=== PATIENT | male | born 1955 | race Caucasian/White ===

== ENCOUNTER 2017-02-25 02:26 | Inpatient (IN) | payer MEDICARE ==
[2017-02-25] MEDS ORDERED: Lorazepam 2 MG/ML VIAL ONE ×3 (02:58→03:22)
[2017-02-25 03:13] LABS: Hematocrit 21.8 % (42.0-52.0); Mean Platelet Volume 5.6 fL (7.4-10.4)
[2017-02-25 03:15] LABS: ALT (SGPT) 11 U/L (8-55); AST (SGOT) 31 U/L (5-34); Acetaminophen Less than 6.0 mcg/mL (10.0-30.0); Alkaline Phosphatase 99 U/L (40-150); Anion Gap 24 mmol/L (10-20); BUN (Urea Nitrogen) 47 mg/dL (8.4-25.7); Bilirubin, Total Less than 0.2 mg/dL (0.2-1.2); CK (CPK) 41 U/L (30-200); Calc. Creatinine Clearance 0 mL/min (70-130); Calcium 10.1 mg/dL (7.8-10.44); Carbon Dioxide 23 mmol/L (23-31); Chloride 88 mmol/L (98-107); Estimated GFR-MDRD 16; Globulin 5.7 g/dL (2.4-3.5); Protein, Total 8.6 g/dL (5.8-8.1); Salicylate Less than 8.0 mg/dL (15.0-30.0)
[2017-02-25 03:29] LABS: Troponin I 0.021 ng/mL (< 0.028)
[2017-02-25 03:31] LABS: Band 6 % (5-11); Hypochromia SLIGHT = 6-15 cells (100X) (0-5/hpf); Metamyelocyte 1 % (0-0); Myelocyte 3 % (0-0); Neutrophil 77 % (42-75); Polychromasia SLIGHT = 2-3 cells (100X) (0-2/hpf); White Blood Cell (WBC) Count 28.1 thou/uL (4.8-10.8)
[2017-02-25 04:01] LABS: Oxyhemoglobin 95.8 % (94.0-97.0); Sodium 130 mmol/L (135-148)
[2017-02-25 04:04] LABS: Modified Allen's Test POSITIVE; Vent NO
[2017-02-25 04:05] LABS: Mode RA
[2017-02-25 04:10] LABS: Glucose, Urine (Dipstick) 100 mg/dL (Negative); Ketone, Urine Negative (Negative); Nitrite Negative (Negative); Protein, Urine (Dipstick) 100 mg/dL (Neg-Trace); Urobilinogen 0.2 mg/dL (0.2-1.0)
[2017-02-25 04:11] LABS: Bilirubin Negative (Negative); Blood, Urine Large (Negative)
[2017-02-25] MEDS ORDERED: Piperacillin/Tazobactam 3.375 GM in Sodium Chloride 0.9% 100 ML IVPB SCH (04:15)
[2017-02-25 04:24] LABS: Bacteria/HPF None Seen HPF (None Seen)
[2017-02-25 04:33] LABS: Amphetamine Not Detected (NotDetected); Methadone Not Detected (NotDetected); Methamphetamine Not Detected (NotDetected)
[2017-02-25 04:39] LABS: Lactic Acid - Sepsis 5.2 mmol/L (0.5-2.2)
[2017-02-25 04:39] LABS: RBC/HPF GREATER THAN 50-TNTC HPF (0-3)
[2017-02-25 04:40] LABS: Renal Epithelial None Seen HPF (0-3); Transitional Epithelial 0-3 HPF (0-3); Yeast-All Forms None Seen HPF (None Seen)
[2017-02-25 04:41] LABS: Hyaline Casts/LPF NONE SEEN LPF (0-3 Hyaline)
[2017-02-25] MEDS ORDERED: Acetaminophen 325 MG TAB PO PRN (05:41)
--- NOTE | 2017-02-25 05:41 | PDOC.EVN ---
Event Note - Event Note Event Note: [id number] h&p dictated 1. Sepsis 2. Hematuria 3. Encephalopathy 4.DM type 2 see order
[2017-02-25] MEDS ORDERED: Dextrose 50% Abboject 50 ML SYRINGE SLOW IVP PRN (05:49)
[2017-02-25] MEDS ORDERED: Dextrose 5% in Water 1,000 ML IV PRN (05:49)
[2017-02-25] MEDS ORDERED: HumaLOG 300 UNITS/3 ML VIAL SC PRN (05:49)
[2017-02-25 06:52] LABS: Troponin I 0.011 ng/mL (< 0.028)
--- NOTE | 2017-02-25 08:27 | PDOC.PN ---
- Subjective Encounter Start Date: 02/25/17 Encounter Start Time: 08:21 Subjective: endlessly hollering HELP, wasts to go to [facility] - Objective MAR Reviewed: Yes Vital Signs & Weight: Vital Signs (12 hours) Temp 02/25/17 07:05 98.1 F 02/25/17 06:36 98.3 F Most Recent Monitor Data Heart Rate from ECG 103 NIBP 131/60 Respiration from ECG 23 I&O: 02/24/17 02/25/17 02/26/17 06:59 06:59 06:59 Intake Total 0 Balance 0 Result Diagrams: 02/25/17 02:40 02/25/17 02:40 Additional Labs: Accuchecks 02/25/17 06:17 POC Glucose 297 H Radiology Reviewed by me: Yes (cxr- R pleural effusion) Phys Exam - Physical Examination Constitutional: NAD Neck: no JVD dull R base, good BS ant Cardiovascular: RRR, no significant murmur Gastrointestinal: soft, positive bowel sounds Musculoskeletal: edema present Dx/Plan (1) Sepsis Code(s): A41.9 - SEPSIS, UNSPECIFIED ORGANISM Status: Acute Qualifiers: Sepsis type: sepsis due to unspecified organism Qualified Code(s): A41.9 - Sepsis, unspecified organism (2) Acute renal failure Status: Acute Qualifiers: Acute renal failure type: unspecified Qualified Code(s): N17.9 - Acute kidney failure, unspecified (3) Pleural effusion Code(s): J90 - PLEURAL EFFUSION, NOT ELSEWHERE CLASSIFIED Status: Acute (4) DM type 2 (diabetes mellitus, type 2) Status: Chronic Qualifiers: Diabetes mellitus complication status: with kidney complications Diabetes mellitus complication detail: with other kidney complication (5) Cardiomyopathy Code(s): I42.9 - CARDIOMYOPATHY, UNSPECIFIED Status: Chronic Qualifiers: Cardiomyopathy type: unspecified Qualified Code(s): I42.9 - Cardiomyopathy , unspecified (6) Lactic acidosis Code(s): E87.2 - ACIDOSIS Status: Acute (7) CVA, old, hemiparesis Code(s): I69.359 - HEMIPLGA FOLLOWING CEREBRAL INFARCTION AFFECTING UNSP SIDE Status: Chronic (8) Anemia Code(s): D64.9 - ANEMIA, UNSPECIFIED Status: Acute Qualifiers: Anemia type: unspecified type Qualified Code(s): D64.9 - Anemia, unspecified - Plan cultures in progress- cont iv antibx -: accu/ss. cont iv fluids -: BNP, ECHO, performance improvement coordinator consult -: PRBC infusion in progress, STEWARD anemia * .
[2017-02-25] MEDS: Folic Acid 1 MG TAB PO SCH ×2 (09:00→09:32)
[2017-02-25] MEDS: Finasteride 5 MG TAB PO SCH (09:00)
--- NOTE | 2017-02-25 09:15 | RAD ---
AP VIEW CHEST: HISTORY: This 61-year-old presents with a history of chest pain. FINDINGS: AP view chest was obtained. AP view chest demonstrates radiopaque metallic fragments of the left chest. A loculated right-sided pleural fluid collection is seen. This was not present on the patient's pre vious chest radiograph from 09/17/13; however, this chest radiograph is unchanged since the previous comparison radiograph from [facility] from 2 days earlier. No evidence of right -sided pneumothorax is seen. POS: H
[2017-02-25] MEDS: Heparin 5,000 UNITS/ML VIAL SC SCH ×3 (09:29→21:05)
[2017-02-25] MEDS: Vancomycin HCl 1 GM in Premix Bag 1 BAG IVPB SCH (10:16)
[2017-02-25 10:38] VITALS: BMI 28.8
--- NOTE | 2017-02-25 11:09 | HP ---
DATE OF ADMISSION: 02/25/2017 CHIEF COMPLAINT: Confusion. HISTORY OF PRESENT ILLNESS: The patient is a 61-year-old male with past medical of chronic indwelli ng Chavez catheter, diabetes mellitus type 2, CVA, hypertension, hyperlipidemia, on pain medications as an outpatient, now brought to the hospital because of the confusion. History until obtained from the ED physician and from the EMS report, as the patient is completely confused at this time. Acco rding to them, the patient was calling 911 the whole day requesting for help. When 911 went, the pa tiehair was found to be confused, when asphalt paving foreman went, the patient was found to be confused, so the patient was brought to the ER. Upon ER arrival, the patient is confused with elevated blood sugars and als o has some nose bleeds, so the patient is currently getting admitted. The patient denies any chest pain, denies any trouble breathing, but complains of some nosebleeds. While the stay, the patient a ppears hallucinating, denies any other complaints at this time. PAST MEDICAL HISTORY: CKD stage 3-4 with baseline creatinine around 4-5 in the past, diabetes melli tus type 2, CVA, hypertension, hyperlipidemia, and chronic indwelling Chavez catheter. PAST SURGICAL HISTORY: Back surgery and hernia repair. ALLERGIES: No known drug allergies. SOCIAL HISTORY: Per records, positive for smoking. No other social history available at this time. FAMILY HISTORY: None available from the patient as the patient is currently confused. PHYSICAL EXAMINATION: VITAL SIGNS: At the time of H\T\P performed, blood pressure is 140/90, heart rate of 101, and pulse ox 100%. GENERAL APPEARANCE: The patient is awake, not oriented. HEENT: Denies patent. Positive for cluster blood seen in the nose. Oral cavity, poor dentition. NECK: Supple, no JVD. CARDIOVASCULAR: S1, S2 present. No murmurs, no rubs, no gallops. RESPIRATORY: No wheezing, no rhonchi. Diminished at the bases. GASTROINTESTINAL: Abdomen is soft and nontender, no guarding. MUSCULOSKELETAL: Extremity positive for pedal edema present. PSYCHIATRIC: Mood calm. CRANIAL NERVOUS SYSTEM: Awake, not follows all commands. Not oriented. INTEGUMENT: No rashes seen. LABORATORY DATA: At the time of H\T\P performed, sodium 130, potassium 4.6, chloride 88, CO2 of 23, BUN of 47, creatinine 3.75, lactic acid 5.2, glucose 333, ammonia 25. Serum protein 8.6, albumin 2 .9, lipase less than 4. White count 28.1, hemoglobin 6.8, platelet count 855. Blood gas showed pH 7.54, pCO2 of 34, pO2 of 60, bicarbonate 28.2. Urine greater than 52, numerous rbc's, wbc's 11-20, large blood seen. Urine drug screen positive for opiates, oxycodone, and benzos. ASSESSMENT AND PLAN: The patient is 61-year-old male. 1. Sepsis, source unknown. Plan to start the patient on broad spectrum antibiotics. 2. Possibility of pneumonia seen on the chest x-ray. We will go ahead and we will send his blood c ultures and urine culture and sensitivity and we will follow the patient closely. 3. Acute anemia, chronic. Etiology unclear. Stool occult blood is negative. We will go ahead and check CT abdomen to rule out any bleeding. We will consult Urology for crossmatch for hematuria al so. We will type and cross and transfuse 1 unit of PRBCs. 3. Diabetes mellitus type 2, uncontrolled. Monitor blood sugars. We will do insulin sliding scale . 4. Metabolic alkalosis and respiratory alkalosis also. We will monitor bicarbonate levels closely. Repeat BMP in a.m. 5. Lactic acidosis, probably secondary to sepsis. Monitor serial lactate levels. 6. History of cerebrovascular accident. CT head, no acute disease seen. We will consult Neurology to evaluate the patient. 7. Acute kidney injury versus chronic kidney disease. Monitor creatinine closely, IV fluids, repea t BMP in a.m. We will consult Nephrology to evaluate the patient also. The case was discussed in detail with the patient and the patient's family.
[2017-02-25 12:38] LABS: Troponin I 0.056 ng/mL (< 0.028)
[2017-02-25] MEDS: Sodium Chloride 0.9% 1,000 ML IV SCH ×2 (13:00→15:56)
[2017-02-25] MEDS ORDERED: Ziprasidone 20 MG VIAL IM PRN (15:23)
[2017-02-25] MEDS ORDERED: Sterile Water 10 ML VIAL FS PRN (15:23)
--- NOTE | 2017-02-25 15:49 | CT ---
PRELIMINARY REPORT/[facility]/EMERGENCY AFTER HOURS PROCEDURE: EXAM: CT Head Without Intravenous Contrast CLINICAL HISTORY: 61 years old, male; Signs and symptoms; Altered mental status/memory loss; Confusion or disorientati on; Patient HX: Pt brought in for med clearance by police for medical clearance after being arrested for ems abuse after calling 911 aprox 35 times and then refusing treatment. On inquiry pt states he thought he was going to because he was thinking of hurting himself. ; Additional info: *scan do ne helical, pt uncooperative TECHNIQUE: Axial computed tomography images of the head/brain without intravenous contrast. COMPARISON: No relevant prior studies available. FINDINGS: Brain: Mild volume loss No hemorrhage. Mild white matter disease. No edema. Ventricles: Unremarkable. No ventriculomegaly. Bones/joints: Unremarkable. No acute fracture. Soft tissues: Unremarkable. Sinuses: Unremarkable as visualized. No acute sinusitis. Mastoid air cells: Unremarkable as visualized. No mastoid effusion. IMPRESSION: No intracranial hemorrhage.Please see discussion above. Thank you for allowing us to participate in the care of your patient. Dictated and Authenticated by: Willie Mo MD 02/25/2017 3:11 AM Central Time ([place] \T\ [place]) FINAL REPORT CT BRAIN: HISTORY: Altered mental status. FINDINGS: Noncontrast-enhanced CT images of the brain were obtained. The brain is unremarkable. No evidence of intracranial masses, hemorrhages, strokes, or contusions seen. I concur with the dictation from [facility]. No evidence of acute intracranial pathology is seen. POS: [facility]
--- NOTE | 2017-02-25 15:52 | CT ---
PRELIMINARY REPORT/[facility]/EMERGENCY AFTER HOURS PROCEDURE: EXAM: CT Abdomen and Pelvis Without Intravenous Contrast CLINICAL HISTORY: 61 years old, male; Injury or trauma and abnormal findings; Fall; Initial encounter; Abnormal lab te st; Other: Anemia; Abrasion; Prior surgery; Surgery type: Surgical history of hernia repair, surgica l history of orthopedic surgery, back SX. Unable to verify d/t AMS 02/2417. ; Patient HX: Pt anemic, po ssible fall; Pt brought in for med clearance by police for medical clearance after being arrested fo r ems abuse after calling 911 aprox 35 times and then refusing treatment. TECHNIQUE: Axial computed tomography images of the abdomen and pelvis without intravenous contrast. Coronal and sagittal reformatted images were created and reviewed. COMPARISON: No relevant prior studies available. FINDINGS: Lower thorax: Moderate right pleural effusion/hemothorax. Air fluid level in the right lower lobe ma y represent pulmonary laceration or airway injury. Shrapnel underlying the left ninth rib posteriorl y may be related to remote injury. ABDOMEN: Liver: Unremarkable. Gallbladder and bile ducts: Calcified gallstones. No ductal dilation. Pancreas: Unremarkable. No ductal dilation. Spleen: Unremarkable. No splenomegaly. Adrenals: Left adrenal adenoma measuring approximately 817 mm cyst. Kidneys and ureters: Right renal calculi measuring up to 3 mm. No hydronephrosis. Stomach and bowel: Large stool No obstruction. No mucosal thickening. Appendix: No findings to suggest acute appendicitis. PELVIS: Bladder: Partially decompressed by a suprapubic catheter Reproductive: Unremarkable as visualized. ABDOMEN and PELVIS: Intraperitoneal space: Unremarkable. No free air. No significant fluid collection. Bones/joints: No acute fracture. No dislocation. Chronic appearing left-sided transverse process fra ctures. Degenerative changes in the pelvis and lumbar spine. Discontinuity in the L4-L5 anterior norman dging osteophyte Soft tissues: Unremarkable. Vasculature: Unremarkable. No abdominal aortic aneurysm. Lymph nodes: Unremarkable. No enlarged lymph nodes. IMPRESSION: Moderate right pleural effusion/hemothorax. Air fluid level in the right lower lobe which may repres ent injured airway versus laceration. Abscess not completely occluded. Further evaluation recommende d No definite solid organ injury noted. Discontinuous osteophyte at L4-L5 anteriorly. Fracture/injury cannot be completely clipped. Consider MRI if clinically indicated Presumed chronic left-sided transverse process fractures Question remote left hemithorax injury with shrapnel as described Thank you for allowing us to participate in the care of your patient. Dictated and Authenticated by: Willie Mo MD 02/25/2017 6:02 AM Central Time ([place] \T\ [place]) FINAL REPORT NONCONTRAST ENHANCED CT IMAGES ABDOMEN AND PELVIS: HISTORY: Fall. Anemia. Confusion. FINDINGS: Final report. Preliminary exam was performed by [facility]. I concur with the dictation from [facility]. There is a right-sided pleural effusion with lo culations. No evidence of pneumothorax is seen. A suprapubic catheter is in place. L3-4 and L4-5 multilevel lumbar degenerative changes seen. No acute intraabdominal abnormality is seen. Also noted are some gallstones. Tiny bilateral renal calculi which are nonobstructing also are pres ent. POS: [facility]
[2017-02-25] MEDS: Piperacillin/Tazobactam 4.5 GM in Sodium Chloride 0.9% 100 ML IVPB SCH (16:51)
[2017-02-25] MEDS: HumaLOG 300 UNITS/3 ML VIAL SC PRN ×2 (16:59→22:18)
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
--- NOTE | 2017-02-25 19:58 | CON ---
NEUROLOGY CONSULTATION CONSULTING PHYSICIAN: Hospitalist Service. DATE OF CONSULTATION: 02/25/2017 IMPRESSION: 1. Agitated delirium secondary to ongoing illnesses. 2. Prior stroke with right hemiparesis. PLAN: 1. Address medical issues including hypoxemia and sepsis. 2. Geodon 40 mg IM, q.p.m. for agitation. HISTORY OF PRESENT ILLNESS: Mr. Correa is a 61-year-old man, who reportedly lives at home despit e a prior stroke in 2013. He is wheelchair bound. He apparently was calling the police repeatedly and was found to be acting appropriately. He was brought to the hospital. His evaluation has shown an elevated white count of 28,000 with a left shift. There is a pleural fluid present on his CT sc an of the chest. His pO2 was 60. He has been afebrile. He has been restrained in the Intensive Ca re Unit. He is threatening my life if I would not on time from his bed. He had a CT scan of the br ain done which did not show any acute abnormalities. PAST MEDICAL HISTORY: Otherwise, limitedly available including diabetes and anemia. ALLERGIES: None reported. SOCIAL HISTORY: Unknown, although his drug screen was positive for opiates. FAMILY HISTORY: Not obtainable. REVIEW OF SYSTEMS: He complains of back pain. PHYSICAL EXAMINATION: VITAL SIGNS: Pulse 100, respirations 24. He is afebrile. HEENT: Pupils were equal. Conjunctivae were clear. Oropharynx is clear. NEUROLOGIC: Lying in bed, awake, but keeps his eyes closed. His speech is fluent and clear. Motor exam shows a spastic right hemiparesis. His left arm is tied down to the bed. Plantar responses u pgoing on the right, downgoing on the left. No abnormal movements were seen. EKG shows sinus tachycardia. SUMMARY: This is an elderly man with multiple medical issues ongoing at this point, most of which a re Pulmonary in origin, which I think are contributing to his altered mental status. There is proba tommy a history of chronic narcotic use, superimposed on this, but he did not appear to be in overt wi thdrawal at this point. I would address his agitation with Geodon and hopefully this situation will settle down as no other problems are addressed.
[2017-02-25] MEDS: Pravastatin Sodium 20 MG TAB PO SCH (21:13)
[2017-02-26 04:23] LABS: %Eosinophils 0.5 % (0.0-10.0); %Monocytes 6.4 % (0.0-10.0); Mean Platelet Volume 5.3 fL (7.4-10.4); Red Blood Cell (RBC) Count 2.89 mill/uL (4.70-6.10); White Blood Cell (WBC) Count 22.4 thou/uL (4.8-10.8)
[2017-02-26 04:24] LABS: #Eosinphils 0.1 thou/uL (0.0-0.7); #Lymphocytes 1.4 thou/uL (1.20-3.40); #Monocytes 1.4 thou/uL (0.11-0.59); #Neutrophils 19.5 thou/uL (1.40-6.50); %Basophils 0.1 % (0.0-1.0)
[2017-02-26] MEDS: Sodium Chloride 0.9% 1,000 ML IV SCH ×2 (04:30→15:02)
[2017-02-26] MEDS: Piperacillin/Tazobactam 4.5 GM in Sodium Chloride 0.9% 100 ML IVPB SCH ×2 (04:30→15:02)
[2017-02-26 04:45] LABS: Anion Gap 13 mmol/L (10-20); BUN (Urea Nitrogen) 37 mg/dL (8.4-25.7); Calc. Creatinine Clearance 32 mL/min (70-130); Carbon Dioxide 25 mmol/L (23-31); Chloride 102 mmol/L (98-107); Estimated GFR-MDRD 20
[2017-02-26] MEDS: HumaLOG 300 UNITS/3 ML VIAL SC PRN (06:34)
--- NOTE | 2017-02-26 07:37 | PRG ---
DATE OF SERVICE: 02/26/2017 SUBJECTIVE: The patient is sedated. Urology has seen the patient. The patient apparently has history of substance abuse, on Geodon he is sedated, verbally responsive. PHYSICAL EXAMINATION: VITAL SIGNS: Stable, afebrile. I's and O's 1267 in, 3975 out. Urine is silvio pink tinged. LABORATORY DATA: White count is decreased from 28-22,000 hemoglobin 8.0 from 6.7. Creatinine improved from 3.7-3.2. Urine culture preliminary negative. ABDOMEN: Soft. Suprapubic tube is appropriately positioned and secured. IMPRESSION AND PLAN: Mr. Araujo is a 61-year-old male with history of: 1. Cerebrovascular accident. 2. Diabetes. 3. History of right renal cell carcinoma, status [facility]. 4. History of diabetic cystopathy, chronic retention, followed by Dr. Galarza and underwent suprapubic tube placement in 2010. The patient presented with belligerent behavior, verbally abusive. He is sedated on Geodon. SP tube was exchanged yesterday at bedside 20 Slovenian 30 mL. 5. Chronic renal insufficiency, with some improvement with fluids. Continue broad spectrum antibiotic therapy per primary service. Urine culture is negative. I do expect urine culture to be colonized given history of chronic suprapubic tube. Case management for social evaluation, would be prudent as his social history is vague. 6. History of pleural effusion managed by primary service. [facility]
[2017-02-26] MEDS: Finasteride 5 MG TAB PO SCH (08:49)
[2017-02-26] MEDS: Folic Acid 1 MG TAB PO SCH (08:49)
[2017-02-26] MEDS: Vancomycin HCl 1 GM in Premix Bag 1 BAG IVPB SCH (08:50)
[2017-02-26] MEDS: Heparin 5,000 UNITS/ML VIAL SC SCH ×3 (08:50→20:10)
--- NOTE | 2017-02-26 10:54 | PDOC.PN ---
- Subjective Encounter Start Date: 02/26/17 Encounter Start Time: 10:52 Subjective: calm, sleepy - Objective MAR Reviewed: Yes Vital Signs & Weight: Vital Signs (12 hours) Temp Pulse Resp Pulse Ox 02/26/17 07:30 98.5 F 85 19 99 02/26/17 07:27 97 02/26/17 07:00 98.5 F 02/26/17 04:00 98.6 F 02/26/17 00:00 98.6 F Weight Weight 212 lb 8.41 oz Most Recent Monitor Data Heart Rate from ECG 92 NIBP 157/67 NIBP BP-Mean 90 Respiration from ECG 19 SpO2 97 I&O: 02/25/17 02/26/17 02/27/17 06:59 06:59 06:59 Intake Total 0 1267 440 Output Total 3975 345 Balance 0 -2708 95 Result Diagrams: 02/26/17 04:04 02/26/17 04:04 Additional Labs: Accuchecks 02/26/17 02/25/17 02/25/17 06:28 21:53 15:55 POC Glucose 177 H 211 H 183 H Phys Exam - Physical Examination Constitutional: NAD Neck: no JVD clear ant berry Cardiovascular: RRR, no significant murmur Gastrointestinal: soft, positive bowel sounds Musculoskeletal: edema present Dx/Plan (1) Sepsis Code(s): A41.9 - SEPSIS, UNSPECIFIED ORGANISM Status: Acute Qualifiers: Sepsis type: sepsis due to unspecified organism Qualified Code(s): A41.9 - Sepsis, unspecified organism (2) Acute renal failure Status: Acute Qualifiers: Acute renal failure type: unspecified Qualified Code(s): N17.9 - Acute kidney failure, unspecified (3) Pleural effusion Code(s): J90 - PLEURAL EFFUSION, NOT ELSEWHERE CLASSIFIED Status: Acute (4) DM type 2 (diabetes mellitus, type 2) Status: Chronic Qualifiers: Diabetes mellitus complication status: with kidney complications Diabetes mellitus complication detail: with other kidney complication (5) Cardiomyopathy Code(s): I42.9 - CARDIOMYOPATHY, UNSPECIFIED Status: Chronic Qualifiers: Cardiomyopathy type: unspecified Qualified Code(s): I42.9 - Cardiomyopathy , unspecified (6) Lactic acidosis Code(s): E87.2 - ACIDOSIS Status: Acute (7) CVA, old, hemiparesis Code(s): I69.359 - HEMIPLGA FOLLOWING CEREBRAL INFARCTION AFFECTING UNSP SIDE Status: Chronic (8) Anemia Code(s): D64.9 - ANEMIA, UNSPECIFIED Status: Acute Qualifiers: Anemia type: unspecified type Qualified Code(s): D64.9 - Anemia, unspecified - Plan acidosis resolved, creatinine improved, anemia STEWARD pending -: cont iv fluids. C&S neg , cint iv antibx for now * .
[2017-02-26 11:35] LABS: Iron 11 ug/dL (65-175)
[2017-02-26] MEDS: Pravastatin Sodium 20 MG TAB PO SCH (20:10)
[2017-02-27] MEDS: HYDROcodone/Acetaminophen 5/325 mg Tablet PO PRN ×4 (00:37→21:39)
[2017-02-27] MEDS: Sodium Chloride 0.9% 1,000 ML IV SCH ×3 (03:38→14:21)
[2017-02-27] MEDS: Piperacillin/Tazobactam 4.5 GM in Sodium Chloride 0.9% 100 ML IVPB SCH ×2 (03:40→16:17)
[2017-02-27] MEDS ORDERED: Hyoscyamine Sulfate SL 0.125 mg Tablet SL PRN (05:17)
[2017-02-27] MEDS: Hyoscyamine Sulfate SL 0.125 mg Tablet SL PRN ×2 (06:43→12:47)
[2017-02-27 09:08] LABS: Anion Gap 13 mmol/L (10-20); BUN (Urea Nitrogen) 33 mg/dL (8.4-25.7); Calc. Creatinine Clearance 32 mL/min (70-130); Calcium 8.6 mg/dL (7.8-10.44); Carbon Dioxide 22 mmol/L (23-31); Chloride 104 mmol/L (98-107); Estimated GFR-MDRD 20
[2017-02-27] MEDS: Folic Acid 1 MG TAB PO SCH (09:09)
[2017-02-27] MEDS: Heparin 5,000 UNITS/ML VIAL SC SCH ×3 (09:10→21:39)
[2017-02-27] MEDS: Finasteride 5 MG TAB PO SCH (09:10)
[2017-02-27 09:31] LABS: Vancomycin, Trough 30.2 ug/mL
[2017-02-27 09:41] LABS: #Eosinphils 0.2 thou/uL (0.0-0.7); #Lymphocytes 1.6 thou/uL (1.20-3.40); #Monocytes 1.4 thou/uL (0.11-0.59); #Neutrophils 19.6 thou/uL (1.40-6.50); %Basophils 0.1 % (0.0-1.0); %Eosinophils 0.9 % (0.0-10.0); %Lymphocytes 7.1 % (21.0-51.0); %Monocytes 5.9 % (0.0-10.0); Hematocrit 22.5 % (42.0-52.0); Mean Platelet Volume 5.5 fL (7.4-10.4); White Blood Cell (WBC) Count 22.8 thou/uL (4.8-10.8)
[2017-02-27 09:59] LABS: Band 11 % (5-11); Neutrophil 75 % (42-75); Polychromasia MODERATE = 3-4 cells (100X) (0-2/hpf); Toxic Granulation SLIGHT
[2017-02-27] MEDS: Vancomycin HCl 1 GM in Premix Bag 1 BAG IVPB SCH (09:59)
[2017-02-27] MEDS ORDERED: VANCOMYCIN IVPB PRN (10:01)
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
--- NOTE | 2017-02-27 15:00 | PDOC.PN ---
- Subjective Encounter Start Date: 02/27/17 Encounter Start Time: 14:20 Subjective: awake, oriented well -: no sob - Objective MAR Reviewed: Yes Vital Signs & Weight: Vital Signs (12 hours) Temp Pulse Resp BP Pulse Ox 02/27/17 12:00 98.8 F 103 H 18 164/67 H 95 02/27/17 08:00 98.4 F 85 18 133/67 99 Weight Weight 212 lb 8.41 oz Most Recent Monitor Data Heart Rate from ECG 92 NIBP 157/67 NIBP BP-Mean 90 Respiration from ECG 19 SpO2 97 I&O: 02/26/17 02/27/17 02/28/17 06:59 06:59 06:59 Intake Total 6380 247 6866 Output Total 7749 5283 4180 Balance -0738 -2335 230 Result Diagrams: 02/27/17 08:25 02/27/17 08:25 Additional Labs: Accuchecks 02/27/17 02/26/17 02/26/17 06:47 20:18 17:27 POC Glucose 117 H 164 H 146 H 02/26/17 16:08 POC Glucose 125 H Phys Exam - Physical Examination HEENT: PERRLA, sclera anicteric Neck: no JVD, supple Respiratory: no wheezing, no rales Cardiovascular: RRR, no significant murmur Gastrointestinal: soft, non-tender, positive bowel sounds spc+ Musculoskeletal: no edema, pulses present Neurological: non-focal, moves all 4 limbs Psychiatric: A&O x 3 Dx/Plan (1) Acute metabolic encephalopathy Code(s): G93.41 - METABOLIC ENCEPHALOPATHY Status: Acute (2) Acute renal failure Status: Acute Qualifiers: Acute renal failure type: unspecified Qualified Code(s): N17.9 - Acute kidney failure, unspecified (3) Sepsis Code(s): A41.9 - SEPSIS, UNSPECIFIED ORGANISM Status: Acute Qualifiers: Sepsis type: sepsis due to unspecified organism Qualified Code(s): A41.9 - Sepsis, unspecified organism (4) Anemia Code(s): D64.9 - ANEMIA, UNSPECIFIED Status: Chronic Qualifiers: Anemia type: unspecified type Qualified Code(s): D64.9 - Anemia, unspecified (5) CVA, old, hemiparesis Code(s): I69.359 - HEMIPLGA FOLLOWING CEREBRAL INFARCTION AFFECTING UNSP SIDE Status: Chronic Comment: right hemiparesis (6) Cardiomyopathy Code(s): I42.9 - CARDIOMYOPATHY, UNSPECIFIED Status: Chronic Qualifiers: Cardiomyopathy type: unspecified Qualified Code(s): I42.9 - Cardiomyopathy , unspecified (7) DM type 2 (diabetes mellitus, type 2) Status: Chronic Qualifiers: Diabetes mellitus complication status: with kidney complications Diabetes mellitus complication detail: with other kidney complication (8) Cerebrovascular accident (stroke) Code(s): I63.9 - CEREBRAL INFARCTION, UNSPECIFIED Status: Chronic Comment: old right hemiparesis (9) UTI (urinary tract infection) Status: Acute Qualifiers: Urinary tract infection type: catheter-associated UTI Indwelling urinary catheter type: cystostomy catheter Encounter type: subsequent encounter Qualified Code(s): T83.510D - Infection and inflammatory reaction due to cystostomy catheter, subsequent encounter; N39.0 - Urinary tract infection, site not specified - Plan is on levaquin, vanc and zosyn -: encephalopathy is resolving -: Patient has not seen any PCP from last 3 yrs now, is getting his scripts vi -: -a 's office. Outpt f/u with Dr.Michael Gaming -: will need swing bed, has deconditioning. * . Review of Systems - Medications/Allergies Allergies/Adverse Reactions: Allergies Allergy/AdvReac Type Severity Reaction Status Date / Time No Known Drug Allergies Allergy Verified 04/20/14 10:46 Medications: Current Medications Acetaminophen (Tylenol) 650 mg PO Q4H PRN PRN Reason: Headache/Fever or Pain Hydrocodone Bitart/Acetaminophen (Roy 5/325) 1 tab PO Q4H PRN PRN Reason: Moderate Pain (4-6) Last Admin: 02/27/17 10:43 Dose: 1 tab Dextrose/Water (Dextrose 50%) 25 gm SLOW IVP PRN PRN PRN Reason: Hypoglycemia Finasteride (Proscar) 5 mg PO DAILY [facility] Last Admin: 02/27/17 09:10 Dose: 5 mg Folic Acid (Folvite) 1 mg PO DAILY [facility] Last Admin: 02/27/17 09:09 Dose: 1 mg Glucagon (Glucagon) 1 mg IM PRN PRN PRN Reason: Hypoglycemia Heparin Sodium (Porcine) (Heparin) 5,000 units SC TID [facility] Last Admin: 02/27/17 14:22 Dose: 5,000 units Hyoscyamine Sulfate (Levsin Sl) 0.125 mg SL Q6H PRN PRN Reason: Bladder Spasms Last Admin: 02/27/17 12:47 Dose: 0.125 mg Dextrose/Water (D5w) 1,000 mls @ 0 mls/hr IV .Q0M PRN; As Directed PRN Reason: Hypoglycemia Levofloxacin 750 mg/ Device 150 mls @ 100 mls/hr IVPB Q48H [facility] Last Admin: 02/26/17 06:00 Dose: 150 mls Sodium Chloride (Normal Saline 0.9%) 1,000 mls @ 100 mls/hr IV .Q10H [facility] Last Admin: 02/27/17 14:21 Dose: 1,000 mls Piperacillin Sod/Tazobactam (Sod 4.5 gm/ Sodium Chloride) 100 mls @ 200 mls/hr IVPB 0400,1600 [facility] Last Admin: 02/27/17 03:40 Dose: 100 mls Vancomycin HCl 500 mg/ Sodium (Chloride) 100 mls @ 100 mls/hr IVPB .PENDING LEVEL <20 [facility] Insulin Human Lispro (Humalog) 0 units SC .MODERATE SLIDING SC PRN PRN Reason: Moderate Correctional Scale Last Admin: 02/26/17 06:34 Dose: 2 unit Insulin Human Lispro (Humalog) 0 units SC .BEDTIME SLIDING SC PRN PRN Reason: Bedtime Correctional Scale Miscellaneous Medication (Pharmacy To Dose) 1 each IVPB PRN PRN PRN Reason: PHARMACY TO DOSE Ondansetron HCl (Zofran) 4 mg IVP Q6H PRN PRN Reason: Nausea/Vomiting Pravastatin Sodium (Pravachol) 20 mg PO HS [facility] Last Admin: 02/26/17 20:10 Dose: 20 mg Sterile Water (Water For Injection) 10 ml FS Q12H PRN PRN Reason: TO RECONSTITUTE ZIPRASIDONE Ziprasidone (Geodon) 40 mg IM Q12H PRN PRN Reason: Agitation Last Admin: 02/25/17 21:05 Dose: 40 mg
[2017-02-27] MEDS: Pravastatin Sodium 20 MG TAB PO SCH (21:39)
[2017-02-28] MEDS: Sodium Chloride 0.9% 1,000 ML IV SCH ×2 (01:42→15:05)
[2017-02-28] MEDS: Ondansetron HCl/PF 4 MG/2 ML Vial IVP PRN ×2 (01:43→20:07)
[2017-02-28] MEDS: HYDROcodone/Acetaminophen 5/325 mg Tablet PO PRN ×4 (01:43→20:05)
[2017-02-28] MEDS: Piperacillin/Tazobactam 4.5 GM in Sodium Chloride 0.9% 100 ML IVPB SCH ×2 (04:27→15:00)
[2017-02-28 05:53] LABS: #Eosinphils 0.1 thou/uL (0.0-0.7); #Lymphocytes 1.7 thou/uL (1.20-3.40); #Monocytes 1.5 thou/uL (0.11-0.59); #Neutrophils 21.5 thou/uL (1.40-6.50); %Eosinophils 0.5 % (0.0-10.0); %Lymphocytes 6.9 % (21.0-51.0); %Monocytes 6.2 % (0.0-10.0); Hematocrit 24.5 % (42.0-52.0); Mean Platelet Volume 5.3 fL (7.4-10.4); Red Blood Cell (RBC) Count 2.81 mill/uL (4.70-6.10); White Blood Cell (WBC) Count 24.9 thou/uL (4.8-10.8)
[2017-02-28 06:13] LABS: Anion Gap 15 mmol/L (10-20); BUN (Urea Nitrogen) 35 mg/dL (8.4-25.7); Calc. Creatinine Clearance 33 mL/min (70-130); Calcium 8.8 mg/dL (7.8-10.44); Carbon Dioxide 20 mmol/L (23-31); Chloride 105 mmol/L (98-107); Estimated GFR-MDRD 21
[2017-02-28 08:17] LABS: Vancomycin, Random 21.1 ug/mL (See Comment)
[2017-02-28] MEDS: Finasteride 5 MG TAB PO SCH (08:32)
[2017-02-28] MEDS: Folic Acid 1 MG TAB PO SCH (08:32)
[2017-02-28] MEDS: Heparin 5,000 UNITS/ML VIAL SC SCH ×3 (08:33→20:06)
[2017-02-28] MEDS ORDERED: Vancomycin HCl 500 MG in Sodium Chloride 0.9% 100 ML IVPB SCH ×2 (09:00)
[2017-02-28] MEDS ORDERED: Epoetin (ESRD) 20,000 UNITS/ML SC SCH (09:30)
--- NOTE | 2017-02-28 09:41 | CON ---
DATE OF CONSULTATION: 02/28/2017 HISTORY OF PRESENT ILLNESS: Mr. Araujo is a 61-year-old white male with chronic renal failure se condary to hypertensive nephropathy/diabetic nephropathy. He was admitted here for confusion. He w as empirically treated with some antibiotics and given volume repletion. We are being consulted for his chronic renal failure. Please note this patient was recently admitted about a week ago at [facility]. He was also admitted for a UTI and confusion at that time. We saw the patient and at that josephine e creatinine was noted to be about 3.9 and he was given volume repletion. However, he was discharge d ? AMA. He was very belligerent and uncooperative with the medical staff at [facility]. We are now being reconsulted for his chronic renal failure. According to the patient he is feeling much better. He is mentating well. REVIEW OF SYSTEMS: No chest pain, decreased leg edema, no nausea, no vomiting, no diarrhea, no cons tipation, no productive cough, no fever or chills, no diarrhea, no hematochezia, no melena, no hemat emesis. Appetite and energy level is fair. No headache, no syncopal episode. MEDICATIONS: [place] 5/325 q.6., finasteride 5 mg daily, Folvite 1 mg p.o. daily, Humalog sliding sc alpesh, Levsin 0.125 mg sublingual q.6 hours, Levaquin 750 mg IV q.48 h., Zosyn 4.5 grams IV q.12 h., n ormal saline 100 mL per hour, vancomycin as directed. Geodon 40 mg IM q.12h. PAST MEDICAL HISTORY: 1. Status post cerebrovascular accident. 2. ? Bipolar disorder. 3. Chronic renal failure from hypertensive/diabetic nephropathy. 4. Recent history of delirium. 5. Hyperlipidemia. 6. History of chronic indwelling Chavez catheter. PAST SURGICAL HISTORY: 1. Status post hernia repair. 2. Status post back surgery. ALLERGIES: None. TRAUMA: None. IMMUNIZATIONS: Up to date. HOSPITALIZATIONS: Please see past medical history. SOCIAL HISTORY: The patient lives in [place]. He lives alone. He has 2 children. He is , smoked for several years, but currently no smoking, no alcohol intake, no IV drug abuse. Status pos t blood transfusion ?. He has 2 years of college. 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 FAMILY HISTORY: No family history of ESRD. PHYSICAL EXAMINATION: VITAL SIGNS: Blood pressure 152/71, heart rate 91, respiratory rate 20, temperature 98.4, pulse ox 94%. GENERAL: Noted to be awake, coherent, comfortable, not in distress. SKIN: Adequate turgor. HEENT: Pale conjunctivae, anicteric sclerae. NECK: No neck mass, no carotid bruits, no JVD. CHEST: No deformities. LUNGS: Clear breath sounds. No wheezing, no crackles. HEART: Normal sinus rhythm. No murmur, no gallops or rubs. ABDOMEN: Globular, soft, nontender, no masses. EXTREMITIES: No edema. NEUROLOGIC: Right hemiparesis. No tremors, no asterixis. Oriented to 3 spheres. LABORATORY: 02/28/2017 - White count 24.9, hemoglobin 7.6, hematocrit 24.5. Sodium 137, potassium 3.3, chloride 105, carbon dioxide 20, BUN 35, creatinine 3.09, glucose 139, calcium 8.8. 02/27/2017 - Creatinine 3.18. 02/26/2017 - Creatinine 3.2. 02/25/2017 - Creatinine 3.4. 10/12/2016 - Creatinine 4.1; 08/18/2016 - creatinine 5.01. ASSESSMENT AND PLAN: 1. Acute kidney injury on top of his chronic renal failure - superimposed prerenal azotemia, improv ing renal function with IV hydration. Continue current management. Please note there is no indicat ion for any dialytic intervention with this patient. 2. Chronic renal failure secondary to either hypertensive versus diabetic nephropathy. This patien t has limited workup in the past due to his declining the said workup. He does not want to proceed with any kidney biopsy. 3. Labile hypertension. Continue current blood pressure medications. 4. Urinary tract infection. Currently on IV antibiotics. Urology has been consulted regarding thi s patient. He has a chronic indwelling Chavez catheter. 5. Anemia - resume Epogen and iron supplementation. Consider rechecking basic metabolic panel and CBC in a.m.
--- NOTE | 2017-02-28 10:27 | RAD ---
CHEST ONE VIEW: Comparison: 02-25-14 History: Right lung infiltrate. FINDINGS: There is stable presumed shrapnel projecting over the left hemithorax. Stable configuration of the c ardiac silhouette. There is interval pulmonary vascular prominence. There is a band like opacity inv olving the left lung base, as well as the right lung base. Bilateral pleural effusions are suspected . There is a more focal mass-like opacity in the right mid lung which may represent an area of conso lidation. Better interrogation with a post contrast chest CT is recommended. IMPRESSION: Lung parenchymal opacifications and pleural effusions. POS: TERI
--- NOTE | 2017-02-28 11:57 | PQF ---
CLINICAL DOCUMENTATION IMPROVEMENT CLARIFICATION FORM: ICD-10 Updated PLEASE DO AN ADDENDUM TO THE PROGRESS NOTE WITH ANY DOCUMENTATION UPDATES OR ADDITIONS AND CARRY THROUGH TO DC SUMMARY. THANK YOU. DATE: 02/28/17 ATTN : DR. GIRARD The following CLINICAL INDICATORS - SIGNS / SYMPTOMS are present in the medical record: DX: SEPSIS WBC 28.1 LACTIC ACID 5.2 PULSE 105 RISKS: CATHETER-ASSOCIATED UTI "POSSIBILITY OF PNEUMONIA SEEN ON THE CHEST X-RAY" (PER H&P 02/25) TREATMENT: VANCOMYCIN IV (ER-PRESENT) ZOSYN IV (ER-PRESENT) IV FLUIDS (ER-PRESENT) LEVAQUIN IV (ER-PRESENT) BLOOD CULTURES URINE CULTURES Please provide a response below if a more specific term indicating a diagnosis and/or acuity level for this condition can be identified. Please exercise your independent, professional judgment in responding to the clarification form. Present on Admission:[ ] Yes[ ] No[ ] Unable to determine [ ] Sepsis (include causative agent if known) Due to: [ ] Indwelling Catheter [ ] Sepsis [ ] Not due to Indwelling Catheter [ ] Sepsis [ ] Due to possible Pneumonia [ ] Does not apply to this patient [ ] Unable to determine [ x ] Other diagnosis ___Sepsis, has right pna ?empyema, uti Definitions [facility] clinic 2002: SIRS- clinical response to an insult, infection, or trauma that includes a systemic in?ammation as well as increased or decreased temp, increased pulse, respiration and white count. SEPSIS- SIRS due to infection without organ dysfunction. SEVERE SEPSIS- SIRS due to an infection that progress to organ dysfunction. SEPTIC SHOCK- circulatory failure associated with severe sepsis, and represents a type of acute organ dysfunction. (This form is maintained as a part of the permanent medical record) 2014 [employer]. All Rights Reserved [email or web address] Office: [phone] [facility] [facility] HOSPITALDevorah
--- NOTE | 2017-02-28 16:27 | PRG ---
DATE OF SERVICE: 02/28/2017 HISTORY: Mr. Araujo a 61-year-old male who presented with altered mental status. He has no smith llection of coming to the hospital. Initial chest radiograph showed a right lower lobe infiltrate w ith an effusion. He was treated empirically for sepsis. Abdomen and pelvis CT done showed right pleural effusion and an air fluid level in the right lower l ramya field. Subsequently, he was admitted. He has been seen in consultation by Neurology, Urology and now we perez ve been consulted and Nephrology was consulted today. Chest radiograph still shows a right lower lobe infiltrate and effusion. He has no complaints other than wanting a nurse to help repositioning him. PAST MEDICAL HISTORY: 1. Remarkable for chronic kidney disease. His creatinine has improved since admission. 2. History of cerebrovascular accident. 3. History of hypertension. 4. Lipid disorder. 5. History of reportedly having a chronic indwelling Chavez. 6. History of back surgery. 7. History of a herniorrhaphy. SOCIAL HISTORY: He is a smoker, nondrinker. ALLERGIES: No allergies. FAMILY HISTORY: Negative for lung disease at an early age. REVIEW OF SYSTEMS: Not accurately obtainable. PHYSICAL EXAMINATION: VITAL SIGNS: He is afebrile. Heart rate is 91, respiratory rate is 20, oximetry is 94% and blood p ressure 152/71. HEENT: Pupils are reactive. Sclerae are anicteric. NECK: Supple. LUNGS: Remarkable for decreased breath sounds at his right base. HEART: Regular rhythm. ABDOMEN: Soft. EXTREMITIES: Without asymmetry. LABORATORY DATA: White count 24.9, hemoglobin 7.6 and platelets 624,000. Creatinine is down to 3.0 9, K is 3.3 and BUN is 35. Blood gas on the 24th, pH of 7.54, CO2 of 34 and pO2 of 60. Drug screen was positive for oxycodone, opiates and benzodiazepines. Urinalysis showed 100 mg per deciliter of protein and too numerous to count red cells, which would be consistent with having an indwelling Fo parisa. All cultures are negative so far. IMPRESSION AND PLAN: Pneumonia with a possible loculated effusion. Imaging from last admission rosi wed no infiltrates of the right lung. A CT scan has been ordered.
--- NOTE | 2017-02-28 16:45 | PDOC.PN ---
- Subjective Encounter Start Date: 02/28/17 Encounter Start Time: 14:40 Subjective: awake and oriented, feels better - Objective MAR Reviewed: Yes Vital Signs & Weight: Vital Signs (12 hours) Temp Pulse Resp BP Pulse Ox 02/28/17 08:33 98.4 F 91 20 152/71 H 94 L 02/28/17 08:00 98.4 F 91 20 Weight Weight 212 lb 8.41 oz Most Recent Monitor Data Heart Rate from ECG 92 NIBP 157/67 NIBP BP-Mean 90 Respiration from ECG 19 SpO2 97 I&O: 02/27/17 02/28/17 03/01/17 06:59 06:59 06:59 Intake Total 680 6040 Output Total 3565 1790 Balance -2064 Result Diagrams: 02/28/17 05:33 02/28/17 05:33 Additional Labs: Accuchecks 02/28/17 02/28/17 02/27/17 11:16 05:40 20:10 POC Glucose 177 H 141 H 182 H 02/27/17 16:20 POC Glucose 137 H Phys Exam - Physical Examination HEENT: PERRLA, moist MMs Neck: no JVD, supple Respiratory: no wheezing, no rales Cardiovascular: RRR, no significant murmur Gastrointestinal: soft, non-tender, positive bowel sounds Musculoskeletal: no edema, pulses present Neurological: non-focal, moves all 4 limbs Psychiatric: A&O x 3 Dx/Plan (1) PNA (pneumonia) Code(s): J18.9 - PNEUMONIA, UNSPECIFIED ORGANISM Status: Acute Qualifiers: Pneumonia type: due to unspecified organism Comment: ?aspiration (2) Acute metabolic encephalopathy Code(s): G93.41 - METABOLIC ENCEPHALOPATHY Status: Acute (3) Acute renal failure Status: Acute Qualifiers: Acute renal failure type: unspecified Qualified Code(s): N17.9 - Acute kidney failure, unspecified (4) Sepsis Code(s): A41.9 - SEPSIS, UNSPECIFIED ORGANISM Status: Acute Qualifiers: Sepsis type: sepsis due to unspecified organism Qualified Code(s): A41.9 - Sepsis, unspecified organism (5) Anemia Code(s): D64.9 - ANEMIA, UNSPECIFIED Status: Chronic Qualifiers: Anemia type: unspecified type Qualified Code(s): D64.9 - Anemia, unspecified (6) CVA, old, hemiparesis Code(s): I69.359 - HEMIPLGA FOLLOWING CEREBRAL INFARCTION AFFECTING UNSP SIDE Status: Chronic Comment: right hemiparesis (7) Cardiomyopathy Code(s): I42.9 - CARDIOMYOPATHY, UNSPECIFIED Status: Chronic Qualifiers: Cardiomyopathy type: unspecified Qualified Code(s): I42.9 - Cardiomyopathy , unspecified (8) DM type 2 (diabetes mellitus, type 2) Status: Chronic Qualifiers: Diabetes mellitus complication status: with kidney complications Diabetes mellitus complication detail: with other kidney complication (9) Cerebrovascular accident (stroke) Code(s): I63.9 - CEREBRAL INFARCTION, UNSPECIFIED Status: Chronic Comment: old right hemiparesis (10) UTI (urinary tract infection) Status: Acute Qualifiers: Urinary tract infection type: catheter-associated UTI Indwelling urinary catheter type: cystostomy catheter Encounter type: subsequent encounter Qualified Code(s): T83.510D - Infection and inflammatory reaction due to cystostomy catheter, subsequent encounter; N39.0 - Urinary tract infection, site not specified - Plan cxr reviewed, CT chest to better delineate ?empyema -: was apparently very sick in [facility] and encephalopat -: -hic prior to coming here (signed out AMA). -: consult , ?chest tube -: wbc still lingering around 24, on vanc, zosyn and levaquin * . Review of Systems - Medications/Allergies Allergies/Adverse Reactions: Allergies Allergy/AdvReac Type Severity Reaction Status Date / Time No Known Drug Allergies Allergy Verified 04/20/14 10:46 Medications: Current Medications Acetaminophen (Tylenol) 650 mg PO Q4H PRN PRN Reason: Headache/Fever or Pain Last Admin: 02/28/17 11:00 Dose: 650 mg Hydrocodone Bitart/Acetaminophen ([place] 5/325) 1 tab PO Q4H PRN PRN Reason: Moderate Pain (4-6) Last Admin: 02/28/17 14:25 Dose: 1 tab Dextrose/Water (Dextrose 50%) 25 gm SLOW IVP PRN PRN PRN Reason: Hypoglycemia Epoetin Den (Procrit) 7,500 units SC Q7D [facility] Last Admin: 02/28/17 11:00 Dose: 7,500 units Ferrous Sulfate (Ferrous Sulfate) 300 mg PO DAILY [facility] Finasteride (Proscar) 5 mg PO DAILY [facility] Last Admin: 02/28/17 08:32 Dose: 5 mg Folic Acid (Folvite) 1 mg PO DAILY [facility] Last Admin: 02/28/17 08:32 Dose: 1 mg Glucagon (Glucagon) 1 mg IM PRN PRN PRN Reason: Hypoglycemia Heparin Sodium (Porcine) (Heparin) 5,000 units SC TID [facility] Last Admin: 02/28/17 14:26 Dose: 5,000 units Hyoscyamine Sulfate (Levsin Sl) 0.125 mg SL Q6H PRN PRN Reason: Bladder Spasms Last Admin: 02/27/17 12:47 Dose: 0.125 mg Dextrose/Water (D5w) 1,000 mls @ 0 mls/hr IV .Q0M PRN; As Directed PRN Reason: Hypoglycemia Sodium Chloride (Normal Saline 0.9%) 1,000 mls @ 100 mls/hr IV .Q10H [facility] Last Admin: 02/28/17 15:05 Dose: 1,000 mls Piperacillin Sod/Tazobactam (Sod 4.5 gm/ Sodium Chloride) 100 mls @ 200 mls/hr IVPB 0400,1600 [facility] Last Admin: 02/28/17 15:00 Dose: 100 mls Insulin Human Lispro (Humalog) 0 units SC .MODERATE SLIDING SC PRN PRN Reason: Moderate Correctional Scale Last Admin: 02/26/17 06:34 Dose: 2 unit Insulin Human Lispro (Humalog) 0 units SC .BEDTIME SLIDING SC PRN PRN Reason: Bedtime Correctional Scale Miscellaneous Medication (Pharmacy To Dose) 1 each IVPB PRN PRN PRN Reason: PHARMACY TO DOSE Ondansetron HCl (Zofran) 4 mg IVP Q6H PRN PRN Reason: Nausea/Vomiting Last Admin: 02/28/17 01:43 Dose: 4 mg Pravastatin Sodium (Pravachol) 20 mg PO HS [facility] Last Admin: 02/27/17 21:39 Dose: 20 mg Sterile Water (Water For Injection) 10 ml FS Q12H PRN PRN Reason: TO RECONSTITUTE ZIPRASIDONE Ziprasidone (Geodon) 40 mg IM Q12H PRN PRN Reason: Agitation Last Admin: 02/25/17 21:05 Dose: 40 mg
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
[2017-02-28] MEDS: Pravastatin Sodium 20 MG TAB PO SCH (20:06)
[2017-03-01] MEDS: Sodium Chloride 0.9% 1,000 ML IV SCH ×3 (01:58→19:54)
[2017-03-01] MEDS: Hyoscyamine Sulfate SL 0.125 mg Tablet SL PRN ×4 (01:59→22:45)
[2017-03-01] MEDS: HYDROcodone/Acetaminophen 5/325 mg Tablet PO PRN ×5 (01:59→19:52)
[2017-03-01] MEDS: Piperacillin/Tazobactam 4.5 GM in Sodium Chloride 0.9% 100 ML IVPB SCH ×2 (05:10→16:00)
[2017-03-01 05:26] LABS: #Eosinphils 0.4 thou/uL (0.0-0.7); #Lymphocytes 1.4 thou/uL (1.20-3.40); #Monocytes 1.4 thou/uL (0.11-0.59); #Neutrophils 18.9 thou/uL (1.40-6.50); %Eosinophils 1.8 % (0.0-10.0); %Lymphocytes 6.4 % (21.0-51.0); %Monocytes 6.1 % (0.0-10.0); Hematocrit 24.1 % (42.0-52.0); Mean Platelet Volume 5.5 fL (7.4-10.4); Red Blood Cell (RBC) Count 2.77 mill/uL (4.70-6.10); White Blood Cell (WBC) Count 22.1 thou/uL (4.8-10.8)
[2017-03-01 05:53] LABS: Anion Gap 14 mmol/L (10-20); BUN (Urea Nitrogen) 31 mg/dL (8.4-25.7); Calc. Creatinine Clearance 35 mL/min (70-130); Calcium 8.4 mg/dL (7.8-10.44); Carbon Dioxide 20 mmol/L (23-31); Chloride 107 mmol/L (98-107); Estimated GFR-MDRD 21
[2017-03-01] MEDS: Finasteride 5 MG TAB PO SCH (08:44)
[2017-03-01] MEDS: Folic Acid 1 MG TAB PO SCH (08:44)
[2017-03-01] MEDS: Heparin 5,000 UNITS/ML VIAL SC SCH ×3 (08:45→19:53)
--- NOTE | 2017-03-01 10:42 | CON ---
DATE OF CONSULTATION: 03/01/2017 CONSULTING PHYSICIAN: Dr. Irvin Geiger REASON FOR CONSULTATION: Evaluate patient with a loculated right empyema. HISTORY OF PRESENT ILLNESS: Mr. Araujo was admitted to the hospital with shortness of breath and a right pneumonia. His white blood cell count has trended downward, but is still greater than 20,0 00 currently. He has had no fever since admission. He has been treated empirically with antibiotic s. Chest x-ray has shown an air fluid level on the right and CT was obtained yesterday showing a multi- loculated right empyema with air fluid level. As this has been going on for over a month, he is not in the acute phase and probably not amenable to a chest tube or a thoracoscopy drainage. PAST MEDICAL HISTORY: 1. Status post cerebrovascular accident with right hemiparesis. 2. Chronic renal insufficiency. 3. Hypertension. 4. Hyperlipidemia. 5. History of back surgery. 6. History of herniorrhaphy. SOCIAL HISTORY: He uses tobacco. He does not use any alcohol. ALLERGIES: None. CURRENT MEDICATIONS: Have been reviewed. PHYSICAL EXAMINATION: GENERAL: This is a well-developed gentleman resting comfortably in bed. VITAL SIGNS: His temperature is 97.7, pulse is 91 and regular, blood pressure 135/61. LUNGS: Clear with diminished breath sounds throughout the right chest. HEART: Rhythm is regular, without murmur. ABDOMEN: Soft and nontender. EXTREMITIES: He has pitting edema bilaterally. VASCULAR: He has palpable carotid, radial, and femoral pulses bilaterally. He has an indwelling Fo parisa that he states is chronic. LABORATORY DATA: White blood cell count is 22.1, which has trended down from 28.1 at admission. He moglobin is 7.4, platelet count is 614,000. Creatinine is 2.97, which has trended down from 3.75 at admission. ASSESSMENT AND PLAN: Right multi-loculated empyema of greater than 1 month's duration. I have disc ussed right thoracotomy with decortication with the patient and he is agreeable. I will go ahead an d transfuse him a couple units of blood preoperatively as his current hemoglobin is 7.4 and he will certainly need a transfusion prior to undergoing operative therapy.
[2017-03-01] MEDS ORDERED: Furosemide 40 MG/4 ML VIAL SLOW IVP SCH (13:00)
--- NOTE | 2017-03-01 14:20 | EKG ---
Test Reason : Blood Pressure : / mmHG Vent. Rate : 117 BPM Atrial Rate : 117 BPM P-R Int : 140 ms QRS Dur : 090 ms QT Int : 322 ms P-R-T Axes : 010 054 035 degrees QTc Int : 449 ms Poor data quality, interpretation may be adversely affected Sinus tachycardia No STEMI Otherwise normal ECG Confirmed by RAUL PEACOCK, SASHA Fairchild ([id number]), material expeditor ILENE OCONNOR ([id number]) on 03/01/2017 2:20:30 PM Referred By: Confirmed By:SASHA CARTER MD
--- NOTE | 2017-03-01 16:37 | PDOC.PN ---
- Subjective Encounter Start Date: 03/01/17 Encounter Start Time: 14:15 Subjective: no sob, feels better - Objective MAR Reviewed: Yes Vital Signs & Weight: Vital Signs (12 hours) Temp Pulse Pulse Resp BP BP Pulse Ox 03/01/17 15:56 98.5 F 86 18 136/71 03/01/17 13:35 97.8 F 86 18 135/69 03/01/17 13:18 98.6 F 86 16 138/68 03/01/17 13:16 98.3 F 86 20 153/72 H 91 L 03/01/17 08:00 97.7 F 87 18 128/60 91 L Weight Weight 212 lb 8.41 oz Most Recent Monitor Data Heart Rate from ECG 92 NIBP 157/67 NIBP BP-Mean 90 Respiration from ECG 19 SpO2 97 I&O: 02/28/17 03/01/17 03/02/17 06:59 06:59 06:59 Intake Total 6040 2260 450 Output Total 6250 1200 Balance -210 1060 450 Result Diagrams: 03/01/17 05:11 03/01/17 05:11 Additional Labs: Accuchecks 03/01/17 03/01/17 02/28/17 11:31 04:39 20:10 POC Glucose 109 145 H 196 H 02/28/17 16:58 POC Glucose 112 H Phys Exam - Physical Examination HEENT: PERRLA, moist MMs Neck: no JVD, supple Respiratory: no wheezing, no rales Cardiovascular: RRR, no significant murmur Gastrointestinal: soft, non-tender, positive bowel sounds Musculoskeletal: pulses present, edema present old right hemiparesis Psychiatric: A&O x 3 Dx/Plan (1) Empyema lung Code(s): J86.9 - PYOTHORAX WITHOUT FISTULA Status: Suspected Comment: right (2) PNA (pneumonia) Code(s): J18.9 - PNEUMONIA, UNSPECIFIED ORGANISM Status: Acute Qualifiers: Pneumonia type: due to unspecified organism Laterality: right Lung location: middle lobe of lung Qualified Code(s): J18.1 - Lobar pneumonia, unspecified organism Comment: ?aspiration (3) Acute metabolic encephalopathy Code(s): G93.41 - METABOLIC ENCEPHALOPATHY Status: Resolved (4) Acute renal failure Status: Acute Qualifiers: Acute renal failure type: unspecified Qualified Code(s): N17.9 - Acute kidney failure, unspecified (5) Sepsis Code(s): A41.9 - SEPSIS, UNSPECIFIED ORGANISM Status: Acute Qualifiers: Sepsis type: sepsis due to unspecified organism Qualified Code(s): A41.9 - Sepsis, unspecified organism (6) Anemia Code(s): D64.9 - ANEMIA, UNSPECIFIED Status: Chronic Qualifiers: Anemia type: unspecified type Qualified Code(s): D64.9 - Anemia, unspecified (7) CVA, old, hemiparesis Code(s): I69.359 - HEMIPLGA FOLLOWING CEREBRAL INFARCTION AFFECTING UNSP SIDE Status: Chronic Comment: right hemiparesis (8) Cardiomyopathy Code(s): I42.9 - CARDIOMYOPATHY, UNSPECIFIED Status: Chronic Qualifiers: Cardiomyopathy type: unspecified Qualified Code(s): I42.9 - Cardiomyopathy , unspecified (9) DM type 2 (diabetes mellitus, type 2) Status: Chronic Qualifiers: Diabetes mellitus complication status: with kidney complications Diabetes mellitus complication detail: with other kidney complication (10) Cerebrovascular accident (stroke) Code(s): I63.9 - CEREBRAL INFARCTION, UNSPECIFIED Status: Chronic Comment: old right hemiparesis (11) UTI (urinary tract infection) Status: Acute Qualifiers: Urinary tract infection type: catheter-associated UTI Indwelling urinary catheter type: cystostomy catheter Encounter type: subsequent encounter Qualified Code(s): T83.510D - Infection and inflammatory reaction due to cystostomy catheter, subsequent encounter; N39.0 - Urinary tract infection, site not specified - Plan for thoracotomy in am -: is on zosyn -: sedrick -: oob to chair as tolerated -: wbc still around 20 * . Review of Systems - Medications/Allergies Allergies/Adverse Reactions: Allergies Allergy/AdvReac Type Severity Reaction Status Date / Time No Known Drug Allergies Allergy Verified 04/20/14 10:46 Medications: Current Medications Acetaminophen (Tylenol) 650 mg PO Q4H PRN PRN Reason: Headache/Fever or Pain Last Admin: 02/28/17 11:00 Dose: 650 mg Hydrocodone Bitart/Acetaminophen ([place] 5/325) 1 tab PO Q4H PRN PRN Reason: Moderate Pain (4-6) Last Admin: 03/01/17 13:21 Dose: 1 tab Dextrose/Water (Dextrose 50%) 25 gm SLOW IVP PRN PRN PRN Reason: Hypoglycemia Epoetin Den (Procrit) 7,500 units SC Q7D [facility] Last Admin: 02/28/17 11:00 Dose: 7,500 units Ferrous Sulfate (Ferrous Sulfate) 300 mg PO DAILY [facility] Last Admin: 03/01/17 08:44 Dose: 300 mg Finasteride (Proscar) 5 mg PO DAILY [facility] Last Admin: 03/01/17 08:44 Dose: 5 mg Folic Acid (Folvite) 1 mg PO DAILY [facility] Last Admin: 03/01/17 08:44 Dose: 1 mg Glucagon (Glucagon) 1 mg IM PRN PRN PRN Reason: Hypoglycemia Heparin Sodium (Porcine) (Heparin) 5,000 units SC TID [facility] Last Admin: 03/01/17 16:02 Dose: 5,000 units Hyoscyamine Sulfate (Levsin Sl) 0.125 mg SL Q6H PRN PRN Reason: Bladder Spasms Last Admin: 03/01/17 13:22 Dose: 0.125 mg Dextrose/Water (D5w) 1,000 mls @ 0 mls/hr IV .Q0M PRN; As Directed PRN Reason: Hypoglycemia Sodium Chloride (Normal Saline 0.9%) 1,000 mls @ 100 mls/hr IV .Q10H [facility] Last Admin: 03/01/17 08:48 Dose: Not Given Piperacillin Sod/Tazobactam (Sod 4.5 gm/ Sodium Chloride) 100 mls @ 200 mls/hr IVPB 0400,1600 [facility] Last Admin: 03/01/17 16:00 Dose: 100 mls Insulin Human Lispro (Humalog) 0 units SC .MODERATE SLIDING SC PRN PRN Reason: Moderate Correctional Scale Last Admin: 02/26/17 06:34 Dose: 2 unit Insulin Human Lispro (Humalog) 0 units SC .BEDTIME SLIDING SC PRN PRN Reason: Bedtime Correctional Scale Ondansetron HCl (Zofran) 4 mg IVP Q6H PRN PRN Reason: Nausea/Vomiting Last Admin: 02/28/17 20:07 Dose: 4 mg Pravastatin Sodium (Pravachol) 20 mg PO HS [facility] Last Admin: 02/28/17 20:06 Dose: 20 mg Sterile Water (Water For Injection) 10 ml FS Q12H PRN PRN Reason: TO RECONSTITUTE ZIPRASIDONE Ziprasidone (Geodon) 40 mg IM Q12H PRN PRN Reason: Agitation Last Admin: 02/25/17 21:05 Dose: 40 mg
--- NOTE | 2017-03-01 18:32 | PRG ---
DATE OF SERVICE: 03/01/2017 SUBJECTIVE: Mr. Araujo did well overnight. He is reasonably stable. Dr. Mccarty reviewed CT of his chest today. He suspects will need a full thoracotomy for decortication. This is tentatively o n the schedule for tomorrow. OBJECTIVE: VITAL SIGNS: Stable. He is afebrile, respiratory rate 17, blood pressure 136/71 this afternoon. H eart rates in the 80s. IMPRESSION: Pneumonia with loculated right pleural effusion. PLAN: Decortication.
[2017-03-01] MEDS: Pravastatin Sodium 20 MG TAB PO SCH (19:52)
[2017-03-01] MEDS: Ondansetron HCl/PF 4 MG/2 ML Vial IVP PRN (22:50)
[2017-03-02] MEDS: HYDROcodone/Acetaminophen 5/325 mg Tablet PO PRN ×2 (00:58→13:43)
[2017-03-02 04:37] LABS: #Eosinphils 0.3 thou/uL (0.0-0.7); #Lymphocytes 1.4 thou/uL (1.20-3.40); #Monocytes 1.3 thou/uL (0.11-0.59); #Neutrophils 17.8 thou/uL (1.40-6.50); %Basophils 0.1 % (0.0-1.0); %Eosinophils 1.5 % (0.0-10.0); %Lymphocytes 6.9 % (21.0-51.0); %Monocytes 6.4 % (0.0-10.0); Hematocrit 31.2 % (42.0-52.0); Mean Platelet Volume 5.6 fL (7.4-10.4); Red Blood Cell (RBC) Count 3.57 mill/uL (4.70-6.10); White Blood Cell (WBC) Count 20.8 thou/uL (4.8-10.8)
[2017-03-02] MEDS: Hyoscyamine Sulfate SL 0.125 mg Tablet SL PRN (04:45)
[2017-03-02] MEDS: Piperacillin/Tazobactam 4.5 GM in Sodium Chloride 0.9% 100 ML IVPB SCH ×2 (04:45→15:05)
[2017-03-02] MEDS: Sodium Chloride 0.9% 1,000 ML IV SCH ×3 (04:52→20:44)
[2017-03-02 05:03] LABS: Anion Gap 15 mmol/L (10-20); BUN (Urea Nitrogen) 31 mg/dL (8.4-25.7); Calc. Creatinine Clearance 33 mL/min (70-130); Calcium 8.7 mg/dL (7.8-10.44); Carbon Dioxide 19 mmol/L (23-31); Chloride 106 mmol/L (98-107); Estimated GFR-MDRD 20
[2017-03-02] MEDS ORDERED: Fentanyl 250 MCG/5 ML VIAL ONE (06:55)
[2017-03-02] MEDS ORDERED: Midazolam HCl 2 mg/2 ml Vial ONE ×2 (06:55→07:04)
[2017-03-02] MEDS ORDERED: Fentanyl 100 MCG/2 ML VIAL ONE ×4 (07:04→10:39)
[2017-03-02] MEDS ORDERED: Bupivacaine 0.25% HCL 30 ML VIAL ONE ×2 (07:45→10:51)
[2017-03-02] MEDS ORDERED: Glycopyrrolate 0.2 MG/ML 5 ML SYRINGE ONE (08:03)
[2017-03-02] MEDS ORDERED: Lidocaine 2% PF 10 ML AMP (For Epidural Use) ONE (08:03)
[2017-03-02] MEDS ORDERED: PHENYLEPHRINE-NS 100 MCG/ML 10 ML SYRINGE ONE (08:03)
[2017-03-02] MEDS ORDERED: Propofol 200 MG/20 ML VIAL ONE (08:03)
[2017-03-02] MEDS: Finasteride 5 MG TAB PO SCH (09:34)
[2017-03-02] MEDS: Folic Acid 1 MG TAB PO SCH (09:35)
[2017-03-02] MEDS: Heparin 5,000 UNITS/ML VIAL SC SCH ×2 (09:35→12:38)
--- NOTE | 2017-03-02 10:10 | OP ---
DATE OF PROCEDURE: 03/02/2017 PREOPERATIVE DIAGNOSIS: Right empyema. POSTOPERATIVE DIAGNOSIS: Right empyema. PROCEDURE: Right thoracotomy with total pulmonary decortication. SURGEON: Edson Mccarty M.D. ANESTHESIA: General endotracheal. ESTIMATED BLOOD LOSS: Less than 100. FINDINGS: Greater than 1500 mL of multiloculated thick gelatinous purulent material. DRAINS: 32-[place] chest tubes x2. PROCEDURE IN DETAIL: After consent was obtained, the patient was brought to the operating room and placed in the supine position on the operating room table. Appropriate anesthetic monitor was place d and general endotracheal anesthesia induced. Flexible fiberoptic bronchoscopy was used to positio n a double lumen endotracheal tube. The patient was placed in the left lateral decubitus position. Joints were appropriately padded. SCDs were used. Right chest wall was prepped and draped in usual sterile fashion. Posterolateral thoracotomy incisi on was made. Dissection through latissimus was obtained with electrocautery. Serratus was spared. Approximately the fifth interspace was entered. The lung was deflated. Adhesions to the chest wal l were taken down bluntly with hand dissection and using a ring clamp. The upper and middle lobes w ere easily freed and a large volume of fluid evacuated. The lower lobe in the interlobar fissure wa s full of gelatinous foul smelling material. This was manually evacuated and the parietal and visce ral peel decorticated. After the peel was completely removed, the chest was copiously irrigated wit h 4 liters of saline. 32-[place]ian chest tubes were placed, one in the apex, one along the diaphragm. The lung was inflated and filled the chest cavity nicely. Ribs were reapproximated with #1 Vicryl. Wounds were irrigated and closed in multiple layers, and Dermabond applied to the skin. The patie nt tolerated the procedure well. The patient was awakened, extubated, and transferred to the Intens preethi Care Unit in stable condition.
[2017-03-02] MEDS ORDERED: Bupivacaine 0.25% 10 ML VIAL EPIDURAL PRN (10:45)
[2017-03-02] MEDS ORDERED: Naloxone HCl 0.4 mg/ml Vial IV PRN (10:45)
[2017-03-02] MEDS ORDERED: HYDROcodone/Acetaminophen 5/325 mg Tablet PO PRN ×3 (10:45→11:37)
[2017-03-02] MEDS ORDERED: Promethazine HCl 25 MG/ML VIAL IM PRN ×2 (10:45→11:37)
[2017-03-02] MEDS ORDERED: diphenhydrAMINE HCl 50 MG/ML 1 ML VIAL IVP PRN (10:45)
[2017-03-02] MEDS ORDERED: Naloxone HCl 0.4 mg/ml Vial IVP PRN (10:45)
[2017-03-02] MEDS ORDERED: traMADol HCl 50 MG TAB PO PRN (10:45)
[2017-03-02] MEDS ORDERED: diphenhydrAMINE HCl 50 MG/ML 1 ML VIAL IM PRN (10:45)
[2017-03-02] MEDS ORDERED: Eucerin (Mineral Oil/Petrolatum,White) 30 gm Jar TOP PRN (10:45)
[2017-03-02] MEDS ORDERED: Promethazine HCl 25 MG SUPP PR PRN (10:45)
[2017-03-02] MEDS ORDERED: Phenylephrine 10 MG/NS 250 ML 250 ML IVPB PRN (11:37)
[2017-03-02] MEDS ORDERED: Ondansetron HCl/PF 4 MG/2 ML Vial IVP PRN (11:37)
[2017-03-02] MEDS ORDERED: Acetaminophen 325 MG TAB PO PRN (11:37)
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
[2017-03-02] MEDS: Ondansetron HCl/PF 4 MG/2 ML Vial IVP PRN ×2 (14:52→23:57)
--- NOTE | 2017-03-02 16:09 | PDOC.PN ---
- Subjective Encounter Start Date: 03/02/17 Encounter Start Time: 15:00 Subjective: no sob, is feeling better - Objective MAR Reviewed: Yes Vital Signs & Weight: Vital Signs (12 hours) Temp Pulse Resp Pulse Ox 03/02/17 14:07 94 L 03/02/17 12:45 98.9 F 86 20 97 Weight Weight 212 lb 8.41 oz Most Recent Monitor Data Heart Rate from ECG 105 NIBP 123/60 NIBP BP-Mean 80 Respiration from ECG 23 SpO2 96 I&O: 03/01/17 03/02/17 03/03/17 06:59 06:59 06:59 Intake Total 2260 1400 290 Output Total 1200 4550 410 Balance 1060 -0240 -120 Result Diagrams: 03/02/17 04:24 03/02/17 04:24 Additional Labs: Accuchecks 03/02/17 03/02/17 03/01/17 15:16 04:48 20:23 POC Glucose 138 H 110 135 H 03/01/17 16:23 POC Glucose 132 H Phys Exam - Physical Examination HEENT: PERRLA, moist MMs Neck: no JVD, supple Respiratory: no wheezing, no rales chest tube in place x2 Cardiovascular: RRR, no significant murmur Gastrointestinal: soft, non-tender, positive bowel sounds Musculoskeletal: no edema, pulses present Neurological: non-focal, moves all 4 limbs has old right hemiparesis Psychiatric: A&O x 3 Dx/Plan (1) Empyema lung Code(s): J86.9 - PYOTHORAX WITHOUT FISTULA Status: Suspected Comment: s/p decortication with removal of 1500ml purulent fowl smelling material from right (2) PNA (pneumonia) Code(s): J18.9 - PNEUMONIA, UNSPECIFIED ORGANISM Status: Acute Qualifiers: Pneumonia type: due to unspecified organism Laterality: right Lung location: middle lobe of lung Qualified Code(s): J18.1 - Lobar pneumonia, unspecified organism Comment: ?aspiration (3) Acute metabolic encephalopathy Code(s): G93.41 - METABOLIC ENCEPHALOPATHY Status: Resolved (4) Acute renal failure Status: Acute Qualifiers: Acute renal failure type: unspecified Qualified Code(s): N17.9 - Acute kidney failure, unspecified (5) Sepsis Code(s): A41.9 - SEPSIS, UNSPECIFIED ORGANISM Status: Acute Qualifiers: Sepsis type: sepsis due to unspecified organism Qualified Code(s): A41.9 - Sepsis, unspecified organism (6) Anemia Code(s): D64.9 - ANEMIA, UNSPECIFIED Status: Chronic Qualifiers: Anemia type: unspecified type Qualified Code(s): D64.9 - Anemia, unspecified (7) CVA, old, hemiparesis Code(s): I69.359 - HEMIPLGA FOLLOWING CEREBRAL INFARCTION AFFECTING UNSP SIDE Status: Chronic Comment: right hemiparesis (8) Cardiomyopathy Code(s): I42.9 - CARDIOMYOPATHY, UNSPECIFIED Status: Chronic Qualifiers: Cardiomyopathy type: unspecified Qualified Code(s): I42.9 - Cardiomyopathy , unspecified (9) DM type 2 (diabetes mellitus, type 2) Status: Chronic Qualifiers: Diabetes mellitus complication status: with kidney complications Diabetes mellitus complication detail: with other kidney complication (10) Cerebrovascular accident (stroke) Code(s): I63.9 - CEREBRAL INFARCTION, UNSPECIFIED Status: Chronic Comment: old right hemiparesis (11) UTI (urinary tract infection) Status: Acute Qualifiers: Urinary tract infection type: catheter-associated UTI Indwelling urinary catheter type: cystostomy catheter Encounter type: subsequent encounter Qualified Code(s): T83.510D - Infection and inflammatory reaction due to cystostomy catheter, subsequent encounter; N39.0 - Urinary tract infection, site not specified - Plan is recovering well post op -: nearly 1500ml of gelatinous purulent material removed from right lung -: his wbc should start trending downwards -: is on zosyn -: not sure if cultures will grow as he has recieved multiple antibiotics * . Review of Systems - Medications/Allergies Allergies/Adverse Reactions: Allergies Allergy/AdvReac Type Severity Reaction Status Date / Time No Known Drug Allergies Allergy Verified 04/20/14 10:46 Medications: Current Medications Acetaminophen (Tylenol) 650 mg PO Q4H PRN PRN Reason: (Fever>101.5F, RAMIREZ or mild pain Hydrocodone Bitart/Acetaminophen ([place] 5/325) 1 tab PO Q4H PRN PRN Reason: Mild Pain 0-3 Last Admin: 03/02/17 13:43 Dose: 1 tab Hydrocodone Bitart/Acetaminophen ([place] 5/325) 2 tab PO Q4H PRN PRN Reason: For Moderate Pain 4-6 Albuterol/Ipratropium (Duoneb) 3 ml NEB [id number] PRN PRN Reason: Wheezing Bupivacaine HCl (Marcaine) 5 ml EPIDURAL ONE PRN PRN Reason: UNCONTROLLED PAIN Stop: 03/02/17 21:00 Dextrose/Water (Dextrose 50%) 25 gm SLOW IVP PRN PRN PRN Reason: Hypoglycemia Diphenhydramine HCl (Benadryl) 25 mg PO Q3H PRN PRN Reason: Itching Diphenhydramine HCl (Benadryl) 25 mg IM Q3H PRN PRN Reason: Itching Diphenhydramine HCl (Benadryl) 25 mg IVP Q3H PRN PRN Reason: Itching Epoetin Den (Procrit) 7,500 units SC Q7D [facility] Last Admin: 02/28/17 11:00 Dose: 7,500 units Ferrous Sulfate (Ferrous Sulfate) 300 mg PO DAILY [facility] Last Admin: 03/02/17 09:34 Dose: Not Given Finasteride (Proscar) 5 mg PO DAILY [facility] Last Admin: 03/02/17 09:34 Dose: Not Given Folic Acid (Folvite) 1 mg PO DAILY [facility] Last Admin: 03/02/17 09:35 Dose: Not Given Glucagon (Glucagon) 1 mg IM PRN PRN PRN Reason: Hypoglycemia Hydralazine HCl (Apresoline) 10 mg SLOW IVP Q6H PRN PRN Reason: To Keep SBP < 140 mmHG Hyoscyamine Sulfate (Levsin Sl) 0.125 mg SL Q6H PRN PRN Reason: Bladder Spasms Last Admin: 03/02/17 04:45 Dose: 0.125 mg Dextrose/Water (D5w) 1,000 mls @ 0 mls/hr IV .Q0M PRN; As Directed PRN Reason: Hypoglycemia Piperacillin Sod/Tazobactam (Sod 4.5 gm/ Sodium Chloride) 100 mls @ 200 mls/hr IVPB 0400,1600 [facility] Last Admin: 03/02/17 15:05 Dose: 100 mls Fentanyl Citrate 250 ml/ (Device) 250 mls @ 0 mls/hr EPIDURAL INF [facility] Sodium Chloride (Normal Saline 0.9%) 1,000 mls @ 100 mls/hr IV .Q10H [facility] Last Admin: 03/02/17 12:30 Dose: 1,000 mls Phenylephrine HCl (Eber-Synephrine) 250 mls @ 0 mls/hr IVPB PRN PRN; Protocol; Titrate PRN Reason: To Keep SBP > 90 mmHG Insulin Human Lispro (Humalog) 0 units SC .MODERATE SLIDING SC PRN PRN Reason: Moderate Correctional Scale Last Admin: 02/26/17 06:34 Dose: 2 unit Insulin Human Lispro (Humalog) 0 units SC .BEDTIME SLIDING SC PRN PRN Reason: Bedtime Correctional Scale Mineral Oil/White Petrolatum (Eucerin Cream) 0 gm TOP PRN PRN PRN Reason: Itching Naloxone HCl (Narcan) 0.2 mg IV Q5MIN PRN PRN Reason: RR <=8 OR OBTUNDED/UNAROUSABLE Naloxone HCl (Narcan) 0.1 mg IVP Q15MIN PRN PRN Reason: URINARY RETENTION Ondansetron HCl (Zofran) 4 mg IVP Q6H PRN PRN Reason: Nausea/Vomiting Last Admin: 03/02/17 14:52 Dose: 4 mg Pravastatin Sodium (Pravachol) 20 mg PO HS [facility] Last Admin: 03/01/17 19:52 Dose: 20 mg Promethazine HCl (Phenergan) 12.5 mg IM Q4H PRN PRN Reason: Nausea Promethazine HCl (Phenergan Suppository) 25 mg SC Q4H PRN PRN Reason: Nausea/Vomiting Sodium Chloride (Flush - Normal Saline) 10 ml IVF Q12HR [facility] Sodium Chloride (Flush - Normal Saline) 10 ml IVF PRN PRN PRN Reason: Saline Flush Sterile Water (Water For Injection) 10 ml FS Q12H PRN PRN Reason: TO RECONSTITUTE ZIPRASIDONE Tramadol HCl (Ultram) 50 mg PO Q6H PRN PRN Reason: Mild Pain 1-3 Tramadol HCl (Ultram) 100 mg PO Q6H PRN PRN Reason: Moderate Pain 4-6 Ziprasidone (Geodon) 40 mg IM Q12H PRN PRN Reason: Agitation Last Admin: 02/25/17 21:05 Dose: 40 mg Zolpidem Tartrate (Ambien) 5 mg PO HSPRN PRN PRN Reason: Insomnia
[2017-03-02] MEDS: Pravastatin Sodium 20 MG TAB PO SCH (20:43)
[2017-03-03] MEDS: Piperacillin/Tazobactam 4.5 GM in Sodium Chloride 0.9% 100 ML IVPB SCH ×2 (03:58→15:13)
[2017-03-03 04:28] LABS: #Eosinphils 0.1 thou/uL (0.0-0.7); #Lymphocytes 1.4 thou/uL (1.20-3.40); #Monocytes 1.5 thou/uL (0.11-0.59); #Neutrophils 17.6 thou/uL (1.40-6.50); %Basophils 0.1 % (0.0-1.0); %Eosinophils 0.6 % (0.0-10.0); %Lymphocytes 6.9 % (21.0-51.0); %Monocytes 7.1 % (0.0-10.0); Hematocrit 28.2 % (42.0-52.0); Mean Platelet Volume 5.5 fL (7.4-10.4); White Blood Cell (WBC) Count 20.6 thou/uL (4.8-10.8)
[2017-03-03 04:47] LABS: Anion Gap 12 mmol/L (10-20); BUN (Urea Nitrogen) 30 mg/dL (8.4-25.7); Calc. Creatinine Clearance 34 mL/min (70-130); Calcium 8.3 mg/dL (7.8-10.44); Carbon Dioxide 19 mmol/L (23-31); Chloride 109 mmol/L (98-107); Estimated GFR-MDRD 21
[2017-03-03] MEDS: Sodium Chloride 0.9% 1,000 ML IV SCH ×2 (05:34→15:13)
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
[2017-03-03] MEDS: Folic Acid 1 MG TAB PO SCH (08:23)
[2017-03-03] MEDS: diphenhydrAMINE HCl 25 MG CAP PO PRN ×2 (08:23→18:06)
[2017-03-03] MEDS: HYDROcodone/Acetaminophen 5/325 mg Tablet PO PRN (08:23)
[2017-03-03] MEDS: Finasteride 5 MG TAB PO SCH (08:23)
--- NOTE | 2017-03-03 09:18 | PDOC.PN ---
- Subjective Encounter Start Date: 03/03/17 Encounter Start Time: 08:00 -: old records requested/rev Patient seen and examined. No new complaints. No overnight events - Objective MAR Reviewed: Yes Vital Signs & Weight: Vital Signs (12 hours) Temp Pulse Resp BP Pulse Ox 03/03/17 08:00 100.0 F H 100 23 H 124/48 L 96 03/03/17 07:09 100.0 F H 89 23 H 96 03/03/17 07:00 100.0 F H 03/03/17 04:00 99.1 F 97 03/03/17 00:00 98.8 F Weight Weight 212 lb 8.41 oz Most Recent Monitor Data Heart Rate from ECG 92 NIBP 125/48 NIBP BP-Mean 56 Respiration from ECG 21 SpO2 96 I&O: 03/02/17 03/03/17 03/04/17 06:59 06:59 06:59 Intake Total 1400 2433.8 600 Output Total 4550 1165 115 Balance -3150 1268.8 485 Result Diagrams: 03/03/17 04:01 03/03/17 04:01 Additional Labs: Accuchecks 03/02/17 03/02/17 20:43 15:16 POC Glucose 175 H 138 H Radiology Reviewed by me: Yes (chest xray) EKG Reviewed by me: Yes (nsr) Phys Exam - Physical Examination Constitutional: NAD HEENT: PERRLA, moist MMs, sclera anicteric Neck: no JVD, supple Respiratory: no wheezing, no rales, no rhonchi chest tube on right side, surgical site with dressing, epidural in Cardiovascular: RRR, no significant murmur, no rub Gastrointestinal: soft, non-tender, no distention, positive bowel sounds Musculoskeletal: pulses present trace edema residual weakness on right side Lymphatic: no nodes Psychiatric: normal affect, A&O x 3 Skin: no rash, normal turgor Dx/Plan (1) Empyema lung Code(s): J86.9 - PYOTHORAX WITHOUT FISTULA Status: Acute Comment: s/p decortication with removal of 1500ml purulent fowl smelling material from right (2) Acute renal failure Status: Acute Qualifiers: Acute renal failure type: unspecified Qualified Code(s): N17.9 - Acute kidney failure, unspecified Comment: Improving (3) Lactic acidosis Code(s): E87.2 - ACIDOSIS Status: Resolved (4) PNA (pneumonia) Code(s): J18.9 - PNEUMONIA, UNSPECIFIED ORGANISM Status: Acute Qualifiers: Pneumonia type: due to unspecified organism Laterality: right Lung location: middle lobe of lung Qualified Code(s): J18.1 - Lobar pneumonia, unspecified organism Comment: ?aspiration (5) Pleural effusion Code(s): J90 - PLEURAL EFFUSION, NOT ELSEWHERE CLASSIFIED Status: Acute (6) Sepsis Code(s): A41.9 - SEPSIS, UNSPECIFIED ORGANISM Status: Acute Qualifiers: Sepsis type: sepsis due to unspecified organism Qualified Code(s): A41.9 - Sepsis, unspecified organism (7) UTI (urinary tract infection) Status: Acute Qualifiers: Urinary tract infection type: catheter-associated UTI Indwelling urinary catheter type: cystostomy catheter Encounter type: subsequent encounter Qualified Code(s): T83.510D - Infection and inflammatory reaction due to cystostomy catheter, subsequent encounter; N39.0 - Urinary tract infection, site not specified (8) Anemia Code(s): D64.9 - ANEMIA, UNSPECIFIED Status: Chronic Qualifiers: Anemia type: unspecified type Qualified Code(s): D64.9 - Anemia, unspecified (9) CVA, old, hemiparesis Code(s): I69.359 - HEMIPLGA FOLLOWING CEREBRAL INFARCTION AFFECTING UNSP SIDE Status: Chronic Comment: right hemiparesis (10) Cardiomyopathy Code(s): I42.9 - CARDIOMYOPATHY, UNSPECIFIED Status: Chronic Qualifiers: Cardiomyopathy type: unspecified Qualified Code(s): I42.9 - Cardiomyopathy , unspecified (11) Congestive heart failure Code(s): I50.9 - HEART FAILURE, UNSPECIFIED Status: Chronic Qualifiers: Congestive heart failure type: diastolic (12) DM type 2 (diabetes mellitus, type 2) Status: Chronic Qualifiers: Diabetes mellitus complication status: with kidney complications Diabetes mellitus complication detail: with other kidney complication (13) Labile hypertension Code(s): I10 - ESSENTIAL (PRIMARY) HYPERTENSION Status: Chronic (14) Lumbago Code(s): M54.5 - LOW BACK PAIN Status: Chronic Qualifiers: Chronicity: chronic (15) Acute metabolic encephalopathy Code(s): G93.41 - METABOLIC ENCEPHALOPATHY Status: Resolved - Plan cont current plan of care, pro catheter, continue antibiotics, respiratory therapy * continue post operative care as per CT surgeon * chest tube management as per CT surgeon * continue Zosyn * renal function now improving * WBC count is stable * replace potassium * medication reviewed as below * symptomatic treatment * follow culture. Review of Systems - Review of Systems Constitutional: negative: Fever, Chills, Sweats, Weakness, Malaise, Other Respiratory: Shortness of Breath. negative: Cough, Dry, Hemoptysis, SOB with Excertion, Pleuritic Pain, Sputum, Wheezing Cardiovascular: negative: Chest Pain, Palpitations, Orthopnea, Paroxysmal Noc. Dyspnea, Edema, Light Headedness, Other Gastrointestinal: negative: Nausea, Vomiting, Abdominal Pain, Diarrhea, Constipation, Melena, Hematochezia, Other Genitourinary: negative: Dysuria, Frequency, Incontinence, Hematuria, Retention , Other Musculoskeletal: negative: Neck Pain, Shoulder Pain, Arm Pain, Back Pain, Hand Pain, Leg Pain, Foot Pain, Other - Medications/Allergies Allergies/Adverse Reactions: Allergies Allergy/AdvReac Type Severity Reaction Status Date / Time No Known Drug Allergies Allergy Verified 04/20/14 10:46 Medications: Current Medications Acetaminophen (Tylenol) 650 mg PO Q4H PRN PRN Reason: (Fever>101.5F, RAMIREZ or mild pain Hydrocodone Bitart/Acetaminophen ([place] 5/325) 1 tab PO Q4H PRN PRN Reason: Mild Pain 0-3 Last Admin: 03/03/17 08:23 Dose: 1 tab Hydrocodone Bitart/Acetaminophen ([place] 5/325) 2 tab PO Q4H PRN PRN Reason: For Moderate Pain 4-6 Albuterol/Ipratropium (Duoneb) 3 ml NEB X2FF-PV PRN PRN Reason: Wheezing Dextrose/Water (Dextrose 50%) 25 gm SLOW IVP PRN PRN PRN Reason: Hypoglycemia Diphenhydramine HCl (Benadryl) 25 mg PO Q3H PRN PRN Reason: Itching Last Admin: 03/03/17 08:23 Dose: 25 mg Diphenhydramine HCl (Benadryl) 25 mg IM Q3H PRN PRN Reason: Itching Diphenhydramine HCl (Benadryl) 25 mg IVP Q3H PRN PRN Reason: Itching Last Admin: 03/03/17 05:58 Dose: 25 mg Epoetin Den (Procrit) 7,500 units SC Q7D [facility] Last Admin: 02/28/17 11:00 Dose: 7,500 units Ferrous Sulfate (Ferrous Sulfate) 300 mg PO DAILY [facility] Last Admin: 03/02/17 09:34 Dose: Not Given Finasteride (Proscar) 5 mg PO DAILY [facility] Last Admin: 03/03/17 08:23 Dose: 5 mg Folic Acid (Folvite) 1 mg PO DAILY [facility] Last Admin: 03/03/17 08:23 Dose: 1 mg Glucagon (Glucagon) 1 mg IM PRN PRN PRN Reason: Hypoglycemia Hydralazine HCl (Apresoline) 10 mg SLOW IVP Q6H PRN PRN Reason: To Keep SBP < 140 mmHG Hyoscyamine Sulfate (Levsin Sl) 0.125 mg SL Q6H PRN PRN Reason: Bladder Spasms Last Admin: 03/02/17 04:45 Dose: 0.125 mg Dextrose/Water (D5w) 1,000 mls @ 0 mls/hr IV .Q0M PRN; As Directed PRN Reason: Hypoglycemia Piperacillin Sod/Tazobactam (Sod 4.5 gm/ Sodium Chloride) 100 mls @ 200 mls/hr IVPB 0400,1600 [facility] Last Admin: 03/03/17 03:58 Dose: 100 mls Fentanyl Citrate 250 ml/ (Device) 250 mls @ 0 mls/hr EPIDURAL INF CHRISTOFER Sodium Chloride (Normal Saline 0.9%) 1,000 mls @ 100 mls/hr IV .Q10H [facility] Last Admin: 03/03/17 05:34 Dose: 1,000 mls Phenylephrine HCl (Eber-Synephrine) 250 mls @ 0 mls/hr IVPB PRN PRN; Protocol; Titrate PRN Reason: To Keep SBP > 90 mmHG Insulin Human Lispro (Humalog) 0 units SC .MODERATE SLIDING SC PRN PRN Reason: Moderate Correctional Scale Last Admin: 02/26/17 06:34 Dose: 2 unit Insulin Human Lispro (Humalog) 0 units SC .BEDTIME SLIDING SC PRN PRN Reason: Bedtime Correctional Scale Mineral Oil/White Petrolatum (Eucerin Cream) 0 gm TOP PRN PRN PRN Reason: Itching Naloxone HCl (Narcan) 0.2 mg IV Q5MIN PRN PRN Reason: RR <=8 OR OBTUNDED/UNAROUSABLE Naloxone HCl (Narcan) 0.1 mg IVP Q15MIN PRN PRN Reason: URINARY RETENTION Ondansetron HCl (Zofran) 4 mg IVP Q6H PRN PRN Reason: Nausea/Vomiting Last Admin: 03/02/17 23:57 Dose: 4 mg Pravastatin Sodium (Pravachol) 20 mg PO HS [facility] Last Admin: 03/02/17 20:43 Dose: 20 mg Promethazine HCl (Phenergan) 12.5 mg IM Q4H PRN PRN Reason: Nausea Promethazine HCl (Phenergan Suppository) 25 mg OK Q4H PRN PRN Reason: Nausea/Vomiting Sodium Chloride (Flush - Normal Saline) 10 ml IVF Q12HR [facility] Last Admin: 03/03/17 08:23 Dose: 10 ml Sodium Chloride (Flush - Normal Saline) 10 ml IVF PRN PRN PRN Reason: Saline Flush Sterile Water (Water For Injection) 10 ml FS Q12H PRN PRN Reason: TO RECONSTITUTE ZIPRASIDONE Tramadol HCl (Ultram) 50 mg PO Q6H PRN PRN Reason: Mild Pain 1-3 Tramadol HCl (Ultram) 100 mg PO Q6H PRN PRN Reason: Moderate Pain 4-6 Ziprasidone (Geodon) 40 mg IM Q12H PRN PRN Reason: Agitation Last Admin: 02/25/17 21:05 Dose: 40 mg Zolpidem Tartrate (Ambien) 5 mg PO HSPRN PRN PRN Reason: Insomnia
[2017-03-03] MEDS ORDERED: Potassium Chloride 20 MEQ TAB PO SCH (09:25)
--- NOTE | 2017-03-03 11:00 | PRG ---
DATE OF SERVICE: 03/03/2017 SUBJECTIVE: He is awake, alert, feeling well, had no complaints. Chest tube is in place. PHYSICAL EXAMINATION: VITAL SIGNS: On exam, temperature is 100, pulse 92, blood pressure 125/48, 24-hour intake 2433 and output 1165. HEENT: Unremarkable. NECK: No JVD. CHEST: Fairly clear. CARDIAC: S1 and S2 regular. ABDOMEN: Soft. EXTREMITIES: No edema. IMAGING: Chest x-ray shows a significant improvement in the right hemothorax after the decorticatio n yesterday. ASSESSMENT: Right lung empyema and chronic renal failure. RECOMMENDATIONS: 1. Continue IV antibiotics. 2. Transfer to floor when okay with Cardiothoracic Surgery. 3. Continue to monitor labs.
[2017-03-03] MEDS: Fentanyl/Bupivacaine 250 ML in Premix Bag 1 BAG EPIDURAL SCH (16:53)
[2017-03-03] MEDS: Zolpidem Tartrate 5 MG TAB PO PRN (18:06)
[2017-03-03] MEDS: Pravastatin Sodium 20 MG TAB PO SCH (20:21)
[2017-03-03] MEDS: Hyoscyamine Sulfate SL 0.125 mg Tablet SL PRN (21:04)
[2017-03-04] MEDS: Hyoscyamine Sulfate SL 0.125 mg Tablet SL PRN ×2 (03:17→11:38)
[2017-03-04] MEDS: Piperacillin/Tazobactam 4.5 GM in Sodium Chloride 0.9% 100 ML IVPB SCH ×2 (03:18→15:40)
[2017-03-04] MEDS: Sodium Chloride 0.9% 1,000 ML IV SCH ×3 (03:19→23:26)
[2017-03-04 04:41] LABS: Anion Gap 12 mmol/L (10-20); BUN (Urea Nitrogen) 30 mg/dL (8.4-25.7); Calc. Creatinine Clearance 33 mL/min (70-130); Calcium 8.2 mg/dL (7.8-10.44); Carbon Dioxide 19 mmol/L (23-31); Chloride 111 mmol/L (98-107); Estimated GFR-MDRD 20
--- NOTE | 2017-03-04 07:52 | PRG ---
DATE OF SERVICE: 03/04/2017 SUBJECTIVE: The patient is doing well, has no complaints today. PHYSICAL EXAMINATION: VITAL SIGNS: Temperature is 99.2, pulse 90, blood pressure 120/56, O2 sat 95%. He has had minimal output of his chest tube. HEENT: Unremarkable. NECK: No JVD. LUNGS: He has slightly diminished breath sounds in the right base, left side is clear. CARDIAC: S1 and S2 regular. ABDOMEN: Soft, nontender. EXTREMITIES: No clubbing, cyanosis, or edema. LABORATORY DATA: Sodium 138, potassium 3.6, chloride 111, CO2 19, BUN 30, creatinine 3.1, glucose 1 21. ASSESSMENT: 1. Right lung empyema. 2. Chronic renal insufficiency. RECOMMENDATIONS: 1. He needs to continue antibiotics. 2. Up in chair as tolerated. 3. Transfer to the floor when okay with Cardiothoracic Surgery.
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
[2017-03-04] MEDS: Finasteride 5 MG TAB PO SCH (10:13)
[2017-03-04] MEDS: Folic Acid 1 MG TAB PO SCH (10:14)
--- NOTE | 2017-03-04 10:23 | PDOC.PN ---
- Subjective Encounter Start Date: 03/04/17 Encounter Start Time: 09:40 -: old records requested/rev Pt seen and examined. chart reviewed in its entirety. This is my first visit with this patient Sitting up eating well, no F/c, no N/V/d/C, CP at chest tube insertion sites, . itching with pain meds controlled by benadry. No SOB, no new complaints, no acute events overnight 10 point ROS perfomed and neg for all systems except as per HPI - Objective Resuscitation Status: Full MAR Reviewed: Yes Vital Signs & Weight: Vital Signs (12 hours) Temp Pulse Resp Pulse Ox 03/04/17 07:36 99.2 F 93 17 94 L 03/04/17 07:18 94 L 03/04/17 04:00 99.2 F 03/04/17 00:00 99.0 F Weight Weight 212 lb 8.41 oz Most Recent Monitor Data Heart Rate from ECG 94 NIBP 126/54 NIBP BP-Mean 76 Respiration from ECG 22 SpO2 97 I&O: 03/03/17 03/04/17 03/05/17 06:59 06:59 06:59 Intake Total 2433.8 2160 125 Output Total 1165 2105 Balance 1268.8 55 125 Result Diagrams: 03/03/17 04:01 03/04/17 04:13 Additional Labs: Accuchecks 03/04/17 03/03/17 03/03/17 08:39 20:23 15:59 POC Glucose 112 H 167 H 134 H 03/03/17 11:12 POC Glucose 182 H Radiology Reviewed by me: Yes EKG Reviewed by me: Yes Phys Exam - Physical Examination Constitutional: NAD HEENT: PERRLA, moist MMs, sclera anicteric, oral pharynx no lesions Neck: no nodes, no JVD, supple, full ROM Respiratory: no wheezing, no rales, no rhonchi, clear to auscultation bilateral two CTs to right chest Cardiovascular: RRR, no significant murmur, no rub Gastrointestinal: soft, non-tender, no distention, positive bowel sounds Musculoskeletal: pulses present, edema present Neurological: non-focal, normal sensation, moves all 4 limbs Lymphatic: no nodes Psychiatric: normal affect, A&O x 3 Skin: no rash, normal turgor, cap refill <2 seconds Dx/Plan (1) Acute renal failure Status: Acute Qualifiers: Acute renal failure type: with acute tubular necrosis Qualified Code(s): N17.0 - Acute kidney failure with tubular necrosis Comment: Improving (2) Empyema lung Code(s): J86.9 - PYOTHORAX WITHOUT FISTULA Status: Acute Comment: s/p decortication with removal of 1500ml purulent fowl smelling material from right. cx neg after abx adminitered (3) PNA (pneumonia) Code(s): J18.9 - PNEUMONIA, UNSPECIFIED ORGANISM Status: Acute Qualifiers: Pneumonia type: due to unspecified organism Laterality: right Lung location: middle lobe of lung Qualified Code(s): J18.1 - Lobar pneumonia, unspecified organism Comment: ?aspiration, present on admission (4) Sepsis Code(s): A41.9 - SEPSIS, UNSPECIFIED ORGANISM Status: Resolved Qualifiers: Sepsis type: sepsis due to unspecified organism Qualified Code(s): A41.9 - Sepsis, unspecified organism (5) CVA, old, hemiparesis Code(s): I69.359 - HEMIPLGA FOLLOWING CEREBRAL INFARCTION AFFECTING UNSP SIDE Status: Chronic Comment: right hemiparesis (6) DM type 2 (diabetes mellitus, type 2) Status: Chronic Qualifiers: Diabetes mellitus complication status: with kidney complications Diabetes mellitus complication detail: with other kidney complication Diabetes mellitus fci insulin use: with fci use Qualified Code(s): E11.29 - Type 2 diabetes mellitus with other diabetic kidney complication; Z79.4 - endband sizer (current) use of insulin - Plan cont current plan of care, continue antibiotics, PT/OT, respiratory therapy * .
[2017-03-04] MEDS: HumaLOG 300 UNITS/3 ML VIAL SC PRN ×2 (11:34→17:58)
[2017-03-04] MEDS: Fentanyl/Bupivacaine 250 ML in Premix Bag 1 BAG EPIDURAL SCH (20:19)
[2017-03-04] MEDS: Ondansetron HCl/PF 4 MG/2 ML Vial IVP PRN (20:19)
[2017-03-04] MEDS ORDERED: FLU VACC QS2017-18 36 mo. & older 0.5 ML SYRINGE IM ONE (21:00)
[2017-03-04] MEDS: Pravastatin Sodium 20 MG TAB PO SCH (21:32)
[2017-03-04] MEDS: diphenhydrAMINE HCl 25 MG CAP PO PRN (21:34)
[2017-03-04] MEDS: Zolpidem Tartrate 5 MG TAB PO PRN (21:36)
[2017-03-04] MEDS: traMADol HCl 50 MG TAB PO PRN (23:44)
[2017-03-05] MEDS: diphenhydrAMINE HCl 25 MG CAP PO PRN ×2 (04:07→20:32)
[2017-03-05] MEDS: Piperacillin/Tazobactam 4.5 GM in Sodium Chloride 0.9% 100 ML IVPB SCH ×2 (04:07→17:05)
[2017-03-05 04:22] LABS: #Eosinphils 0.4 thou/uL (0.0-0.7); #Monocytes 1.1 thou/uL (0.11-0.59); #Neutrophils 11.5 thou/uL (1.40-6.50); %Basophils 0.2 % (0.0-1.0); %Eosinophils 2.7 % (0.0-10.0); %Lymphocytes 13.3 % (21.0-51.0); %Monocytes 7.2 % (0.0-10.0); Hematocrit 24.9 % (42.0-52.0); Mean Platelet Volume 5.4 fL (7.4-10.4); Red Blood Cell (RBC) Count 2.81 mill/uL (4.70-6.10)
[2017-03-05 04:42] LABS: Anion Gap 12 mmol/L (10-20); BUN (Urea Nitrogen) 31 mg/dL (8.4-25.7); Calc. Creatinine Clearance 32 mL/min (70-130); Calcium 8.3 mg/dL (7.8-10.44); Carbon Dioxide 21 mmol/L (23-31); Chloride 108 mmol/L (98-107); Estimated GFR-MDRD 20
[2017-03-05] MEDS: Finasteride 5 MG TAB PO SCH (09:04)
[2017-03-05] MEDS: Folic Acid 1 MG TAB PO SCH (09:04)
[2017-03-05] MEDS ORDERED: Sodium Chloride 0.9% 1,000 ML IV SCH (09:18)
--- NOTE | 2017-03-05 09:26 | PRG ---
DATE OF SERVICE: 03/05/2017 SERVICE: Pulmonary Medicine. INTERVAL HISTORY: The patient is doing fine from a cardiovascular and respiratory standpoint. His breathing is comfortable. His output from the right chest tube has decreased. He has no complaints overnight and ate well. Whenever he eats too fast, he starts coughing. PHYSICAL EXAMINATION: VITAL SIGNS: Afebrile, pulse 83, blood pressure 144/53, respirations 17, saturation 97% on room air . GENERAL: Patient is awake, alert, in no apparent distress. LUNGS: Excellent air entry. There is no prolonged expiratory phase, wheezing, rhonchi or crackles. HEART: Normal rate, regular. ABDOMEN: Soft, nontender, nondistended. Bowel sounds positive. MUSCULOSKELETAL: No cyanosis or clubbing. No pitting in the bilateral lower extremities. NEUROLOGIC: Grossly nonfocal. GENITOURINARY: Suprapubic catheter in place. LABORATORY DATA: WBC 15.0, hemoglobin 7.8, platelets 585,000. Creatinine 3.18. Basic metabolic pr ofile is otherwise unremarkable. All culture results are negative to date. IMAGING: Chest x-ray demonstrates thoracostomy drains x2 are unchanged compared to prior. Possible left-sided pleural effusion is evident. The patient is rotated in the left anterior oblique. Over all, lines are stable. ASSESSMENT: 1. Severe sepsis. 2. Chronic kidney disease. 3. Empyema, status post decortication. 4. Pulmonary abscess, possible. 5. 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 PLAN: We will do a speech pathology consultation. Empiric antibiotics will be continued. After th e chest tube is removed, this afternoon the patient will be stable for transition to the floor. Pul avril will continue to follow while the patient remains in house.
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
--- NOTE | 2017-03-05 11:51 | PDOC.PN ---
- Subjective Encounter Start Date: 03/05/17 Encounter Start Time: 11:00 no acute night events. states he is doing okay otherwise with no significant complaints. chest tube still in place - Objective Vital Signs & Weight: Vital Signs (12 hours) Temp Pulse Resp BP Pulse Ox 03/05/17 08:12 98.3 F 83 17 97 03/05/17 08:04 100 03/05/17 08:00 98.3 F 83 17 146/57 H 97 03/05/17 04:00 98.6 F 80 16 142/57 H 100 03/05/17 00:00 99 F 82 20 138/50 L 100 Weight Weight 212 lb 8.41 oz Most Recent Monitor Data Heart Rate from ECG 80 NIBP 143/66 NIBP BP-Mean 73 Respiration from ECG 21 SpO2 100 I&O: 03/04/17 03/05/17 03/06/17 06:59 06:59 06:59 Intake Total 2160 1823.1 360 Output Total 2105 2530 570 Balance 55 -706.9 -210 Result Diagrams: 03/05/17 03:58 03/05/17 03:58 Additional Labs: Accuchecks 03/05/17 03/04/17 03/04/17 11:20 21:46 16:27 POC Glucose 137 H 167 H 159 H Phys Exam - Physical Examination Constitutional: NAD HEENT: PERRLA, moist MMs, sclera anicteric Neck: no JVD, supple Respiratory: no wheezing chest tube in place Cardiovascular: RRR, no significant murmur Gastrointestinal: soft, non-tender Musculoskeletal: no edema, pulses present Dx/Plan (1) Acute renal failure Status: Acute Qualifiers: Acute renal failure type: with acute tubular necrosis Qualified Code(s): N17.0 - Acute kidney failure with tubular necrosis Comment: Improving (2) Empyema lung Code(s): J86.9 - PYOTHORAX WITHOUT FISTULA Status: Acute Comment: s/p decortication with removal of 1500ml purulent fowl smelling material from right. cx neg after abx adminitered (3) PNA (pneumonia) Code(s): J18.9 - PNEUMONIA, UNSPECIFIED ORGANISM Status: Acute Qualifiers: Pneumonia type: due to unspecified organism Laterality: right Lung location: middle lobe of lung Qualified Code(s): J18.1 - Lobar pneumonia, unspecified organism Comment: ?aspiration, present on admission (4) Pleural effusion Code(s): J90 - PLEURAL EFFUSION, NOT ELSEWHERE CLASSIFIED Status: Acute (5) Sepsis Code(s): A41.9 - SEPSIS, UNSPECIFIED ORGANISM Status: Resolved Qualifiers: Sepsis type: sepsis due to unspecified organism Qualified Code(s): A41.9 - Sepsis, unspecified organism - Plan cont current plan of care, continue antibiotics, respiratory therapy * . Chest tube to be removed later this afternoon continue with IV abx Speech eval due to coughing after eating too fast will transfer to the floor later today after chest tube removed follow with recs from specialist
[2017-03-05] MEDS ORDERED: Fentanyl 100 MCG/2 ML VIAL SLOW IVP PRN ×2 (13:34)
[2017-03-05] MEDS ORDERED: HYDROcodone/Acetaminophen 10/325 mg Tablet PO PRN (16:41)
[2017-03-05] MEDS: HYDROcodone/Acetaminophen 10/325 mg Tablet PO PRN ×2 (17:03→23:27)
[2017-03-05] MEDS: Ondansetron HCl/PF 4 MG/2 ML Vial IVP PRN (17:03)
--- NOTE | 2017-03-05 17:20 | RAD ---
MODIFIED BARIUM SWALLOW: Clinical history: Dysphagia, oropharyngeal phase. Feeding difficulties. Radiation exposure data: 1.3 minutes intermittent fluoroscopy, 3.6 mGy*cm\S\2. FINDINGS: Real-time fluoroscopy was performed with the patient ingested varied consistencies of radiopaque con trast. There is evidence of pharyngeal penetration and tracheal aspiration, recurrently, during the exam. Reference speech pathologist report for further details. IMPRESSION: Evidence of laryngeal penetration and tracheal aspiration. POS: [facility]
[2017-03-05] MEDS: HumaLOG 300 UNITS/3 ML VIAL SC PRN (17:23)
[2017-03-05] MEDS: Zolpidem Tartrate 5 MG TAB PO PRN (20:32)
[2017-03-05] MEDS: Pravastatin Sodium 20 MG TAB PO SCH (20:32)
[2017-03-05] MEDS: traMADol HCl 50 MG TAB PO PRN (20:35)
[2017-03-05] MEDS: Hyoscyamine Sulfate SL 0.125 mg Tablet SL PRN (23:27)
[2017-03-06] MEDS: Piperacillin/Tazobactam 4.5 GM in Sodium Chloride 0.9% 100 ML IVPB SCH (04:23)
[2017-03-06] MEDS: HYDROcodone/Acetaminophen 10/325 mg Tablet PO PRN ×2 (05:27→11:36)
[2017-03-06] MEDS: Hyoscyamine Sulfate SL 0.125 mg Tablet SL PRN ×2 (05:28→11:37)
[2017-03-06] MEDS: Finasteride 5 MG TAB PO SCH (08:09)
[2017-03-06] MEDS: Folic Acid 1 MG TAB PO SCH (08:12)
--- NOTE | 2017-03-06 10:15 | PDOC.PN ---
- Subjective Encounter Start Date: 03/06/17 Encounter Start Time: 09:30 -: old records requested/rev Patient seen and examined. No new complaints. No overnight events - Objective MAR Reviewed: Yes Vital Signs & Weight: Vital Signs (12 hours) Temp Pulse Resp BP BP Pulse Ox 03/06/17 08:06 97.9 F 83 18 135/68 93 L 03/06/17 08:00 97.9 F 83 18 03/06/17 04:10 98.0 F 92 20 130/63 94 L 03/06/17 00:00 98.4 F 90 20 155/68 H 95 Weight Weight 212 lb 8.41 oz Most Recent Monitor Data Heart Rate from ECG 84 NIBP 137/66 NIBP BP-Mean 76 Respiration from ECG 12 SpO2 99 I&O: 03/05/17 03/06/17 03/07/17 06:59 06:59 06:59 Intake Total 1823.1 1176.4 Output Total 2530 3560 Balance -706.9 -2383.6 Result Diagrams: 03/05/17 03:58 03/05/17 03:58 Additional Labs: Accuchecks 03/06/17 03/05/17 03/05/17 04:12 19:42 15:56 POC Glucose 122 H 151 H 160 H 03/05/17 11:20 POC Glucose 137 H Phys Exam - Physical Examination Constitutional: NAD HEENT: PERRLA, moist MMs, sclera anicteric Neck: no JVD, supple Respiratory: no wheezing, no rales, no rhonchi Cardiovascular: RRR, no significant murmur, no rub Gastrointestinal: soft, non-tender, no distention, positive bowel sounds Musculoskeletal: no edema, pulses present Neurological: non-focal, normal sensation Lymphatic: no nodes Psychiatric: normal affect, A&O x 3 Skin: no rash, normal turgor Dx/Plan (1) Empyema lung Code(s): J86.9 - PYOTHORAX WITHOUT FISTULA Status: Acute Comment: s/p decortication with removal of 1500ml purulent fowl smelling material from right. cx neg after abx adminitered (2) Acute renal failure Status: Acute Qualifiers: Acute renal failure type: with acute tubular necrosis Qualified Code(s): N17.0 - Acute kidney failure with tubular necrosis Comment: Improving (3) Lactic acidosis Code(s): E87.2 - ACIDOSIS Status: Resolved (4) PNA (pneumonia) Code(s): J18.9 - PNEUMONIA, UNSPECIFIED ORGANISM Status: Acute Qualifiers: Pneumonia type: due to unspecified organism Laterality: right Lung location: middle lobe of lung Qualified Code(s): J18.1 - Lobar pneumonia, unspecified organism Comment: ?aspiration, present on admission (5) Pleural effusion Code(s): J90 - PLEURAL EFFUSION, NOT ELSEWHERE CLASSIFIED Status: Acute (6) Sepsis Code(s): A41.9 - SEPSIS, UNSPECIFIED ORGANISM Status: Resolved Qualifiers: Sepsis type: sepsis due to unspecified organism Qualified Code(s): A41.9 - Sepsis, unspecified organism (7) UTI (urinary tract infection) Status: Acute Qualifiers: Urinary tract infection type: catheter-associated UTI Indwelling urinary catheter type: cystostomy catheter Encounter type: subsequent encounter Qualified Code(s): T83.510D - Infection and inflammatory reaction due to cystostomy catheter, subsequent encounter; N39.0 - Urinary tract infection, site not specified (8) Anemia Code(s): D64.9 - ANEMIA, UNSPECIFIED Status: Chronic Qualifiers: Anemia type: unspecified type Qualified Code(s): D64.9 - Anemia, unspecified (9) CVA, old, hemiparesis Code(s): I69.359 - HEMIPLGA FOLLOWING CEREBRAL INFARCTION AFFECTING UNSP SIDE Status: Chronic Comment: right hemiparesis (10) Cardiomyopathy Code(s): I42.9 - CARDIOMYOPATHY, UNSPECIFIED Status: Chronic Qualifiers: Cardiomyopathy type: unspecified Qualified Code(s): I42.9 - Cardiomyopathy , unspecified (11) Congestive heart failure Code(s): I50.9 - HEART FAILURE, UNSPECIFIED Status: Chronic Qualifiers: Congestive heart failure type: diastolic (12) DM type 2 (diabetes mellitus, type 2) Status: Chronic Qualifiers: Diabetes mellitus complication status: with kidney complications Diabetes mellitus complication detail: with other kidney complication Diabetes mellitus rodent exterminator insulin use: with fdc use Qualified Code(s): E11.29 - Type 2 diabetes mellitus with other diabetic kidney complication; Z79.4 - intermodal dispatcher (current) use of insulin (13) Labile hypertension Code(s): I10 - ESSENTIAL (PRIMARY) HYPERTENSION Status: Chronic (14) Lumbago Code(s): M54.5 - LOW BACK PAIN Status: Chronic Qualifiers: Chronicity: chronic (15) Acute metabolic encephalopathy Code(s): G93.41 - METABOLIC ENCEPHALOPATHY Status: Resolved - Plan cont current plan of care, continue antibiotics * medication reviewed as below. * symptomatic treatment * plan for discharge on oral augmentin for 1 month * see discharge olivia. Review of Systems - Review of Systems ENT: negative: Ear Pain, Ear Discharge, Nose Pain, Nose Discharge, Nose Congestion, Mouth Pain, Mouth Swelling, Throat Pain, Throat Swelling, Other Respiratory: negative: Cough, Dry, Shortness of Breath, Hemoptysis, SOB with Excertion, Pleuritic Pain, Sputum, Wheezing Cardiovascular: negative: Chest Pain, Palpitations, Orthopnea, Paroxysmal Noc. Dyspnea, Edema, Light Headedness, Other Gastrointestinal: negative: Nausea, Vomiting, Abdominal Pain, Diarrhea, Constipation, Melena, Hematochezia, Other Genitourinary: negative: Dysuria, Frequency, Incontinence, Hematuria, Retention , Other Musculoskeletal: negative: Neck Pain, Shoulder Pain, Arm Pain, Back Pain, Hand Pain, Leg Pain, Foot Pain, Other - Medications/Allergies Allergies/Adverse Reactions: Allergies Allergy/AdvReac Type Severity Reaction Status Date / Time No Known Drug Allergies Allergy Verified 04/20/14 10:46 Medications: Current Medications Acetaminophen (Tylenol) 650 mg PO Q4H PRN PRN Reason: (Fever>101.5F, RAMIREZ or mild pain Hydrocodone Bitart/Acetaminophen (Crossnore 10/325) 1 tab PO Q6H PRN PRN Reason: Mild Pain (1-4) Last Admin: 03/06/17 05:27 Dose: 1 tab Hydrocodone Bitart/Acetaminophen (Crossnore 10/325) 2 tab PO Q6H PRN PRN Reason: Moderate to Severe Pain (5-10) Albuterol/Ipratropium (Duoneb) 3 ml NEB [id number] PRN PRN Reason: Wheezing Amlodipine Besylate (Norvasc) 5 mg PO DAILY [facility] Last Admin: 03/06/17 08:09 Dose: 5 mg Dextrose/Water (Dextrose 50%) 25 gm SLOW IVP PRN PRN PRN Reason: Hypoglycemia Diphenhydramine HCl (Benadryl) 25 mg PO Q3H PRN PRN Reason: Itching Last Admin: 03/05/17 20:32 Dose: 25 mg Diphenhydramine HCl (Benadryl) 25 mg IM Q3H PRN PRN Reason: Itching Diphenhydramine HCl (Benadryl) 25 mg IVP Q3H PRN PRN Reason: Itching Last Admin: 03/03/17 05:58 Dose: 25 mg Epoetin Den (Procrit) 7,500 units SC Q7D [facility] Last Admin: 02/28/17 11:00 Dose: 7,500 units Fentanyl (Sublimaze) 25 mcg SLOW IVP Q2H PRN PRN Reason: Pain Fentanyl (Sublimaze) 50 mcg SLOW IVP Q2H PRN PRN Reason: pain Ferrous Sulfate (Ferrous Sulfate) 300 mg PO DAILY [facility] Last Admin: 03/06/17 08:09 Dose: 300 mg Finasteride (Proscar) 5 mg PO DAILY [facility] Last Admin: 03/06/17 08:09 Dose: 5 mg Folic Acid (Folvite) 1 mg PO DAILY [facility] Last Admin: 03/06/17 08:12 Dose: 1 mg Glucagon (Glucagon) 1 mg IM PRN PRN PRN Reason: Hypoglycemia Hydralazine HCl (Apresoline) 10 mg SLOW IVP Q6H PRN PRN Reason: To Keep SBP < 140 mmHG Hyoscyamine Sulfate (Levsin Sl) 0.125 mg SL Q6H PRN PRN Reason: Bladder Spasms Last Admin: 03/06/17 05:28 Dose: 0.125 mg Dextrose/Water (D5w) 1,000 mls @ 0 mls/hr IV .Q0M PRN; As Directed PRN Reason: Hypoglycemia Piperacillin Sod/Tazobactam (Sod 4.5 gm/ Sodium Chloride) 100 mls @ 200 mls/hr IVPB 0400,1600 [facility] Last Admin: 03/06/17 04:23 Dose: 100 mls Sodium Chloride (Normal Saline 0.9%) 1,000 mls @ 0 mls/hr IV .Q0M [facility] PRN Reason: KVO Insulin Human Lispro (Humalog) 0 units SC .MODERATE SLIDING SC PRN PRN Reason: Moderate Correctional Scale Last Admin: 03/05/17 17:23 Dose: 2 unit Insulin Human Lispro (Humalog) 0 units SC .BEDTIME SLIDING SC PRN PRN Reason: Bedtime Correctional Scale Mineral Oil/White Petrolatum (Eucerin Cream) 0 gm TOP PRN PRN PRN Reason: Itching Naloxone HCl (Narcan) 0.2 mg IV Q5MIN PRN PRN Reason: RR <=8 OR OBTUNDED/UNAROUSABLE Naloxone HCl (Narcan) 0.1 mg IVP Q15MIN PRN PRN Reason: URINARY RETENTION Ondansetron HCl (Zofran) 4 mg IVP Q6H PRN PRN Reason: Nausea/Vomiting Last Admin: 03/05/17 17:03 Dose: 4 mg Pantoprazole Sodium (Protonix) 40 mg PO DAILY [facility] Last Admin: 03/06/17 08:09 Dose: 40 mg Pravastatin Sodium (Pravachol) 20 mg PO HS [facility] Last Admin: 03/05/17 20:32 Dose: 20 mg Sodium Chloride (Flush - Normal Saline) 10 ml IVF Q12HR [facility] Last Admin: 03/06/17 08:09 Dose: 10 ml Sodium Chloride (Flush - Normal Saline) 10 ml IVF PRN PRN PRN Reason: Saline Flush Last Admin: 03/05/17 17:06 Dose: 10 ml Sterile Water (Water For Injection) 10 ml FS Q12H PRN PRN Reason: TO RECONSTITUTE ZIPRASIDONE Tramadol HCl (Ultram) 50 mg PO Q6H PRN PRN Reason: Mild Pain 1-3 Last Admin: 03/05/17 20:35 Dose: 50 mg Tramadol HCl (Ultram) 100 mg PO Q6H PRN PRN Reason: Moderate Pain 4-6 Ziprasidone (Geodon) 40 mg IM Q12H PRN PRN Reason: Agitation Last Admin: 02/25/17 21:05 Dose: 40 mg Zolpidem Tartrate (Ambien) 5 mg PO HSPRN PRN PRN Reason: Insomnia Last Admin: 03/05/17 20:32 Dose: 5 mg
--- NOTE | 2017-03-06 10:15 | PRG ---
DATE OF SERVICE: 03/06/2017 SERVICE: Pulmonary Medicine. INTERVAL HISTORY: The patient is doing fine from a cardiovascular and respiratory standpoint. He d enies any current fevers, chills, nausea, vomiting, or chest discomfort. His breathing is very comf ortable. He had his chest tubes out yesterday and had fantastic resolution in his discomfort on juan ramon t side. PHYSICAL EXAMINATION: VITAL SIGNS: Afebrile, pulse 83, blood pressure 135/68, respirations 18, and saturation 93% on room air. GENERAL: The patient is awake and alert, in no apparent distress. LUNGS: Excellent air entry with no prolonged expiratory phase, wheezing, rhonchi or crackles. HEART: Normal rate, regular. ABDOMEN: Soft, nontender, and nondistended. Bowel sounds positive. MUSCULOSKELETAL: No cyanosis or clubbing. No pitting in the bilateral lower extremities. NEUROLOGIC: Grossly nonfocal. LABORATORY DATA: Blood sugars ranged from 137-167. Pleural tissue is growing anaerobic cocci. All other cultures are negative to date. IMAGING: Modified barium swallow demonstrates penetration and aspiration, particularly with thin li quids. ASSESSMENT: 1. Acute hypoxic respiratory failure, resolved. 2. Severe sepsis. 3. Empyema and possible pulmonary abscess, status post decortication. 4. 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 5. Chronic kidney disease. PLAN: The patient will continue working with Speech Pathology in the outpatient setting. Pulmonary Critical Care will continue to follow if the patient remains in house. Ultimately on discharge, he will need to go out on Augmentin, indefinitely. I would like for him to see Dr. Geiger within rough ly 4 weeks with a repeat chest x-ray. Likely what occurred here is the patient developed pulmonary infection that turned into an empyema associated with chronic aspiration. He knows to work hard wit h Speech Pathology in the outpatient setting to make certain that he mitigates his risk of ongoing r espiratory infections. Pulmonary Critical Care will continue to follow if the patient remains in ho use, but my suspicion is he is going to the nursing facility today.
--- NOTE | 2017-03-06 11:27 | DIS ---
DATE OF ADMISSION: 02/25/2017 DATE OF DISCHARGE: 03/06/2017 PRIMARY CARE PHYSICIAN: Asia Carbajal M.D. DISCHARGE DISPOSITION: [facility]. PRIMARY DISCHARGE DIAGNOSES: 1. Acute on chronic kidney failure. 2. Sepsis with acute organ dysfunction. 3. Pneumonia with lung abscess. 4. Empyema of lung. 5. Urinary tract infection. 6. Lactic acidosis, resolved. 7. Acute metabolic encephalopathy, resolved. SECONDARY DISCHARGE DIAGNOSES: Chronic low back pain; labile hypertension; diabetes, type 2; history of cerebrovascular accident with residual weakness; chronic diastolic heart failure, anemia of chronic disease, and physical deconditioning. PRIMARY PROCEDURE/OPERATION: Central line placement, decortication, chest tube placement. RADIOLOGICAL INVESTIGATION: CT brain on admission showed no acute intracranial process. Chest x-ray on admission showed loculated right-sided pleural fluid collection. Abdomen and pelvis CT scan showed moderate right pleural effusion, hemothorax, air fluid level in the right lower lobe. Echocardiography showed EF 60%-65%. CT chest showed moderate right pleural effusion, consolidation versus atelectasis at the base, modified barium swallow was consistent with penetration, he is on modified diet. SIGNIFICANT LABS: WBC 15.0, hemoglobin 7.8, platelets 585, sodium 137, potassium 3.5, BUN 31, creatinine 3.18, calcium 8.3. LFT normal. Urinalysis suggestive of UTI. Urine drug screen positive for opiates, oxycodone, and benzodiazepines. Blood culture negative. Stool for guaiac negative. Urine culture negative. Culture from the pleural fluid growing anaerobic cocci. DISCHARGE MEDICATIONS: Augmentin 500 mg p.o. b.i.d. for one month, Florastor 250 mg p.o. daily for 1 month, Protonix 40 mg p.o. daily, Flexeril 10 mg p.o. q. 6 hourly p.r.n., ferrous gluconate 324 mg p.o. daily, Proscar 5 mg p.o. daily , folic acid 1 mg p.o. daily, [place] 1 or 2 tablets q.6 hourly p.r.n., milk of magnesia 30 mL p.o. daily p.r.n., pravastatin 20 mg p.o. daily, amlodipine 5 mg p.o. daily. CONTRAINDICATIONS: None. CODE STATUS: FULL CODE. INPATIENT CONSULTANTS: Dr. Geiger and group was following while in hospital for pleural effusion. Dr. Edson Mccarty was following for empyema and he did decortication and chest tube placement. Dr. Edwards was following for urinary tract infection. Dr. Blake Romeo was consulted for encephalopathy. TEST RESULTS PENDING ON DISCHARGE: None. ALLERGIES: No known drug allergy. DISCHARGE PLAN: Post hospital, the patient is discharged to fpc unit for more PT, OT, and subsequently, he will follow up with the risk and insurance consultant as instructed. HOSPITAL COURSE: A 61-year-old male, who was admitted by Dr. Barba on 2016. He mainly presented to emergency room with altered mental status. In the emergency room, CT brain was negative for any acute process. He was meeting sepsis criteria. He was having acute on chronic kidney failure. He had loculated pleural effusion on the right side. His CT, abdomen and pelvis, showing only right-sided pleural effusion without any acute process. Subsequently, he also had a CT chest, which showed right-sided loculated pleural effusion with atelectasis and consolidation. There was also a question of air fluid level in the right lower lobe, which was suspicious for lung abscess. Echocardiography showed normal EF. This patient has previous history of CVA and that is why he has oropharyngeal dysphagia. Speech therapy was following. He also had modified barium swallow, which showed penetration with thin liquid and that is why he was given nectar thick liquid diet and mechanical soft texture diet. He also had urinary tract infection, and Dr. Amina Edwards was following for that problem; for encephalopathy, Dr. Blake Romeo was following while in hospital; Dr. Campbell was also following while in hospital. He remained in CCU after surgery, and after stabilization, he was transferred to medical floor. At this point, the patient has continued to improve. He has physical deconditioning and that is why he needs the fpc home placement and he is already approved for [facility]. The patient is up to his baseline level. The patient is on room air. We are prescribing Augmentin based on renal dose for another one month and he will follow up with the above-mentioned consultants. Paper work for discharge done. Discharge medication reconciliation done. The patient is seen and examined at bedside today. Please see my progress note from today for further details. Total time spent on discharge day more than 30 minutes. GERMÁN
[2017-03-06 11:35] VITALS: BP 146/71; TEMP 98
== END 2017-03-06 13:05 | DRG 853 ==
LOC: ERS 02:26 → CCU 05:54 → IMCU/EMU 02-26 09:43 → T4-B 02-26 16:05 → CCU 03-02 10:40 → T4-A 03-05 15:09
PROVIDERS: ADMIT Internal Medicine; ATTEND Internal Medicine
PROC: 30233N1 Transfusion of Nonautologous Red Blood Cells into Peripheral Vein, Percutaneous Approach (ICD-10-PCS; 2017-02-25)
PROC: 0T2BX0Z Change Drainage Device in Bladder, External Approach (ICD-10-PCS; 2017-02-25)
PROC: 30233N1 Transfusion of Nonautologous Red Blood Cells into Peripheral Vein, Percutaneous Approach (ICD-10-PCS; 2017-02-26)
PROC: 0BCK0ZZ Extirpation of Matter from Right Lung, Open Approach (ICD-10-PCS; principal; 2017-03-02)
DX: A41.9 Sepsis, unspecified organism (principal); G93.41 Metabolic encephalopathy; J96.01 Acute respiratory failure with hypoxia; N17.0 Acute kidney failure with tubular necrosis; J86.9 Pyothorax without fistula; J85.1 Abscess of lung with pneumonia; J91.8 Pleural effusion in other conditions classified elsewhere; N18.3 Chronic kidney disease, stage 3 (moderate); I13.0 Hypertensive heart and chronic kidney disease with heart failure and stage 1 through stage 4 chronic kidney disease, or unspecified chronic kidney disease; I50.32 Chronic diastolic (congestive) heart failure; N39.0 Urinary tract infection, site not specified; E87.4 Mixed disorder of acid-base balance; I69.351 Hemiplegia and hemiparesis following cerebral infarction affecting right dominant side; T83.510A Infection and inflammatory reaction due to cystostomy catheter, initial encounter; I42.9 Cardiomyopathy, unspecified; R65.20 Severe sepsis without septic shock; E11.22 Type 2 diabetes mellitus with diabetic chronic kidney disease; D63.1 Anemia in chronic kidney disease; I69.391 Dysphagia following cerebral infarction; R13.12 Dysphagia, oropharyngeal phase; Z93.51 Cutaneous-vesicostomy status; E11.49 Type 2 diabetes mellitus with other diabetic neurological complication; N31.8 Other neuromuscular dysfunction of bladder; F17.210 Nicotine dependence, cigarettes, uncomplicated; E11.65 Type 2 diabetes mellitus with hyperglycemia; E78.00 Pure hypercholesterolemia, unspecified; Z90.5 Acquired absence of kidney; Z22.39 Carrier of other specified bacterial diseases; M54.5 Low back pain; R31.9 Hematuria, unspecified
CPT/HCPCS: 36415; 36416; 36430; 70450; 71010; 71250; 74176; 74230; 80048; 80053; 80202; 80306; 80307; 81003; 81015; 82010; 82140; 82274; 82553; 82607; 82805; 83540; 83550; 83605; 83690; 83880; 84443; 84484; 85025; 86850; 86900; 86901; 87040; 87070; 87076; 87086; 87102; 87205; 87206; 90471; 90682; 93005; 93306; 96365; 96375; A4216; G0008; G8978-GP-CK; G8978-GP-CM; G8979-GP-CI; G8979-GP-CK; G8987-GO-CL; G8988-GO-CJ; G8996-GN-CJ; G8996-GN-CM; G8997-GN-CJ; J1200; J1642; J1644; J1940; J1956; J2001; J2060; J2250; J2405; J2543; J2704; J3010; J3370; J3486; J7050; P9016; Q2036; Q4081; S0020

== ENCOUNTER 2017-04-09 11:06 | Outpatient (CLI) | payer MEDICARE ==
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
== END 2017-04-09 11:07 | disposition home or self-care (01) ==
LOC: RAD 11:06
PROVIDERS: ATTEND Internal Medicine Critical Care Medicine
DX: R06.00 Dyspnea, unspecified (principal)
CPT/HCPCS: 71020

== ENCOUNTER 2017-05-16 14:00 | Outpatient (CLI) | payer MEDICARE ==
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
== END 2017-05-16 14:01 | disposition home or self-care (01) ==
LOC: RAD 14:00
PROVIDERS: ATTEND Internal Medicine Critical Care Medicine
DX: R06.00 Dyspnea, unspecified (principal)
CPT/HCPCS: 71020

== ENCOUNTER 2017-10-17 10:16 | Outpatient (CLI) | payer MEDICARE ==
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
== END 2017-10-17 10:17 | disposition home or self-care (01) ==
LOC: RAD 10:16
PROVIDERS: ATTEND Internal Medicine Critical Care Medicine
DX: R06.00 Dyspnea, unspecified (principal)
CPT/HCPCS: 71046

== ENCOUNTER 2018-01-31 12:07 | Inpatient (IN) | payer MEDICARE ==
[2018-01-31 14:17] LABS: Bilirubin Negative (Negative); Blood, Urine Small (Negative); Clarity CLOUDY (Clear); Glucose, Urine (Dipstick) 250 mg/dL (Negative); Leukocyte Large (Negative); Nitrite Negative (Negative); Protein, Urine (Dipstick) 100 mg/dL (Neg-Trace); Specific Gravity, Urine 1.006 (1.002-1.036); Urobilinogen 0.2 mg/dL (0.2-1.0)
[2018-01-31 14:20] LABS: Bacteria/HPF 4+ HPF (None Seen); Hyaline Casts/LPF 4-6 HYALINE CAST LPF (0-3 Hyaline); Pathc Cast-AUWi Flag 0.58 (0-2.49); RBC/HPF 0-3 HPF (0-3); Squamous Epithelial None Seen HPF (0-3)
[2018-01-31 14:49] LABS: #Basophils 0.1 thou/uL (0.0-0.2); #Eosinphils 0.3 thou/uL (0.0-0.7); #Lymphocytes 2.4 thou/uL (1.20-3.40); #Monocytes 0.7 thou/uL (0.11-0.59); #Neutrophils 6.6 thou/uL (1.40-6.50); %Basophils 0.6 % (0.0-1.0); %Eosinophils 2.8 % (0.0-10.0); %Lymphocytes 24.2 % (21.0-51.0); %Monocytes 6.8 % (0.0-10.0); %Neutrophils 65.6 % (42.0-75.0); Hemoglobin 10.1 g/dL (14.0-18.0); Mean Corpuscular HGB CONC 35.5 g/dL (32.0-36.0); Mean Corpuscular Hemoglobin 31.5 pg (27.0-31.0); Mean Corpuscular Volume 88.8 fL (78.0-98.0); Mean Platelet Volume 5.6 fL (7.4-10.4); Platelet Count 350 thou/uL (130-400); RBC Distribution Width 12.2 % (11.5-14.5); Red Blood Cell (RBC) Count 3.21 mill/uL (4.70-6.10)
[2018-01-31 15:11] LABS: ALT (SGPT) 14 U/L (8-55); AST (SGOT) 14 U/L (5-34); Albumin 4.2 g/dL (3.4-4.8); Alkaline Phosphatase 87 U/L (40-150); Anion Gap 18 mmol/L (10-20); BUN (Urea Nitrogen) 51 mg/dL (8.4-25.7); Bilirubin, Total 0.2 mg/dL (0.2-1.2); Calc. Creatinine Clearance 0 mL/min (70-130); Calcium 9.4 mg/dL (7.8-10.44); Carbon Dioxide 18 mmol/L (23-31); Chloride 105 mmol/L (98-107); Estimated GFR-MDRD 14; Globulin 3.8 g/dL (2.4-3.5); Glucose 183 mg/dL (80-115); Potassium 3.7 mmol/L (3.5-5.1); Sodium 137 mmol/L (136-145)
[2018-01-31] MEDS ORDERED: MEROPENEM 1 GM/50 ML 1 GM in Premix Bag 1 BAG IVPB SCH (16:30)
[2018-01-31] MEDS ORDERED: Acetaminophen 325 MG TAB ONE (17:40)
[2018-01-31] MEDS ORDERED: Ondansetron HCl/PF 4 MG/2 ML Vial IVP PRN (19:40)
[2018-01-31] MEDS ORDERED: Acetaminophen 325 MG TAB PO PRN (19:40)
[2018-01-31] MEDS ORDERED: Ondansetron ODT 4 MG TAB SL PRN (19:40)
[2018-02-01] MEDS ORDERED: MEROPENEM 1 GM/50 ML 1 GM in Premix Bag 1 BAG IVPB SCH ×2 (01:00→09:00)
[2018-02-01 01:06] VITALS: BMI 29.2
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
[2018-02-01] MEDS ORDERED: Acetaminophen 325 MG TAB PO PRN (08:12)
[2018-02-01] MEDS: tiZANidine HCl 4 MG TAB PO SCH ×3 (09:10→20:32)
[2018-02-01] MEDS: Saccharomyces boulardii 250 MG CAP PO SCH (09:10)
[2018-02-01] MEDS: Amlodipine 5 MG TAB PO SCH (09:10)
[2018-02-01] MEDS: Alogliptin 25 MG TAB PO SCH (09:10)
[2018-02-01] MEDS: Finasteride 5 MG TAB PO SCH (09:10)
--- NOTE | 2018-02-01 10:02 | CON ---
DATE OF CONSULTATION: 02/01/2018 RENAL MEDICINE HISTORY OF PRESENT ILLNESS: Mr. Araujo is a 62-year-old white male with chronic renal failure fro m diabetic/hypertensive nephropathy and admitted for UTI. He has been started on IV meropenem. The antibiotics were noted not to be sensitive to the current culture with this patient. We are now cons ulted for his acute kidney injury on top of his chronic renal failure. REVIEW OF SYSTEMS: Positive for gross hematuria. Positive for dysuria. He has an indwelling Chavez catheter. No diarrhea, no constipation, Chronic right-sided weakness. No headache, no diplopia. De nies any fever or chills. No abdominal pain. Appetite and energy level is fair. No diplopia, no so re throat, no hematochezia, no melena, no hematemesis. MEDICATIONS: DuoNeb q.4 p.r.n., alogliptin 25 mg daily, Norvasc 5 mg daily, Lipitor 10 mg at bedtime , Proscar 5 mg daily, meropenem 1 gram IV q.8, metformin 1000 mg, Protonix 40 mg daily, Florastor 250 mg once a day, tizanidine 4 mg p.o. t.i.d. PAST MEDICAL HISTORY: 1. Chronic renal failure from diabetic/hypertensive nephropathy. 2. Status post UTI. 3. Status post cerebrovascular accident with right hemiplegia. 4. Bipolar disorder. 5. Status post mental status change. 6. History of chronic indwelling Chavez catheter. 7. Hyperlipidemia. 8. Type 2 diabetes mellitus. PAST SURGICAL HISTORY: 1. Status post hernia repair. 2. Status post back surgery. ALLERGIES: None. TRAUMA: None. IMMUNIZATIONS: Up to date. HOSPITALIZATIONS: Please see past medical history. SOCIAL HISTORY: The patient lives alone. He lives in [place] and his mother used to help him, but his mother recently. He does have a caregiver comes from time to time. He is , 2 children. Currently no smoking or alcohol intake, no drug abuse. Status post blood transfusion. 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 Education, his College. FAMILY HISTORY: No family history of ESRD. PHYSICAL EXAMINATION: VITAL SIGNS: Blood pressure is 147/71, heart rate 73, respiratory rate 18, temperature 97.9, pulse o x 94%. GENERAL: Awake, alert, comfortable, not in overt distress. SKIN: Adequate turgor. HEENT: He has pinkish conjunctivae, anicteric sclerae. NECK: No neck mass, no carotid bruits, no JVD. CHEST: No deformities. LUNGS: Decreased breath sounds. HEART: Normal sinus rhythm. No murmurs, no gallops, no rubs. ABDOMEN: Globular, soft, nontender, no masses. EXTREMITIES: Trace edema. No deformities. NEUROLOGIC: Awake, oriented to 3 spheres. Positive for right hemiplegia. No tremors, no asterixis. LABORATORY DATA: Laboratories of 01/31/2018; white count 10, hemoglobin 10.1. Sodium 137, potassium 3.7, chloride 105, carbon dioxide 18, BUN 51, creatinine 4.31, glucose 183, AST 14, ALT 14, albumin 4.2. Urine C&S shows Klebsiella and Enterobacter. ASSESSMENT AND PLAN: 1. Urinary tract infection. Currently on IV meropenem. Due to the decreased GFR, I would suggest w e decreased the dosing of meropenem to at least q.12 or even once a day. 2. Type 2 diabetes mellitus - in view of his renal dysfunction, we will discontinue metformin. Cons ider starting patient on a different oral hypoglycemic. We will start patient on Actos at 15 mg tab once a day. 3. Acute kidney injury on top of his chronic renal failure - I suspect presumptive prerenal azotemia . Start normal saline 100 mL an hour. Recheck base met and CBC in a.m.
[2018-02-01] MEDS: Sodium Chloride 0.9% 1,000 ML IV SCH ×2 (12:05→20:34)
[2018-02-01] MEDS ORDERED: Meropenem 1 GM in Sodium Chloride 0.9% 100 ML IVPB SCH (14:00)
--- NOTE | 2018-02-01 14:34 | CON ---
DATE OF CONSULTATION: 02/01/2018 REASON FOR CONSULTATION: Possible cystitis. 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 Patient also had Streptococcus milleri empyema managed with decortication here at [facility]. His last admission to this hospital was in 03/20 and this was for management of empyema. At this time, he came in because of new onset of gross hematuria. The home health nurse submitted a sample or culture and he was admitted. He denied any fever or chills, no pain, no respiratory symptoms. Sometimes when he swallows, he gets stuck in the right side of his throat. No odynophagia, dysphagia, or vomiting, no abdominal pain, no diarrhea, no change in neurological symptoms. PAST MEDICAL HISTORY: Type 2 diabetes; pneumonia with strep milleri empyema, treated with decortication last year; myogenic bladder, managed with suprapubic catheter without evidence of obstruction; renal cell cancer, in remission after partial nephrectomy. Laminectomy, hernia repair. ALLERGIES: Negative. SOCIAL HISTORY: Current smoker. He lives by himself in the area and has a home health agency following him. Apparently there are some concerns about his ability to provide for his needs in the home place. CURRENT MEDICATIONS: Includes Tylenol, DuoNeb, alogliptin, Norvasc, Lipitor, Proscar, meropenem, Protonix, Actos, Zanaflex. FAMILY HISTORY: Noncontributory. PHYSICAL EXAMINATION: VITAL SIGNS: T-max 98.3, blood pressure 140/70, pulse 78, respirations 16, O2 sat 96%. The patient appears in no distress. SKIN: With a suprapubic catheter with normal appearing exit site. No lymphadenopathy. HEENT: Ocular movements are conjugate. Oral cavity with only a few teeth left in place. NECK: Supple. LUNGS: Symmetric, clear breath sounds. HEART: S1, S2, regular rate. No S3, S4 or murmurs. ABDOMEN: Soft, not distended or tender. No bladder distention. EXTREMITIES: No joint inflammatory activity. He is able to move his extremities on command, but marked limitations. NEUROLOGIC: His cognitive function appears to be intact. LABORATORY DATA: White cell count 10,000, hemoglobin 10, MCV 88, platelets 350. Sodium 137, creatinine 4.31, which is the highest he has been since July this year. His lowest was 2.97 last year in February. Liver profile normal. Albumin 4.2, globulin 3.8. Urinalysis greater than 50 WBCs, 100 protein. Microbiology: Negative blood cultures and 1 gram negative jose retrieved from urine culture. Previous urine culture from few days ago with Enterobacter cloacae and Klebsiella pneumo. Klebsiella pneumo had had an ESBL phenotype. ASSESSMENT: Renal cell cancer in remission after partial nephrectomy, type 2 diabetes, prior cerebrovascular accidents with significant neurological impairment. A suprapubic catheter for management of myogenic bladder, recent empyema with decortication at the end of 2016 due to Streptococcus milleri, episodes of clots that he passes intermittently and now with gross hematuria. DISCUSSION: Differential diagnosis includes cystitis, damage from displacement of suprapubic catheter, malignancy or nephrolithiasis/bladder lithiasis. The patient has his urologist, Dr. Love in [facility]. We will order an ultrasound of his kidneys and bladder to evaluate for the presence of masses or stones, could also order a CT stone protocol with the same intent. It is possible that the findings in the urinary tract are not secondary to cystitis, patients with suprapubic catheters will frequently have pyuria without necessarily implying an invasive infectious process. He has been started on meropenem and I would give him another 2-3 days of treatment and then discontinue antimicrobial therapy. He does not recall having had a cystoscopy in the past and in view of the gross hematuria, he probably will be a candidate for such by his urologist. GERMÁN
[2018-02-01] MEDS: Acetaminophen/Codeine 30-300mg Tablet PO PRN (15:52)
--- NOTE | 2018-02-01 16:29 | CT ---
CT OF THE ABDOMEN AND PELVIS WITHOUT CONTRAST 02/01/18 INDICATION: History of UTI, renal cancer and suprapubic catheter placement, now with gross hematuria. COMPARISON: The exam is compared to a prior contrast enhanced CT of the abdomen and pelvis dated 03/09/[address] examination dated 02/25/17. FINDINGS: There is a tiny sub 4 mm pulmonary nodule within the right lower lobe which is new from a comparison in 2016 on image 10 of series 2. There is subsegmental volume loss involving both lower lobes. Unopacified liver, pancreas, and right adrenal gland are normal appearing. There is a stable left adr enal adenoma. There is stable left renal cysts. There is bilateral nephrolithiasis. No hydronephrosis or definite ureteral stone is evident. There are layered gallstones within the gallbladder. Spleen i s normal in size. There are moderate calcifications involving the abdominal and pelvic vasculature. T here is a moderate amount of retained stool within the colon. Small bowel is within normal caliber. There is a suprapubic bladder catheter in place. The prostate m easures 4.7 cm. There is diffuse osteopenia. There is scattered degenerative and osteoarthritic change. IMPRESSION: 1. New sub 4 mm pulmonary nodule in the right lower lobe. As a conservative measure, would recom mend a followup examination in 6 to 8 weeks to document stability. A full CT of the thorax would be r ecommended to evaluate for additional pulmonary nodules. 2. Stable left adrenal adenoma and left renal cyst. 3. Stable bilateral nephrolithiasis. 4. Cholelithiasis. 5. Mild amount of retained stool within the colon. 6. Suprapubic bladder catheter projects in the expected position. POS: HERLINDA
[2018-02-01] MEDS: MEROPENEM 1 GM/50 ML 1 GM in Premix Bag 1 BAG IVPB SCH (20:33)
[2018-02-01] MEDS: Atorvastatin Calcium 10 MG TAB PO SCH (20:33)
[2018-02-02] MEDS: Sodium Chloride 0.9% 1,000 ML IV SCH ×3 (00:35→15:27)
[2018-02-02 04:39] LABS: Anion Gap 19 mmol/L (10-20); BUN (Urea Nitrogen) 46 mg/dL (8.4-25.7); Calc. Creatinine Clearance 22 mL/min (70-130); Calcium 8.8 mg/dL (7.8-10.44); Carbon Dioxide 12 mmol/L (23-31); Cardiac Risk 3.7 (Less than 4.5); Chloride 112 mmol/L (98-107); Cholesterol 152 mg/dl (< 200 Desired); Estimated GFR-MDRD 14; Glucose 83 mg/dL (80-115); HDL Cholesterol 41 mg/dL (>60 Neg Risk); LDL Cholesterol, Calculated 62 mg/dL; Potassium 4.5 mmol/L (3.5-5.1); Sodium 138 mmol/L (136-145); Triglycerides 245 mg/dL (Less than 150)
[2018-02-02 05:49] LABS: Hemoglobin A1c 5.3 % (4.0-6.0)
[2018-02-02 06:07] LABS: Band 4 % (5-11); Eosinophils 5 % (0-10); Hemoglobin 9.5 g/dL (14.0-18.0); Lymphocytes 23 % (21-51); MDiff Complete? YES; Mean Corpuscular HGB CONC 34.7 g/dL (32.0-36.0); Mean Corpuscular Hemoglobin 31.3 pg (27.0-31.0); Mean Corpuscular Volume 90.3 fL (78.0-98.0); Mean Platelet Volume 7.1 fL (7.4-10.4); Monocytes 8 % (0-10); Neutrophil 58 % (42-75); PLT Morphology Comment Appears Adequate; Platelet Count 283 thou/uL (130-400); RBC Distribution Width 12.4 % (11.5-14.5); Reactive Lymphocytes 1 % (0-10); Red Blood Cell (RBC) Count 3.04 mill/uL (4.70-6.10); White Blood Cell (WBC) Count 8.9 thou/uL (4.8-10.8)
--- NOTE | 2018-02-02 07:49 | PRG ---
DATE OF SERVICE: 02/02/2018 SERVICE: Renal Medicine. SUBJECTIVE: Mr. Araujo is a 62-year-old white male with chronic renal failure from diabetic/hyper tensive nephropathy and was seen by the Renal service due to the worsening renal dysfunction. He fel t that he had a superimposed prerenal azotemia and was given IV fluid. In addition, he was initially admitted for a presumptive UTI. He also had gross hematuria. A CT scan of the abdomen and pelvis w as done, which essentially showed an incidental finding of a 4-mm pulmonary nodule in the right lower lobe. Recommendation is to follow up in 8 weeks. There was also the stable left adrenal adenoma wi th a left renal cyst. There was a finding of bilateral nephrolithiasis. Suprapubic bladder catheter was also noted in a functional position. This morning, he has no other complaints. Denies any ches t pain or shortness of breath. OBJECTIVE: VITAL SIGNS: Blood pressure is 120/68, heart rate 85, respiratory rate 16, temperature 98.1, pulse o x 94%. GENERAL EXAM: Awake, alert, comfortable, not in distress. SKIN: Adequate turgor. HEENT: He has pinkish conjunctivae, anicteric sclerae. NECK: No neck mass, no carotid bruits, no JVD. CHEST: No deformities. LUNGS: Clear breath sounds. No wheezing, no crackles. HEART: Normal sinus rhythm. No murmur, no gallops, no rubs. ABDOMEN: Globular, soft, nontender, no masses. EXTREMITIES: No edema, no deformities. Medications of 02/02/2018 reviewed. LABORATORY DATA: Laboratories of 02/02/2018, white count 8.9, hemoglobin 9.5. Sodium 138, potassium 4.5, chloride 112, carbon dioxide 12, BUN 46, creatinine 4.23, calcium 8.8, triglyceride 245, choles terol 152. ASSESSMENT AND PLAN: 1. Chronic renal failure/acute kidney injury - stabilizing renal function. Creatinine slightly impr paddy from 4.31-4.23. Continue gentle volume repletion. No indication for any dialytic intervention. 2. Metabolic acidosis. Sodium bicarbonate 650 mg 1 tab t.i.d. 3. Urinary tract infection/gross hematuria - IV antibiotics. Eventual urological workup as an outpa tient is being considered. 4. Incidental finding of 4-mm pulmonary nodule - continue to observe. Recommendation is a repeat CT scan in about 8 weeks' time. Recheck basic metabolic panel and CBC in a.m.
[2018-02-02] MEDS ORDERED: metFORMIN 500 MG TAB PO SCH (08:00)
[2018-02-02] MEDS: Finasteride 5 MG TAB PO SCH (09:08)
[2018-02-02] MEDS: Saccharomyces boulardii 250 MG CAP PO SCH (09:08)
[2018-02-02] MEDS: Alogliptin 25 MG TAB PO SCH (09:08)
[2018-02-02] MEDS: tiZANidine HCl 4 MG TAB PO SCH ×3 (09:08→21:41)
[2018-02-02] MEDS: Amlodipine 5 MG TAB PO SCH (09:08)
[2018-02-02] MEDS: Sodium Bicarbonate Tab 325 MG TAB PO SCH ×3 (09:08→21:41)
[2018-02-02] MEDS: Acetaminophen/Codeine 30-300mg Tablet PO PRN ×2 (09:09→17:32)
[2018-02-02] MEDS: MEROPENEM 1 GM/50 ML 1 GM in Premix Bag 1 BAG IVPB SCH ×2 (09:15→21:40)
[2018-02-02] MEDS: Pioglitazone HCl 15 MG TAB PO SCH (10:30)
[2018-02-02] MEDS: Acetaminophen 325 MG TAB PO SCH (17:39)
[2018-02-02] MEDS: Atorvastatin Calcium 10 MG TAB PO SCH (21:41)
[2018-02-03] MEDS: Acetaminophen 325 MG TAB PO SCH ×4 (00:25→17:51)
[2018-02-03] MEDS: Acetaminophen/Codeine 30-300mg Tablet PO PRN ×3 (00:25→20:23)
[2018-02-03 05:13] LABS: #Eosinphils 0.3 thou/uL (0.0-0.7); #Lymphocytes 1.6 thou/uL (1.20-3.40); #Monocytes 0.7 thou/uL (0.11-0.59); #Neutrophils 3.4 thou/uL (1.40-6.50); %Basophils 0.7 % (0.0-1.0); %Eosinophils 5.3 % (0.0-10.0); %Lymphocytes 25.9 % (21.0-51.0); %Monocytes 11.6 % (0.0-10.0); %Neutrophils 56.6 % (42.0-75.0); Hemoglobin 8.2 g/dL (14.0-18.0); Mean Corpuscular HGB CONC 35.5 g/dL (32.0-36.0); Mean Corpuscular Hemoglobin 31.8 pg (27.0-31.0); Mean Corpuscular Volume 89.5 fL (78.0-98.0); Mean Platelet Volume 6.1 fL (7.4-10.4); Platelet Count 272 thou/uL (130-400); RBC Distribution Width 12.3 % (11.5-14.5); Red Blood Cell (RBC) Count 2.57 mill/uL (4.70-6.10); White Blood Cell (WBC) Count 6.1 thou/uL (4.8-10.8)
[2018-02-03 05:41] LABS: Anion Gap 14 mmol/L (10-20); BUN (Urea Nitrogen) 45 mg/dL (8.4-25.7); Calc. Creatinine Clearance 21 mL/min (70-130); Calcium 8.5 mg/dL (7.8-10.44); Carbon Dioxide 18 mmol/L (23-31); Chloride 111 mmol/L (98-107); Estimated GFR-MDRD 13; Glucose 82 mg/dL (80-115); Potassium 3.6 mmol/L (3.5-5.1); Sodium 139 mmol/L (136-145)
[2018-02-03] MEDS: Sodium Chloride 0.9% 1,000 ML IV SCH ×3 (06:05→16:18)
[2018-02-03] MEDS ORDERED: Epoetin (ESRD) 20,000 UNITS/ML SC SCH (08:15)
[2018-02-03] MEDS: Saccharomyces boulardii 250 MG CAP PO SCH (08:41)
[2018-02-03] MEDS: MEROPENEM 1 GM/50 ML 1 GM in Premix Bag 1 BAG IVPB SCH ×2 (08:41→20:16)
[2018-02-03] MEDS: Alogliptin 25 MG TAB PO SCH (08:41)
[2018-02-03] MEDS: Amlodipine 5 MG TAB PO SCH (08:41)
[2018-02-03] MEDS: tiZANidine HCl 4 MG TAB PO SCH ×3 (08:41→20:16)
[2018-02-03] MEDS: Sodium Bicarbonate Tab 325 MG TAB PO SCH ×3 (08:41→20:16)
[2018-02-03] MEDS: Finasteride 5 MG TAB PO SCH (08:42)
--- NOTE | 2018-02-03 08:43 | PRG ---
DATE OF SERVICE: 02/03/2018 SERVICE: Renal Medicine. SUBJECTIVE: Mr. Araujo is a 62-year-old white male with renal failure from diabetic/hypertensive nephropathy, and we admitted for a UTI. We are currently continuing IV hydration due to the slightly creatinine with this patient. He also had a CT scan of the abdomen and pelvis, which showed a findi ng of bilateral nephrolithiasis. No new complaints today. He continues to receive his IV antibiotics. In the interim, his metformin was discontinued due to the low GFR. No other complaints today. No chest pain or shortness of breat h. PHYSICAL EXAMINATION: VITAL SIGNS: Blood pressure 137/68, heart rate 84, respiratory rate 18, temperature 98.2, pulse ox i s 93%. GENERAL EXAM: Noted to be awake, alert, comfortable, not in overt distress. SKIN: Decreased turgor. HEENT: Slightly pale conjunctivae, anicteric sclerae. NECK: No neck mass, no carotid bruits, no JVD. CHEST: No deformities. LUNGS: Clear breath sounds. No wheezing, no crackles. HEART: Normal sinus rhythm. No murmur, no gallops, no rubs. ABDOMEN: Globular, soft, nontender, no masses. EXTREMITIES: No edema, no deformities. Medications of 02/03/2018 was reviewed. LABORATORY DATA: Laboratories of 02/03/2018, sodium 139, potassium 3.6, chloride 111, carbon dioxide 18, BUN 45, creatinine 4.5. White count 6.1, hemoglobin 8.2, hematocrit 23, platelet count 272,000. ASSESSMENT AND PLAN: 1. Acute kidney injury on top of chronic renal failure, fluctuating creatinine. Our plan is to cont inue current normal saline at 100 mL per hour. There is no indication for any dialytic intervention. 2. Metabolic acidosis. Sodium bicarbonate 650 mg p.o. t.i.d. has been started. 3. Anemia. Epogen plus iron supplementation has been ordered today - p.r.n. blood transfusion. 4. Urinary tract infection, on IV meropenem. ID is following. We will recheck a basic metabolic panel and CBC in a.m.
[2018-02-03] MEDS: Pioglitazone HCl 15 MG TAB PO SCH (10:24)
[2018-02-03] MEDS: Ferrous Sulfate 325 MG TAB PO SCH (16:19)
[2018-02-03] MEDS: Atorvastatin Calcium 10 MG TAB PO SCH (20:16)
[2018-02-04] MEDS: Acetaminophen/Codeine 30-300mg Tablet PO PRN ×3 (02:53→16:08)
[2018-02-04 05:05] LABS: #Eosinphils 0.3 thou/uL (0.0-0.7); #Lymphocytes 1.3 thou/uL (1.20-3.40); #Monocytes 0.7 thou/uL (0.11-0.59); #Neutrophils 3.2 thou/uL (1.40-6.50); %Basophils 0.6 % (0.0-1.0); %Eosinophils 5.7 % (0.0-10.0); %Lymphocytes 23.8 % (21.0-51.0); %Monocytes 12.5 % (0.0-10.0); %Neutrophils 57.4 % (42.0-75.0); Hemoglobin 8.4 g/dL (14.0-18.0); Mean Corpuscular HGB CONC 34.8 g/dL (32.0-36.0); Mean Corpuscular Hemoglobin 31.1 pg (27.0-31.0); Mean Corpuscular Volume 89.5 fL (78.0-98.0); Mean Platelet Volume 6.2 fL (7.4-10.4); Platelet Count 265 thou/uL (130-400); RBC Distribution Width 12.3 % (11.5-14.5); Red Blood Cell (RBC) Count 2.69 mill/uL (4.70-6.10); White Blood Cell (WBC) Count 5.6 thou/uL (4.8-10.8)
[2018-02-04 05:24] LABS: Anion Gap 16 mmol/L (10-20); BUN (Urea Nitrogen) 42 mg/dL (8.4-25.7); Calc. Creatinine Clearance 22 mL/min (70-130); Calcium 8.8 mg/dL (7.8-10.44); Carbon Dioxide 16 mmol/L (23-31); Chloride 113 mmol/L (98-107); Estimated GFR-MDRD 14; Glucose 77 mg/dL (80-115); Iron 32 ug/dL (65-175); Sodium 141 mmol/L (136-145)
[2018-02-04] MEDS: Sodium Chloride 0.9% 1,000 ML IV SCH ×2 (05:26→16:15)
[2018-02-04] MEDS: Acetaminophen 325 MG TAB PO SCH ×4 (07:06→16:19)
[2018-02-04] MEDS: Finasteride 5 MG TAB PO SCH (07:52)
[2018-02-04] MEDS: Amlodipine 5 MG TAB PO SCH (07:53)
[2018-02-04] MEDS: tiZANidine HCl 4 MG TAB PO SCH ×3 (07:53→20:49)
[2018-02-04] MEDS: Sodium Bicarbonate Tab 325 MG TAB PO SCH ×3 (07:54→20:49)
[2018-02-04] MEDS: Alogliptin 25 MG TAB PO SCH (07:54)
[2018-02-04] MEDS: Pioglitazone HCl 15 MG TAB PO SCH (07:55)
[2018-02-04] MEDS: Ferrous Sulfate 325 MG TAB PO SCH ×2 (07:55→16:09)
[2018-02-04] MEDS: Saccharomyces boulardii 250 MG CAP PO SCH (07:55)
[2018-02-04] MEDS: MEROPENEM 1 GM/50 ML 1 GM in Premix Bag 1 BAG IVPB SCH ×2 (07:56→20:49)
--- NOTE | 2018-02-04 11:01 | PRG ---
DATE OF SERVICE: 02/04/2018 SUBJECTIVE: Mr. Araujo is a 62-year-old white male with chronic renal failure and was admitted fo r urinary tract infection, currently on IV antibiotics. We saw him for his acute kidney injury on to p of his chronic renal failure. He is on empiric volume repletion. Renal function is stable. No ne w complaints today. He tells me he is feeling better. PHYSICAL EXAMINATION: VITAL SIGNS: Blood pressure is 154/72, heart rate 78, respiratory rate 18, temperature 99.2, pulse o x 94%. GENERAL: Noted to be awake, alert, comfortable, not in distress. SKIN: Adequate turgor. HEENT: Slightly pale conjunctivae, anicteric sclerae. NECK: No neck mass, no carotid bruits, no JVD. CHEST: No deformities. LUNGS: Clear breath sounds. No wheezing, no crackles. HEART: Normal sinus rhythm. No murmur, no gallops or rubs. ABDOMEN: Globular, soft, nontender, no masses. EXTREMITIES: No edema, no deformities. MEDICATIONS: 02/04/2018 - Reviewed. LABORATORY DATA: 02/04/2018 - White count 5.6, hemoglobin 8.4, sodium 141, potassium 4, chloride 103 , carbon dioxide 16, BUN 42, creatinine 4.33, calcium 8.8. Iron 32. ASSESSMENT AND PLAN: 1. Acute kidney injury/chronic renal failure, stable renal function. Creatinine 4.33 is about basel ine. Continue gentle volume hydration. Again, no indication for any dialytic intervention with this patient. 2. Metabolic acidosis on sodium bicarbonate 650 p.o. t.i.d. 3. Anemia, on weekly Epogen. 4. Urinary tract infection - on IV antibiotics. ID following. I agree with current management. Recheck base met and CBC in a.m.
--- NOTE | 2018-02-04 13:19 | CON ---
DATE OF CONSULTATION: 02/04/2018 HISTORY OF PRESENT ILLNESS: The patient is a 62-year-old male with a history of cerebrovas cular accident and suprapubic catheter with multiple UTIs, who presented with dysuria. He denies any abdominal pain, denies any nausea, vomiting. Denies any melena, hematochezia. He has not had previ ous evaluation of his stomach or colon. He reportedly was heme positive. PAST MEDICAL HISTORY: Includes cerebrovascular accident, diabetes mellitus, hypertension, chronic ba ck pain on Tylenol #3. PAST MEDICAL HISTORY: Herniorrhaphy, back surgery, suprapubic catheter. ALLERGIES: No known medical allergies. HOME MEDICATIONS: Norvasc 1 p.o. daily, Florastor 250 mg every day, Pravachol 1 p.o. daily, Protonix 40 mg p.o. daily, folate 1 mg p.o. daily, finasteride 1 p.o. daily, ferrous gluconate 1 p.o. daily, Flexeril 10 mg p.o. q.6 hours p.r.n., Augmentin 1 p.o. b.i.d. SOCIAL HISTORY: He does not smoke or drink. FAMILY HISTORY: Negative for GI or liver disease. REVIEW OF SYSTEMS: CONSTITUTIONAL: No fever or chills, no weight loss. EYES: No blurred vision or double vision. ENT: No sore throat or earaches. CARDIOVASCULAR: No chest pain or palpitation. PULMONARY: No shortness of breath, cough, or wheezing. GI: See above. : No hematuria. Positive for dysuria. NEUROLOGIC: Positive for numbness in the left lower extremity. SKIN: No rashes. PHYSICAL EXAMINATION: GENERAL: Shows a well-developed, well-nourished white male in no acute distress. VITAL SIGNS: Temperature 99.2, pulse 78, respiratory rate 18, blood pressure 154/72. HEENT: Unremarkable. NECK: Supple. CHEST: Clear. CARDIOVASCULAR: Regular rate and rhythm. ABDOMEN: Soft, nontender, without organomegaly or masses. He has a suprapubic catheter. EXTREMITIES: Normal except some contractures. LABORATORY: Shows a white blood cell count of 5.6, hemoglobin 8.4, hematocrit 24.1, MCV of 89.5. Ch emistries show a BUN 51, creatinine 4.31. Iron is 32. Ferritin is 57. Urine shows large leukocyte esterase, greater than 50 WBCs. Stool occult blood is positive. Abdominal and pelvic CT show pulmonary nodule, adrenal adenoma, cholelithiasis, mild to moderate jose ined stool within the colon and a suprapubic bladder catheter. ASSESSMENT: 1. Heme positive stools. 2. Chronic constipation - combination immobility and Tylenol #3. 3. Chronic low back pain on Tylenol #3. 4. Cerebral vascular accident. 5. Recurrent urinary tract infections. 6. Anemia - GI blood loss versus anemia of chronic disease. RECOMMENDATIONS: 1. I did discuss performing a colonoscopy and/or upper endoscopy with the patient. At this time. Zack diaz is not interested in undergoing any endoscopic procedures. 2. If the patient changes his mind, I would be happy to perform endoscopy.
[2018-02-04] MEDS: Atorvastatin Calcium 10 MG TAB PO SCH (20:49)
[2018-02-05 04:58] LABS: #Eosinphils 0.4 thou/uL (0.0-0.7); #Lymphocytes 1.2 thou/uL (1.20-3.40); #Monocytes 0.7 thou/uL (0.11-0.59); #Neutrophils 3.8 thou/uL (1.40-6.50); %Basophils 0.2 % (0.0-1.0); %Eosinophils 5.9 % (0.0-10.0); %Lymphocytes 20.4 % (21.0-51.0); %Neutrophils 62.6 % (42.0-75.0); Mean Corpuscular HGB CONC 34.3 g/dL (32.0-36.0); Mean Corpuscular Hemoglobin 30.8 pg (27.0-31.0); Mean Corpuscular Volume 89.6 fL (78.0-98.0); Mean Platelet Volume 6.1 fL (7.4-10.4); Platelet Count 268 thou/uL (130-400); RBC Distribution Width 12.2 % (11.5-14.5); Red Blood Cell (RBC) Count 2.93 mill/uL (4.70-6.10); White Blood Cell (WBC) Count 6.1 thou/uL (4.8-10.8)
[2018-02-05 05:31] LABS: Anion Gap 18 mmol/L (10-20); BUN (Urea Nitrogen) 39 mg/dL (8.4-25.7); Calc. Creatinine Clearance 23 mL/min (70-130); Calcium 9.1 mg/dL (7.8-10.44); Carbon Dioxide 16 mmol/L (23-31); Chloride 110 mmol/L (98-107); Estimated GFR-MDRD 15; Glucose 99 mg/dL (80-115); Potassium 3.5 mmol/L (3.5-5.1); Sodium 140 mmol/L (136-145)
[2018-02-05] MEDS: Acetaminophen/Codeine 30-300mg Tablet PO PRN (05:39)
[2018-02-05] MEDS: Acetaminophen 325 MG TAB PO SCH ×2 (05:40)
[2018-02-05] MEDS: Ferrous Sulfate 325 MG TAB PO SCH (07:59)
[2018-02-05] MEDS: Saccharomyces boulardii 250 MG CAP PO SCH (08:00)
[2018-02-05] MEDS: tiZANidine HCl 4 MG TAB PO SCH (08:00)
[2018-02-05] MEDS: Sodium Bicarbonate Tab 325 MG TAB PO SCH (08:00)
[2018-02-05] MEDS: Amlodipine 5 MG TAB PO SCH (08:01)
[2018-02-05] MEDS: Alogliptin 25 MG TAB PO SCH (08:01)
[2018-02-05] MEDS: Finasteride 5 MG TAB PO SCH (08:02)
[2018-02-05] MEDS: Sodium Chloride 0.9% 1,000 ML IV SCH (08:03)
[2018-02-05] MEDS: MEROPENEM 1 GM/50 ML 1 GM in Premix Bag 1 BAG IVPB SCH (08:03)
[2018-02-05 08:10] VITALS: BP 158/79; TEMP 98.2
[2018-02-05] MEDS: Pioglitazone HCl 15 MG TAB PO SCH (08:47)
--- NOTE | 2018-02-05 09:00 | PRG ---
DATE OF SERVICE: 02/05/2018 SERVICE: Renal Medicine. SUBJECTIVE: Mr. Araujo is a 62-year-old white male with chronic renal failure and was admitted fo r UTI. He was empirically given IV antibiotics. Renal function remains stable with this hospitaliza tion. He was also seen by GI regarding his anemia. He declined any further workup. Please note, he has been started on Epogen and iron supplementation. No new complaints today. Denies any chest west n or shortness of breath. PHYSICAL EXAMINATION: VITAL SIGNS: Blood pressure 158/79, heart rate 86, respiratory rate 18, temperature 98.2, pulse ox 9 4%. GENERAL: Awake, alert, comfortable, not in distress. SKIN: Adequate turgor. HEENT: Slightly pale conjunctivae, anicteric sclerae. NECK: No neck mass, no carotid bruits, no JVD. CHEST: No deformities. LUNGS: Clear breath sounds, no wheezing, no crackles. HEART: Normal sinus rhythm. No murmur, no gallops or rubs. ABDOMEN: Globular, soft, nontender. No masses. EXTREMITIES: No edema, no deformities. MEDICATIONS: Of 02/05/2018 was reviewed. LABORATORY DATA: Of 02/05/2018, white count 6.1, hemoglobin 9, sodium 140, potassium 3.5, chloride 1 10, carbon dioxide 16, BUN 39, creatinine 4.15, GFR 15 mL per minute, calcium 9.1. ASSESSMENT AND PLAN: 1. Chronic renal failure/acute kidney injury, stabilizing renal function. Creatinine improved at 4. 15. No indication for any dialytic intervention. Continue supportive care. This patient has a foll owup appointment with me at [facility]. 2. Metabolic acidosis. Continue sodium bicarbonate. 3. Anemia, continuing Epogen. Declining further GI workup. Continue iron supplementation. 4. Urinary tract infection, resolved - clinically asymptomatic. Agree with current management.
--- NOTE | 2018-02-06 17:51 | PQF ---
MARISELA WILLARD MICHAEL E MD [id number] CLINICAL DOCUMENTATION CLARIFICATION FORM: POST DISCHARGE Addendum to original discharge summary date: ____ Late entry note date: __ DATE: 02/06/18 ATTN: Please exercise your independent, professional judgment in responding to the clarification form. Clinical indicators are provided on the bottom of this form for your review Please check appropriate box(s): [ ] Acute Renal Failure (ARF) / Acute Kidney Injury (OLVIN) (Please specify associated condition, if applicable) [ ] Acute Tubular Necrosis (ATN) [ ] Acute Interstitial Nephritis (AIN) [ ] Acute Cortical Necrosis [ ] Acute Medullary Necrosis [ ] Other Etiology or underlying conditions related to the diagnosis of ARF / OLVIN: [ x ] Acute on Chronic Renal Failure please specify Stage of CKD ____IV____ ( see below) [ ] CKD without ARF/OLVIN please specify Stage of CKD [ ] ESRD [ ] Other diagnosis [ ] Unable to determine In addition, please specify: Present on Admission (POA): [ x ] Yes [ ] No [ ] Unable to determine National Kidney Foundation Guidelines for CKD Staging Stage I Kidney damage with normal or increased GFR GFR > 90 Stage II Kidney damage with mildly decreased GFR GFR 60-89 Stage III Kidney damage with moderately decreased GFR GFR 30-59 Stage IV Kidney damage with severely decreased GFR GFR 16-29 Stage V Kidney failure GFR<15 ESRD End Stage Renal Disease On dialysis Acute Renal Failure/Acute Kidney Failure defined as: Increases in SCr by (>) 0.3 mg/dl within 48 hours OR- Increases in SCr by (>) 1.5 times baseline, known or presumed to have occurred within the prior 7 days OR- Urine volume < 0.5 ml/kg/hour for 6 hours (KDIGO supplement 2012 for RIFLE/NGHIA criteria) MTDD
== END 2018-02-05 09:29 | disposition home health service (06) | DRG 699 ==
LOC: ERS 12:07 → T4-B 16:55
PROVIDERS: ADMIT Specialist; ATTEND Specialist
DX: T83.511A Infection and inflammatory reaction due to indwelling urethral catheter, initial encounter (principal); N17.9 Acute kidney failure, unspecified; E87.2 Acidosis; N18.4 Chronic kidney disease, stage 4 (severe); Y84.6 Urinary catheterization as the cause of abnormal reaction of the patient, or of later complication, without mention of misadventure at the time of the procedure; I12.9 Hypertensive chronic kidney disease with stage 1 through stage 4 chronic kidney disease, or unspecified chronic kidney disease; B96.89 Other specified bacterial agents as the cause of diseases classified elsewhere; E78.5 Hyperlipidemia, unspecified; M54.9 Dorsalgia, unspecified; G89.29 Other chronic pain; F17.210 Nicotine dependence, cigarettes, uncomplicated; Z79.899 Other long term (current) drug therapy; Z79.84 Long term (current) use of oral hypoglycemic drugs; I69.398 Other sequelae of cerebral infarction; D64.9 Anemia, unspecified; R91.1 Solitary pulmonary nodule; K59.09 Other constipation; N30.90 Cystitis, unspecified without hematuria; Z85.528 Personal history of other malignant neoplasm of kidney; Z90.5 Acquired absence of kidney; E11.22 Type 2 diabetes mellitus with diabetic chronic kidney disease; N18.9 Chronic kidney disease, unspecified; F31.9 Bipolar disorder, unspecified
CPT/HCPCS: 36415; 36416; 74176; 80048; 80053; 80061; 81003; 81015; 82274; 82607; 82728; 83036; 83540; 83605; 85025; 87040; 87077; 87086; 87149; 87186; 96365; A4216; G8978-GP-CK; G8979-GP-CI; J2185; Q4081

== ENCOUNTER 2019-01-28 19:49 | Inpatient (IN) | payer MEDICARE, OTHER ==
[2019-01-28] MEDS ORDERED: Aspirin Chewable 81 MG TAB ONE (20:07)
--- NOTE | 2019-01-28 20:13 | CT ---
CT HEAD NONCONTRAST: 01/28/19 HISTORY: Left sided weakness. COMPARISON: 02/25/17. FINDINGS: There is no evidence of acute intracranial hemorrhage or infarct. Ventricles appear normal in size, s hape and position. No mass effect or shift of midline structures. Mild chronic ischemic small vessel disease. Visualized paranasal sinuses remain well aerated. IMPRESSION: Chronic type findings are stable. No acute intracranial abnormalities are demonstrated. POS: BST
--- NOTE | 2019-01-28 20:20 | RAD ---
XR Chest 1 View Portable History: Chest pain. Stroke. Comparison: Radiograph 2018 Findings: There is extensive scarring the left lung with shrapnel. Exam is limited due to rightward p atient rotation which gives abnormal full-thickness to the right hilum although likely artifactual. Impression: Chronic findings. No acute intrathoracic abnormality.
[2019-01-28 21:18] LABS: #Eosinphils 0.1 thou/uL (0.0-0.7); #Lymphocytes 1.5 thou/uL (1.20-3.40); #Monocytes 0.4 thou/uL (0.11-0.59); #Neutrophils 10.3 thou/uL (1.40-6.50); %Basophils 0.3 % (0.0-1.0); %Eosinophils 1.2 % (0.0-10.0); %Lymphocytes 12.1 % (21.0-51.0); %Monocytes 3.5 % (0.0-10.0); %Neutrophils 82.9 % (42.0-75.0); Hemoglobin 10.8 g/dL (14.0-18.0); Mean Corpuscular HGB CONC 33.9 g/dL (32.0-36.0); Mean Corpuscular Volume 85.5 fL (78.0-98.0); Mean Platelet Volume 6.7 fL (7.4-10.4); Platelet Count 402 thou/uL (130-400); RBC Distribution Width 13.5 % (11.5-14.5); Red Blood Cell (RBC) Count 3.71 mill/uL (4.70-6.10); White Blood Cell (WBC) Count 12.4 thou/uL (4.8-10.8)
[2019-01-28 21:37] LABS: Bacteria/HPF 4+ HPF (None Seen); Bilirubin Negative (Negative); Blood, Urine Trace (Negative); Clarity Turbid (Clear); Glucose, Urine (Dipstick) 500 mg/dL (Negative); Leukocyte 500 Leu/uL (Negative); Nitrite Negative (Negative); Protein, Urine (Dipstick) 100 mg/dL (Neg-Trace); Squamous Epithelial None Seen HPF (0-3); Urobilinogen Normal mg/dL (Less than 2); WBC/HPF Greater than 50 HPF (0-3)
[2019-01-28 21:43] LABS: Triple Phosphate Crystal 3+ HPF (None Seen)
[2019-01-28 21:45] LABS: ALT (SGPT) 7 U/L (8-55); AST (SGOT) 8 U/L (5-34); Albumin 4.6 g/dL (3.4-4.8); Alkaline Phosphatase 123 U/L (40-150); Anion Gap 20 mmol/L (10-20); BUN (Urea Nitrogen) 60 mg/dL (8.4-25.7); Bilirubin, Total 0.2 mg/dL (0.2-1.2); Calc. Creatinine Clearance 0 mL/min (70-130); Calcium 10.3 mg/dL (7.8-10.44); Carbon Dioxide 17 mmol/L (23-31); Chloride 101 mmol/L (98-107); Estimated GFR-MDRD 10; Globulin 4.2 g/dL (2.4-3.5); Glucose 210 mg/dL (80-115); Lipase 9 U/L (8-78); Potassium 3.3 mmol/L (3.5-5.1); Protein, Total 8.8 g/dL (5.8-8.1); Sodium 135 mmol/L (136-145)
[2019-01-28] MEDS ORDERED: cefTRIAXone\\ROCEPHIN 1 GM VIAL ONE (22:13)
[2019-01-29 02:22] VITALS: BMI 33.3
--- NOTE | 2019-01-29 08:00 | ULT ---
CAROTID ULTRASOUND: HISTORY: Transient ischemic attack. COMPARISON: 09/18/2013 TECHNIQUE: Jacques-scale, color-flow, Doppler imaging, and spectral wave-form analysis was performed of the carotid and vertebral arteries. FINDINGS: Right carotid: Small foci of calcified plaque. No significant stenosis. The peak systolic velocity of the common carotid artery is 67.7 cm per second. The peak systolic velocity of the internal clemente tid artery is 67.1 cm per second. Systolic ICA/CCA ratio is 1.0. Left carotid: Small foci of calcified atherosclerotic plaque. No significant stenosis. The peak sy stolic velocity of the common carotid artery is 104.4 cm per second. The peak systolic velocity of t he internal carotid artery is 97.2 cm per second. Systolic ICA/CCA ratio is 0.93. Antegrade flow in both vertebral arteries. IMPRESSION: No sonographic evidence of hemodynamically significant stenosis. POS: OFF
[2019-01-29] MEDS ORDERED: Prevnar 13-Val Conj/PF 0.5 ML SYRINGE IM ONE (09:00)
[2019-01-29] MEDS ORDERED: Dextrose 50% Abboject 50 ML SYRINGE IVP PRN (13:27)
[2019-01-29] MEDS ORDERED: Insulin Regular 300 UNITS/3 ML VIAL SC PRN (13:27)
[2019-01-29] MEDS ORDERED: Dextrose 5% in Water 1,000 ML IV PRN (13:27)
[2019-01-29] MEDS: Acetaminophen/Codeine 30-300mg Tablet PO PRN ×3 (13:45→21:37)
--- NOTE | 2019-01-29 13:58 | HP ---
HISTORY OF PRESENT ILLNESS: The patient is a 63-year-old assisted living patient, who stated prior to coming to the emergency room that he had significant weakness on his left side that began at 7:00 p.m. By the time he was fully evaluated in the emergency room, it had completely resolved. He reported that he did have some nausea, vomiting, and diarrhea on that day, but denied any chest pain. He has a chronic suprapubic catheter placed due to kidney cancer. He is placed under observation in the stroke unit for further evaluation to prevent any further what sounds like TIAs. PAST MEDICAL HISTORY: He has had a prior CVA leaving him disabled and needing a power wheelchair for mobility. He has a history of chronic renal failure, sees Dr. Santana, history of lung abscess requiring open drainage of an empyema, metabolic encephalopathy in the past, sepsis with end-organ dysfunction. He is a [id number] diabetic, hypertensive, hyperlipidemic, chronic back pain, and noncompliant with his medical care. PAST SURGICAL HISTORY: Includes back surgery, hernia repair, and thoracotomy to clear the empyema. ALLERGIES: NO KNOWN DRUG ALLERGIES. SOCIAL HISTORY: Positive for smoking. Negative for alcohol or illicit drugs. Lives alone. [facility] has documented his inability to properly care for himself with poor hygiene and compliance with medical care. MEDICATIONS: On admission include; 1. Aspirin 325 daily. 2. Flexeril 10 mg at bedtime. 3. Amlodipine q.a.m. 4. Gabapentin 300 mg daily. 5. Glipizide 5 mg b.i.d. 6. Metformin 500 mg b.i.d. 7. Pravastatin 20 mg at bedtime. 8. Folic acid 1 mg daily. 9. Tamsulosin 0.4 mg daily. 10. Hyoscyamine 0.25 mg daily. 11. [place] 10/325, very rarely used at this point. REVIEW OF SYSTEMS: CONSTITUTIONAL: Currently, he feels like he is back to normal. Denies fever or chills. Weakness is new, he did come in for reported weakness on his left side to the ER. HEENT: No sores or drainage. CHEST: Denies shortness of breath or cough. CARDIOVASCULAR: Denies palpitations or chest pain. GASTROINTESTINAL: Did have nausea, vomiting, and diarrhea earlier, but this has resolved. GENITOURINARY: Denies any dysuria. He has a urostomy tube and has not seen blood in it or in his stool. MUSCULOSKELETAL: No new weakness. SKIN: No new rashes or lesions. NEUROLOGICAL: His focal weakness on the left is going down. Remains generally weak from prior CVA. PHYSICAL EXAMINATION: VITAL SIGNS: Blood pressure 114/96, pulse 86, respirations 18, O2 saturation 98% on room air, and temperature 97.8. Pain scale 0. GENERAL: This is an elderly male, alert, oriented, cooperative. HEENT: Normocephalic, atraumatic. Pupils with diminished reactivity to light at 2 to 3 mm. Arcus senilis noted bilaterally. TMs, nares, and pharynx clear. NECK: Supple. Trachea midline. No mass. CHEST: Clear to auscultation. HEART: Regular rate and rhythm without murmur. ABDOMEN: Soft, nontender without hepatosplenomegaly. GENITOURINARY: With chronic indwelling Chavez with discolored urine. EXTREMITIES: Without clubbing, cyanosis, or edema. BACK: Costovertebral angle is unremarkable. SKIN: Without rashes or lesions. NEUROLOGIC: Mental status is intact except for mild memory deficits, which are chronic. Cranial nerves intact. Unable to test gait and cerebral function due to disability. LABORATORY DATA: On admission, WBCs 12.4, hemoglobin 10.8, hematocrit 31.8 with platelets at 402. Sodium 135, potassium 3.3, chloride 101, CO2 of 17, BUN 60, creatinine 5.79, glucose 210, and calcium 10.3. Liver functions unremarkable. Troponin I unremarkable. Urinalysis shows 500 glucose, 500 leukocyte esterase, and greater than 50 wbc's. IMAGING DATA: CT of the head unremarkable. CT of the chest, no acute findings. ASSESSMENT: 1. Transient ischemic attack - recurrent, now fully resolved. 2. Chronic renal insufficiency, much worse. 3. Hypokalemia. PLAN: Echocardiogram. Sonogram of his carotid arteries. Neurological consultation and we will consult Dr. Santana concerning his renal functions. Job ID: [id number]
--- NOTE | 2019-01-29 20:41 | CON ---
DATE OF CONSULTATION: 01/29/2019 CONSULTING PHYSICIAN: Ross Gaming MD IMPRESSION: 1. Transient ischemic attack with transient left-sided weakness. 2. Aspirin failure. PLAN: 1. Add Plavix 75 mg per day. 2. Echocardiogram. HISTORY OF PRESENT ILLNESS: Mr. Araujo is a 63-year-old gentleman with a history of right hemiparesis since 2013, hypertension, diabetes, chronic renal insufficiency, kidney cancer, who presented with left-sided weakness and some numbness, did not affect his speech as far as he knew. He had a resolution of symptoms about an hour. His carotid ultrasound showed no stenosis. His CT scan of the brain did not show any acute changes. His lab work was consistent with a urinary tract infection. He has otherwise been stable since admission. PAST MEDICAL HISTORY: As listed above. ALLERGIES: NONE REPORTED. SOCIAL HISTORY: Lives at home with assistance of caregivers. He has no tobacco use. FAMILY HISTORY: Noncontributory. REVIEW OF SYSTEMS: Ten-system review of systems is otherwise unremarkable. PHYSICAL EXAMINATION: GENERAL: He is a well-nourished, middle-aged gentleman, in no acute distress. VITAL SIGNS: Have been stable. He is afebrile. HEENT: Pupils, equal and reactive. Conjunctivae, clear. Oropharynx, clear. NECK: Supple. No lymphadenopathy. EXTREMITIES: No cyanosis, clubbing, or edema. NEUROLOGIC: He is alert and cooperative. His speech is fluent and clear. Cranial nerves appear to be intact. He has spastic weakness of the right arm and leg with partial antigravity strength. He has good strength on the left side. Sensation is intact. Gait is not tested. No abnormal movements are seen. LABORATORY DATA: Laboratory studies were reviewed. SUMMARY: A 63-year-old gentleman with some transient left-sided weakness. I would advance his treatment with the addition of Plavix. I would continue the aspirin and a statin. Echocardiogram can be done for completeness. Job ID: [id number]
[2019-01-30] MEDS: Acetaminophen/Codeine 30-300mg Tablet PO PRN ×4 (03:07→21:53)
[2019-01-30] MEDS ORDERED: metFORMIN 500 MG TAB PO SCH (08:00)
[2019-01-30 09:00] LABS: #Basophils 0.1 thou/uL (0.0-0.2); #Eosinphils 0.3 thou/uL (0.0-0.7); #Lymphocytes 2.6 thou/uL (1.20-3.40); #Monocytes 0.6 thou/uL (0.11-0.59); #Neutrophils 5.3 thou/uL (1.40-6.50); %Basophils 0.8 % (0.0-1.0); %Eosinophils 3.2 % (0.0-10.0); %Lymphocytes 29.4 % (21.0-51.0); %Monocytes 7.1 % (0.0-10.0); %Neutrophils 59.5 % (42.0-75.0); Hemoglobin 9.1 g/dL (14.0-18.0); Mean Corpuscular HGB CONC 34.3 g/dL (32.0-36.0); Mean Corpuscular Hemoglobin 28.9 pg (27.0-31.0); Mean Corpuscular Volume 84.2 fL (78.0-98.0); Mean Platelet Volume 6.5 fL (7.4-10.4); Platelet Count 314 thou/uL (130-400); RBC Distribution Width 13.2 % (11.5-14.5); Red Blood Cell (RBC) Count 3.14 mill/uL (4.70-6.10); White Blood Cell (WBC) Count 8.9 thou/uL (4.8-10.8)
[2019-01-30] MEDS: cefTRIAXone\\ROCEPHIN 2 GM in Sodium Chloride 0.9% 100 ML IVPB SCH (09:04)
[2019-01-30] MEDS: Sodium Chloride 0.9% 1,000 ML IV SCH ×2 (09:04→21:55)
[2019-01-30] MEDS: Pantoprazole 40 MG VIAL IVP SCH (09:05)
[2019-01-30] MEDS: Amlodipine 10 MG TAB PO SCH (09:06)
[2019-01-30] MEDS: Clopidogrel Bisulfate 75 MG TAB PO SCH (09:06)
--- NOTE | 2019-01-30 11:05 | CON ---
DATE OF CONSULTATION: HISTORY OF PRESENT ILLNESS: Mr. Araujo is a 63-year-old white male with known history of chronic renal failure from his underlying diabetic nephropathy. We are being consulted for his chronic renal failure. I noted that the creatinine is slightly higher from his baseline. He came in with a TIA and has been seen by Neurology. An MRI of the brain has been ordered. In addition, he is also complaining of some dysuria. For that reason, urine culture has been done with this patient. REVIEW OF SYSTEMS: Positive for left-sided weakness. No chest pain. No syncopal episode. No nausea. No vomiting. No diarrhea. Positive for dysuria - chronic in nature. No abdominal pain. No productive cough. No fever or chills. Appetite and energy level are decreased. No shortness of breath. No headache. No hematochezia. No melena. No hematemesis. PAST MEDICAL HISTORY: 1. Status post empyema. 2. Chronic renal failure secondary to presumed diabetic nephropathy. 3. Type 2 diabetes mellitus. 4. Chronic UTI status post CVA with right hemiplegia. 5. History of mental status change. 6. Hyperlipidemia. 7. Bipolar disorder. PAST SURGICAL HISTORY: Status post thoracotomy, status post hernia repair, and status post back surgery. ALLERGIES: NONE. TRAUMA: None. IMMUNIZATIONS: Up-to-date. HOSPITALIZATIONS: Please see past medical history. SOCIAL HISTORY: The patient lives alone. He has a caregiver comes three times a week. In addition, his sister checks on him from time to time. He is , two children. Currently, no smoking or alcohol intake. Education, has some college courses. No IV drug abuse. Status post blood transfusion. 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 FAMILY HISTORY: No family history of ESRD. PHYSICAL EXAMINATION: VITAL SIGNS: Blood pressure is noted at 172/68, heart rate 80, respiratory rate 16, temperature 98.3, and pulse ox 94%. GENERAL: The patient is awake, alert, comfortable, not in distress. SKIN: Adequate turgor. HEENT: The patient has a pinkish conjunctivae. Anicteric sclerae. NECK: No neck mass. No carotid bruits. No JVD. CHEST: No deformities. LUNGS: Clear breath sounds. HEART: Normal sinus rhythm. No murmur. No gallops. No rubs. ABDOMEN: Globular, soft, and nontender. No masses. EXTREMITIES: No edema. No deformities. NEUROLOGIC: The patient has a decreased motor right side. Oriented to 3 spheres. No tremors. No asterixis. MEDICATIONS: Medications of January 30, 2019; 1. Tylenol with codeine p.r.n. 2. Norvasc 10 mg daily. 3. Ceftriaxone 2 g IV q.24 hours. 4. Plavix 75 mg once a day. 5. Flexeril 10 mg at bedtime. 6. Humulin R sliding scale. 7. Metformin 1000 mg p.o. b.i.d. 8. Protonix 40 mg IV daily. 9. Zocor 10 mg at bedtime. LABORATORY DATA: Laboratories January 28, 2019, white count 12.4 and hemoglobin 10.8. Sodium 135, potassium 3.3, chloride 101, carbon dioxide 17, BUN 60, creatinine 5.79, glucose 210, and calcium 10.3. November 04, 2018; sodium 136, potassium 4.6, chloride 104, carbon dioxide 18, BUN 69, and creatinine 4.89. ASSESSMENT AND PLAN: 1. Acute kidney injury on top of his chronic renal failure - most likely, due to decreased p.o. intake, superimposed prerenal azotemia. Normal saline 100 mL/h will be started. I do not find any indication for any acute dialytic intervention at the present time with this patient. 2. Status post transient ischemic attack. MRI of the brain has been ordered. Currently, on Plavix. Neurology is following. 3. Chronic renal failure secondary to diabetic nephropathy. 4. Type 2 diabetes mellitus. Due to the impaired GFR, we will discontinue metformin, change him to another oral hypoglycemic. We will consider glipizide 500 mg tablet p.o. b.i.d. 5. Borderline anemia. We will simply observe this. 6. Hyperphosphatemia. Start Renvela 800 mg tablet t.i.d. Agree with current management. Job ID: [id number]
[2019-01-30] MEDS: Sevelamer Carbonate 800 MG TAB PO SCH ×2 (12:32→16:31)
[2019-01-30] MEDS: glipiZIDE 5 MG TAB PO SCH (16:31)
[2019-01-30] MEDS: Cyclobenzaprine 10 MG TAB PO SCH (21:53)
[2019-01-30] MEDS: Simvastatin 5 MG TAB PO SCH (21:54)
[2019-01-30] MEDS: Promethazine 25 MG TAB PO PRN (21:55)
[2019-01-31] MEDS: Acetaminophen/Codeine 30-300mg Tablet PO PRN ×3 (03:11→23:13)
[2019-01-31 05:56] LABS: Hemoglobin 8.4 g/dL (14.0-18.0); Mean Corpuscular HGB CONC 33.9 g/dL (32.0-36.0); Mean Corpuscular Hemoglobin 28.8 pg (27.0-31.0); Mean Platelet Volume 6.4 fL (7.4-10.4); Platelet Count 307 thou/uL (130-400); RBC Distribution Width 13.2 % (11.5-14.5); Red Blood Cell (RBC) Count 2.93 mill/uL (4.70-6.10); White Blood Cell (WBC) Count 9.9 thou/uL (4.8-10.8)
[2019-01-31 06:18] LABS: Anion Gap 15 mmol/L (10-20); BUN (Urea Nitrogen) 59 mg/dL (8.4-25.7); Calc. Creatinine Clearance 17 mL/min (70-130); Calcium 9.2 mg/dL (7.8-10.44); Carbon Dioxide 17 mmol/L (23-31); Cardiac Risk 3.1 (Less than 4.5); Chloride 110 mmol/L (98-107); Cholesterol 142 mg/dl (< 200 Desired); Estimated GFR-MDRD 10; Glucose 78 mg/dL (80-115); HDL Cholesterol 46 mg/dL (>60 Neg Risk); LDL Cholesterol, Calculated 60 mg/dL; Sodium 139 mmol/L (136-145); Triglycerides 181 mg/dL (Less than 150)
[2019-01-31 06:26] LABS: Potassium 2.9 mmol/L (3.5-5.1)
[2019-01-31] MEDS: Sodium Chloride 0.9% 1,000 ML IV SCH (07:10)
[2019-01-31] MEDS ORDERED: Potassium Chloride 20 MEQ TAB PO SCH (08:00)
[2019-01-31] MEDS ORDERED: Fentanyl 100 MCG/2 ML VIAL SLOW IVP SCH (08:15)
[2019-01-31] MEDS ORDERED: Epoetin (ESRD) 20,000 UNITS/ML SC SCH (08:15)
[2019-01-31] MEDS ORDERED: Ferrous Sulfate 325 MG TAB PO SCH (08:15)
[2019-01-31] MEDS: glipiZIDE 5 MG TAB PO SCH ×2 (08:43→18:02)
[2019-01-31] MEDS: Pantoprazole 40 MG VIAL IVP SCH ×3 (08:43→23:13)
[2019-01-31] MEDS: Sodium Chloride 0.9% (PF) 10 ML VIAL FS PRN ×2 (08:43→23:13)
[2019-01-31] MEDS: Sevelamer Carbonate 800 MG TAB PO SCH ×3 (08:43→18:02)
[2019-01-31] MEDS: Clopidogrel Bisulfate 75 MG TAB PO SCH (08:44)
[2019-01-31] MEDS: Amlodipine 10 MG TAB PO SCH (08:44)
--- NOTE | 2019-01-31 09:13 | CT ---
Head CT without contrast 01/31/2019: COMPARISON: 01/28/2019 and 02/25/2017 HISTORY: Right-sided weakness, slurred speech, TIA TECHNIQUE: Axial CT imaging at 5 mm intervals from vertex through skull base without contrast FINDINGS: Imaged paranasal sinuses and mastoid air cells are well aerated. No displaced calvarial fra cture. Mild diffuse cerebral volume loss. No intracranial hemorrhage, midline shift, or mass effect. Recommend brain MRI if there is clinical concern for acute infarction. IMPRESSION: No intracranial hemorrhage. If there is concern for acute infarction, brain MRI is sugges kartik.
[2019-01-31] MEDS: cefTRIAXone\\ROCEPHIN 2 GM in Sodium Chloride 0.9% 100 ML IVPB SCH (09:25)
--- NOTE | 2019-01-31 09:51 | PRG ---
DATE OF SERVICE: 01/31/2019 SERVICE: Renal Medicine. SUBJECTIVE: Mr. Araujo is a 63-year-old white male with known history of chronic renal failure, diabetes mellitus and admitted for TIA. The patient has been evaluated by Neurology. Recommendations have been made. He is unable to tolerate the MRI. For that reason, the plan is to just read the CT scan in a few days. We are following this up for his acute kidney injury on top of his chronic renal failure. Empiric volume repletion has been done. No other complaints today. No chest pain or shortness of breath. OBJECTIVE: VITAL SIGNS: Blood pressure 153/64, heart rate 78, respiratory rate 14, temperature 98.1, and pulse ox 95%. GENERAL: The patient is awake, alert, comfortable, not in overt distress. SKIN: Adequate turgor. HEENT: He has slightly pale conjunctivae. Anicteric sclerae. NECK: No neck mass. No carotid bruits. No JVD. CHEST: No deformities. LUNGS: Clear breath sounds. HEART: Normal sinus rhythm. No murmurs, no gallops, no rubs. ABDOMEN: Globular, soft, nontender. No masses. EXTREMITIES: Trace edema. NEUROLOGIC: Decreased motor, right side. MEDICATIONS: Medications of January 31, 2019, were reviewed. LABORATORY DATA: Laboratories of January 31, 2019; sodium 139, potassium 2.9, chloride 110, carbon dioxide 17, BUN 59, creatinine 5.77, glucose 78, calcium 9.2. White count 9.9, hemoglobin 8.4. ASSESSMENT AND PLAN: 1. Chronic renal failure-stabilizing renal function. Creatinine noted at 5.77 and yesterday this was 5.79. I will continue current IV hydration. No indication for any acute dialysis at the present time. 2. Anemia. Start Epogen and iron supplementation. 3. Hypokalemia. KCl 40 mEq one tablet now. 4. Status post transient ischemic attack. Neurology is following, stable. 5. Overall prognosis remains guarded. Agree with current management. Job ID: [id number]
[2019-01-31] MEDS: 1/2 NS w/KCL 20 mEq 1,000 ML IV SCH ×2 (11:21→23:15)
[2019-01-31] MEDS: EPOETIN ALFA-EPBX (ESRD) 4,000 UNIT/ML VIAL SC SCH (12:43)
[2019-01-31] MEDS: Ferrous Sulfate 325 MG TAB PO SCH (18:02)
[2019-01-31] MEDS: Cyclobenzaprine 10 MG TAB PO SCH (23:12)
[2019-01-31] MEDS: Simvastatin 5 MG TAB PO SCH (23:13)
[2019-01-31] MEDS: Promethazine 25 MG TAB PO PRN (23:13)
[2019-02-01] MEDS: Acetaminophen/Codeine 30-300mg Tablet PO PRN ×2 (04:11→09:00)
[2019-02-01] MEDS: Promethazine 25 MG TAB PO PRN ×3 (04:45→21:59)
[2019-02-01 05:19] LABS: #Eosinphils 0.4 thou/uL (0.0-0.7); #Monocytes 0.7 thou/uL (0.11-0.59); #Neutrophils 6.7 thou/uL (1.40-6.50); %Basophils 0.4 % (0.0-1.0); %Eosinophils 3.3 % (0.0-10.0); %Lymphocytes 28.2 % (21.0-51.0); %Monocytes 6.3 % (0.0-10.0); %Neutrophils 61.8 % (42.0-75.0); Hemoglobin 8.8 g/dL (14.0-18.0); Mean Corpuscular HGB CONC 32.1 g/dL (32.0-36.0); Mean Corpuscular Hemoglobin 27.8 pg (27.0-31.0); Mean Corpuscular Volume 86.6 fL (78.0-98.0); Mean Platelet Volume 6.7 fL (7.4-10.4); Platelet Count 339 thou/uL (130-400); RBC Distribution Width 13.4 % (11.5-14.5); Red Blood Cell (RBC) Count 3.18 mill/uL (4.70-6.10); White Blood Cell (WBC) Count 10.8 thou/uL (4.8-10.8)
[2019-02-01 05:37] LABS: Anion Gap 18 mmol/L (10-20); BUN (Urea Nitrogen) 53 mg/dL (8.4-25.7); Calc. Creatinine Clearance 18 mL/min (70-130); Calcium 9.7 mg/dL (7.8-10.44); Carbon Dioxide 15 mmol/L (23-31); Chloride 111 mmol/L (98-107); Estimated GFR-MDRD 10; Glucose 74 mg/dL (80-115); Potassium 3.5 mmol/L (3.5-5.1); Sodium 140 mmol/L (136-145)
[2019-02-01] MEDS: cefTRIAXone\\ROCEPHIN 2 GM in Sodium Chloride 0.9% 100 ML IVPB SCH (08:41)
[2019-02-01] MEDS: Pantoprazole 40 MG VIAL IVP SCH (08:42)
[2019-02-01] MEDS: Amlodipine 10 MG TAB PO SCH (08:42)
[2019-02-01] MEDS: Ferrous Sulfate 325 MG TAB PO SCH ×2 (08:42→16:24)
[2019-02-01] MEDS: Clopidogrel Bisulfate 75 MG TAB PO SCH (08:42)
[2019-02-01] MEDS: Sevelamer Carbonate 800 MG TAB PO SCH ×3 (08:42→16:24)
[2019-02-01] MEDS: glipiZIDE 5 MG TAB PO SCH ×2 (08:43→16:24)
[2019-02-01] MEDS: 1/2 NS w/KCL 20 mEq 1,000 ML IV SCH (08:43)
--- NOTE | 2019-02-01 10:04 | PRG ---
DATE OF SERVICE: 02/01/2019 SERVICE: Renal Medicine. SUBJECTIVE: Mr. Araujo is a 63-year-old white male with chronic renal failure from diabetic nephropathy, type 2 diabetes mellitus, and admitted for a TIA. CT scan did not show any acute CVA. A subsequent repeat CT scan did not again show any overt CVA. He did not tolerate the MRI of the brain. We are following up this patient for his acute kidney injury. Our working diagnosis is he may have a superimposed prerenal azotemia. Creatinine is relatively stable. I had a long discussion with the patient that he may eventually need dialytic intervention. No other complaints today. No chest pain or shortness of breath. OBJECTIVE: VITAL SIGNS: Blood pressure is noted at 150/70, heart rate 77, respiratory rate 17, temperature 98.5, and pulse ox 94%. GENERAL: The patient is awake, alert, comfortable, not in overt distress. SKIN: Adequate turgor. HEENT: He has a pinkish conjunctivae. Anicteric sclerae. No neck mass. No carotid bruits. No JVD. CHEST: No deformities. LUNGS: Clear breath sounds. No wheezing. No crackles. HEART: Normal sinus rhythm. No murmur. No gallops or rubs. ABDOMEN: Globular, soft, nontender. No masses. EXTREMITIES: No trace edema. Right-sided weakness. NEUROLOGICAL: Moving all extremities except for decreased motor on the right side. No tremors. No asterixis. Oriented to 3 spheres. MEDICATIONS: Medications of February 01, 2019, was reviewed. LABORATORY DATA: Laboratories of February 01, 2019; white count 10.8, hemoglobin 8.8. Sodium 140, potassium 3.5, chloride 111, carbon dioxide 15, BUN 53, creatinine 5.51, GFR 10 mL/minute, glucose 74, calcium 9.7. ASSESSMENT AND PLAN: 1. Acute kidney injury/chronic renal failure. Stabilizing renal function. However, GFR still is at 10 mL/minute. I had a long discussion with this patient about considering dialysis. He is aware about it. He would like to think about it some more. 2. Anemia. Continue weekly Epogen. 3. Metabolic acidosis. Sodium bicarbonate 650 mg p.o. t.i.d. was started. 4. Would continue current IV fluid. In addition, the patient is being treated for his urinary tract infection. Job ID: [id number]
[2019-02-01] MEDS: Sodium Bicarbonate Tab 325 MG TAB PO SCH ×3 (10:05→21:58)
[2019-02-01] MEDS ORDERED: 1/2 NS w/KCL 20 mEq 1,000 ML IV SCH (14:00)
[2019-02-01] MEDS ORDERED: cefOXitin Sodium/Dextrose,Iso 1 GM in Premix Bag 1 BAG IVPB SCH (14:00)
--- NOTE | 2019-02-01 15:01 | CON ---
DATE OF TELEMEDICINE CONSULTATION: 02/01/2019 SORAIDA VERA HISTORY OF PRESENT ILLNESS: We were asked to see this patient for weakness and unfortunately, the patient refused evaluation. They were unable to help you any further without his consent. Please contact if the patient changes his mind. Job ID: [id number] MTDD
[2019-02-01] MEDS: Simvastatin 5 MG TAB PO SCH (21:59)
[2019-02-01] MEDS: Cyclobenzaprine 10 MG TAB PO SCH (21:59)
[2019-02-02] MEDS: Acetaminophen/Codeine 30-300mg Tablet PO PRN ×2 (03:16→17:59)
[2019-02-02 04:36] LABS: #Eosinphils 0.3 thou/uL (0.0-0.7); #Lymphocytes 2.3 thou/uL (1.20-3.40); #Monocytes 0.8 thou/uL (0.11-0.59); #Neutrophils 8.2 thou/uL (1.40-6.50); %Basophils 0.4 % (0.0-1.0); %Eosinophils 2.7 % (0.0-10.0); %Lymphocytes 19.9 % (21.0-51.0); %Monocytes 6.7 % (0.0-10.0); %Neutrophils 70.3 % (42.0-75.0); Hemoglobin 8.8 g/dL (14.0-18.0); Mean Corpuscular HGB CONC 34.5 g/dL (32.0-36.0); Mean Corpuscular Hemoglobin 29.6 pg (27.0-31.0); Mean Corpuscular Volume 85.7 fL (78.0-98.0); Mean Platelet Volume 6.6 fL (7.4-10.4); Platelet Count 292 thou/uL (130-400); RBC Distribution Width 13.5 % (11.5-14.5); Red Blood Cell (RBC) Count 2.99 mill/uL (4.70-6.10); White Blood Cell (WBC) Count 11.7 thou/uL (4.8-10.8)
[2019-02-02 04:58] LABS: Anion Gap 16 mmol/L (10-20); BUN (Urea Nitrogen) 51 mg/dL (8.4-25.7); Calc. Creatinine Clearance 18 mL/min (70-130); Calcium 9.4 mg/dL (7.8-10.44); Carbon Dioxide 16 mmol/L (23-31); Chloride 112 mmol/L (98-107); Estimated GFR-MDRD 10; Potassium 3.4 mmol/L (3.5-5.1); Sodium 141 mmol/L (136-145)
[2019-02-02 05:04] LABS: Glucose 56 mg/dL (80-115)
--- NOTE | 2019-02-02 09:44 | PRG ---
DATE OF SERVICE: 02/02/2019 SUBJECTIVE: Mr. Araujo is a 63-year-old white male with chronic renal failure from diabetic nephropathy, admitted for TIA. Doing better. However, renal function remains unimproved. GFR is still at 10 mL/minute. I did resume back the IV fluid to 125 mL/hour. No complaints of chest pain or shortness of breath. The patient still feels tired. OBJECTIVE: VITAL SIGNS: Blood pressure is 125/54, heart rate 77, respiratory rate 17, temperature 99, and pulse ox 95%. GENERAL: Noted to be awake, supine, comfortable, not in distress. SKIN: Adequate turgor. HEENT: Slightly pale conjunctivae. Anicteric sclerae. NECK: No neck mass. No carotid bruits. No JVD. CHEST: No deformities. LUNGS: Clear breath sounds. No wheezing. No crackles. HEART: Normal sinus rhythm. No murmur. No gallops. No rubs. ABDOMEN: Globular, soft, and nontender. No masses. EXTREMITIES: No edema. No deformities. MEDICATIONS: Medication of February 02, 2019, reviewed. LABORATORY DATA: Laboratories of February 02, 2019; white count 11.7, hemoglobin 8.8. Glucose 56, calcium 9.4, GFR is 10 mL/minute. Potassium 3.4, chloride 112, carbon dioxide 16, sodium 141, BUN 51, and creatinine 5.63. ASSESSMENT AND PLAN: 1. Acute kidney injury on top of his chronic renal failure. We will resume IV fluid to 125 mL/hour. I did discuss about the possibility of dialysis. The patient is declining. He would like to think it over. 2. Mild hypokalemia. Restart IV fluid with potassium. 3. Anemia. Continuing weekly Epogen with this patient. 4. Metabolic acidosis, currently on sodium bicarbonate. 5. Status post transient ischemic attack. Continue supportive care. We will recheck basic metabolic profile and CBC in a.m. Job ID: [id number]
[2019-02-02] MEDS: Amlodipine 10 MG TAB PO SCH (09:56)
[2019-02-02] MEDS: Sevelamer Carbonate 800 MG TAB PO SCH ×3 (09:56→17:59)
[2019-02-02] MEDS: Ferrous Sulfate 325 MG TAB PO SCH ×2 (09:56→17:59)
[2019-02-02] MEDS: glipiZIDE 5 MG TAB PO SCH ×2 (09:56→10:04)
[2019-02-02] MEDS: Clopidogrel Bisulfate 75 MG TAB PO SCH (09:56)
[2019-02-02] MEDS: Promethazine 25 MG TAB PO PRN (09:56)
[2019-02-02] MEDS: Sodium Bicarbonate Tab 325 MG TAB PO SCH ×3 (09:56→21:54)
[2019-02-02] MEDS ORDERED: Ondansetron ODT 4 MG TAB PO PRN (09:57)
[2019-02-02] MEDS: 1/2 NS w/KCL 20 mEq 1,000 ML IV SCH ×2 (09:57→21:53)
[2019-02-02] MEDS ORDERED: Docusate 100 MG CAP PO SCH (10:45)
[2019-02-02] MEDS: cefOXitin Sodium/Dextrose,Iso 1 GM in Premix Bag 1 BAG IVPB SCH (14:31)
--- NOTE | 2019-02-02 15:03 | PRG ---
DATE OF TELEMEDICINE SERVICE: 02/02/2019, SORAIDA VERA CHIEF COMPLAINT: Acute stroke. HISTORY OF PRESENT ILLNESS: The patient once again was somewhat irritated and did not want to answer many questions. He stated he primarily had left-sided headache. He has not been able to walk since 2 weeks. He does not have neck pain. He has numbness on the right side, which is old for the past 5 years. He has hypertension. The patient does not want to do MRI. When discussed MRI, he got angry. He stated he was angry with the science technician and he would never ever go near an MRI unless he is completely sedated. PHYSICAL EXAMINATION: HEENT: On exam today, his pupils were 2 mm, reactive. NEUROLOGIC: He does have mild facial asymmetry on the right side. His cerebellar and motor exam were normal on the left side. EXTREMITIES: He is not allowing us to touch the right arm. He did not want us to examine the right leg. CARDIAC: Normal. LUNGS: Normal. IMPRESSION AND PLAN: The patient is being very difficult and noncooperative with our neurological examination and this is the second day we were faced with an uncooperative patient and he is refusing MRI. I am unable to examine him and given the diagnosis, likely he has right hemiparesis, but CT scans are not showing any acute infarct. With the absence of MRI, we cannot come to a reasonable or meaningful conclusion. We are unable to order CT angio because he has renal failure. I discussed the situation with his nurse, advised her to contact the primary care doctor and see if we can get a competency evaluation and determine if he is able to give permission for treatment. I apologize for not being able to help you with this patient. Job ID: [id number] [facility]
[2019-02-02] MEDS: Simvastatin 5 MG TAB PO SCH (21:54)
[2019-02-02] MEDS: Cyclobenzaprine 10 MG TAB PO SCH (21:54)
[2019-02-02] MEDS: Docusate 100 MG CAP PO SCH (21:55)
[2019-02-03] MEDS: Acetaminophen/Codeine 30-300mg Tablet PO PRN ×3 (02:26→22:04)
[2019-02-03 05:05] LABS: #Eosinphils 0.4 thou/uL (0.0-0.7); #Lymphocytes 1.9 thou/uL (1.20-3.40); #Monocytes 0.7 thou/uL (0.11-0.59); #Neutrophils 6.5 thou/uL (1.40-6.50); %Basophils 0.4 % (0.0-1.0); %Eosinophils 3.8 % (0.0-10.0); %Lymphocytes 19.4 % (21.0-51.0); %Monocytes 7.7 % (0.0-10.0); %Neutrophils 68.7 % (42.0-75.0); Hemoglobin 8.6 g/dL (14.0-18.0); Mean Corpuscular HGB CONC 33.7 g/dL (32.0-36.0); Mean Corpuscular Hemoglobin 29.7 pg (27.0-31.0); Mean Platelet Volume 6.6 fL (7.4-10.4); Platelet Count 278 thou/uL (130-400); RBC Distribution Width 13.9 % (11.5-14.5); Red Blood Cell (RBC) Count 2.88 mill/uL (4.70-6.10); White Blood Cell (WBC) Count 9.5 thou/uL (4.8-10.8)
[2019-02-03 05:32] LABS: Anion Gap 15 mmol/L (10-20); BUN (Urea Nitrogen) 53 mg/dL (8.4-25.7); Calc. Creatinine Clearance 17 mL/min (70-130); Calcium 9.2 mg/dL (7.8-10.44); Carbon Dioxide 17 mmol/L (23-31); Chloride 110 mmol/L (98-107); Estimated GFR-MDRD 9; Glucose 65 mg/dL (80-115); Potassium 3.8 mmol/L (3.5-5.1); Sodium 138 mmol/L (136-145)
[2019-02-03] MEDS: 1/2 NS w/KCL 20 mEq 1,000 ML IV SCH (08:06)
[2019-02-03] MEDS: Clopidogrel Bisulfate 75 MG TAB PO SCH (08:08)
[2019-02-03] MEDS: Sevelamer Carbonate 800 MG TAB PO SCH ×3 (08:08→17:30)
[2019-02-03] MEDS: Amlodipine 10 MG TAB PO SCH (08:08)
[2019-02-03] MEDS: Alogliptin 25 MG TAB PO SCH (08:08)
[2019-02-03] MEDS: Sodium Bicarbonate Tab 325 MG TAB PO SCH ×3 (08:08→22:05)
[2019-02-03] MEDS: Ferrous Sulfate 325 MG TAB PO SCH ×2 (08:08→17:30)
[2019-02-03] MEDS: Docusate 100 MG CAP PO SCH ×2 (08:09→22:05)
[2019-02-03] MEDS ORDERED: 1/2 NS w/KCL 20 mEq 1,000 ML IV SCH (10:13)
--- NOTE | 2019-02-03 10:27 | PRG ---
DATE OF SERVICE: 02/03/2019 SUBJECTIVE: Mr. Araujo is a 63-year-old white male, who was admitted for TIA, UTI, and we are following him up for his chronic renal failure. Renal function continues to worsen in spite of volume repletion. I have had another discussion with the patient about dialysis, but he has declined. He voices no new complaints. He denies any chest pain or shortness of breath. OBJECTIVE: VITAL SIGNS: Blood pressure 121/55, heart rate 72, respiratory rate 15, temperature 98.2, pulse ox is 95% on room air. GENERAL: Noted to be awake, alert, comfortable, not in distress. SKIN: Adequate turgor. HEENT: He has a slightly pale conjunctivae. Anicteric sclerae. NECK: No neck mass. No carotid bruits. No JVD. CHEST: No deformities. LUNGS: Clear breath sounds. HEART: Normal sinus rhythm. No murmur. No gallops. No rubs. ABDOMEN: Globular. Soft. Nontender. No masses. EXTREMITIES: No edema. NEUROLOGIC: Right-sided weakness. MEDICATIONS: Medications of February 03, 2019, were reviewed. LABORATORY DATA: Laboratories of February 03, 2019: White count 9.5, hemoglobin 8.6, sodium 138, potassium 3.8, chloride 110, carbon dioxide 17, BUN 53, creatinine 6.1, glucose 65, calcium 9.2. ASSESSMENT AND PLAN: 1. Chronic renal failure, worsening renal dysfunction. GFR has dropped down from 10 to 9 mL/minute. The patient is declining dialysis. Continue supportive care. We will decrease IV fluid from 125 mL/hour to 75 mL/hour. 2. Urinary tract infection, on antibiotics. 3. Anemia, continuing weekly Epogen and iron supplementation. 4. Status post transient ischemic attack, supportive care. Job ID: [id number]
[2019-02-03] MEDS: cefOXitin Sodium/Dextrose,Iso 1 GM in Premix Bag 1 BAG IVPB SCH (14:42)
[2019-02-03] MEDS: Cyclobenzaprine 10 MG TAB PO SCH (22:05)
[2019-02-03] MEDS: Simvastatin 5 MG TAB PO SCH (22:05)
[2019-02-03] MEDS: Ondansetron ODT 4 MG TAB PO PRN (23:59)
[2019-02-04 05:12] LABS: #Eosinphils 0.4 thou/uL (0.0-0.7); #Lymphocytes 1.9 thou/uL (1.20-3.40); #Monocytes 0.7 thou/uL (0.11-0.59); #Neutrophils 6.2 thou/uL (1.40-6.50); %Basophils 0.3 % (0.0-1.0); %Eosinophils 4.3 % (0.0-10.0); %Lymphocytes 20.9 % (21.0-51.0); %Neutrophils 66.5 % (42.0-75.0); Hemoglobin 8.2 g/dL (14.0-18.0); Mean Corpuscular Hemoglobin 28.4 pg (27.0-31.0); Mean Platelet Volume 6.8 fL (7.4-10.4); Platelet Count 310 thou/uL (130-400); RBC Distribution Width 13.8 % (11.5-14.5); White Blood Cell (WBC) Count 9.3 thou/uL (4.8-10.8)
[2019-02-04 05:36] LABS: Anion Gap 14 mmol/L (10-20); BUN (Urea Nitrogen) 53 mg/dL (8.4-25.7); Calc. Creatinine Clearance 16 mL/min (70-130); Calcium 9.2 mg/dL (7.8-10.44); Carbon Dioxide 20 mmol/L (23-31); Chloride 109 mmol/L (98-107); Estimated GFR-MDRD 9; Glucose 99 mg/dL (80-115); Potassium 3.8 mmol/L (3.5-5.1); Sodium 139 mmol/L (136-145)
[2019-02-04] MEDS: Docusate 100 MG CAP PO SCH ×2 (08:13→20:04)
[2019-02-04] MEDS: Polyethylene Glycol 3350 17 GM Packet PO SCH (08:13)
[2019-02-04] MEDS: Acetaminophen/Codeine 30-300mg Tablet PO PRN ×3 (08:13→20:04)
[2019-02-04] MEDS: Sodium Bicarbonate Tab 325 MG TAB PO SCH ×3 (08:13→20:10)
[2019-02-04] MEDS: Alogliptin 25 MG TAB PO SCH (08:13)
[2019-02-04] MEDS: Clopidogrel Bisulfate 75 MG TAB PO SCH (08:13)
[2019-02-04] MEDS: Sevelamer Carbonate 800 MG TAB PO SCH ×3 (08:13→15:19)
[2019-02-04] MEDS: Amlodipine 10 MG TAB PO SCH (08:13)
[2019-02-04] MEDS: Ferrous Sulfate 325 MG TAB PO SCH ×2 (08:14→15:19)
[2019-02-04] MEDS: Ondansetron ODT 4 MG TAB PO PRN ×2 (08:14→15:20)
--- NOTE | 2019-02-04 09:06 | PRG ---
DATE OF SERVICE: 02/04/2019 SERVICE: Renal Medicine. SUBJECTIVE: Mr. Araujo is a 63-year-old white male with known history of chronic renal failure and was admitted for a TIA. During this hospitalization, we noted that his renal function was worsening. I had long discussion with the patient about initiating dialysis. In the last few days, his renal function has worsened. I did discuss dialysis, he declined. However, this morning, he changed his mind, he would like to proceed with the dialysis. I did discuss the case with Dr. Gaming, who agreed with the planned procedure. We will be consulting Surgery for placement of a cuffed dialysis catheter as well as AV fistula. The patient voices no new complaints. He denies any chest pain or shortness of breath. OBJECTIVE: VITAL SIGNS: Blood pressure is 126/53, heart rate 78, respiratory rate 16, temperature 98.5, and pulse ox 95%. GENERAL: Noted to be awake, alert, comfortable, not in overt distress. SKIN: Adequate turgor. HEENT: Slightly pale conjunctivae. Anicteric sclerae. NECK: No neck mass. No carotid bruits. No JVD. CHEST: No deformities. LUNGS: Clear breath sounds. No wheezing. No crackles. HEART: Normal sinus rhythm. No murmur. No gallops. No rubs. ABDOMEN: Globular, soft, nontender. No masses. EXTREMITIES: Trace edema. No deformities. MEDICATIONS: Medications of February 04, 2019, were reviewed. LABORATORY DATA: Laboratories of February 04, 2019; white count 9.2, hemoglobin 8.2. Sodium 139, potassium 3.8, chloride 100, carbon dioxide 20, BUN 53, creatinine 6.15, GFR 9 mL/minute, glucose 99, calcium 9.2. ASSESSMENT AND PLAN: 1. Anemia. Continuing weekly Epogen. 2. Chronic renal failure, worsening renal dysfunction. After a long discussion, the patient has decided to proceed with dialysis. Consult Surgery for placement of dialysis catheter. 3. Status post transient ischemic attack, stable. The patient was uncooperative with the neurological evaluation. 4. Recheck CBC, basic metabolic profile in a.m. Job ID: [id number]
[2019-02-04 12:53] LABS: HBSAB Concentration 1.73 mIU/mL; HBSAg Index 0.15 S/CO (0-0.99); Hep B Core Total Ab Non-Reactive (NonReactive); Hep B Core Total Index 0.07 S/CO (0-0.79); Hep B Surf AB Non-Reactive (NonReactive); Hep B Surf Ag Non-Reactive S/CO (NonReactive); Hep C IgG Ab Non-Reactive (NonReactive)
--- NOTE | 2019-02-04 15:39 | ULT ---
BILATERAL UPPER EXTREMITY VENOUS DOPPLER ULTRASOUND FOR DIALYSIS ACCESS: HISTORY: Chronic renal failure. FINDINGS: RIGHT UPPER EXTREMITY: The right cephalic vein measures 2.2 mm in the proximal arm, 2.4 mm in the mid arm, 2.2 mm in the dis wen arm, 3.9 mm in the cubital fossa, 1 mm in the proximal forearm, 1.2 mm in the mid forearm, 1.1 mm in the distal forearm. The right basilic vein measures 2.4 mm in the proximal arm, 2.6 mm in the mid arm, 3 mm in the distal arm, 3.1 mm in the cubital fossa, 1.6 mm in the proximal forearm, 1.2 mm in the mid forearm, and 1.4 mm in the distal forearm. The right brachial artery measures 4.8 mm, radial artery 2.1 mm, and ulnar artery 2 mm. LEFT UPPER EXTREMITY: The left cephalic vein measures 1 mm in the proximal and mid arm, 1.7 mm in the distal arm, 3.3 mm in the cubital fossa, 1.6 mm in the proximal and mid forearm, and 1.9 mm in the distal forearm. The left basilic vein measures 4.5 mm in the proximal arm, 2.9 mm in the mid arm, 3.7 mm in the dista l arm, 1.9 mm in the cubital fossa, 1.5 mm in the proximal forearm, 0.7 mm in the mid forearm, and 0. 6 mm in the distal forearm. The left brachial artery measures 5 mm, radial artery 2.2 mm, and ulnar artery 2.5 mm. POS: [facility]
[2019-02-04] MEDS: cefOXitin Sodium/Dextrose,Iso 1 GM in Premix Bag 1 BAG IVPB SCH (16:44)
[2019-02-04] MEDS ORDERED: CEFAZOLIN 2 GM in Premix Bag 1 BAG IVPB SCH (19:15)
[2019-02-04] MEDS: Simvastatin 5 MG TAB PO SCH (20:04)
[2019-02-04] MEDS: Cyclobenzaprine 10 MG TAB PO SCH (20:04)
--- NOTE | 2019-02-05 01:55 | CON ---
DATE OF CONSULTATION: HISTORY OF PRESENT ILLNESS: A 63-year-old male patient admitted by Dr. Ross Gaming on 01/29/2019, has diabetes, hypertension, has had a prior stroke with right hemiplegia and a right arm contracture, followed by Dr. Santana for chronic kidney disease, and sees him regarding dialysis access. Plans placed for hemodialysis catheter, central line possible and right arm fistula. His veins are much better on the right by ultrasound. He has multiple ecchymosis in left antecubital area from IV access and blood draw attempts. He has Hep-Lock in his left hand. The patient uses a power wheelchair for mobility. He is able to transfer. He has a tobacco abuse history. Alcohol, none. The patient lives alone. History of poor compliance and poor hygiene. PAST MEDICAL HISTORY: Prior stroke with right hemiparesis, decortication in the past, back surgery, chronic end-stage renal disease, hypertensive, noninsulin dependent diabetes mellitus, chronic back pain, chronic pain. MEDICATIONS: 1. Aspirin. 2. Flexeril. 3. Amiodarone. 4. Gabapentin. 5. Glipizide. 6. Metformin. 7. Pravastatin. 8. Folic acid. 9. Flomax. 10. [place]. PHYSICAL EXAMINATION: VITAL SIGNS: Height 5 foot 7 inches, 213 pounds, 33 BMI, 98.2, 76, 127/65. HEAD, EARS, EYES, NOSE AND THROAT: Unremarkable. LUNGS: Clear to auscultation. CARDIAC: Rhythm without murmur or gallop. ABDOMEN: Soft and nontender. EXTREMITIES: Contracted right upper extremities. Heplock left hand. LABORATORY DATA: White count 9, hemoglobin 8.2, potassium 3.8, BUN 53. ASSESSMENT: End-stage renal disease. PLAN: Placed in a right arm fistula. Risks of infection, bleeding, reoperation discussed. He consents. Job ID: [id number]
[2019-02-05 05:36] LABS: #Eosinphils 0.3 thou/uL (0.0-0.7); #Lymphocytes 1.7 thou/uL (1.20-3.40); #Neutrophils 9.6 thou/uL (1.40-6.50); %Basophils 0.1 % (0.0-1.0); %Eosinophils 2.7 % (0.0-10.0); %Lymphocytes 13.6 % (21.0-51.0); %Monocytes 7.8 % (0.0-10.0); %Neutrophils 75.8 % (42.0-75.0); Hemoglobin 8.8 g/dL (14.0-18.0); Mean Corpuscular HGB CONC 31.8 g/dL (32.0-36.0); Mean Corpuscular Hemoglobin 28.8 pg (27.0-31.0); Mean Corpuscular Volume 90.5 fL (78.0-98.0); Mean Platelet Volume 6.4 fL (7.4-10.4); Platelet Count 333 thou/uL (130-400); RBC Distribution Width 14.2 % (11.5-14.5); Red Blood Cell (RBC) Count 3.07 mill/uL (4.70-6.10); White Blood Cell (WBC) Count 12.6 thou/uL (4.8-10.8)
[2019-02-05] MEDS ORDERED: Fentanyl 100 MCG/2 ML VIAL ONE ×2 (07:36→11:30)
[2019-02-05] MEDS: Ondansetron ODT 4 MG TAB PO PRN (07:53)
[2019-02-05] MEDS: Sevelamer Carbonate 800 MG TAB PO SCH ×3 (08:00→17:44)
[2019-02-05] MEDS: Ferrous Sulfate 325 MG TAB PO SCH ×2 (08:00→17:44)
[2019-02-05] MEDS ORDERED: Protamine Sulfate 50 MG/5 ML VIAL ONE (08:34)
[2019-02-05] MEDS ORDERED: Heparin 5,000 UNITS/ML VIAL ONE (08:34)
[2019-02-05] MEDS ORDERED: Lidocaine 2% PF 5 ML VIAL ONE (08:34)
[2019-02-05] MEDS ORDERED: Bupivacaine HCl 0.5%/Epinephrine 1:200,000/PF 30 ml Vial ONE (08:34)
[2019-02-05] MEDS ORDERED: Sodium Chloride 0.9% 10 ML ONE (08:34)
[2019-02-05] MEDS ORDERED: Heparin 10,000 UNITS/1 ML VIAL ONE (08:34)
[2019-02-05] MEDS: Sodium Bicarbonate Tab 325 MG TAB PO SCH ×3 (09:00→20:12)
[2019-02-05] MEDS ORDERED: PROPOFOL 200 MG/20 ML VIAL ONE (11:01)
[2019-02-05] MEDS ORDERED: Glycopyrrolate 0.2 MG/ML 5 ML SYRINGE ONE (11:01)
[2019-02-05] MEDS ORDERED: Heparin 10,000 UNITS/ 10 ML VIAL ONE ×2 (11:01→12:00)
[2019-02-05] MEDS ORDERED: Succinylcholine Chloride 20 MG/ML 10 ml SYRINGE FS ONE (11:01)
[2019-02-05] MEDS ORDERED: Rocuronium Bromide 10 MG/ML (10ML VIAL) ONE (11:01)
[2019-02-05] MEDS ORDERED: Lidocaine 1% PF 5 ML VIAL ONE (11:01)
[2019-02-05] MEDS ORDERED: traMADol HCl 50 MG TAB PO PRN (11:13)
[2019-02-05] MEDS ORDERED: Ondansetron PF 4 MG/2 ML Vial ONE (11:30)
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
[2019-02-05] MEDS ORDERED: Non-Formulary Medication 1 EACH PO PRN (12:03)
[2019-02-05] MEDS ORDERED: Ondansetron HCl/PF 4 MG/2 ML Vial IVP PRN (12:03)
[2019-02-05] MEDS ORDERED: Promethazine HCl 25 MG/ML VIAL IM/IV PRN (12:03)
--- NOTE | 2019-02-05 12:54 | OP ---
DATE OF PROCEDURE: 02/05/2019 PREOPERATIVE DIAGNOSES: End-stage renal disease, previous stroke with right hemiparesis. POSTOPERATIVE DIAGNOSES: End-stage renal disease, previous stroke with right hemiparesis. PROCEDURES PERFORMED: Right IJ cuffed tunneled hemodialysis catheter, [employer] pre-curved cuffed. Left IJ central line, triple lumen, fluoroscopy and ultrasound used. Right arm primary fistula, perforating branch of the antecubital vein, outflow cephalic vein only, calibrated to 4 mm coronary dilator. ANESTHESIA: General, local 0.5% Marcaine with epinephrine 30 mL mixed with 2% Xylocaine 10 mL. DESCRIPTION OF PROCEDURE: The patient was taken to the operating room, where under general anesthesia, neck and chest and right upper extremity were prepared with ChloraPrep and draped in routine fashion. Local anesthetic was infiltrated in the skin and subcutaneous tissue about the operative site. Ultrasound used to cannulate both the right and left internal jugular veins and J-wire threaded, trocar catheter removed. Skin site enlarged sharply on both sides. Stab incision was made over the right chest for the hemodialysis catheter exit site. Using Seldinger technique, a triple-lumen catheter placed in the left internal jugular vein and J-wire removed, catheter secured with 2 interrupted suture of 3-0 nylon. Each port aspirated blood and flushed with saline solution. On the right side, the cuffed tunneled hemodialysis catheter tunneled with the tunneling device, placed the fabric cuff beneath the skin exit site over the right chest and catheter was secured with 2 interrupted sutures of 3-0 nylon. Sterile dressings applied. Small and medium-sized dilators were placed over the J-wire and the internal jugular vein removed. Dilator and Peel-Away sheath placed over the J-wire into the superior vena cava and dilator and J-wire removed. Catheter placed with Peel-Away sheath. Peel-Away sheath removed. Platysma was approximated with 4-0 Monocryl, skin with subdermal 4-0 Monocryl. All ports of catheters on both sides aspirated blood and flushed with saline solution. Hemodialysis catheter flushed with 1000 units heparin per mL indicating the volume in the port, each port. Fluoroscopic images revealed good line placement. Attention was then turned to the right arm. Proximal volar forearm incision made, carried down to skin and subcutaneous tissue below the antecubital fossa, identifying perforating branch dissected free down to the proximal radial artery. The patient was given 6000 units of heparin intravenously. Perforating branch of the antecubital vein divided branches between clips and 4-0 silk ties and spatulated over branch points, and interrogated with coronary dilators, passing coronary dilators from 2 mm to 4 mm dilator, the full length of the dilators into the cephalic vein outflow. There was no communication in the basilic vein. The proximal radial artery was clamped proximally and distally. Longitudinal arteriotomy was made for 2.5 cm anastomosis between the side of the radial artery and the perforating branch of the antecubital vein. We using continuous suture of 6-0 Prolene, completing anastomosis, released the vascular clamps with good Doppler signals in the outflow. Good hemostasis noted. The patient was given 25 mg of protamine intravenously by Anesthesia. Subcutaneous tissue was approximated with 3-0 Monocryl, skin with subdermal 4-0 Monocryl, and [place] glue applied. Job ID: [id number]
[2019-02-05 13:05] LABS: Anion Gap 16 mmol/L (10-20); BUN (Urea Nitrogen) 56 mg/dL (8.4-25.7); Calc. Creatinine Clearance 16 mL/min (70-130); Calcium 9.3 mg/dL (7.8-10.44); Carbon Dioxide 18 mmol/L (23-31); Chloride 110 mmol/L (98-107); Estimated GFR-MDRD 9; Glucose 128 mg/dL (80-115); Potassium 3.9 mmol/L (3.5-5.1); Sodium 140 mmol/L (136-145)
[2019-02-05] MEDS: Ketotifen Fumarate 0.025% Ophth Soln 5 ml Bottle EA EYE SCH ×2 (13:20→20:13)
[2019-02-05] MEDS: Polyethylene Glycol 3350 17 GM Packet PO SCH (13:23)
[2019-02-05] MEDS: Amlodipine 10 MG TAB PO SCH (13:24)
[2019-02-05] MEDS: Clopidogrel Bisulfate 75 MG TAB PO SCH (13:24)
[2019-02-05] MEDS: Docusate 100 MG CAP PO SCH ×2 (13:24→20:13)
[2019-02-05] MEDS: Alogliptin 25 MG TAB PO SCH (13:25)
[2019-02-05] MEDS: cefOXitin Sodium/Dextrose,Iso 1 GM in Premix Bag 1 BAG IVPB SCH (15:11)
--- NOTE | 2019-02-05 16:47 | PRG ---
DATE OF SERVICE: 02/05/2019 SUBJECTIVE: Mr. Araujo is a 63-year-old white male, seen by the Renal Service for his progressive azotemia. Due to the worsening renal dysfunction, the patient was initially on dialysis. He is currently undergoing hemodialysis. A cuffed dialysis catheter was placed by Dr. Townsend. The patient voices no other complaints except for occasional nausea after the surgery. He denies any chest pain or shortness of breath. OBJECTIVE: VITAL SIGNS: Blood pressure 138/69, heart rate 82, respiratory rate 18, temperature 98.6, and pulse ox 91%. GENERAL: Awake, alert, supine, comfortable, not in distress. SKIN: Adequate turgor. HEENT: Slightly pale conjunctivae. Anicteric sclerae. No neck mass. No carotid bruits. No JVD. CHEST: No deformities. LUNGS: Clear breath sounds. HEART: Normal sinus rhythm. No murmur. No gallops. No rubs. ABDOMEN: Globular, soft, nontender. No masses. EXTREMITIES: Trace edema. MEDICATIONS: Medications of February 05, 2019, reviewed. LABORATORY DATA: Laboratories of February 05, 2019, white count 12.6, hemoglobin 8.8 sodium 140, potassium 3.9, chloride 110, carbon dioxide 18, BUN 56, creatinine 6.20, GFR 9 mL/minute, calcium 9.3. ASSESSMENT AND PLAN: 1. Chronic renal failure/end-stage renal disease. Hemodialysis may be initiated. He is undergoing 1 hour hemodialysis. I have scheduled him for a 2-hour hemodialysis in a.m. Awaiting outpatient dialysis placement. Check PPD. 2. Anemia. Continuing weekly Epogen. P.r.n. blood transfusion. 3. Urinary tract infection, on intravenous antibiotics. Job ID: [id number]
[2019-02-05] MEDS: Acetaminophen 500 MG TAB PO PRN (17:44)
[2019-02-05] MEDS: Simvastatin 5 MG TAB PO SCH (20:12)
[2019-02-05] MEDS: Cyclobenzaprine 10 MG TAB PO SCH (20:13)
[2019-02-05] MEDS ORDERED: Tuberculin PPD 0.1 ML VIAL I-DERMAL SCH (22:30)
[2019-02-06 05:10] LABS: #Eosinphils 0.4 thou/uL (0.0-0.7); #Lymphocytes 1.7 thou/uL (1.20-3.40); #Neutrophils 6.4 thou/uL (1.40-6.50); %Basophils 0.3 % (0.0-1.0); %Eosinophils 3.8 % (0.0-10.0); %Lymphocytes 17.5 % (21.0-51.0); %Monocytes 10.8 % (0.0-10.0); %Neutrophils 67.7 % (42.0-75.0); Hemoglobin 7.1 g/dL (14.0-18.0); Mean Corpuscular HGB CONC 33.5 g/dL (32.0-36.0); Mean Corpuscular Hemoglobin 29.4 pg (27.0-31.0); Mean Corpuscular Volume 87.9 fL (78.0-98.0); Mean Platelet Volume 6.2 fL (7.4-10.4); Platelet Count 270 thou/uL (130-400); RBC Distribution Width 13.9 % (11.5-14.5); Red Blood Cell (RBC) Count 2.42 mill/uL (4.70-6.10); White Blood Cell (WBC) Count 9.4 thou/uL (4.8-10.8)
[2019-02-06 05:23] LABS: Anion Gap 14 mmol/L (10-20); BUN (Urea Nitrogen) 42 mg/dL (8.4-25.7); Calc. Creatinine Clearance 18 mL/min (70-130); Calcium 8.7 mg/dL (7.8-10.44); Carbon Dioxide 22 mmol/L (23-31); Chloride 106 mmol/L (98-107); Estimated GFR-MDRD 10; Glucose 75 mg/dL (80-115); Potassium 3.8 mmol/L (3.5-5.1); Sodium 138 mmol/L (136-145)
[2019-02-06] MEDS: Sevelamer Carbonate 800 MG TAB PO SCH ×3 (08:00→16:44)
[2019-02-06] MEDS: Acetaminophen 500 MG TAB PO PRN ×2 (08:29→16:51)
[2019-02-06] MEDS: Ketotifen Fumarate 0.025% Ophth Soln 5 ml Bottle EA EYE SCH ×2 (08:31→22:10)
[2019-02-06] MEDS ORDERED: Heparin 10,000 UNITS/ 10 ML VIAL ONE (09:00)
--- NOTE | 2019-02-06 10:24 | PRG ---
DATE OF SERVICE: 02/06/2019 SUBJECTIVE: The patient states that he rested poorly, but no specific complaints as to pain or why he rested poorly. He has no lab back on this date. OBJECTIVE: VITAL SIGNS: His vital signs were stable with a blood pressure of 131/64, temperature 99, pulse rate 88, respiratory rate 18, and O2 saturation at 91%. GENERAL: A well-developed, well-nourished, elderly male who seems much healthier than the day previous. His color is good. HEENT: Pupils equal, round, reactive to light. TMs, nares clear. Pharynx is moist. CHEST: Clear to auscultation. HEART: Regular rate and rhythm without murmur. Dialysis access site looks healthy without signs of erythema, heat, or infection. ABDOMEN: Soft, nontender. EXTREMITIES: Without clubbing, cyanosis, or edema. NEUROLOGIC: Baseline, nonfocal, and intact. ASSESSMENT: 1. End-stage renal disease, currently undergoing introductory dialysis. 2. Anemia. 3. Urinary tract infection, currently getting daily antibiotics. 4. Transient ischemic attack, resolved. PLAN: The patient will continue getting daily antibiotics as long as he is in the hospital. We are awaiting acceptance for outpatient dialysis; at which time, he may then be discharged to home, and transportation will take him to his dialysis on a 3-time a week schedule. He will follow up with Dr. Gaming after discharge in 1 week. [facility] will be covering until he is discharged, and they will be covering until return on 02/10/2019. Job ID: [id number]
--- NOTE | 2019-02-06 10:34 | PRG ---
DATE OF SERVICE: 02/06/2019 SUBJECTIVE: Mr. Araujo is a 63-year-old white male, who was seen by the Renal Service for his acute kidney injury on top of his chronic renal failure. He had progressive azotemia, and for that reason, he was initiated on dialysis. He is currently undergoing dialysis and tolerating said treatment. No new complaints. OBJECTIVE: VITAL SIGNS: Blood pressure 131/64, heart rate 88, respiratory rate 18, temperature 99, and pulse ox 91%. GENERAL: Noted to be awake, alert, comfortable, not in distress. SKIN: Adequate turgor. HEENT: Pale conjunctivae. Anicteric sclerae. NECK: No neck mass. No carotid bruits. No JVD. CHEST: No deformities. LUNGS: Clear breath sounds. HEART: Normal sinus rhythm. No murmur. No gallops. No rubs. ABDOMEN: Globular, soft, nontender. No masses. EXTREMITIES: No edema. No deformities. MEDICATIONS: Medications of February 06, 2019, were reviewed. LABORATORY DATA: Laboratories of February 06, 2019, show the following; white count 9.4, hemoglobin is 7.1. Sodium 138, potassium 3.8, chloride 106, carbon dioxide 22, BUN 42, creatinine 5.7, glucose 75, and calcium 8.7. ASSESSMENT AND PLAN: 1. Chronic renal failure/end-stage renal disease, continuing daily hemodialysis. Fluid removal only as tolerated. 2. Anemia, continuing weekly Epogen. 3. Status post dialysis access placement-Dr. Townsend has placed a right IJ tunneled dialysis catheter. 4. Right arm primary AV fistula has also been done by Dr. Townsend. Overall, agree with current management, awaiting outpatient dialysis placement. Job ID: [id number]
[2019-02-06] MEDS: Docusate 100 MG CAP PO SCH ×2 (12:45→22:08)
[2019-02-06] MEDS: Polyethylene Glycol 3350 17 GM Packet PO SCH (12:45)
[2019-02-06] MEDS: Sodium Bicarbonate Tab 325 MG TAB PO SCH ×3 (12:45→22:08)
[2019-02-06] MEDS: Ferrous Sulfate 325 MG TAB PO SCH ×2 (12:46→16:44)
[2019-02-06] MEDS: Clopidogrel Bisulfate 75 MG TAB PO SCH (12:46)
[2019-02-06] MEDS: Amlodipine 10 MG TAB PO SCH (12:46)
[2019-02-06] MEDS: Alogliptin 25 MG TAB PO SCH (12:46)
[2019-02-06] MEDS: cefOXitin Sodium/Dextrose,Iso 1 GM in Premix Bag 1 BAG IVPB SCH (16:44)
--- NOTE | 2019-02-06 18:28 | PRG ---
DATE OF SERVICE: 02/06/2019 Pool Araujo is doing well today. He has good thrill and bruit in his right arm fistula. He has had a previous stroke and hand function is compromised because of that. He is dialyzing well. He is not having complaints, does not have any questions at this point. I will see him as needed this hospitalization. He should follow up in my office in 3 to 4 weeks. Please call if needed. Job ID: [id number]
[2019-02-06] MEDS: Ondansetron ODT 4 MG TAB PO PRN (22:07)
[2019-02-06] MEDS: Acetaminophen/Codeine 30-300mg Tablet PO PRN (22:07)
[2019-02-06] MEDS: Cyclobenzaprine 10 MG TAB PO SCH (22:07)
[2019-02-06] MEDS: Simvastatin 5 MG TAB PO SCH (22:08)
[2019-02-07] MEDS: Acetaminophen/Codeine 30-300mg Tablet PO PRN ×3 (04:40→18:40)
[2019-02-07 05:23] LABS: #Basophils 0.1 thou/uL (0.0-0.2); #Eosinphils 0.3 thou/uL (0.0-0.7); #Neutrophils 5.5 thou/uL (1.40-6.50); %Basophils 0.8 % (0.0-1.0); %Eosinophils 3.7 % (0.0-10.0); %Lymphocytes 22.4 % (21.0-51.0); %Monocytes 11.3 % (0.0-10.0); %Neutrophils 61.8 % (42.0-75.0); Hemoglobin 7.7 g/dL (14.0-18.0); Mean Corpuscular HGB CONC 32.8 g/dL (32.0-36.0); Mean Corpuscular Hemoglobin 28.8 pg (27.0-31.0); Mean Platelet Volume 6.4 fL (7.4-10.4); Platelet Count 305 thou/uL (130-400); RBC Distribution Width 13.7 % (11.5-14.5); Red Blood Cell (RBC) Count 2.66 mill/uL (4.70-6.10); White Blood Cell (WBC) Count 8.9 thou/uL (4.8-10.8)
[2019-02-07 05:38] LABS: Anion Gap 15 mmol/L (10-20); BUN (Urea Nitrogen) 36 mg/dL (8.4-25.7); Calc. Creatinine Clearance 21 mL/min (70-130); Calcium 9.3 mg/dL (7.8-10.44); Carbon Dioxide 25 mmol/L (23-31); Chloride 102 mmol/L (98-107); Estimated GFR-MDRD 12; Glucose 89 mg/dL (80-115); Potassium 3.2 mmol/L (3.5-5.1); Sodium 139 mmol/L (136-145)
--- NOTE | 2019-02-07 09:58 | PRG ---
DATE OF SERVICE: 02/07/2019 SUBJECTIVE: Mr. Araujo is a 63-year-old white male, who was initiated with dialysis due to the progressive azotemia. He is currently undergoing dialysis and tolerating said treatment. Fluid removal only as tolerated. He was also noted to be anemic and we are planning to give him 1 unit of packed RBC. He is symptomatic with his anemia. He is currently on Epogen. My plan is to give him 1 unit of packed RBC with dialysis. No complaints of chest pain or shortness of breath. OBJECTIVE: VITAL SIGNS: Blood pressure 120/65, heart rate 79, respiratory rate 20, temperature 97.9, pulse ox 95%. GENERAL: Awake, alert, and comfortable, not in overt distress. SKIN: Adequate turgor. HEENT: Slightly pale conjunctivae. Anicteric sclerae. No neck mass. No carotid bruits. No JVD. CHEST: No deformities. LUNGS: Clear breath sounds. HEART: Normal sinus rhythm. No murmurs, no gallops, no rubs. ABDOMEN: Globular, soft, nontender. No masses. EXTREMITIES: Positive for edema. Positive for right-sided weakness. MEDICATIONS: Of February 07, 2019, were reviewed. LABORATORY DATA: Of February 07, 2019: White count 8.9, hemoglobin 7.7. Sodium was 139, potassium 3.2, chloride 102, carbon dioxide 25, BUN 36, creatinine 4.88, glucose 89, calcium 9.3. ASSESSMENT AND PLAN: 1. Chronic renal failure/end-stage renal disease. Continuing daily dialysis. Fluid removal as tolerated. Using no heparin with the current dialysis regimen. 2. Anemia. We will give 1 unit of packed RBC. Continue Epogen and iron supplementation. 3. Urinary tract infection, on antibiotics. Awaiting outpatient dialysis placement. Job ID: [id number]
[2019-02-07] MEDS: Sevelamer Carbonate 800 MG TAB PO SCH ×3 (10:09→18:40)
[2019-02-07] MEDS: Ketotifen Fumarate 0.025% Ophth Soln 5 ml Bottle EA EYE SCH ×2 (10:09→20:33)
[2019-02-07] MEDS: Sodium Bicarbonate Tab 325 MG TAB PO SCH ×3 (10:09→20:32)
[2019-02-07] MEDS: Ferrous Sulfate 325 MG TAB PO SCH ×2 (10:09→16:34)
[2019-02-07] MEDS: Docusate 100 MG CAP PO SCH ×2 (10:09→20:33)
--- NOTE | 2019-02-07 11:28 | PDOC.HOSPP ---
- Subjective Encounter Date: 02/07/19 Encounter Time: 12:26 Subjective: 63 y/o male with multiple medical problems including CKD, DM and prior CVA admitted with transient hemiparesis. Further evlaution reveal UTI and ESRD now being initiated on HD. Complaining of headache, cough and chest tightness associated with nausea since HD. No fever. - Objective Vital Signs & Weight: Vital Signs (12 hours) Temp Pulse Resp BP Pulse Ox 02/07/19 08:00 97.9 F 79 20 120/65 95 02/07/19 04:03 98.1 F 74 16 125/65 92 L 02/07/19 00:04 98.1 F 74 16 122/61 92 L Weight Weight 213 lb 1 oz I&O: 02/06/19 02/07/19 02/08/19 06:59 06:59 06:59 Intake Total 800 550 0 Output Total 1450 1200 Balance -650 -650 0 Result Diagrams: 02/07/19 04:53 02/07/19 04:53 Additional Labs: Accuchecks 02/07/19 02/06/19 05:05 20:44 POC Glucose 100 124 H Hospitalist ROS - Medication Medications: Active Medications Generic Name Dose Route Start Last Admin Trade Name Freq PRN Reason Stop Dose Admin Acetaminophen 1,000 mg 02/05/19 11:13 02/06/19 16:51 Tylenol PO 1,000 mg Q6H PRN Administration Moderate to Severe Pain (6-10) Acetaminophen/Codeine Phosphate 1 tab 02/06/19 17:39 02/07/19 04:40 Tylenol #3 PO 1 tab Q6H PRN Administration Mild Pain (1-3) Alogliptin Benzoate 25 mg 02/03/19 09:00 02/06/19 12:46 Alogliptin PO 25 mg DAILY CHRISTOFER Administration Amlodipine Besylate 10 mg 01/30/19 09:00 02/06/19 12:46 Norvasc PO 10 mg DAILY CHRISTOFER Administration Clopidogrel Bisulfate 75 mg 01/30/19 09:00 02/06/19 12:46 Plavix PO 75 mg DAILY CHRISTOFER Administration Cyclobenzaprine HCl 10 mg 01/30/19 21:00 02/06/19 22:07 Flexeril PO 10 mg HS CHRISTOFER Administration Docusate Sodium 100 mg 02/02/19 21:00 02/07/19 10:09 Colace PO Not Given BID CHRISTOFER Epoetin Den-epbx 7,500 unit 01/31/19 12:00 01/31/19 12:43 Retacrit SC 7,500 unit Q7D CHRISTOFER Administration Ferrous Sulfate 325 mg 01/31/19 17:00 02/07/19 10:09 Feosol PO Not Given BID-WM CHRISTOFER Cefoxitin Sodium/Dextrose 1 gm 50 mls @ 100 mls/hr 02/05/19 16:00 02/06/19 16 :44 / Device IVPB 50 mls 1600 CHRISTOFER Administration Ketotifen Fumarate 1 drop 02/05/19 09:00 02/07/19 10:09 Zaditor 0.025% Ophth Soln EA EYE Not Given BID CHRISTOFER Ondansetron HCl 4 mg 02/02/19 09:57 02/06/19 22:07 Zofran Odt PO 4 mg Q6H PRN Administration Nausea/Vomiting Pantoprazole Sodium 40 mg 02/02/19 09:00 02/06/19 12:46 Protonix PO 40 mg DAILY CHRISTOFER Administration Polyethylene Glycol 17 gm 02/04/19 09:00 02/06/19 12:45 Miralax PO 17 gm DAILY CHRISTOFER Administration Sevelamer Carbonate 800 mg 01/30/19 12:00 02/07/19 10:09 Renvela PO Not Given TID-WM CHRISTOFER Simvastatin 10 mg 01/30/19 21:00 02/06/19 22:08 Zocor PO 10 mg HS CHRISTOFER Administration Sodium Bicarbonate 650 mg 02/01/19 09:00 02/07/19 10:09 Bicarbonate, Sodium PO Not Given TID CHRISTOFER Sodium Chloride 10 ml 01/31/19 08:09 01/31/19 23:13 Normal Saline Pf FS 10 ml PRN PRN Administration RECONSTITUTION Sodium Chloride 10 ml 02/03/19 21:00 02/07/19 10:09 Flush - Normal Saline IVF Not Given Q12HR CHRISTOFER - Exam General Appearance: awake alert Eye: anicteric sclera ENT: normocephalic atraumatic Neck: supple, symmetric Heart: RRR Respiratory: no rales, no ronchi Respiratory - other findings: fair air entry with some transmitted sound Gastrointestinal: soft, non-distended, normal bowel sounds Gastrointestinal - other findings: mild diffuse tenderness and suprapubic catheter noted Extremities: no cyanosis, no edema Neurological: no new deficit Neurological - other findings: Right hemiparesis noted Psychiatric: A&O x 3 Hosp A/P (1) TIA (transient ischemic attack) Code(s): G45.9 - TRANSIENT CEREBRAL ISCHEMIC ATTACK, UNSPECIFIED Status: Acute (2) UTI (urinary tract infection) Status: Acute Qualifiers: Urinary tract infection type: catheter-associated UTI Indwelling urinary catheter type: cystostomy catheter Encounter type: subsequent encounter Qualified Code(s): T83.510D - Infection and inflammatory reaction due to cystostomy catheter, subsequent encounter; N39.0 - Urinary tract infection, site not specified (3) Anemia Code(s): D64.9 - ANEMIA, UNSPECIFIED Status: Chronic Qualifiers: Anemia type: unspecified type Qualified Code(s): D64.9 - Anemia, unspecified (4) CVA, old, hemiparesis Code(s): I69.359 - HEMIPLGA FOLLOWING CEREBRAL INFARCTION AFFECTING UNSP SIDE Status: Chronic (5) Cardiomyopathy Code(s): I42.9 - CARDIOMYOPATHY, UNSPECIFIED Status: Chronic Qualifiers: Cardiomyopathy type: unspecified Qualified Code(s): I42.9 - Cardiomyopathy , unspecified (6) DM type 2 (diabetes mellitus, type 2) Status: Chronic Qualifiers: 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 insulin use: with middle or intermediate school principal use Diabetes mellitus complication status: with kidney complications Diabetes mellitus complication detail: with other kidney complication Qualified Code(s): E11.29 - Type 2 diabetes mellitus with other diabetic kidney complication; Z79.4 - senior living (current) use of insulin (7) HTN (hypertension) Code(s): I10 - ESSENTIAL (PRIMARY) HYPERTENSION Status: Acute (8) Hypokalemia Code(s): E87.6 - HYPOKALEMIA Status: Acute (9) ESRD (end stage renal disease) on dialysis Code(s): N18.6 - END STAGE RENAL DISEASE; Z99.2 - DEPENDENCE ON RENAL DIALYSIS Status: Acute (10) Headache Code(s): R51 - HEADACHE Status: Acute (11) Chest discomfort Code(s): R07.89 - OTHER CHEST PAIN Status: Acute - Plan Get CXR, ECG and serial troponin Continue other treatments. Start bowel regimen. monitor closely.
[2019-02-07] MEDS: Amlodipine 10 MG TAB PO SCH (12:12)
[2019-02-07] MEDS: Alogliptin 25 MG TAB PO SCH (12:13)
[2019-02-07] MEDS: Polyethylene Glycol 3350 17 GM Packet PO SCH ×2 (12:13→20:32)
[2019-02-07] MEDS: Clopidogrel Bisulfate 75 MG TAB PO SCH (12:13)
[2019-02-07] MEDS: Ondansetron ODT 4 MG TAB PO PRN (12:16)
[2019-02-07] MEDS ORDERED: Nitroglycerin 0.4 MG TAB (25 Tab Bottle) SL PRN (13:10)
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
[2019-02-07 14:16] LABS: Troponin I 0.013 ng/mL (< 0.028)
[2019-02-07] MEDS: EPOETIN ALFA-EPBX (ESRD) 4,000 UNIT/ML VIAL SC SCH (14:51)
[2019-02-07] MEDS ORDERED: Heparin 10,000 UNITS/1 ML VIAL ONE (15:00)
[2019-02-07] MEDS: cefOXitin Sodium/Dextrose,Iso 1 GM in Premix Bag 1 BAG IVPB SCH (16:34)
[2019-02-07 19:53] LABS: Troponin I Less than 0.010 ng/mL (< 0.028)
[2019-02-07] MEDS: Cyclobenzaprine 10 MG TAB PO SCH (20:33)
[2019-02-07] MEDS: Simvastatin 5 MG TAB PO SCH (20:33)
[2019-02-07] MEDS ORDERED: READ PPD TEST SITE PO SCH (22:30)
[2019-02-08] MEDS: Acetaminophen/Codeine 30-300mg Tablet PO PRN ×3 (05:20→18:34)
[2019-02-08] MEDS: Alogliptin 25 MG TAB PO SCH (08:52)
[2019-02-08] MEDS: Ferrous Sulfate 325 MG TAB PO SCH ×2 (08:52→16:02)
[2019-02-08] MEDS: Amlodipine 10 MG TAB PO SCH (08:52)
[2019-02-08] MEDS: Clopidogrel Bisulfate 75 MG TAB PO SCH (08:52)
[2019-02-08] MEDS: Docusate 100 MG CAP PO SCH ×2 (08:52→20:38)
[2019-02-08] MEDS: Sodium Bicarbonate Tab 325 MG TAB PO SCH ×3 (08:52→20:37)
[2019-02-08] MEDS: Sevelamer Carbonate 800 MG TAB PO SCH ×3 (08:52→16:01)
[2019-02-08] MEDS: Ketotifen Fumarate 0.025% Ophth Soln 5 ml Bottle EA EYE SCH ×2 (08:53→20:39)
[2019-02-08] MEDS: Polyethylene Glycol 3350 17 GM Packet PO SCH ×2 (08:53→20:34)
--- NOTE | 2019-02-08 11:28 | PRG ---
DATE OF SERVICE: 02/08/2019 SERVICE: Renal Medicine. SUBJECTIVE: Mr. Araujo is a 63-year-old white male, who was admitted for TIA. During the initial hospitalization, renal function has worsen. He has been initiated dialysis. He is tolerating said dialysis. He is complaining of some diarrhea. We will check stools for C diff colitis. In addition, Lomotil 1 tablet t.i.d. will be given p.r.n. He is currently undergoing dialysis. OBJECTIVE: VITAL SIGNS: Blood pressure 124/68, heart rate 85, respiratory rate 16, temperature 98.2, and pulse ox 96%. GENERAL: The patient is awake, alert, comfortable, not in distress. SKIN: Adequate turgor. HEENT: He has slightly pale conjunctivae. Anicteric sclerae. NECK: No neck mass. No carotid bruits. No JVD. CHEST: No deformities. LUNGS: Clear breath sounds. HEART: Normal sinus rhythm. No murmur. No gallops. No rubs. ABDOMEN: Globular, soft, nontender. No masses. EXTREMITIES: No edema. MEDICATIONS: Medications of February 08, 2019, was reviewed. LABORATORY DATA: Laboratories of February 07, 2019; hemoglobin 7.7. On February 08, 2019; glucose 111. On February 07, 2019; BUN 36, creatinine 4.88, . ASSESSMENT AND PLAN: 1. End-stage renal disease/chronic renal failure. Hemodialysis for 4 hours today. Fluid removal only as tolerated. No other changes will be made. Using no heparin. 2. Diarrhea. Check for Clostridium difficile colitis, Lomotil t.i.d. p.r.n. 3. Anemia, status post blood transfusion. Continuing weekly Epogen with the patient at 7500 units subcu every week. Job ID: [id number]
[2019-02-08] MEDS: Diphenoxylate HCl/Atropine Tablet PO PRN (11:36)
--- NOTE | 2019-02-08 12:40 | PDOC.HOSPP ---
- Subjective Encounter Date: 02/08/19 Encounter Time: 09:15 Subjective: Patient seen and examined. No new complaints. No overnight events today he has loose diarrhoea - Objective Vital Signs & Weight: Vital Signs (12 hours) Temp Pulse Resp BP BP Pulse Ox 02/08/19 08:52 85 124/68 02/08/19 07:57 98.2 F 85 16 124/68 96 02/08/19 05:13 98.7 F 80 18 123/66 92 L Weight Admit Weight 213 lb 1 oz Weight 213 lb 1 oz I&O: 02/07/19 02/08/19 02/09/19 06:59 06:59 06:59 Intake Total 550 2170 Output Total 1200 2500 Balance -650 -330 Result Diagrams: 02/07/19 04:53 02/07/19 04:53 Additional Labs: Accuchecks 02/08/19 02/07/19 04:56 19:30 POC Glucose 111 H 165 H Hospitalist ROS - Review of Systems Eyes: denies: pain, vision change, conjunctivae inflammation, eyelid inflammation, redness, other ENT: denies: ear pain, ear discharge, nose pain, nose discharge, nose congestion , mouth pain, mouth swelling, throat pain, throat swelling, other Respiratory: denies: cough, dry, shortness of breath, hemoptysis, SOB with excertion, pleuritic pain, sputum, wheezing, other Cardiovascular: denies: chest pain, palpitations, orthopnea, paroxysmal noc. dyspnea, edema, light headedness, other Gastrointestinal: reports: diarrhea. denies: nausea, vomitting, abdominal pain , constipation, melena, hematochezia, other Genitourinary: denies: dysuria, frequency, incontinence, hematuria, retention, other Musculoskeletal: denies: neck pain, shoulder pain, arm pain, back pain, hand pain, leg pain, foot pain, other - Medication Medications: Active Medications Generic Name Dose Route Start Last Admin Trade Name Freq PRN Reason Stop Dose Admin Acetaminophen 1,000 mg 02/05/19 11:13 02/06/19 16:51 Tylenol PO 1,000 mg Q6H PRN Administration Moderate to Severe Pain (6-10) Acetaminophen/Codeine Phosphate 1 tab 02/06/19 17:39 02/08/19 12:16 Tylenol #3 PO 1 tab Q6H PRN Administration Mild Pain (1-3) Alogliptin Benzoate 25 mg 02/03/19 09:00 02/08/19 08:52 Alogliptin PO 25 mg DAILY [facility] Administration Amlodipine Besylate 10 mg 01/30/19 09:00 02/08/19 08:52 Norvasc PO 10 mg DAILY [facility] Administration Clopidogrel Bisulfate 75 mg 01/30/19 09:00 02/08/19 08:52 Plavix PO 75 mg DAILY [facility] Administration Cyclobenzaprine HCl 10 mg 01/30/19 21:00 02/07/19 20:33 Flexeril PO 10 mg HS [facility] Administration Diphenoxylate HCl/Atropine 1 tab 02/08/19 11:12 02/08/19 11:36 Lomotil PO 1 tab TIDPRN PRN Administration Diarrhea/Loose Stools Docusate Sodium 100 mg 02/02/19 21:00 02/08/19 08:52 Colace PO 100 mg BID [facility] Administration Epoetin Den-epbx 7,500 unit 01/31/19 12:00 02/07/19 14:51 Retacrit SC 7,500 unit Q7D [facility] Administration Ferrous Sulfate 325 mg 01/31/19 17:00 02/08/19 08:52 Feosol PO 325 mg BID-WM [facility] Administration Cefoxitin Sodium/Dextrose 1 gm 50 mls @ 100 mls/hr 02/05/19 16:00 02/07/19 16 :34 / Device IVPB 50 mls 1600 [facility] Administration Ketotifen Fumarate 1 drop 02/05/19 09:00 02/08/19 08:53 Zaditor 0.025% Ophth Soln EA EYE 1 drop BID [facility] Administration Nitroglycerin 0.4 mg 02/07/19 13:10 02/07/19 13:46 Nitrostat SL 0.4 mg Q5MIN PRN Administration Chest Pain Ondansetron HCl 4 mg 02/02/19 09:57 02/07/19 12:16 Zofran Odt PO 4 mg Q6H PRN Administration Nausea/Vomiting Pantoprazole Sodium 40 mg 02/02/19 09:00 02/08/19 08:52 Protonix PO 40 mg DAILY [facility] Administration Polyethylene Glycol 17 gm 02/07/19 21:00 02/08/19 08:53 Miralax PO 17 gm BID [facility] Administration Sevelamer Carbonate 800 mg 01/30/19 12:00 02/08/19 11:33 Renvela PO Not Given TID-WM [facility] Simvastatin 10 mg 01/30/19 21:00 02/07/19 20:33 Zocor PO 10 mg HS [facility] Administration Sodium Bicarbonate 650 mg 02/01/19 09:00 02/08/19 08:52 Bicarbonate, Sodium PO 650 mg TID [facility] Administration Sodium Chloride 10 ml 01/31/19 08:09 01/31/19 23:13 Normal Saline Pf FS 10 ml PRN PRN Administration RECONSTITUTION Sodium Chloride 10 ml 02/03/19 21:00 02/08/19 08:53 Flush - Normal Saline IVF 10 ml Q12HR [facility] Administration - Exam General Appearance: NAD, awake alert Eye: PERRL, anicteric sclera ENT: normocephalic atraumatic, no oropharyngeal lesions Neck: supple, symmetric, no JVD Heart: RRR, no murmur, no gallops Respiratory: CTAB, no wheezes, no rales Gastrointestinal: soft, non-tender, non-distended Gastrointestinal - other findings: Extremities: no cyanosis, no clubbing Skin: normal turgor, no lesions Musculoskeletal: normal tone, normal strength Psychiatric: normal affect, normal behavior Hosp A/P (1) ESRD (end stage renal disease) on dialysis Code(s): N18.6 - END STAGE RENAL DISEASE; Z99.2 - DEPENDENCE ON RENAL DIALYSIS Status: Acute (2) Secondary hyperparathyroidism of renal origin Code(s): N25.81 - SECONDARY HYPERPARATHYROIDISM OF RENAL ORIGIN Status: Chronic (3) Obesity (BMI 30.0-34.9) Code(s): E66.9 - OBESITY, UNSPECIFIED Status: Chronic (4) HTN (hypertension) Code(s): I10 - ESSENTIAL (PRIMARY) HYPERTENSION Status: Chronic (5) DM type 2 (diabetes mellitus, type 2) Status: Chronic Qualifiers: Diabetes mellitus longterm insulin use: with intermediate manager use Diabetes mellitus complication status: with kidney complications Diabetes mellitus complication detail: with other kidney complication Qualified Code(s): E11.29 - Type 2 diabetes mellitus with other diabetic kidney complication; Z79.4 - [facility] (current) use of insulin - Plan old records reviewed/req, social service agency director check stool for c-diff medication reviewed as above symptomatic treatment await outpt HD arrangement
[2019-02-08] MEDS ORDERED: Heparin 10,000 UNITS/1 ML VIAL ONE (15:00)
[2019-02-08] MEDS ORDERED: Diphenoxylate HCl/Atropine Tablet PO PRN (15:18)
[2019-02-08] MEDS: cefOXitin Sodium/Dextrose,Iso 1 GM in Premix Bag 1 BAG IVPB SCH (16:06)
[2019-02-08 16:53] LABS: #Eosinphils 0.4 thou/uL (0.0-0.7); #Lymphocytes 1.6 thou/uL (1.20-3.40); #Monocytes 1.1 thou/uL (0.11-0.59); #Neutrophils 9.7 thou/uL (1.40-6.50); %Basophils 0.3 % (0.0-1.0); %Eosinophils 2.8 % (0.0-10.0); %Lymphocytes 12.7 % (21.0-51.0); %Monocytes 8.4 % (0.0-10.0); %Neutrophils 75.9 % (42.0-75.0); Hemoglobin 9.6 g/dL (14.0-18.0); Mean Corpuscular HGB CONC 32.4 g/dL (32.0-36.0); Mean Corpuscular Hemoglobin 28.8 pg (27.0-31.0); Mean Corpuscular Volume 89.2 fL (78.0-98.0); Mean Platelet Volume 6.4 fL (7.4-10.4); Platelet Count 369 thou/uL (130-400); RBC Distribution Width 13.6 % (11.5-14.5); Red Blood Cell (RBC) Count 3.32 mill/uL (4.70-6.10); White Blood Cell (WBC) Count 12.8 thou/uL (4.8-10.8)
[2019-02-08] MEDS: Simvastatin 5 MG TAB PO SCH (20:37)
[2019-02-08] MEDS: Cyclobenzaprine 10 MG TAB PO SCH (20:38)
--- NOTE | 2019-02-09 00:25 | EKG ---
Test Reason : Blood Pressure : / mmHG Vent. Rate : 081 BPM Atrial Rate : 081 BPM P-R Int : 174 ms QRS Dur : 100 ms QT Int : 388 ms P-R-T Axes : 000 046 067 degrees QTc Int : 450 ms Normal sinus rhythm Normal ECG Confirmed by SASHA ALEJANDRO ([id number]), photo editor ILENE OCONNOR ([id number]) on 02/09/2019 12:24:31 AM Referred By: Confirmed By:SASHA ALEJANDRO
[2019-02-09] MEDS: Acetaminophen 500 MG TAB PO PRN (06:17)
[2019-02-09 06:23] LABS: #Eosinphils 0.4 thou/uL (0.0-0.7); #Lymphocytes 1.9 thou/uL (1.20-3.40); %Basophils 0.3 % (0.0-1.0); %Eosinophils 3.5 % (0.0-10.0); %Lymphocytes 18.7 % (21.0-51.0); %Monocytes 9.9 % (0.0-10.0); %Neutrophils 67.6 % (42.0-75.0); Hemoglobin 8.8 g/dL (14.0-18.0); Mean Corpuscular HGB CONC 32.3 g/dL (32.0-36.0); Mean Corpuscular Volume 89.8 fL (78.0-98.0); Platelet Count 299 thou/uL (130-400); RBC Distribution Width 13.7 % (11.5-14.5); Red Blood Cell (RBC) Count 3.05 mill/uL (4.70-6.10); White Blood Cell (WBC) Count 10.3 thou/uL (4.8-10.8)
[2019-02-09 06:36] LABS: Anion Gap 12 mmol/L (10-20); BUN (Urea Nitrogen) 14 mg/dL (8.4-25.7); Calc. Creatinine Clearance 32 mL/min (70-130); Calcium 9.6 mg/dL (7.8-10.44); Carbon Dioxide 28 mmol/L (23-31); Chloride 99 mmol/L (98-107); Estimated GFR-MDRD 20; Glucose 127 mg/dL (80-115); Potassium 3.2 mmol/L (3.5-5.1); Sodium 136 mmol/L (136-145)
[2019-02-09] MEDS: Alogliptin 25 MG TAB PO SCH (08:46)
[2019-02-09] MEDS: Potassium Chloride 20 MEQ TAB PO SCH (08:46)
[2019-02-09] MEDS: Sodium Bicarbonate Tab 325 MG TAB PO SCH ×3 (08:47→21:07)
[2019-02-09] MEDS: Sevelamer Carbonate 800 MG TAB PO SCH ×3 (08:47→15:53)
[2019-02-09] MEDS: Ferrous Sulfate 325 MG TAB PO SCH ×2 (08:48→15:51)
[2019-02-09] MEDS: Amlodipine 10 MG TAB PO SCH (08:48)
[2019-02-09] MEDS: Docusate 100 MG CAP PO SCH ×2 (08:49→21:07)
[2019-02-09] MEDS: Polyethylene Glycol 3350 17 GM Packet PO SCH ×2 (09:08→21:07)
[2019-02-09] MEDS: Ketotifen Fumarate 0.025% Ophth Soln 5 ml Bottle EA EYE SCH ×2 (09:08→21:08)
[2019-02-09] MEDS: Clopidogrel Bisulfate 75 MG TAB PO SCH (10:17)
--- NOTE | 2019-02-09 11:17 | PRG ---
DATE OF SERVICE: 02/09/2019 SUBJECTIVE: Mr. Araujo is a 63-year-old white male with chronic renal failure/ESRD and followed up by the [facility]al [facility] for his maintenance hemodialysis. He underwent dialysis yesterday without any difficulty. No new complaints today. He did complain with diarrhea yesterday. C diff was positive. The patient has been started on oral vancomycin. No other complaints today. Diarrhea is actually improving. No chest pain or shortness of breath. OBJECTIVE: VITAL SIGNS: Blood pressure 107/68, heart rate 78, respiratory rate 18, temperature 98.5, and pulse ox 95%. GENERAL: Noted to be awake, alert, comfortable, not in overt distress. SKIN: Adequate turgor. HEENT: He has slightly pale conjunctivae. Anicteric sclerae. No neck mass. No carotid bruits. No JVD. CHEST: No deformities. LUNGS: Clear breath sounds. HEART: Normal sinus rhythm. No murmur. No gallops. No rubs. ABDOMEN: Globular, soft, nontender. No masses. EXTREMITIES: No edema. No deformities. MEDICATIONS: Medications of February 09, 2019, were reviewed. LABORATORY DATA: Laboratories of February 09, 2019, white count 10.3, hemoglobin 8.8. Sodium 136, potassium 3.2, chloride 99, carbon dioxide 28, BUN 14, creatinine 3.17, glucose 127, calcium 9.6. ASSESSMENT AND PLAN: 1. Anemia. Continuing weekly Epogen. 2. End-stage renal disease/chronic renal failure. We will continue 3 times a week hemodialysis. Awaiting outpatient dialysis placement. 3. Clostridium difficile colitis, currently on oral vancomycin. Overall, agree with current management. Job ID: [id number]
[2019-02-09] MEDS: Vancomycin HCl 25 MG/ML Oral PO SCH ×2 (11:19→15:52)
--- NOTE | 2019-02-09 12:20 | PDOC.HOSPP ---
- Subjective Encounter Date: 02/09/19 Encounter Time: 09:45 Subjective: pt has diarrhoea, no fever Patient seen and examined. No overnight events - Objective Vital Signs & Weight: Vital Signs (12 hours) Temp Pulse Resp BP Pulse Ox 02/09/19 08:48 78 02/09/19 08:08 98.5 F 78 18 107/68 95 Weight Admit Weight 213 lb 1 oz Weight 213 lb 1 oz I&O: 02/08/19 02/09/19 02/10/19 06:59 06:59 06:59 Intake Total 2170 1960 Output Total 2500 3290 Balance -330 -1330 Result Diagrams: 02/09/19 06:09 02/09/19 06:09 Additional Labs: Accuchecks 02/09/19 02/09/19 02/08/19 11:02 04:12 20:26 POC Glucose 144 H 96 164 H 02/08/19 16:54 POC Glucose 152 H Hospitalist ROS - Medication Medications: Active Medications Generic Name Dose Route Start Last Admin Trade Name Freq PRN Reason Stop Dose Admin Acetaminophen 1,000 mg 02/05/19 11:13 02/09/19 06:17 Tylenol PO 1,000 mg Q6H PRN Administration Moderate to Severe Pain (6-10) Acetaminophen/Codeine Phosphate 1 tab 02/06/19 17:39 02/08/19 18:34 Tylenol #3 PO 1 tab Q6H PRN Administration Mild Pain (1-3) Alogliptin Benzoate 25 mg 02/03/19 09:00 02/09/19 08:46 Alogliptin PO 25 mg DAILY [facility] Administration Amlodipine Besylate 10 mg 01/30/19 09:00 02/09/19 08:48 Norvasc PO 10 mg DAILY [facility] Administration Clopidogrel Bisulfate 75 mg 01/30/19 09:00 02/09/19 10:17 Plavix PO Not Given DAILY [facility] Cyclobenzaprine HCl 10 mg 01/30/19 21:00 02/08/19 20:38 Flexeril PO 10 mg HS [facility] Administration Diphenoxylate HCl/Atropine 1 tab 02/08/19 11:12 02/08/19 11:36 Lomotil PO 1 tab TIDPRN PRN Administration Diarrhea/Loose Stools Docusate Sodium 100 mg 02/02/19 21:00 02/09/19 08:49 Colace PO 100 mg BID [facility] Administration Epoetin Den-epbx 7,500 unit 01/31/19 12:00 02/07/19 14:51 Retacrit SC 7,500 unit Q7D [facility] Administration Ferrous Sulfate 325 mg 01/31/19 17:00 02/09/19 08:48 Feosol PO 325 mg BID-WM [facility] Administration Ketotifen Fumarate 1 drop 02/05/19 09:00 02/09/19 09:08 Zaditor 0.025% Ophth Soln EA EYE Not Given BID [facility] Nitroglycerin 0.4 mg 02/07/19 13:10 02/07/19 13:46 Nitrostat SL 0.4 mg Q5MIN PRN Administration Chest Pain Ondansetron HCl 4 mg 02/02/19 09:57 02/07/19 12:16 Zofran Odt PO 4 mg Q6H PRN Administration Nausea/Vomiting Pantoprazole Sodium 40 mg 02/02/19 09:00 02/09/19 08:47 Protonix PO 40 mg DAILY [facility] Administration Polyethylene Glycol 17 gm 02/07/19 21:00 02/09/19 09:08 Miralax PO Not Given BID [facility] Sevelamer Carbonate 800 mg 01/30/19 12:00 02/09/19 08:48 Renvela PO 800 mg TID[facility] Administration Simvastatin 10 mg 01/30/19 21:00 02/08/19 20:37 Zocor PO 10 mg HS [facility] Administration Sodium Bicarbonate 650 mg 02/01/19 09:00 02/09/19 08:47 Bicarbonate, Sodium PO 650 mg TID [facility] Administration Sodium Chloride 10 ml 01/31/19 08:09 01/31/19 23:13 Normal Saline Pf FS 10 ml PRN PRN Administration RECONSTITUTION Sodium Chloride 10 ml 02/03/19 21:00 02/09/19 09:09 Flush - Normal Saline IVF Not Given Q12HR [facility] Vancomycin HCl 125 mg 02/09/19 12:00 02/09/19 11:19 First Vancomycin PO 125 mg Q6HR [facility] Administration - Exam General Appearance: NAD, awake alert Eye: PERRL, anicteric sclera ENT: normocephalic atraumatic, no oropharyngeal lesions Neck: supple, symmetric, no JVD Heart: RRR, no murmur, no gallops Respiratory: CTAB, no wheezes, no rales Gastrointestinal: soft, non-tender, non-distended, normal bowel sounds Extremities: no cyanosis, no clubbing Skin: normal turgor, no lesions Neurological: CN's grossly intact, normal sensation to touch Musculoskeletal: normal tone, normal strength Psychiatric: normal affect, normal behavior Hosp A/P (1) ESRD (end stage renal disease) on dialysis Code(s): N18.6 - END STAGE RENAL DISEASE; Z99.2 - DEPENDENCE ON RENAL DIALYSIS Status: Acute (2) Secondary hyperparathyroidism of renal origin Code(s): N25.81 - SECONDARY HYPERPARATHYROIDISM OF RENAL ORIGIN Status: Chronic (3) Obesity (BMI 30.0-34.9) Code(s): E66.9 - OBESITY, UNSPECIFIED Status: Chronic (4) HTN (hypertension) Code(s): I10 - ESSENTIAL (PRIMARY) HYPERTENSION Status: Chronic (5) DM type 2 (diabetes mellitus, type 2) Status: Chronic Qualifiers: Diabetes mellitus intermediate frame tender insulin use: with intermediate frame tender use Diabetes mellitus complication status: with kidney complications Diabetes mellitus complication detail: with other kidney complication Qualified Code(s): E11.29 - Type 2 diabetes mellitus with other diabetic kidney complication; Z79.4 - [facility] (current) use of insulin (6) Clostridioides difficile diarrhea Code(s): A04.72 - ENTEROCOLITIS D/T CLOSTRIDIUM DIFFICILE, NOT SPCF RECUR Status: Acute (7) Hypokalemia Code(s): E87.6 - HYPOKALEMIA Status: Acute (8) Anemia of renal disease Code(s): N18.9 - CHRONIC KIDNEY DISEASE, UNSPECIFIED; D63.1 - ANEMIA IN CHRONIC KIDNEY DISEASE Status: Chronic (9) CVA, old, hemiparesis Code(s): I69.359 - HEMIPLGA FOLLOWING CEREBRAL INFARCTION AFFECTING UNSP SIDE Status: Chronic (10) Chronic stage c diastolic heart failure Code(s): I50.32 - CHRONIC DIASTOLIC (CONGESTIVE) HEART FAILURE Status: Chronic (11) TIA (transient ischemic attack) Code(s): G45.9 - TRANSIENT CEREBRAL ISCHEMIC ATTACK, UNSPECIFIED Status: Resolved - Plan old records reviewed/req, continue antibiotics, social media specialist start oral vancomycin for c-diff add florastor medication reviewed as above symptomatic treatment await outpt HD arrangement
[2019-02-09] MEDS: Acetaminophen/Codeine 30-300mg Tablet PO PRN ×2 (15:52→21:41)
[2019-02-09] MEDS: Simvastatin 5 MG TAB PO SCH (21:06)
[2019-02-09] MEDS: Cyclobenzaprine 10 MG TAB PO SCH (21:07)
[2019-02-10] MEDS: Vancomycin HCl 25 MG/ML Oral PO SCH ×5 (00:28→23:25)
[2019-02-10] MEDS: Sodium Bicarbonate Tab 325 MG TAB PO SCH ×4 (03:41→20:59)
[2019-02-10] MEDS: Acetaminophen/Codeine 30-300mg Tablet PO PRN ×3 (05:46→21:00)
[2019-02-10] MEDS: Diphenoxylate HCl/Atropine Tablet PO PRN ×2 (08:51→17:47)
[2019-02-10] MEDS ORDERED: Alogliptin 25 MG TAB PO SCH (08:56)
--- NOTE | 2019-02-10 09:27 | PRG ---
DATE OF SERVICE: 02/10/2019 SUBJECTIVE: Mr. Araujo is a 63-year-old white male, followed up for his chronic renal failure. He was initiated on dialysis due to progressive azotemia. He is currently undergoing dialysis. We are attempting 4-hour hemodialysis today with fluid removal. Still having diarrhea, diagnosed recently with C. diff colitis. Currently, on oral vancomycin. No chest pain or shortness of breath. OBJECTIVE: VITAL SIGNS: Blood pressure 114/58, heart rate 81, respiratory rate 18, temperature 97.6, and pulse ox 95%. GENERAL: Noted to be awake, alert, comfortable, not in distress. SKIN: Adequate turgor. HEENT: He has a pinkish conjunctivae. Anicteric sclerae. NECK: No neck mass. No carotid bruits. No JVD. CHEST: No deformities. LUNGS: Clear breath sounds. HEART: Normal sinus rhythm. No murmur. No gallops. No rubs. ABDOMEN: Globular, soft, and nontender. No masses. EXTREMITIES: No edema. MEDICATIONS: Medications of February 10, 2019, was reviewed. LABORATORY DATA: Laboratories of February 09, 2019, white count 10.3 and hemoglobin 8.8. Sodium 136, potassium 3.2, chloride 99, carbon dioxide 28, BUN 14, creatinine 3.17, and calcium 9.6. ASSESSMENT AND PLAN: 1. End-stage renal disease/chronic renal failure, continuing 3 times a week hemodialysis. Fluid removal only as tolerated. Currently, no heparin with dialysis being used. 2. Anemia. Continuing Epogen. The patient will also receive p.r.n. blood transfusion. Overall, agree with current management. I will review if alogliptin is contraindicated in someone with end-stage renal disease. Job ID: [id number]
[2019-02-10] MEDS: Ferrous Sulfate 325 MG TAB PO SCH ×2 (13:39→17:44)
[2019-02-10] MEDS: Clopidogrel Bisulfate 75 MG TAB PO SCH (13:40)
[2019-02-10] MEDS: Saccharomyces boulardii 250 MG CAP PO SCH (13:40)
[2019-02-10] MEDS: Polyethylene Glycol 3350 17 GM Packet PO SCH ×2 (13:41→21:00)
[2019-02-10] MEDS: Sevelamer Carbonate 800 MG TAB PO SCH ×3 (13:41→17:44)
[2019-02-10] MEDS: Potassium Chloride 20 MEQ TAB PO SCH ×2 (13:47→17:45)
[2019-02-10] MEDS: Alogliptin 6.25 MG TAB PO SCH (13:47)
[2019-02-10] MEDS: Ketotifen Fumarate 0.025% Ophth Soln 5 ml Bottle EA EYE SCH ×2 (13:49→21:02)
--- NOTE | 2019-02-10 16:45 | EKG ---
Test Reason : C/P Blood Pressure : / mmHG Vent. Rate : 080 BPM Atrial Rate : 080 BPM P-R Int : 194 ms QRS Dur : 112 ms QT Int : 386 ms P-R-T Axes : 023 041 056 degrees QTc Int : 445 ms Normal sinus rhythm Non-specific intra-ventricular conduction delay Abnormal ECG Confirmed by JANETTE HIDALGO ([id number]) on 02/10/2019 4:45:39 PM Referred By: Abdiel HARRIS Confirmed By:JANETTE HIDALGO
[2019-02-10] MEDS: Amlodipine 10 MG TAB PO SCH (16:52)
[2019-02-10] MEDS: Docusate 100 MG CAP PO SCH ×2 (16:53→21:00)
[2019-02-10] MEDS: Folic Acid/Vit B Comp W-C PO SCH (17:44)
[2019-02-10] MEDS: Simvastatin 5 MG TAB PO SCH (20:59)
[2019-02-10] MEDS: Cyclobenzaprine 10 MG TAB PO SCH (20:59)
[2019-02-11] MEDS: Vancomycin HCl 25 MG/ML Oral PO SCH ×3 (06:00→16:59)
[2019-02-11 06:23] LABS: #Eosinphils 0.4 thou/uL (0.0-0.7); #Lymphocytes 1.8 thou/uL (1.20-3.40); #Neutrophils 7.4 thou/uL (1.40-6.50); %Basophils 0.2 % (0.0-1.0); %Eosinophils 4.1 % (0.0-10.0); %Monocytes 9.5 % (0.0-10.0); %Neutrophils 69.2 % (42.0-75.0); Hemoglobin 8.9 g/dL (14.0-18.0); Mean Corpuscular HGB CONC 32.8 g/dL (32.0-36.0); Mean Corpuscular Hemoglobin 29.2 pg (27.0-31.0); Mean Corpuscular Volume 89.1 fL (78.0-98.0); Mean Platelet Volume 6.4 fL (7.4-10.4); Platelet Count 362 thou/uL (130-400); RBC Distribution Width 13.6 % (11.5-14.5); Red Blood Cell (RBC) Count 3.03 mill/uL (4.70-6.10); White Blood Cell (WBC) Count 10.6 thou/uL (4.8-10.8)
[2019-02-11 06:34] LABS: Anion Gap 14 mmol/L (10-20); BUN (Urea Nitrogen) 18 mg/dL (8.4-25.7); Calc. Creatinine Clearance 27 mL/min (70-130); Calcium 9.9 mg/dL (7.8-10.44); Carbon Dioxide 28 mmol/L (23-31); Chloride 100 mmol/L (98-107); Estimated GFR-MDRD 16; Glucose 123 mg/dL (80-115); Potassium 3.8 mmol/L (3.5-5.1); Sodium 138 mmol/L (136-145)
[2019-02-11] MEDS: Acetaminophen/Codeine 30-300mg Tablet PO PRN (08:51)
[2019-02-11] MEDS: Sodium Bicarbonate Tab 325 MG TAB PO SCH ×2 (08:52→15:01)
[2019-02-11] MEDS: Alogliptin 6.25 MG TAB PO SCH (08:52)
[2019-02-11] MEDS: Diphenoxylate HCl/Atropine Tablet PO PRN (08:52)
[2019-02-11] MEDS: Saccharomyces boulardii 250 MG CAP PO SCH (08:52)
[2019-02-11] MEDS: Ferrous Sulfate 325 MG TAB PO SCH ×2 (08:52→16:59)
[2019-02-11] MEDS: Potassium Chloride 20 MEQ TAB PO SCH (08:52)
[2019-02-11] MEDS: Sevelamer Carbonate 800 MG TAB PO SCH ×3 (08:52→16:59)
[2019-02-11] MEDS: Folic Acid/Vit B Comp W-C PO SCH (08:52)
[2019-02-11] MEDS: Polyethylene Glycol 3350 17 GM Packet PO SCH (08:53)
[2019-02-11] MEDS: Ketotifen Fumarate 0.025% Ophth Soln 5 ml Bottle EA EYE SCH (08:53)
[2019-02-11] MEDS: Docusate 100 MG CAP PO SCH (08:53)
[2019-02-11] MEDS: Clopidogrel Bisulfate 75 MG TAB PO SCH (08:55)
--- NOTE | 2019-02-11 10:12 | PRG ---
DATE OF SERVICE: 02/11/2019 SERVICE: Renal Medicine. SUBJECTIVE: Mr. Araujo is a 63-year-old white male with chronic renal failure/ESRD. He was initiated on dialysis due to volume overload and hyperkalemia. Doing well with the dialysis. He was also treated for C. diff colitis, which has clinically much improved. No other complaints today. He is wanting to go home. We are awaiting outpatient dialysis placement. OBJECTIVE: VITAL SIGNS: Blood pressure 112/67, heart rate 99, respiratory rate 20, temperature 97.5, pulse ox 96%. GENERAL: Noted to be awake, alert, comfortable, not in distress. SKIN: Adequate turgor. HEENT: Pinkish conjunctivae. Anicteric sclerae. NECK: No neck mass. No carotid bruits. No JVD. CHEST: No deformities. LUNGS: Clear breath sounds. No wheezing. No crackles. HEART: Normal sinus rhythm. No murmurs, no gallops, no rubs. ABDOMEN: Globular, soft, nontender. No masses. EXTREMITIES: No edema. No deformities. MEDICATIONS: Medications of February 11, 2019, reviewed. LABORATORY DATA: Laboratories of February 11, 2019; white count 10.6, hemoglobin 8.9. Sodium 138, potassium 3.8, chloride 100, carbon dioxide 28, BUN 18, creatinine 3.75, glucose 123, and calcium 9.9. ASSESSMENT AND PLAN: 1. End-stage renal disease/chronic renal failure, stable, tolerating current hemodialysis regimen. Fluid removal only as tolerated. No other changes to be made with the dialysis regimen. 2. Chronic anemia, on weekly Epogen. 3. Clostridium difficile colitis-clinically much improved on oral vancomycin. Job ID: [id number]
[2019-02-11] MEDS: Amlodipine 10 MG TAB PO SCH (15:01)
[2019-02-11 15:03] VITALS: BP 135/66
[2019-02-11] MEDS ORDERED: Heparin 10,000 UNITS/ 10 ML VIAL ONE (15:27)
[2019-02-11 18:30] VITALS: TEMP 97.3
== END 2019-02-11 19:20 | disposition home or self-care (01) | DRG 982 ==
LOC: ERS 19:49 → ERHOLD 21:58 → 2SE 01-29 01:51 → T4-A 02-04 13:06
PROVIDERS: ADMIT Specialist; ATTEND Specialist
PROC: 031B0ZF Bypass Right Radial Artery to Lower Arm Vein, Open Approach (ICD-10-PCS; principal; 2019-02-05)
PROC: 0JH63XZ Insertion of Tunneled Vascular Access Device into Chest Subcutaneous Tissue and Fascia, Percutaneous Approach (ICD-10-PCS; 2019-02-05)
PROC: 05HM33Z Insertion of Infusion Device into Right Internal Jugular Vein, Percutaneous Approach (ICD-10-PCS; 2019-02-05)
PROC: B5131ZA Fluoroscopy of Right Jugular Veins using Low Osmolar Contrast, Guidance (ICD-10-PCS; 2019-02-05)
PROC: 0JHF3XZ Insertion of Tunneled Vascular Access Device into Left Upper Arm Subcutaneous Tissue and Fascia, Percutaneous Approach (ICD-10-PCS; 2019-02-05)
PROC: 05HN33Z Insertion of Infusion Device into Left Internal Jugular Vein, Percutaneous Approach (ICD-10-PCS; 2019-02-05)
PROC: B544ZZA Ultrasonography of Left Jugular Veins, Guidance (ICD-10-PCS; 2019-02-05)
PROC: 5A1D70Z Performance of Urinary Filtration, Intermittent, Less than 6 Hours Per Day (ICD-10-PCS; 2019-02-08)
DX: G45.9 Transient cerebral ischemic attack, unspecified (principal); T83.511A Infection and inflammatory reaction due to indwelling urethral catheter, initial encounter; I13.2 Hypertensive heart and chronic kidney disease with heart failure and with stage 5 chronic kidney disease, or end stage renal disease; I69.351 Hemiplegia and hemiparesis following cerebral infarction affecting right dominant side; E87.2 Acidosis; A04.72 Enterocolitis due to Clostridium difficile, not specified as recurrent; I50.32 Chronic diastolic (congestive) heart failure; N17.9 Acute kidney failure, unspecified; N25.81 Secondary hyperparathyroidism of renal origin; I42.9 Cardiomyopathy, unspecified; E11.22 Type 2 diabetes mellitus with diabetic chronic kidney disease; E78.5 Hyperlipidemia, unspecified; G89.29 Other chronic pain; M54.9 Dorsalgia, unspecified; F17.200 Nicotine dependence, unspecified, uncomplicated; E87.6 Hypokalemia; E11.21 Type 2 diabetes mellitus with diabetic nephropathy; F31.9 Bipolar disorder, unspecified; E83.39 Other disorders of phosphorus metabolism; D64.9 Anemia, unspecified; Z91.14 Patient's other noncompliance with medication regimen; Z98.890 Other specified postprocedural states; Z79.82 Long term (current) use of aspirin; Z79.84 Long term (current) use of oral hypoglycemic drugs; T83.510D Infection and inflammatory reaction due to cystostomy catheter, subsequent encounter; Z79.4 Long term (current) use of insulin
CPT/HCPCS: 36415; 36416; 36430; 70450; 71045; 80048; 80053; 80061; 81003; 81015; 82274; 83690; 84484; 85025; 85027; 86580; 86704; 86706; 86803; 86850; 86900; 86901; 87077; 87086; 87186; 87324; 87340; 87449; 87493; 90471; 90670; 90935; 93005; 93010; 93306; 93880; 93970; 96361; 96365; C1752; C1769; C9113; G0009; G0257; G0365; J0670; J0690; J0694; J0696; J1644; J1815; J2001; J2405; J2704; J2720; J3010; J3480; J3490; P9016; Q0162; Q0169; Q5105

== ENCOUNTER 2019-04-24 10:55 | Emergency (ER) | payer MEDICARE, OTHER ==
[2019-04-24 12:52] LABS: Bacteria/HPF 4+ HPF (None Seen); Bilirubin Negative (Negative); Blood, Urine Negative (Negative); Clarity Extra Turbid (Clear); Glucose, Urine (Dipstick) 500 mg/dL (Negative); Leukocyte 500 Leu/uL (Negative); Nitrite Negative (Negative); Protein, Urine (Dipstick) 600 mg/dL (Neg-Trace); Triple Phosphate Crystal 3+ HPF (None Seen); Urobilinogen Normal mg/dL (Less than 2)
[2019-04-24 13:03] LABS: #Basophils 0.1 thou/uL (0.0-0.2); #Eosinphils 0.2 thou/uL (0.0-0.7); #Lymphocytes 2.6 thou/uL (1.20-3.40); #Monocytes 1.1 thou/uL (0.11-0.59); #Neutrophils 7.2 thou/uL (1.40-6.50); %Basophils 0.5 % (0.0-1.0); %Eosinophils 1.9 % (0.0-10.0); %Lymphocytes 23.1 % (21.0-51.0); %Monocytes 9.6 % (0.0-10.0); %Neutrophils 64.8 % (42.0-75.0); Hemoglobin 10.3 g/dL (14.0-18.0); Mean Corpuscular HGB CONC 33.5 g/dL (32.0-36.0); Mean Corpuscular Hemoglobin 29.4 pg (27.0-31.0); Mean Corpuscular Volume 87.9 fL (78.0-98.0); Mean Platelet Volume 6.2 fL (7.4-10.4); Platelet Count 375 thou/uL (130-400); RBC Distribution Width 14.2 % (11.5-14.5); Red Blood Cell (RBC) Count 3.49 mill/uL (4.70-6.10); White Blood Cell (WBC) Count 11.1 thou/uL (4.8-10.8)
[2019-04-24 13:32] LABS: ALT (SGPT) 11 U/L (8-55); AST (SGOT) 10 U/L (5-34); Albumin 4.3 g/dL (3.4-4.8); Alkaline Phosphatase 102 U/L (40-110); Anion Gap 16 mmol/L (10-20); BUN (Urea Nitrogen) 44 mg/dL (8.4-25.7); Bilirubin, Total 0.2 mg/dL (0.2-1.2); Calc. Creatinine Clearance 0 mL/min (70-130); Calcium 9.3 mg/dL (7.8-10.44); Carbon Dioxide 27 mmol/L (23-31); Chloride 99 mmol/L (98-107); Estimated GFR-MDRD 16; Globulin 3.2 g/dL (2.4-3.5); Glucose 218 mg/dL (80-115); Lipase 107 U/L (8-78); Protein, Total 7.5 g/dL (5.8-8.1); Sodium 138 mmol/L (136-145)
[2019-04-24 13:34] LABS: Magnesium 2.1 mg/dL (1.6-2.6)
[2019-04-24] MEDS ORDERED: Ondansetron ODT 8 MG TAB ONE (13:48)
== END 2019-04-24 15:05 | disposition home or self-care (01) ==
LOC: ERS 10:55
DX: R11.2 Nausea with vomiting, unspecified (principal); E11.9 Type 2 diabetes mellitus without complications; I10 Essential (primary) hypertension
CPT/HCPCS: 36415; 80053; 81003; 81015; 83690; 83735; 84100; 84484; 85025; 87077; 87086; 87186; 93005

== ENCOUNTER 2019-04-30 11:25 | Inpatient (IN) | payer MEDICARE, OTHER ==
[2019-04-30] MEDS ORDERED: Morphine 4 MG/ML VIAL ONE (12:05)
[2019-04-30 12:27] LABS: Bacteria/HPF 3+ HPF (None Seen); Bilirubin Negative (Negative); Blood, Urine 2+ (Negative); Clarity Turbid (Clear); Glucose, Urine (Dipstick) >=1000 mg/dL (Negative); Leukocyte 500 Leu/uL (Negative); Nitrite Negative (Negative); Protein, Urine (Dipstick) 70 mg/dL (Neg-Trace); RBC/HPF 21-50 HPF (0-3); Squamous Epithelial 0-3 HPF (0-3); Triple Phosphate Crystal 1+ HPF (None Seen); Urobilinogen Normal mg/dL (Less than 2); WBC/HPF Greater than 50 HPF (0-3)
[2019-04-30 12:47] LABS: Hemoglobin 9.1 g/dL (14.0-18.0); Mean Corpuscular HGB CONC 32.5 g/dL (32.0-36.0); Mean Corpuscular Hemoglobin 29.1 pg (27.0-31.0); Mean Corpuscular Volume 89.6 fL (78.0-98.0); Red Blood Cell (RBC) Count 3.13 mill/uL (4.70-6.10); White Blood Cell (WBC) Count 23.2 thou/uL (4.8-10.8)
[2019-04-30] MEDS ORDERED: Ondansetron PF 4 MG/2 ML Vial ONE (12:47)
[2019-04-30] MEDS ORDERED: Piperacillin/Tazobactam 3.375 GM VIAL ONE (13:06)
[2019-04-30] MEDS ORDERED: Fentanyl 100 MCG/2 ML VIAL ONE (13:06)
[2019-04-30 13:08] LABS: Magnesium 3.5 mg/dL (1.6-2.6); Phosphorus 3.9 mg/dL (2.3-4.7)
[2019-04-30 13:09] LABS: ALT (SGPT) 8 U/L (8-55); AST (SGOT) 7 U/L (5-34); Albumin 3.9 g/dL (3.4-4.8); Alkaline Phosphatase 112 U/L (40-110); Anion Gap 16 mmol/L (10-20); BUN (Urea Nitrogen) 80 mg/dL (8.4-25.7); Bilirubin, Total 0.2 mg/dL (0.2-1.2); Calc. Creatinine Clearance 0 mL/min (70-130); Calcium 9.5 mg/dL (7.8-10.44); Carbon Dioxide 23 mmol/L (23-31); Chloride 102 mmol/L (98-107); Estimated GFR-MDRD 9; Globulin 3.8 g/dL (2.4-3.5); Glucose 227 mg/dL (80-115); Potassium 4.9 mmol/L (3.5-5.1); Protein, Total 7.7 g/dL (5.8-8.1); Sodium 136 mmol/L (136-145)
[2019-04-30 13:11] LABS: Lymphocytes 1 % (21-51); MDiff Complete? YES; Mean Platelet Volume 5.9 fL (7.4-10.4); Monocytes 3 % (0-10); Neutrophil 96 % (42-75); Platelet Count 337 thou/uL (130-400); Platelet Morphology Comment Appears Adequate
--- NOTE | 2019-04-30 13:27 | CT ---
CT ABDOMEN AND PELVIS WITHOUT IV CONTRAST: INDICATIONS: A 64-year-old male with lower abdominal pain. COMPARISON: Prior CT abdomen and pelvis without contrast dated 02/01/2018 and chest radiograph dated 02/07/2019. FINDINGS: There is dense air space consolidation in the right lower lobe with a large loculated right-sided ple ural effusion. There is a 3.8 cm suspected intrapulmonary abscess in the right lower lobe. There is s ome subsegmental volume loss within portions of the anterior segments of the right lower lobe. There is mild subsegmental volume loss in the left lower lobe. There are gallstones within the gallbladder. There is right nephrolithiasis. There is a stable left a drenal adenoma. There has been interval development of a 2 cm exophytic left mid renal cyst. No defin ite ureteral calculus or hydronephrosis is evident. There is a suprapubic bladder catheter that is ag ain demonstrated within a decompressed bladder. There is a mild amount of retained stool within the colon. Small bowel is of normal caliber. There is diffuse osteopenia. There is scattered degenerative and osteoarthritic change. No definite a cute osseous abnormality is evident. There are DISH like changes involving the thoracolumbar spine. IMPRESSION: 1. Right lower lobe pneumonia with a small intrapulmonary abscess and a suspected right sided empyema . 2. Right nephrolithiasis without ureteral calculus or hydronephrosis. 3. Left renal cyst. 4. Cholelithiasis. 5. Suprapubic bladder catheter. 6. DISH (diffuse idiopathic skeletal hyperostosis) like changes of the thoracolumbar spine. POS: [facility]
[2019-04-30] MEDS ORDERED: Heparin 10,000 UNITS/ 10 ML VIAL ONE (13:58)
[2019-04-30] MEDS ORDERED: Dextrose 50% Abboject 50 ML SYRINGE IVP PRN (18:48)
[2019-04-30] MEDS ORDERED: Insulin Regular 300 UNITS/3 ML VIAL SC PRN (18:48)
[2019-04-30] MEDS ORDERED: Dextrose 5% in Water 1,000 ML IV PRN (18:48)
[2019-04-30] MEDS ORDERED: Acetaminophen 325 MG TAB PO PRN (18:50)
[2019-04-30] MEDS: Fentanyl 100 MCG/2 ML VIAL SLOW IVP PRN (20:33)
[2019-04-30] MEDS: Cyclobenzaprine 10 MG TAB PO SCH (20:39)
[2019-04-30] MEDS: metFORMIN 500 MG TAB PO SCH (20:53)
[2019-04-30] MEDS: Simvastatin 5 MG TAB PO SCH (20:53)
[2019-04-30] MEDS ORDERED: Vancomycin HCl 500 MG in Sodium Chloride 0.9% 100 ML IVPB SCH (21:00)
[2019-04-30] MEDS ORDERED: Vancomycin HCl 750 MG in Sodium Chloride 0.9% 250 ML 250 ML IVPB SCH (21:00)
[2019-04-30] MEDS ORDERED: HOLD VANCOMYCIN FOR LEVEL >20 FS SCH (21:00)
[2019-04-30] MEDS ORDERED: Vancomycin HCl 1 GM in Premix Bag 1 BAG IVPB SCH (21:00)
[2019-04-30] MEDS ORDERED: Vancomycin HCl 250 MG in Sodium Chloride 0.9% 100 ML IVPB SCH (21:00)
--- NOTE | 2019-04-30 22:06 | HP ---
CHIEF COMPLAINT ON ADMISSION: Severe sepsis with empyema and acute renal insufficiency. HISTORY OF PRESENT ILLNESS: The patient is a 64-year-old correction patient on dialysis usually 3 times a week, who at his last dialysis experienced some hypotension that got him greatly upset. He determined at that point that he would not go back to dialysis at least for some time and he has missed 2 of his regular scheduled dialysis appointments. What brought him into the emergency room on the day of admission was the fact he began to run what he felt was fever and chills, feeling hot and cold at the same time and was very distressed by this, felt very weak. In the emergency room, they noted him to have significant infection in his urinary tract as well as on CT of the abdomen, noting a right chest wall empyema. His BUN was 18, creatinine 6. [place] [id number]. Dr. Gaming was contacted about admitting the patient and getting aggressive treatment for the infections as well as the empyema. PAST MEDICAL HISTORY: Noted for a prior history of empyema requiring a surgical drainage. He most recently was hospitalized in January of this year for a TIA. He has a history of prior CVA leaving him disabled and wheelchair bound. He has chronic renal failure and sees Dr. Santana for that. He has metabolic encephalopathy in the past. Sepsis with end-organ damage. He is a [id number] diabetic. He has hypertension, hyperlipidemia, chronic back pain, and noncompliant with most of his medical care. He has chronic insomnia. PAST SURGICAL HISTORY: Includes the thoracotomy to clear the empyema, back surgery, hernia repair. ALLERGIES: HE HAS NO KNOWN DRUG ALLERGIES. SOCIAL HISTORY: Positive for smoking. He continues to smoke. Negative for alcohol or illicit drug use. He is a correction patient. He lives alone at home with home health agency to assist him. Home health agency has documented that he needs to be put in a correction, but he refuses. CURRENT MEDICATIONS: Include: 1. Aspirin 325 daily. 2. Plavix 75 daily. 3. Renvela 800 mg t.i.d. 4. Flexeril 10 mg at bedtime. 5. to his past medical history. 6. He also takes gabapentin 300 mg daily. Amlodipine 5 mg daily. 7. Glipizide 5 mg b.i.d. 8. Metformin 500 mg b.i.d. 9. Pravastatin 20 mg at bedtime. 10. Folic acid 1 mg daily. 11. Tamsulosin 0.4 mg daily. 12. Hyoscyamine 0.25 mg p.r.n. stomach cramps. 13. He most recently also has been on hydrocodone, which he rarely uses, but for intense pain. REVIEW OF SYSTEMS: CONSTITUTIONAL: Positive for fever. Positive for chills. Positive for general malaise, weakness. HEENT: Denies drainage from ears, eyes, nose, or throat. NECK: Without mass and supple. CHEST: Negative for dyspnea or cough. CARDIOVASCULAR: Negative for palpitations or chest pain. GASTROENTEROLOGY: Positive for nausea, but no vomiting or diarrhea. GENITOURINARY: He has a chronic indwelling catheter and it was recently changed about a week ago. He is denies any blood in urine or stool. He does have significant penile pain. MUSCULOSKELETAL: Negative for any new pains. SKIN: No new rashes. NEUROLOGIC: No new findings. PHYSICAL EXAMINATION: VITAL SIGNS: On admission are stable. GENERAL: This is an obese male, alert, oriented, cooperative. HEENT: Normocephalic, atraumatic. Pupils are equal, round, and reactive to light. Extraocular muscles are intact. TMs, nares and pharynx are clear. NECK: Supple. CHEST: With diminished breath sounds in the right lower lobe. ABDOMEN: Soft, nontender without hepatosplenomegaly. : He has chronic indwelling Chavez and discolored urine. EXTREMITIES: Without clubbing, cyanosis, or edema. SKIN: No new rashes or lesions. NEUROLOGIC: Mental status is intact. There are some remote memory deficits. Cranial nerves intact, unable to test gait and cerebral function. LABORATORY DATA: Lab work thus far shows WBCs 23.2, hemoglobin 9.1, hematocrit 28.1, platelets 337. Sodium 136, potassium 4.9, chloride 102, CO2 23, BUN 80, creatinine 6.17 with a glucose of 227, and as mentioned before, CT of the abdomen and pelvis reveals a right lower lobe large loculated pleural effusion with 3.8 cm suspected intrapulmonary abscess in the right lower lobe. There was also noted a tree in bud nodularity with suspicion for mild bronchi bronchiolitis. There is some scarring in the right lower lobe, small renal cyst. Nephrolithiasis is stable. Moderate retained stool. UA showing 500 leukocyte esterase, 2+ blood, 21-50 rbcs with greater than 50 wbc's. ASSESSMENT: 1. Right lobe intrapulmonary abscess. 2. Right lobe emphyema. 3. Urinary tract infection. 4. Insulin dependent diabetic. 5. End-stage renal failure. 6. Generalized medical noncompliance. PLAN: Plan will be continuation of IV antibiotics. Surgical consultation for possible open thoracotomy. Continue dialysis schedule per Dr. Santana. Pain management and serial re-evaluation. Job ID: [id number]
[2019-04-30 22:07] VITALS: BMI 33.5
[2019-04-30] MEDS: Piperacillin/Tazobactam 2.25 GM in Sodium Chloride 0.9% 100 ML IVPB SCH (22:17)
[2019-04-30] MEDS: HYDROcodone/Acetaminophen 10/325 mg Tablet PO PRN (22:36)
[2019-04-30] MEDS ORDERED: Piperacillin/Tazobactam 3.375 GM in Sodium Chloride 0.9% 100 ML IVPB SCH (23:59)
[2019-05-01] MEDS: HYDROcodone/Acetaminophen 10/325 mg Tablet PO PRN ×4 (03:57→23:45)
[2019-05-01] MEDS: Piperacillin/Tazobactam 2.25 GM in Sodium Chloride 0.9% 100 ML IVPB SCH ×3 (05:17→21:49)
[2019-05-01 08:19] LABS: #Basophils 0.1 thou/uL (0.0-0.2); #Eosinphils 0.3 thou/uL (0.0-0.7); #Lymphocytes 2.5 thou/uL (1.20-3.40); #Monocytes 1.7 thou/uL (0.11-0.59); #Neutrophils 15.7 thou/uL (1.40-6.50); %Basophils 0.3 % (0.0-1.0); %Eosinophils 1.6 % (0.0-10.0); %Lymphocytes 12.2 % (21.0-51.0); %Monocytes 8.3 % (0.0-10.0); %Neutrophils 77.6 % (42.0-75.0); Hemoglobin 9.6 g/dL (14.0-18.0); Mean Corpuscular HGB CONC 32.2 g/dL (32.0-36.0); Mean Corpuscular Hemoglobin 29.6 pg (27.0-31.0); Mean Corpuscular Volume 91.8 fL (78.0-98.0); Platelet Count 376 thou/uL (130-400); RBC Distribution Width 15.2 % (11.5-14.5); Red Blood Cell (RBC) Count 3.23 mill/uL (4.70-6.10); White Blood Cell (WBC) Count 20.2 thou/uL (4.8-10.8)
[2019-05-01 08:26] LABS: Hemoglobin A1c 5.8 % (4.0-6.0)
[2019-05-01] MEDS: Fentanyl 100 MCG/2 ML VIAL SLOW IVP PRN ×3 (08:30→20:02)
[2019-05-01] MEDS: Alogliptin 6.25 MG TAB PO SCH (08:36)
[2019-05-01] MEDS: metFORMIN 500 MG TAB PO SCH (08:36)
[2019-05-01] MEDS: Aspirin 325 MG TAB PO SCH (08:37)
[2019-05-01] MEDS: Clopidogrel Bisulfate 75 MG TAB PO SCH (08:37)
[2019-05-01] MEDS: Gabapentin 300 MG CAP PO SCH (08:37)
[2019-05-01] MEDS: Sevelamer Carbonate 800 MG TAB PO SCH ×3 (08:38→16:18)
[2019-05-01 08:39] LABS: Anion Gap 13 mmol/L (10-20); BUN (Urea Nitrogen) 34 mg/dL (8.4-25.7); Calc. Creatinine Clearance 27 mL/min (70-130); Calcium 9.4 mg/dL (7.8-10.44); Carbon Dioxide 26 mmol/L (23-31); Cardiac Risk 2.1 (Less than 4.5); Chloride 102 mmol/L (98-107); Cholesterol 130 mg/dl (< 200 Desired); Estimated GFR-MDRD 16; Glucose 133 mg/dL (80-115); HDL Cholesterol 61 mg/dL (>60 Neg Risk); LDL Cholesterol, Calculated 46 mg/dL; Potassium 4.4 mmol/L (3.5-5.1); Sodium 137 mmol/L (136-145); Triglycerides 117 mg/dL (Less than 150)
--- NOTE | 2019-05-01 10:25 | CON ---
DATE OF CONSULTATION: HISTORY OF PRESENT ILLNESS: Mr. Araujo is a 64-year-old white male with known history of ESRD, currently on maintenance hemodialysis. He has underlying diabetic nephropathy. He was admitted for generalized malaise. He was found to have severe sepsis with empyema. Currently, on IV antibiotics. Of note, this patient has missed dialysis for more than a week. He underwent hemodialysis yesterday without any difficulty and tolerated said treatment. He still has his chronic diffuse pain. REVIEW OF SYSTEMS: No chest pain. No shortness of breath. ? of fever. Positive for chronic back pain, joint pain. No nausea. No vomiting. Decreased appetite. Decreased energy level. No headache. No diplopia. No syncopal episode. No productive cough. No gross hematuria. No dysuria. No urinary frequency. MEDICATIONS: The patient is currently on the following medicines; 1. Alogliptin 12.5 mg daily. 2. Aspirin 325 mg once a day. 3. Clopidogrel 75 mg once a day. 4. Flexeril 10 mg tablet at bedtime. 5. Gabapentin 300 mg daily. 6. Metformin 500 mg p.o. b.i.d. 7. Protonix 40 mg daily. 8. Zosyn 2.25 g IV q.8 hours. 9. Sevelamer 800 mg t.i.d. 10. Simvastatin 10 mg tablet at bedtime. 11. Status post vancomycin. PAST MEDICAL HISTORY: 1. ESRD from diabetic nephropathy. 2. Type 2 diabetes mellitus. 3. Chronic back pain. 4. Status post multiple UTI. 5. Hyperlipidemia. 6. Bipolar disorder. 7. Status post CVA with right hemiplegia. PAST SURGICAL HISTORY: Status post thoracotomy, status post hernia repair, status post AV fistula placement, and status post cuffed hemodialysis catheter placement. SOCIAL HISTORY: The patient lives alone. He is currently in an assisted living. Single. Two children. Currently, no smoking or alcohol intake. Education, some college courses. 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 Status post blood transfusion. No IV drug abuse. FAMILY HISTORY: No family history of ESRD. ALLERGIES: NONE. TRAUMA: None. IMMUNIZATIONS: Up-to-date. HOSPITALIZATIONS: Please see past medical history. PHYSICAL EXAMINATION: VITAL SIGNS: Blood pressure is 133/66, heart rate 89, respiratory rate 18, temperature 98.5, and pulse ox 94%. GENERAL: Noted to be awake, alert, supine, comfortable, not in overt distress. SKIN: Adequate turgor. HEENT: He has slightly pale conjunctivae. Anicteric sclerae. NECK: No neck mass. No carotid bruits. No JVD. CHEST: No deformities. LUNGS: Decreased breath sounds. HEART: Normal sinus rhythm. No murmurs. No gallops. No rubs. ABDOMEN: Globular, soft, and nontender. No masses. EXTREMITIES: Trace edema. NEUROLOGICAL: Awake. Moving all extremities. Right-sided weakness. Oriented to 3 spheres. No tremors. No asterixis. LABORATORY DATA: Laboratories of May 01, 2019; white count 20.2, hemoglobin 9.6. Sodium 137, potassium 4.4, chloride 102, carbon dioxide 26, BUN 34, creatinine 3.73, glucose 133, and calcium 9.4. On April 30, 2019; CT scan of the abdomen and pelvis showed no definitive acute CT abnormality. There is moderate amount of retained stool. There is incidental finding of a mild scarring of the right lower lobe. ASSESSMENT AND PLAN: 1. ? empyema - this is chronic in nature. CT scan did not show any overt empyema per se. He did have a previous UTI and currently on IV antibiotics. 2. End-stage renal disease - the patient has missed his dialysis for a week. He underwent hemodialysis yesterday and fluid removal was done. He tolerated the said procedure. Creatinine is improved from 6.17 to the most recent value of 3.73. We will continue current Sunday, Sunday, and Sunday hemodialysis with this patient. Again, fluid removal only as tolerated. 3. Anemia. We will start Epogen with this patient at 7500 units subcu weekly. P.r.n. blood transfusion. 4. Type 2 diabetes mellitus - due to his end-stage renal disease. We will discontinue metformin. Consider glipizide 5 mg tablet daily. Job ID: [id number]
[2019-05-01] MEDS ORDERED: EPOETIN ALFA-EPBX (ESRD) 4,000 UNIT/ML VIAL SC SCH (12:00)
[2019-05-01] MEDS: Ondansetron ODT 8 MG TAB PO PRN ×2 (13:17→18:11)
--- NOTE | 2019-05-01 15:13 | CON ---
DATE OF CONSULTATION: 05/01/2019 REQUESTING PHYSICIAN: Edd Mckeon DO CHIEF COMPLAINT: Subjective fever or chills. Generalized weakness. PRIMARY CARE PHYSICIAN: Ross Gaming MD NEPHROLOGY: Dr. Santana. HISTORY OF PRESENT ILLNESS: The patient is a 64-year-old diabetic, dialysis patient, who is scooter bound. He resides in a shelter and get to dialysis appointments because he was upset over issues related to hypotension during the dialysis treatment. He reported fevers, chills, and generalized weakness. He was taken to the emergency room. He reported some abdominal pain and a CT scan of the abdomen and pelvis was done. An addendum to that report described "dense airspace consolidation in the right lower lobe with a large loculated right-sided effusion and a 3.8 cm suspected intrapulmonary abscess in the right lower lobe." PAST MEDICAL HISTORY: Significant for diabetes, stroke, hypertension, chronic back pain. He underwent a right thoracotomy and decortication in 2017. HOME MEDICINES: 1. Adult aspirin daily. 2. Plavix daily. 3. Norvasc 5 mg a day. 4. Pravastatin 20 mg at bedtime. 5. Flomax 1 a day. 6. 5 mg a day. 7. Phenergan. 8. Calcitriol. 9. Zofran. 10. Iron. 11. Colace. 12. Cipro. 13. Flexeril. Denies any medical allergies. He continues to smoke. REVIEW OF SYSTEMS: Notable for his generalized weakness, fever and chills. PHYSICAL EXAMINATION: GENERAL: He is in a scooter and is obese, but is not the least bit ill appearing. VITAL SIGNS: Temperature is 98.7. His T-max here has been 99.6. In the emergency room, he was initially 98.1. LUNGS: He has clear breath sounds. No dullness to percussion. HEART: He has a regular rate and rhythm. ABDOMEN: Obese. He has a tunneled dialysis catheter on the right chest, a suprapubic tube in place. EXTREMITIES: He has chronic lower extremity edema. LABORATORY DATA: His white count was 20.2, hemoglobin 9.6, glucose was 133. Urinalysis shows 21-50 red cells and greater than 50 white blood cells, 3+ bacteria. His CT scan shows clear lung bases and I see nothing that even remotely resembles the loculated fluid and right lower lobe processes described in the addendum and going back to his CT scan from 2017, his CT scan of the chest has finding somewhat like that. IMPRESSION AND RECOMMENDATIONS: I see no evidence for an empyema as described in the CT scan report and suspect that this is some sort of clerical error with either the addendum referring to an old CT scan or perhaps someone else's scan. Job ID: [id number]
[2019-05-01] MEDS: Morphine 4 MG/ML VIAL SLOW IVP PRN ×2 (17:58→22:57)
[2019-05-01] MEDS ORDERED: Nitroglycerin 0.4 MG TAB (25 Tab Bottle) SL PRN (18:36)
[2019-05-01] MEDS ORDERED: Nitroglycerin 0.4 MG TAB (25 Tab Bottle) SL SCH (18:45)
[2019-05-01] MEDS: Simvastatin 5 MG TAB PO SCH (20:02)
[2019-05-01] MEDS: Cyclobenzaprine 10 MG TAB PO SCH (20:02)
[2019-05-01] MEDS ORDERED: FLU VACC TS2019-20(65YR UP)/PF 180 MCG/0.5 ML SYRINGE IM ONE (21:00)
[2019-05-02] MEDS: Morphine 4 MG/ML VIAL SLOW IVP PRN ×5 (04:09→22:17)
[2019-05-02 05:22] LABS: #Eosinphils 0.4 thou/uL (0.0-0.7); #Lymphocytes 1.5 thou/uL (1.20-3.40); #Neutrophils 8.1 thou/uL (1.40-6.50); %Basophils 0.3 % (0.0-1.0); %Eosinophils 3.5 % (0.0-10.0); %Lymphocytes 13.3 % (21.0-51.0); %Monocytes 9.1 % (0.0-10.0); %Neutrophils 73.9 % (42.0-75.0); Hemoglobin 8.5 g/dL (14.0-18.0); Mean Corpuscular HGB CONC 31.9 g/dL (32.0-36.0); Mean Corpuscular Hemoglobin 28.7 pg (27.0-31.0); Mean Corpuscular Volume 90.1 fL (78.0-98.0); Platelet Count 293 thou/uL (130-400); RBC Distribution Width 14.7 % (11.5-14.5); Red Blood Cell (RBC) Count 2.96 mill/uL (4.70-6.10)
[2019-05-02 05:40] LABS: Anion Gap 13 mmol/L (10-20); BUN (Urea Nitrogen) 44 mg/dL (8.4-25.7); Calc. Creatinine Clearance 20 mL/min (70-130); Calcium 8.7 mg/dL (7.8-10.44); Carbon Dioxide 25 mmol/L (23-31); Chloride 101 mmol/L (98-107); Estimated GFR-MDRD 12; Glucose 161 mg/dL (80-115); Potassium 3.7 mmol/L (3.5-5.1); Sodium 135 mmol/L (136-145)
[2019-05-02] MEDS: Piperacillin/Tazobactam 2.25 GM in Sodium Chloride 0.9% 100 ML IVPB SCH ×3 (05:53→21:08)
[2019-05-02 08:12] LABS: Vancomycin, Random 6.9 ug/mL (See Comment)
[2019-05-02 09:10] LABS: Vancomycin, Random 6.2 ug/mL (See Comment)
--- NOTE | 2019-05-02 10:54 | PRG ---
DATE OF SERVICE: 05/02/2019 SERVICE: Renal Medicine. SUBJECTIVE: Mr. Araujo is a 64-year-old white male, being followed up by the Renal Service for his maintenance hemodialysis. Of interest, this patient missed dialysis for about a week. He did undergo emergent dialysis Sunday. He is now undergoing for his regular hemodialysis today. We are taking fluid removal as tolerated by the patient. He is still in chronic pain. He mentions severe penile pain. I did examine the penis and the penis was within normal on my exam. In addition, he has noted cystostomy tube. The patient was seen by Dr. Bejarano, but is now currently being followed up by Dr. Love. The patient denies any chest pain or shortness of breath. OBJECTIVE: VITAL SIGNS: Blood pressure 157/72, heart rate 83, respiratory rate 16, temperature 98, and pulse ox 98%. GENERAL: Noted to be awake, alert, comfortable, not in overt distress. SKIN: Adequate turgor. HEENT: He has slightly pale conjunctivae. Anicteric sclerae. NECK: No neck mass. No carotid bruits. No JVD. CHEST: No deformities. LUNGS: Clear breath sounds. HEART: Normal sinus rhythm. No murmurs. No gallops. No rubs. ABDOMEN: Globular, soft, nontender. No masses. Positive for cystostomy tube. EXTREMITIES: No edema. No deformities. MEDICATIONS: Medications of May 02, 2019, were reviewed. LABORATORY DATA: Laboratories of May 02, 2019, sodium 135, potassium 3.7, chloride 101, carbon dioxide 25, BUN 44, creatinine 4.97, glucose 161, calcium 8.7, white count 11, hemoglobin 8.5. ASSESSMENT AND PLAN: 1. End-stage renal disease, stable. We will continue current hemodialysis regimen, max out fluid removal as tolerated. 2. Anemia. Continuing weekly Epogen. P.r.n. blood transfusion. 3. Penile pain-the patient described pain in the penile area every 4-5 minutes. 4. We will reconsult his urologist, Dr. Love. 5. Recheck basic metabolic panel and CBC in the a.m. Job ID: [id number]
[2019-05-02] MEDS: Sevelamer Carbonate 800 MG TAB PO SCH ×3 (12:59→18:18)
[2019-05-02] MEDS: Gabapentin 300 MG CAP PO SCH (13:37)
[2019-05-02] MEDS: glipiZIDE 5 MG TAB PO SCH (13:37)
[2019-05-02] MEDS: Alogliptin 6.25 MG TAB PO SCH (13:37)
[2019-05-02] MEDS: Clopidogrel Bisulfate 75 MG TAB PO SCH (13:38)
[2019-05-02] MEDS: Aspirin 325 MG TAB PO SCH (13:38)
[2019-05-02] MEDS ORDERED: Heparin 10,000 UNITS/ 10 ML VIAL ONE (13:52)
[2019-05-02] MEDS ORDERED: Fleet Enema 133 ML BOT PR SCH (14:00)
[2019-05-02] MEDS: Oxybutynin 5 MG TAB PO PRN ×2 (15:13→21:08)
[2019-05-02] MEDS: Phenazopyridine HCl 97.5 MG TABLET PO SCH (18:18)
[2019-05-02] MEDS: Simvastatin 5 MG TAB PO SCH (20:03)
[2019-05-02] MEDS: Docusate Calcium (SURFAK) 240 MG CAP PO SCH (20:03)
[2019-05-02] MEDS: Cyclobenzaprine 10 MG TAB PO SCH (20:04)
--- NOTE | 2019-05-02 21:16 | CON ---
DATE OF CONSULTATION: 05/02/2019 CONSULTING: Dr. Gaming. CONSULTED: Dr. Gorman. REASON FOR CONSULTATION: Penile pain. HISTORY OF PRESENT ILLNESS: Mr. Araujo is a 64-year-old white male with history of end-stage renal disease, on hemodialysis, who was admitted for concerns regarding an empyema and sepsis. There were also concerns for urinary tract infection. With regard to his penile pain, he states the pain started around Sunday as a small twinge and then progressively got worse. He recently had his suprapubic tube changed as it became clogged and would not drain. After this, he had the catheter changed and it was draining better, but approximately 1 to 2 days after this, the pain started around Sunday. It progressively got worse to the point where he was having intractable excruciating pain, at which point, he came into the emergency room and was diagnosed with the above-noted problems. Of note, he does have chronic diffuse pain all over and generally does not tolerate pain well. He is having his SP tube generally managed by nursing which is under the care of Dr. Gaming and he states he gets his catheter changed approximately once a month. He has had some issues in the past with clogging. When I originally received the consult, I recommended that we start him on oxybutynin which the patient has started on today and he states that the pain has gotten significantly better. The pain had occurred episodically about every 45 minutes on Sunday until Sunday and lasted for approximately 10 to 15 minutes of severe, 8/10 to 9/10 pain and then would subside. This was often associated with urinary incontinence through the penis. Since starting the oxybutynin, the patient states that his pain is now a lot better and much decreased from where it was prior. ALLERGIES: NONE. HOME MEDICATIONS: 1. Alogliptin. 2. Aspirin. 3. Plavix. 4. Flexeril. 5. Gabapentin. 6. Metformin. 7. Protonix. 8. Sevelamer. 9. Simvastatin. Additional hospital medications. Patient is currently on vancomycin and Zosyn. PAST MEDICAL HISTORY: 1. End-stage renal disease from diabetic nephropathy. 2. Type 2 diabetes. 3. Chronic back pain. 4. History of recurrent urinary tract infections. 5. Hyperlipidemia. 6. Bipolar disorder. 7. Cerebrovascular accident with right hemiplegia. PAST SURGICAL HISTORY: 1. Thoracotomy. 2. Hernia repair. 3. AV fistula placement. 4. Hemodialysis catheter placement. 5. SP tube placement. SOCIAL HISTORY: Patient lives alone. He lives in an assisted living. He denies illicit drug use, tobacco abuse, or alcohol intake currently. FAMILY HISTORY: Noncontributory. REVIEW OF SYSTEMS: A 12-point review of system reviewed and negative other than what was commented on the HPI. Specifically, the bladder spasms are still ongoing, but they are much better than before. PHYSICAL EXAMINATION: VITAL SIGNS: Temperature 98, pulse , respirations 16, blood pressure 157/72, and saturation 98% on room air. GENERAL: No apparent distress. Communicative and alert, answering questions appropriately. Appears stated age. HEENT: Normocephalic, atraumatic. Pupils are symmetric and round. Sclerae nonicteric. Trachea midline. CARDIOVASCULAR: Regular rate and rhythm. Normal S1, S2. Symmetric pulses. CHEST: No increased work of breathing. Symmetric expansion. Lungs clear anteriorly. ABDOMEN: Soft, nontender, and nondistended. Positive bowel sounds. No masses or organomegaly. SP tube in good location without surrounding cellulitis or leakage. SP tube appears to be an 18-Malawian catheter, which is currently not secured and draining clear yellow urine. 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 Testes are bilaterally descended. Testicles are nontender without masses or lesions. Scrotum is nonerythematous and nontender. No genitourinary edema of the penis or scrotum. RECTAL: Demonstrates normal sphincter tone. Prostate is approximately 3+, benign. No bogginess, fluctuance, or tenderness. No hard masses or concerning suspicious lesions for prostatitis or prostate cancer. EXTREMITIES: 1+ edema bilaterally. No clubbing or cyanosis. SKIN: Warm and dry. No rashes or lesions. Good turgor. MUSCULOSKELETAL: No joint deformities or joint erythema noted. NEUROLOGIC: Cranial nerves 2 through 12 grossly intact. There is right-sided hemiplegia with contracture of his right arm. Has poor usage of his right leg. PSYCHIATRIC: Alert and oriented x3. Appropriate mood and affect. LABORATORY EVALUATION: Full set of labs are in the [facility] system, which I have reviewed. Of note, patient's white count is 11, down from 20,000; hemoglobin of 8.5. Creatinine is 4.97 with a potassium of 3.7. Urine culture is growing Proteus mirabilis and Klebsiella pneumonia. CT of the abdomen pelvis demonstrates a moderate amount of retained stool in the colon. Stable right nephrolithiasis without hydronephrosis. A left renal cyst is present with a left adrenal adenoma. There is mild scarring in the right lower lobe of his lung. Suprapubic catheter is currently in place. ASSESSMENT AND PLAN: A 64-year-old white male with diabetic nephropathy and end-stage renal disease, on hemodialysis with neurogenic bladder managed with SP tube with likely urinary tract infection. Given the patient's progressive worsening of bladder pain along with associated bladder spasms, the patient probably did have a urinary tract infection which was precipitated by urinary retention from a clogged catheter and subsequent catheter change with antibiotic therapy, and initiation of antimuscarinics with oxybutynin, the patient's bladder seems to have calmed down and his pain is improving. I would not make any further changes at this time. There does not appear to be any type of external infection or problem. With antimicrobial therapy and antimuscarinic, the patient should have full resolution of his bladder pain. His catheter should continue to be changed every 30 days. I would highly recommend increasing the catheter size up to a 22-Malawian to avoid clogging in the future, which will lower the risk of the patient of urinary tract infections as well as making sure his blood sugars are properly managed. As far as possible lung infection or pneumonia with intrapulmonary abscess, I will leave this to the CT surgeons and medical team to determine if this is a true finding and the source of his leukocytosis or if it does not require any further intervention other than antibiotics. From my standpoint, I will continue to follow the patient for now to ensure that he does have resolution of his urinary infection without any further problems. The patient has apparently established with Dr. Love as an outpatient and Dr. Love can resume care of the patient on Sunday or if the patient is discharged, the patient can follow up with Dr. Love as an outpatient for consideration of SP tube upsizing. Job ID: [id number]
[2019-05-03] MEDS: Fentanyl 100 MCG/2 ML VIAL SLOW IVP PRN (00:27)
[2019-05-03 04:26] LABS: #Eosinphils 0.4 thou/uL (0.0-0.7); #Lymphocytes 1.4 thou/uL (1.20-3.40); #Monocytes 1.1 thou/uL (0.11-0.59); #Neutrophils 6.9 thou/uL (1.40-6.50); %Basophils 0.2 % (0.0-1.0); %Eosinophils 4.1 % (0.0-10.0); %Lymphocytes 14.3 % (21.0-51.0); %Monocytes 10.9 % (0.0-10.0); %Neutrophils 70.6 % (42.0-75.0); Hemoglobin 9.4 g/dL (14.0-18.0); Mean Corpuscular HGB CONC 33.1 g/dL (32.0-36.0); Mean Corpuscular Volume 90.5 fL (78.0-98.0); Platelet Count 312 thou/uL (130-400); RBC Distribution Width 14.8 % (11.5-14.5); Red Blood Cell (RBC) Count 3.14 mill/uL (4.70-6.10); White Blood Cell (WBC) Count 9.8 thou/uL (4.8-10.8)
[2019-05-03 04:39] LABS: Anion Gap 15 mmol/L (10-20); BUN (Urea Nitrogen) 21 mg/dL (8.4-25.7); Calc. Creatinine Clearance 28 mL/min (70-130); Calcium 9.2 mg/dL (7.8-10.44); Carbon Dioxide 26 mmol/L (23-31); Chloride 99 mmol/L (98-107); Estimated GFR-MDRD 17; Glucose 106 mg/dL (80-115); Potassium 3.6 mmol/L (3.5-5.1); Sodium 136 mmol/L (136-145)
[2019-05-03] MEDS: Piperacillin/Tazobactam 2.25 GM in Sodium Chloride 0.9% 100 ML IVPB SCH ×3 (05:55→21:28)
[2019-05-03] MEDS: Sevelamer Carbonate 800 MG TAB PO SCH ×3 (08:56→17:17)
[2019-05-03] MEDS: Docusate Calcium (SURFAK) 240 MG CAP PO SCH ×2 (08:58→11:55)
--- NOTE | 2019-05-03 09:56 | EKG ---
Test Reason : Blood Pressure : / mmHG Vent. Rate : 082 BPM Atrial Rate : 082 BPM P-R Int : 170 ms QRS Dur : 098 ms QT Int : 392 ms P-R-T Axes : 020 055 061 degrees QTc Int : 457 ms Normal sinus rhythm Normal ECG Confirmed by CRYSTAL PEACOCK, DR. Lala ([id number]) on 05/03/2019 9:55:47 AM Referred By: Kuldeep HARRIS Confirmed By:DR. Dai ROJAS MD
[2019-05-03] MEDS: Morphine 4 MG/ML VIAL SLOW IVP PRN (10:18)
[2019-05-03] MEDS: Phenazopyridine HCl 97.5 MG TABLET PO SCH ×3 (10:19→17:17)
[2019-05-03] MEDS: Alogliptin 6.25 MG TAB PO SCH (11:41)
[2019-05-03] MEDS: Aspirin 325 MG TAB PO SCH (11:41)
[2019-05-03] MEDS: Gabapentin 300 MG CAP PO SCH (11:42)
[2019-05-03] MEDS: Clopidogrel Bisulfate 75 MG TAB PO SCH (11:42)
[2019-05-03] MEDS: glipiZIDE 5 MG TAB PO SCH (11:43)
--- NOTE | 2019-05-03 13:33 | PRG ---
DATE OF SERVICE: 05/03/2019 SUBJECTIVE: The patient states he is still having bladder spasms, although they are much better than before. He is continuing to take the oxybutynin. His bladder pain has improved. His SP tube continues to drain clear urine. OBJECTIVE: VITAL SIGNS: Temperature 98, pulse 80, respirations 20, blood pressure 134/64, and saturation 94% on room air. GENERAL: No apparent distress. Communicative and alert. CARDIOVASCULAR: Regular rate and rhythm. ABDOMEN: Soft, nontender, and nondistended. : No erythema. Testes bilaterally descended. SP tube is in good location, draining clear yellow urine. EXTREMITIES: 1+ edema bilaterally. LABORATORY EVALUATION: A full set of labs are in the [facility] system, which I have reviewed. Of note, white count is decreased further 9.8, hemoglobin 9.4. Creatinine of 3.53. ASSESSMENT AND PLAN: A 64-year-old white male with multiple comorbidities with bladder spasms, secondary to urinary tract infection which is improving with antibiotic therapy and antimuscarinics. Oxybutynin can be continued until the bladder spasm stops, which should be a few days after initiating antibiotics. He should continue to follow up with Dr. Love as his primary urologist for continued catheter care and continued to have his catheter changed every 30 days. As we had previously discussed, it would be best upsized his catheter in the future to a larger catheter size which will promote better drainage, minimize clogging and urinary tract infections. I will sign off as there is nothing further for me to do on this case. Please re-consult if there are any further questions, and the patient can follow up with Dr. Love as an outpatient. Job ID: [id number]
[2019-05-03] MEDS ORDERED: Magnesium Citrate 300 ML BOT PO PRN (16:44)
[2019-05-03] MEDS ORDERED: Fleet Enema 133 ML BOT FS SCH (16:45)
[2019-05-03] MEDS: HYDROcodone/Acetaminophen 10/325 mg Tablet PO PRN (17:18)
[2019-05-03] MEDS: Simvastatin 5 MG TAB PO SCH (21:27)
[2019-05-03] MEDS: Cyclobenzaprine 10 MG TAB PO SCH (21:27)
[2019-05-03] MEDS: Oxybutynin 5 MG TAB PO PRN (21:30)
[2019-05-04] MEDS: Morphine 4 MG/ML VIAL SLOW IVP PRN ×3 (03:53→18:11)
[2019-05-04] MEDS: Piperacillin/Tazobactam 2.25 GM in Sodium Chloride 0.9% 100 ML IVPB SCH ×3 (05:27→21:55)
[2019-05-04] MEDS: Sevelamer Carbonate 800 MG TAB PO SCH ×3 (07:51→16:56)
[2019-05-04] MEDS: Phenazopyridine HCl 97.5 MG TABLET PO SCH ×3 (07:51→18:08)
--- NOTE | 2019-05-04 08:50 | PRG ---
DATE OF SERVICE: 05/04/2019 SERVICE: Renal Medicine. SUBJECTIVE: Mr. Araujo is a 64-year-old white male with ESRD and followed by the Renal Service for his maintenance hemodialysis. I evaluated the patient today. He is not in volume overload. I do not see indication for any emergent dialysis today. He is scheduled for dialysis tomorrow. He is also having intermittent bladder spasm, which is slightly improved. He has been evaluated by Urology. The recommendation to change his suprapubic catheter to a bigger one. His regular urologist will be back tomorrow. No other complaints. No chest pain or shortness of breath. OBJECTIVE: VITAL SIGNS: Blood pressure 168/74, heart rate 90, respiratory rate 16, temperature 97.9, pulse ox 98%. GENERAL: Noted to be awake, alert, comfortable, not in distress. SKIN: Adequate turgor. HEENT: He has a pinkish conjunctivae. Anicteric sclerae. NECK: No neck mass. No carotid bruits. No JVD. CHEST: No deformities. LUNGS: Clear breath sounds. HEART: Normal sinus rhythm. No murmur. No gallops. No rubs. ABDOMEN: Globular, soft, nontender. No masses. Positive for suprapubic cystostomy tube. EXTREMITIES: No edema. NEUROLOGICAL: Moving all extremities except for slightly decreased motor on the right side. MEDICATIONS: Medications of May 04, 2019, reviewed. LABORATORY DATA: Laboratories of May 03, 2019; white count 9.8, hemoglobin 9.4. Sodium 136, potassium 3.6, chloride 99, carbon dioxide 26, BUN 21, creatinine 3.53, calcium 9.2, glucose 129. ASSESSMENT AND PLAN: 1. End-stage renal disease, stable. Continue Sunday, Sunday, and Sunday hemodialysis regimen. Fluid removal only as tolerated. As previously mentioned, no indication for any emergent dialysis. 2. Borderline anemia. Continuing weekly Epogen. 3. Bladder spasms, supportive care. Currently on oxybutynin. Urology is following. Job ID: [id number]
[2019-05-04] MEDS ORDERED: Regadenoson 0.4 MG/5 ML SYRINGE ONE (11:03)
[2019-05-04] MEDS: Aspirin 325 MG TAB PO SCH (13:04)
[2019-05-04] MEDS: Docusate Calcium (SURFAK) 240 MG CAP PO SCH ×2 (13:04→21:56)
[2019-05-04] MEDS: Clopidogrel Bisulfate 75 MG TAB PO SCH (13:04)
[2019-05-04] MEDS: Gabapentin 300 MG CAP PO SCH (13:05)
[2019-05-04] MEDS: Alogliptin 6.25 MG TAB PO SCH (13:05)
[2019-05-04] MEDS: glipiZIDE 5 MG TAB PO SCH (13:05)
[2019-05-04] MEDS: Oxybutynin 5 MG TAB PO PRN (13:10)
[2019-05-04] MEDS ORDERED: Iopamidol-370 76% 500 ML 1 ML ONE (13:35)
--- NOTE | 2019-05-04 19:28 | CT ---
CT ABDOMEN AND PELVIS WITH IV CONTRAST: Indications: Constipation. Abdominal pain. Comparison: 04-30-19 FINDINGS: Lung bases appear clear. Liver, spleen, and pancreas unremarkable. The gallbladder is mildly distended. There is density in the gallbladder consistent with gallstones w hich were noted previously. Left adenoma is again seen and was previously described. Kidneys are unremarkable with small cystic l esions which are stable. No hydronephrosis. Tiny nonobstructed calculus in the lower pole collecting structures of the right kidney. There are arterial calcifications in both renal hilum. Small bowel loops are normal caliber. Colon is filled with stool and mildly distended, unchanged in appearance from the recent study. No evidence of focal inflammatory process. No free fluid. Aorta is calcified without aneurysm. A supr apubic Chavez catheter has been placed and the bladder is contracted. IMPRESSION: 1. Mildly distended gallbladder with cholelithiasis. No pericholecystic edema. 2. Diffusely distended colon filled with stool, unchanged in appearance from the recent exam. Dense s tool in the rectum suggests impaction. 3. Left adrenal adenoma again noted. 4. Small renal cystic lesions and right renal calculus again noted. 5. No acute interval change. POS: AGW
[2019-05-04] MEDS: Simvastatin 5 MG TAB PO SCH (21:56)
[2019-05-04] MEDS: Cyclobenzaprine 10 MG TAB PO SCH (21:56)
[2019-05-04] MEDS: HYDROcodone/Acetaminophen 10/325 mg Tablet PO PRN (22:10)
[2019-05-05] MEDS: Morphine 4 MG/ML VIAL SLOW IVP PRN (03:13)
[2019-05-05] MEDS: Ondansetron ODT 8 MG TAB PO PRN (03:50)
[2019-05-05] MEDS: Piperacillin/Tazobactam 2.25 GM in Sodium Chloride 0.9% 100 ML IVPB SCH ×2 (05:56→12:46)
[2019-05-05] MEDS: HYDROcodone/Acetaminophen 10/325 mg Tablet PO PRN ×2 (06:02→12:44)
[2019-05-05 06:11] LABS: #Eosinphils 0.3 thou/uL (0.0-0.7); #Lymphocytes 1.7 thou/uL (1.20-3.40); #Neutrophils 5.8 thou/uL (1.40-6.50); %Basophils 0.3 % (0.0-1.0); %Eosinophils 3.1 % (0.0-10.0); %Lymphocytes 18.8 % (21.0-51.0); %Monocytes 11.1 % (0.0-10.0); %Neutrophils 66.6 % (42.0-75.0); Hemoglobin 8.4 g/dL (14.0-18.0); Mean Corpuscular HGB CONC 32.2 g/dL (32.0-36.0); Mean Corpuscular Hemoglobin 28.7 pg (27.0-31.0); Mean Corpuscular Volume 89.1 fL (78.0-98.0); Mean Platelet Volume 6.2 fL (7.4-10.4); Platelet Count 294 thou/uL (130-400); RBC Distribution Width 14.7 % (11.5-14.5); Red Blood Cell (RBC) Count 2.94 mill/uL (4.70-6.10); White Blood Cell (WBC) Count 8.7 thou/uL (4.8-10.8)
[2019-05-05 06:30] LABS: Anion Gap 13 mmol/L (10-20); BUN (Urea Nitrogen) 36 mg/dL (8.4-25.7); Calc. Creatinine Clearance 19 mL/min (70-130); Calcium 9.1 mg/dL (7.8-10.44); Carbon Dioxide 25 mmol/L (23-31); Chloride 97 mmol/L (98-107); Estimated GFR-MDRD 11; Glucose 73 mg/dL (80-115); Potassium 3.6 mmol/L (3.5-5.1); Sodium 131 mmol/L (136-145)
--- NOTE | 2019-05-05 07:40 | NM ---
MYOCARDIAL PERFUSION SCAN: The patient was given 28 mCi of Technetium sestamibi for rest imaging and 32 mCi for stress imaging. The patient was stressed according to LexiScan protocol. INDICATION: Unstable angina. The left ventricle was imaged with SPECT imaging and attenuation correction images obtained. FINDINGS: Decreased activity is seen in the inferolateral wall on both stress and rest images. No evidence of reversible ischemia. Wall motion appears normally preserved. Ejection fraction is recorded at 47%. IMPRESSION: Symmetric decreased activity in the inferolateral wall possibly represent a small scar. No evidence of reversible ischemia. POS: OFF
[2019-05-05 09:00] LABS: Vancomycin, Random 5.6 ug/mL (See Comment)
--- NOTE | 2019-05-05 09:01 | PRG ---
DATE OF SERVICE: 05/05/2019 SUBJECTIVE: Mr. Araujo is a 64-year-old white male, followed up for his ESRD. He is on maintenance hemodialysis. He is undergoing hemodialysis today. We are attempting to use his AV fistula. No other complaints. His bladder spasm has much improved. OBJECTIVE: VITAL SIGNS: Blood pressure is 150/62, heart rate 82, respiratory rate 16, temperature 98.4, and pulse ox 99%. GENERAL: The patient is awake, alert, comfortable, not in overt distress. SKIN: Adequate turgor. HEENT: He has a slightly pale conjunctivae. Anicteric sclerae. NECK: No neck mass. No carotid bruits. No JVD. CHEST: No deformities. LUNGS: Clear breath sounds. HEART: Normal sinus rhythm. No murmurs. No gallops. No rubs. ABDOMEN: Globular, soft, nontender. No masses. Positive for cystostomy tube. EXTREMITIES: No edema. NEUROLOGIC: Decreased motor right side. MEDICATIONS: Medications of May 05, 2019, were reviewed. LABORATORY DATA: Laboratories of May 05, 2019; white count 8.7, hemoglobin 8.4. Sodium 131, potassium 3.6, chloride 97, carbon dioxide 25, BUN 36, creatinine 5.37, glucose 53, calcium 9.1. ASSESSMENT AND PLAN: 1. End-stage renal disease, stable. Continuing hemodialysis regimen on Sunday, Sunday, and Sunday. Fluid removal only as tolerated. 2. Anemia. We are continuing the weekly Epogen for this patient. Currently, receiving 7500 units subcutaneous every week. 3. Bladder spasm, much improved. Urology is following. 4. Agree with current management. Job ID: [id number]
[2019-05-05] MEDS ORDERED: Morphine 2 MG/ML SYRINGE SLOW IVP SCH (10:40)
[2019-05-05] MEDS ORDERED: Heparin 10,000 UNITS/ 10 ML VIAL ONE (12:00)
[2019-05-05] MEDS: Phenazopyridine HCl 97.5 MG TABLET PO SCH ×2 (12:05→12:06)
[2019-05-05] MEDS: Sevelamer Carbonate 800 MG TAB PO SCH ×2 (12:05→12:07)
[2019-05-05 12:06] VITALS: BP 135/71; TEMP 97.9
[2019-05-05] MEDS: Alogliptin 6.25 MG TAB PO SCH (12:06)
[2019-05-05] MEDS: Aspirin 325 MG TAB PO SCH (12:06)
[2019-05-05] MEDS: Gabapentin 300 MG CAP PO SCH (12:07)
[2019-05-05] MEDS: glipiZIDE 5 MG TAB PO SCH (12:07)
[2019-05-05] MEDS: Clopidogrel Bisulfate 75 MG TAB PO SCH (12:07)
[2019-05-05] MEDS: Docusate Calcium (SURFAK) 240 MG CAP PO SCH (12:07)
--- NOTE | 2019-05-06 08:00 | PQF ---
MARISELA WILLARD [place] MD [id number] CLINICAL DOCUMENTATION CLARIFICATION FORM: POST DISCHARGE Addendum to original discharge summary date: ____ Late entry note date: __ DATE: 05/06/2019 ATTN:NGA VIDAL Please exercise your independent, professional judgment in responding to the clarification form. Clinical indicators are provided on the bottom of this form for your review Please check appropriate box(s) to clarify if the following diagnosis has been ruled in or ruled out: Severe sepsis [ ] Ruled in diagnosis [ ] Continue to treat [ ] Resolved [ x ] Ruled out diagnosis [ ] Cannot rule out diagnosis [ ] Other diagnosis [ ] Unable to determine For continuity of documentation, please document condition throughout progress notes and discharge summary. Thank You. CLINICAL INDICATORS - SIGNS / SYMPTOMS / LABS - Severe sepsis with empyema- H&P, 04/30, Mekhi Berman MD - Right lobe intrapulmonary abscess-H&P, 04/30, Mekhi Berman MD - I see no evidence of empyema - Consultation, 05/01, Kalia Azevedo MD - Temp: 98.2, Pulse:90, RR:18- ED recordEdd DO - WBC: 23.2H- Laboratory, 04/30 RISK FACTORS - Urinary tract infection- H&P, 04/30, Mekhi Berman MD - End stage renal disease- Progress note, 05/02 TREATMENTS -Vancomycin.IV- AUG, 04/30 -Zosyn.IV-AUG, 04/30 (This form is maintained as a part of the permanent medical record) 2014 [employer], [employer]. All Rights Reserved Stevie De [employer] O [not provided] [not provided] GERMÁN
--- NOTE | 2019-05-06 22:25 | PQF ---
MARISELA WILLARD FR[place]ER[place] MD [id number] CLINICAL DOCUMENTATION CLARIFICATION FORM: POST DISCHARGE Addendum to original discharge summary date: ____05/10/19 Late entry note date: __ DATE: 05/06/2019 ATTN :NGA VIDAL MD Please exercise your independent, professional judgment in responding to the clarification form. Clinical indicators are provided on the bottom of this form for your review Please check appropriate box(s): [ ] UTI due to Suprapubic catheter [ ] UTI not due to Suprapubic catheter [ ] UTI unspecified [ ] Other diagnosis [ x ] Unable to determine For continuity of documentation, please document condition throughout progress notes and discharge summary. Thank You. CLINICAL INDICATORS - SIGNS / SYMPTOMS / LABS - Urinary tract infection- H&P, 05/01, Mekhi Berman MD - He has chronic indwelling Chavez and discolored urine-H&P, 05/01, Mekhi Berman MD - He did have a previous UTI and currently on IV antibiotics- Consultation, , NGA VIDAL MD - UA showing 500 leukocyte esterase,2+blood, 21-50rbcs with greater than 50WBCs- H&P, 05/01, Mekhi Berman MD RISK FACTORS - She has suprapubic catheter - ED record, 04/30, Linda Puga DO - Acute on chronic renal failure- ED record, 04/30, Linda Puga DO TREATMENT: - Vancomycin.IV- AUG, 04/30 - Zosyn.IV- AUG, 05/01 (This form is maintained as a part of the permanent medical record) 2014 [employer], [employer]. All Rights Reserved Stevie De [employer] O [not provided] [not provided] [email or web address]
== END 2019-05-05 14:26 | disposition home or self-care (01) | DRG 682 ==
LOC: ERS 11:25 → T4-B 19:50
PROVIDERS: ADMIT Specialist; ATTEND Specialist
DX: I12.0 Hypertensive chronic kidney disease with stage 5 chronic kidney disease or end stage renal disease (principal); N18.6 End stage renal disease; J85.2 Abscess of lung without pneumonia; N39.0 Urinary tract infection, site not specified; I69.351 Hemiplegia and hemiparesis following cerebral infarction affecting right dominant side; J43.9 Emphysema, unspecified; F51.04 Psychophysiologic insomnia; E78.5 Hyperlipidemia, unspecified; G89.29 Other chronic pain; F31.9 Bipolar disorder, unspecified; E11.22 Type 2 diabetes mellitus with diabetic chronic kidney disease; N31.9 Neuromuscular dysfunction of bladder, unspecified; D63.1 Anemia in chronic kidney disease; Z91.15 Patient's noncompliance with renal dialysis; Z99.3 Dependence on wheelchair
CPT/HCPCS: 36415; 36416; 74176; 74177; 78452; 80048; 80053; 80061; 80202; 81003; 81015; 83036; 83735; 84100; 84484; 85025; 90935; 93005; 93010; 93017; 96365; 96367; 96375; A9500; G0257; J1644; J2270; J2405; J2543; J2785; J3010; J3370; J3490; J7050; Q5105; Q9967

== ENCOUNTER 2020-11-19 11:02 | Inpatient (IN) | payer MEDICARE ==
[2020-11-19 12:00] LABS: #Eosinphils 0.4 thou/uL (0.0-0.7); #Lymphocytes 1.9 thou/uL (1.20-3.40); #Monocytes 0.6 thou/uL (0.11-0.59); #Neutrophils 8.6 thou/uL (1.40-6.50); %Basophils 0.2 % (0.0-1.0); %Eosinophils 3.5 % (0.0-10.0); %Lymphocytes 16.6 % (21.0-51.0); %Monocytes 5.3 % (0.0-10.0); %Neutrophils 74.4 % (42.0-75.0); Hemoglobin 9.7 g/dL (14.0-18.0); Mean Corpuscular Volume 90.7 fL (78.0-98.0); Mean Platelet Volume 6.1 fL (7.4-10.4); Platelet Count 303 thou/uL (130-400); RBC Distribution Width 13.3 % (11.5-14.5); Red Blood Cell (RBC) Count 3.23 mill/uL (4.70-6.10); White Blood Cell (WBC) Count 11.6 thou/uL (4.8-10.8)
[2020-11-19 12:12] LABS: Prothrombin Time 12.8 sec (12.0-14.7)
[2020-11-19 12:18] LABS: Bacteria/HPF 2+ HPF (None Seen); Bilirubin Negative (Negative); Blood, Urine 3+ (Negative); Glucose, Urine (Dipstick) 500 mg/dL (Negative); Ketone, Urine Negative (Negative); Leukocyte 500 Leu/uL (Negative); Nitrite 1+ (Negative); Protein, Urine (Dipstick) 100 mg/dL (Neg-Trace); Specific Gravity, Urine 1.009 (1.002-1.036); Squamous Epithelial None Seen HPF (0-3); Urobilinogen Normal mg/dL (Less than 2); WBC/HPF 0-3 HPF (0-3); pH, Urine 7.5 (5.0-9.0)
[2020-11-19 12:22] LABS: ALT (SGPT) 7 U/L (8-55); AST (SGOT) 8 U/L (5-34); Albumin 3.7 g/dL (3.4-4.8); Alkaline Phosphatase 117 U/L (40-110); Anion Gap 19 mmol/L (10-20); BUN (Urea Nitrogen) 54 mg/dL (8.4-25.7); Bilirubin, Total 0.3 mg/dL (0.2-1.2); Calc. Creatinine Clearance 0 mL/min (70-130); Calcium 8.9 mg/dL (7.8-10.44); Carbon Dioxide 18 mmol/L (23-31); Chloride 102 mmol/L (98-107); Globulin 3.8 g/dL (2.4-3.5); Glucose 191 mg/dL (80-115); Potassium 3.4 mmol/L (3.5-5.1); Protein, Total 7.5 g/dL (5.8-8.1); Sodium 136 mmol/L (136-145)
[2020-11-19 12:22] LABS: Clarity Hazy (Clear); RBC/HPF Greater than 50 HPF (0-3)
[2020-11-19] MEDS ORDERED: Morphine 4 MG/ML VIAL ONE ×2 (12:28→14:42)
[2020-11-19] MEDS ORDERED: Ondansetron PF 4 MG/2 ML Vial ONE (12:28)
[2020-11-19] MEDS ORDERED: cefTRIAXone\\ROCEPHIN 1 GM VIAL ONE (13:50)
[2020-11-19] MEDS ORDERED: Lidocaine Viscous Sol 2% 15 ml UD Cup ONE (16:08)
[2020-11-19] MEDS ORDERED: Sodium Chloride 0.9% 1,000 ML IV SCH (17:30)
[2020-11-19] MEDS ORDERED: Insulin Regular 300 UNITS/3 ML VIAL SC PRN (18:00)
[2020-11-19] MEDS ORDERED: Dextrose 50% Abboject 50 ML SYRINGE IVP PRN (18:00)
[2020-11-19] MEDS ORDERED: Dextrose 5% in Water 1,000 ML IV PRN (18:00)
[2020-11-19] MEDS: Sodium Chloride 0.45% 1,000 ML IV SCH (18:34)
[2020-11-19 19:29] VITALS: BMI 32.8
[2020-11-19] MEDS: Finasteride 5 MG TAB PO SCH (20:21)
[2020-11-19] MEDS: Calcitriol 0.25 MCG CAP PO SCH (20:21)
[2020-11-19] MEDS: Simvastatin 10 MG TAB PO SCH (20:21)
[2020-11-19] MEDS: Acetaminophen/Codeine 30-300mg Tablet PO PRN (20:22)
[2020-11-19] MEDS: Ondansetron PF 4 MG/2 ML Vial IVP PRN (22:36)
[2020-11-19] MEDS ORDERED: Gabapentin 300 MG CAP PO SCH (23:15)
[2020-11-20] MEDS: Acetaminophen 325 MG TAB PO PRN (00:32)
[2020-11-20] MEDS ORDERED: cefTRIAXone\\ROCEPHIN 1 GM in Sodium Chloride 0.9% 100 ML IVPB SCH ×2 (02:00→14:00)
[2020-11-20] MEDS: Sodium Chloride 0.45% 1,000 ML IV SCH ×3 (02:40→16:59)
[2020-11-20] MEDS: Acetaminophen/Codeine 30-300mg Tablet PO PRN ×4 (03:07→19:36)
[2020-11-20 06:49] LABS: #Eosinphils 0.4 thou/uL (0.0-0.7); #Lymphocytes 1.9 thou/uL (1.20-3.40); #Monocytes 0.6 thou/uL (0.11-0.59); #Neutrophils 7.2 thou/uL (1.40-6.50); %Basophils 0.3 % (0.0-1.0); %Eosinophils 4.2 % (0.0-10.0); %Monocytes 5.4 % (0.0-10.0); %Neutrophils 71.1 % (42.0-75.0); Hemoglobin 8.4 g/dL (14.0-18.0); Mean Corpuscular HGB CONC 34.5 g/dL (32.0-36.0); Mean Corpuscular Hemoglobin 31.1 pg (27.0-31.0); Mean Corpuscular Volume 90.3 fL (78.0-98.0); Mean Platelet Volume 5.7 fL (7.4-10.4); Platelet Count 252 thou/uL (130-400); RBC Distribution Width 13.2 % (11.5-14.5); Red Blood Cell (RBC) Count 2.69 mill/uL (4.70-6.10); White Blood Cell (WBC) Count 10.2 thou/uL (4.8-10.8)
[2020-11-20 06:52] LABS: Hemoglobin A1c 5.7 % (4.0-6.0)
[2020-11-20 07:13] LABS: Anion Gap 14 mmol/L (10-20); BUN (Urea Nitrogen) 52 mg/dL (8.4-25.7); Calc. Creatinine Clearance 16 mL/min (70-130); Calcium 8.1 mg/dL (7.8-10.44); Carbon Dioxide 20 mmol/L (23-31); Cardiac Risk 2.7 (Less than 4.5); Chloride 105 mmol/L (98-107); Cholesterol 120 mg/dl (< 200 Desired); Glucose 111 mg/dL (80-115); HDL Cholesterol 45 mg/dL (>60 Neg Risk); LDL Cholesterol, Calculated 57 mg/dL; Potassium 3.5 mmol/L (3.5-5.1); Sodium 135 mmol/L (136-145); Triglycerides 91 mg/dL (Less than 150)
[2020-11-20] MEDS: Clopidogrel Bisulfate 75 MG TAB PO SCH (08:23)
[2020-11-20] MEDS: Tamsulosin HCl 0.4 MG CAP PO SCH (08:23)
[2020-11-20] MEDS: Alogliptin 25 MG TAB PO SCH (08:23)
[2020-11-20] MEDS: Sevelamer Carbonate 800 MG TAB PO SCH ×3 (08:23→17:00)
[2020-11-20] MEDS: Aspirin 325 MG TAB PO SCH (08:23)
[2020-11-20] MEDS: Calcitriol 0.25 MCG CAP PO SCH ×2 (08:23→20:50)
[2020-11-20] MEDS: Amlodipine 5 MG TAB PO SCH (08:24)
[2020-11-20] MEDS: Phenazopyridine HCl 100 MG TAB PO SCH ×3 (10:00→17:01)
[2020-11-20] MEDS ORDERED: Epoetin (ESRD) 20,000 UNITS/ML SC SCH (11:15)
[2020-11-20] MEDS: EPOETIN ALFA-EPBX (ESRD) 4,000 UNIT/ML VIAL SC SCH (12:45)
[2020-11-20 12:50] LABS: SARS-CoV-2 PCR by NAA Not Detected (NotDetected)
[2020-11-20] MEDS ORDERED: Gabapentin 100 MG CAP PO SCH (15:00)
[2020-11-20] MEDS: Albumin 25% 25 GM/100 ML BOT IVPB SCH ×2 (16:59→23:34)
[2020-11-20] MEDS: Ferrous Sulfate 325 MG TAB PO SCH (16:59)
[2020-11-20] MEDS: Gabapentin 300 MG CAP PO SCH (20:50)
[2020-11-20] MEDS: Finasteride 5 MG TAB PO SCH (20:50)
[2020-11-20] MEDS: Simvastatin 10 MG TAB PO SCH (20:50)
[2020-11-21] MEDS: Acetaminophen/Codeine 30-300mg Tablet PO PRN ×2 (00:20→05:46)
[2020-11-21] MEDS: Ondansetron PF 4 MG/2 ML Vial IVP PRN (00:27)
[2020-11-21] MEDS: HYDROcodone/Acetaminophen 10/325 mg Tablet PO PRN (02:38)
[2020-11-21] MEDS: Sodium Chloride 0.45% 1,000 ML IV SCH ×3 (02:40→18:27)
[2020-11-21] MEDS: Albumin 25% 25 GM/100 ML BOT IVPB SCH ×3 (05:40→18:24)
[2020-11-21] MEDS ORDERED: Furosemide 20 MG/2 ML VIAL SLOW IVP SCH ×2 (05:45→21:00)
[2020-11-21 06:32] LABS: #Eosinphils 0.3 thou/uL (0.0-0.7); #Lymphocytes 1.3 thou/uL (1.20-3.40); #Monocytes 0.8 thou/uL (0.11-0.59); #Neutrophils 14.8 thou/uL (1.40-6.50); %Basophils 0.1 % (0.0-1.0); %Eosinophils 1.6 % (0.0-10.0); %Lymphocytes 7.8 % (21.0-51.0); %Monocytes 4.5 % (0.0-10.0); Hemoglobin 9.3 g/dL (14.0-18.0); Mean Corpuscular HGB CONC 35.2 g/dL (32.0-36.0); Mean Corpuscular Hemoglobin 31.6 pg (27.0-31.0); Mean Corpuscular Volume 89.7 fL (78.0-98.0); Mean Platelet Volume 5.9 fL (7.4-10.4); Platelet Count 266 thou/uL (130-400); RBC Distribution Width 13.2 % (11.5-14.5); Red Blood Cell (RBC) Count 2.95 mill/uL (4.70-6.10); White Blood Cell (WBC) Count 17.2 thou/uL (4.8-10.8)
[2020-11-21 06:50] LABS: Anion Gap 22 mmol/L (10-20); BUN (Urea Nitrogen) 53 mg/dL (8.4-25.7); Calc. Creatinine Clearance 16 mL/min (70-130); Calcium 8.4 mg/dL (7.8-10.44); Carbon Dioxide 14 mmol/L (23-31); Chloride 103 mmol/L (98-107); Glucose 170 mg/dL (80-115); Potassium 3.7 mmol/L (3.5-5.1); Sodium 135 mmol/L (136-145)
[2020-11-21] MEDS: Sevelamer Carbonate 800 MG TAB PO SCH ×3 (09:10→18:24)
[2020-11-21] MEDS: Tamsulosin HCl 0.4 MG CAP PO SCH (09:11)
[2020-11-21] MEDS: Gabapentin 100 MG CAP PO SCH (09:11)
[2020-11-21] MEDS: Clopidogrel Bisulfate 75 MG TAB PO SCH (09:11)
[2020-11-21] MEDS: Phenazopyridine HCl 100 MG TAB PO SCH ×3 (09:12→18:27)
[2020-11-21] MEDS: Amlodipine 5 MG TAB PO SCH (09:12)
[2020-11-21] MEDS: Ferrous Sulfate 325 MG TAB PO SCH ×2 (09:12→18:23)
[2020-11-21] MEDS: Calcitriol 0.25 MCG CAP PO SCH ×2 (09:13→21:24)
[2020-11-21] MEDS: Alogliptin 25 MG TAB PO SCH ×2 (09:18→12:18)
[2020-11-21] MEDS: Aspirin 325 MG TAB PO SCH (09:18)
[2020-11-21] MEDS: hydrOXYzine 25 MG TAB PO PRN (12:43)
[2020-11-21] MEDS ORDERED: cefTRIAXone\\ROCEPHIN 2 GM in Sodium Chloride 0.9% 100 ML IVPB SCH (14:00)
[2020-11-21] MEDS: Meropenem 500 MG in Sodium Chloride 0.9% 100 ML IVPB SCH (14:55)
[2020-11-21] MEDS: cefTRIAXone\\ROCEPHIN 2 GM, Admixture Fee 1 EACH in Sodium Chloride 0.9% 100 ML IVPB SCH (18:23)
[2020-11-21] MEDS: Gabapentin 300 MG CAP PO SCH (21:24)
[2020-11-21] MEDS: Finasteride 5 MG TAB PO SCH (21:24)
[2020-11-21] MEDS: Simvastatin 10 MG TAB PO SCH (21:26)
[2020-11-22] MEDS: Sodium Chloride 0.45% 1,000 ML IV SCH ×3 (01:21→18:20)
[2020-11-22] MEDS: Acetaminophen 325 MG TAB PO PRN (05:08)
[2020-11-22 06:22] LABS: #Eosinphils 0.2 thou/uL (0.0-0.7); #Lymphocytes 1.5 thou/uL (1.20-3.40); #Monocytes 0.7 thou/uL (0.11-0.59); #Neutrophils 10.3 thou/uL (1.40-6.50); %Basophils 0.1 % (0.0-1.0); %Eosinophils 1.6 % (0.0-10.0); %Lymphocytes 11.8 % (21.0-51.0); %Monocytes 5.5 % (0.0-10.0); %Neutrophils 80.9 % (42.0-75.0); Mean Corpuscular Hemoglobin 30.8 pg (27.0-31.0); Mean Corpuscular Volume 90.7 fL (78.0-98.0); Mean Platelet Volume 5.9 fL (7.4-10.4); Platelet Count 245 thou/uL (130-400); RBC Distribution Width 13.3 % (11.5-14.5); White Blood Cell (WBC) Count 12.7 thou/uL (4.8-10.8)
[2020-11-22 06:47] LABS: Anion Gap 18 mmol/L (10-20); BUN (Urea Nitrogen) 62 mg/dL (8.4-25.7); Calc. Creatinine Clearance 14 mL/min (70-130); Calcium 8.8 mg/dL (7.8-10.44); Carbon Dioxide 15 mmol/L (23-31); Chloride 105 mmol/L (98-107); Glucose 112 mg/dL (80-115); Potassium 4.2 mmol/L (3.5-5.1); Sodium 134 mmol/L (136-145)
[2020-11-22] MEDS ORDERED: Milk Of Magnesia 30 ML UDCUP PO SCH (07:30)
[2020-11-22] MEDS ORDERED: Bisacodyl 10 MG SUPP PR SCH (07:30)
[2020-11-22] MEDS: Ferrous Sulfate 325 MG TAB PO SCH ×2 (10:25→18:17)
[2020-11-22] MEDS: Sevelamer Carbonate 800 MG TAB PO SCH ×3 (10:25→18:17)
[2020-11-22] MEDS: Tamsulosin HCl 0.4 MG CAP PO SCH (10:26)
[2020-11-22] MEDS: Docusate 100 MG CAP PO SCH ×2 (10:26→20:30)
[2020-11-22] MEDS: Calcitriol 0.25 MCG CAP PO SCH ×2 (10:26→20:30)
[2020-11-22] MEDS: Gabapentin 100 MG CAP PO SCH (10:26)
[2020-11-22] MEDS: Amlodipine 5 MG TAB PO SCH (10:27)
[2020-11-22] MEDS: Aspirin 325 MG TAB PO SCH (10:28)
[2020-11-22] MEDS: Phenazopyridine HCl 100 MG TAB PO SCH ×3 (10:28→18:17)
[2020-11-22] MEDS: Clopidogrel Bisulfate 75 MG TAB PO SCH (10:28)
[2020-11-22] MEDS: Sodium Bicarbonate Tab 325 MG TAB PO SCH ×3 (10:29→20:29)
[2020-11-22] MEDS: Alogliptin 6.25 MG TAB PO SCH (10:30)
[2020-11-22] MEDS ORDERED: Heparin 1,000 UNITS/ML VIAL ONE (10:36)
[2020-11-22] MEDS: Meropenem 500 MG in Sodium Chloride 0.9% 100 ML IVPB SCH (14:09)
[2020-11-22] MEDS: Acetaminophen/Codeine 30-300mg Tablet PO PRN ×2 (14:14→20:31)
[2020-11-22] MEDS: Alogliptin 25 MG TAB PO SCH (16:49)
[2020-11-22] MEDS: cefTRIAXone\\ROCEPHIN 2 GM, Admixture Fee 1 EACH in Sodium Chloride 0.9% 100 ML IVPB SCH (18:20)
[2020-11-22] MEDS: Finasteride 5 MG TAB PO SCH (20:30)
[2020-11-22] MEDS: Gabapentin 300 MG CAP PO SCH (20:30)
[2020-11-22] MEDS: Simvastatin 10 MG TAB PO SCH (20:40)
[2020-11-22] MEDS: hydrOXYzine 25 MG TAB PO PRN (22:18)
[2020-11-23] MEDS: Sodium Chloride 0.45% 1,000 ML IV SCH ×4 (02:30→17:04)
[2020-11-23] MEDS: Acetaminophen/Codeine 30-300mg Tablet PO PRN (05:43)
[2020-11-23] MEDS: Docusate 100 MG CAP PO SCH ×2 (08:27→21:42)
[2020-11-23] MEDS: Ferrous Sulfate 325 MG TAB PO SCH ×2 (08:27→16:10)
[2020-11-23] MEDS: Sevelamer Carbonate 800 MG TAB PO SCH ×3 (08:28→16:10)
[2020-11-23] MEDS: Amlodipine 5 MG TAB PO SCH (08:28)
[2020-11-23] MEDS: Alogliptin 6.25 MG TAB PO SCH (08:28)
[2020-11-23] MEDS: Gabapentin 100 MG CAP PO SCH (08:29)
[2020-11-23] MEDS: Calcitriol 0.25 MCG CAP PO SCH ×2 (08:29→21:42)
[2020-11-23] MEDS: Clopidogrel Bisulfate 75 MG TAB PO SCH (08:29)
[2020-11-23] MEDS: Aspirin 325 MG TAB PO SCH (08:29)
[2020-11-23] MEDS: Phenazopyridine HCl 100 MG TAB PO SCH (08:29)
[2020-11-23] MEDS: Tamsulosin HCl 0.4 MG CAP PO SCH (08:29)
[2020-11-23 08:30] LABS: Phosphorus 7.1 mg/dL (2.3-4.7)
[2020-11-23] MEDS: Sodium Bicarbonate Tab 325 MG TAB PO SCH ×3 (08:30→21:41)
[2020-11-23 08:31] LABS: Anion Gap 20 mmol/L (10-20); BUN (Urea Nitrogen) 65 mg/dL (8.4-25.7); Calc. Creatinine Clearance 13 mL/min (70-130); Calcium 8.9 mg/dL (7.8-10.44); Carbon Dioxide 17 mmol/L (23-31); Chloride 102 mmol/L (98-107); Glucose 156 mg/dL (80-115); Potassium 3.6 mmol/L (3.5-5.1); Sodium 135 mmol/L (136-145)
[2020-11-23 08:36] LABS: #Eosinphils 0.1 thou/uL (0.0-0.7); #Lymphocytes 1.1 thou/uL (1.20-3.40); #Monocytes 0.8 thou/uL (0.11-0.59); #Neutrophils 12.9 thou/uL (1.40-6.50); %Basophils 0.1 % (0.0-1.0); %Eosinophils 0.8 % (0.0-10.0); %Lymphocytes 7.6 % (21.0-51.0); %Monocytes 5.6 % (0.0-10.0); Hemoglobin 7.8 g/dL (14.0-18.0); Mean Corpuscular HGB CONC 32.8 g/dL (32.0-36.0); Mean Corpuscular Hemoglobin 30.1 pg (27.0-31.0); Mean Corpuscular Volume 91.7 fL (78.0-98.0); Mean Platelet Volume 6.3 fL (7.4-10.4); Platelet Count 247 thou/uL (130-400); RBC Distribution Width 13.3 % (11.5-14.5)
[2020-11-23] MEDS ORDERED: Milk Of Magnesia 30 ML UDCUP PO SCH ×2 (09:30→16:15)
[2020-11-23] MEDS: Meropenem 500 MG in Sodium Chloride 0.9% 100 ML IVPB SCH (11:36)
[2020-11-23] MEDS: Triamcinolone 0.1% Cream 15 GM TUBE TOP SCH (13:54)
[2020-11-23] MEDS: cefTRIAXone\\ROCEPHIN 2 GM, Admixture Fee 1 EACH in Sodium Chloride 0.9% 100 ML IVPB SCH (16:08)
[2020-11-23] MEDS: Gabapentin 300 MG CAP PO SCH (21:42)
[2020-11-23] MEDS: Finasteride 5 MG TAB PO SCH (21:42)
[2020-11-23] MEDS: Simvastatin 10 MG TAB PO SCH (21:42)
[2020-11-24] MEDS: hydrOXYzine 25 MG TAB PO PRN ×2 (01:07→21:56)
[2020-11-24] MEDS: Sodium Chloride 0.45% 1,000 ML IV SCH ×2 (01:11→11:03)
[2020-11-24] MEDS: Acetaminophen/Codeine 30-300mg Tablet PO PRN ×2 (01:31→21:55)
[2020-11-24 07:42] LABS: #Eosinphils 0.1 thou/uL (0.0-0.7); #Lymphocytes 0.6 thou/uL (1.20-3.40); #Monocytes 0.6 thou/uL (0.11-0.59); #Neutrophils 12.5 thou/uL (1.40-6.50); %Basophils 0.1 % (0.0-1.0); %Eosinophils 0.4 % (0.0-10.0); %Lymphocytes 4.3 % (21.0-51.0); %Monocytes 4.3 % (0.0-10.0); %Neutrophils 90.9 % (42.0-75.0); Hemoglobin 7.3 g/dL (14.0-18.0); Mean Corpuscular HGB CONC 32.3 g/dL (32.0-36.0); Mean Corpuscular Hemoglobin 29.9 pg (27.0-31.0); Mean Corpuscular Volume 92.5 fL (78.0-98.0); Platelet Count 244 thou/uL (130-400); RBC Distribution Width 13.5 % (11.5-14.5); Red Blood Cell (RBC) Count 2.44 mill/uL (4.70-6.10); White Blood Cell (WBC) Count 13.8 thou/uL (4.8-10.8)
[2020-11-24 08:07] LABS: BUN (Urea Nitrogen) 72 mg/dL (8.4-25.7); Calc. Creatinine Clearance 14 mL/min (70-130); Calcium 8.7 mg/dL (7.8-10.44); Carbon Dioxide 16 mmol/L (23-31); Chloride 101 mmol/L (98-107); Glucose 158 mg/dL (80-115); Potassium 3.9 mmol/L (3.5-5.1); Sodium 131 mmol/L (136-145)
[2020-11-24 08:40] LABS: Anion Gap 18 mmol/L (10-20)
[2020-11-24] MEDS: Sodium Bicarbonate Tab 325 MG TAB PO SCH ×3 (09:09→21:52)
[2020-11-24] MEDS: Aspirin 325 MG TAB PO SCH (09:09)
[2020-11-24] MEDS: Amlodipine 5 MG TAB PO SCH (09:10)
[2020-11-24] MEDS: Calcitriol 0.25 MCG CAP PO SCH ×2 (09:10→21:51)
[2020-11-24] MEDS: Docusate 100 MG CAP PO SCH ×2 (09:10→21:52)
[2020-11-24] MEDS: Tamsulosin HCl 0.4 MG CAP PO SCH (09:11)
[2020-11-24] MEDS: Gabapentin 100 MG CAP PO SCH (09:11)
[2020-11-24] MEDS: Clopidogrel Bisulfate 75 MG TAB PO SCH (09:11)
[2020-11-24] MEDS: Ferrous Sulfate 325 MG TAB PO SCH ×2 (09:11→17:06)
[2020-11-24] MEDS: Alogliptin 6.25 MG TAB PO SCH (09:11)
[2020-11-24] MEDS: Sevelamer Carbonate 800 MG TAB PO SCH ×3 (09:11→17:06)
[2020-11-24] MEDS: Triamcinolone 0.1% Cream 15 GM TUBE TOP SCH (09:12)
[2020-11-24] MEDS: Fleet Enema 133 ML BOT FS SCH ×2 (09:20→17:09)
[2020-11-24] MEDS ORDERED: Tuberculin PPD 0.1 ML VIAL I-DERMAL SCH (09:30)
[2020-11-24 10:48] LABS: HBSAB Concentration Less than 8.00 mIU/mL; HBSAg Index 0.25 S/CO (0-0.99); Hep B Core Total Ab Non-Reactive (NonReactive); Hep B Core Total Index 0.08 S/CO (0-0.79); Hep B Surf AB Non-Reactive (NonReactive); Hep B Surf Ag Non-Reactive S/CO (NonReactive); Hep C IgG Ab Non-Reactive (NonReactive); Hep C Index 0.05 S/CO (0-0.79)
[2020-11-24] MEDS: Meropenem 500 MG in Sodium Chloride 0.9% 100 ML IVPB SCH (12:49)
[2020-11-24] MEDS: cefTRIAXone\\ROCEPHIN 2 GM, Admixture Fee 1 EACH in Sodium Chloride 0.9% 100 ML IVPB SCH (18:32)
[2020-11-24] MEDS: Simvastatin 10 MG TAB PO SCH (21:51)
[2020-11-24] MEDS: Gabapentin 300 MG CAP PO SCH (21:51)
[2020-11-24] MEDS: Finasteride 5 MG TAB PO SCH (21:52)
[2020-11-24] MEDS: Calcium Carbonate 500 MG ChewTAB PO PRN (21:59)
[2020-11-25] MEDS: Calcium Carbonate 500 MG ChewTAB PO PRN (06:17)
[2020-11-25 07:03] LABS: #Eosinphils 0.3 thou/uL (0.0-0.7); #Lymphocytes 0.9 thou/uL (1.20-3.40); #Monocytes 0.7 thou/uL (0.11-0.59); #Neutrophils 7.8 thou/uL (1.40-6.50); %Basophils 0.2 % (0.0-1.0); %Eosinophils 2.8 % (0.0-10.0); %Lymphocytes 9.2 % (21.0-51.0); %Monocytes 6.8 % (0.0-10.0); Hemoglobin 7.5 g/dL (14.0-18.0); Mean Corpuscular HGB CONC 32.4 g/dL (32.0-36.0); Mean Corpuscular Hemoglobin 29.9 pg (27.0-31.0); Mean Corpuscular Volume 92.4 fL (78.0-98.0); Mean Platelet Volume 6.3 fL (7.4-10.4); Platelet Count 304 thou/uL (130-400); RBC Distribution Width 13.7 % (11.5-14.5); White Blood Cell (WBC) Count 9.6 thou/uL (4.8-10.8)
[2020-11-25] MEDS ORDERED: Zolpidem Tartrate 5 MG TAB PO PRN (07:20)
[2020-11-25 07:23] LABS: Anion Gap 18 mmol/L (10-20); BUN (Urea Nitrogen) 66 mg/dL (8.4-25.7); Calc. Creatinine Clearance 16 mL/min (70-130); Calcium 9.1 mg/dL (7.8-10.44); Carbon Dioxide 19 mmol/L (23-31); Chloride 103 mmol/L (98-107); Glucose 118 mg/dL (80-115); Potassium 3.6 mmol/L (3.5-5.1); Sodium 136 mmol/L (136-145)
[2020-11-25] MEDS ORDERED: Pantoprazole 40 MG VIAL IVP SCH (07:30)
[2020-11-25] MEDS: Clopidogrel Bisulfate 75 MG TAB PO SCH (08:10)
[2020-11-25] MEDS: Sodium Bicarbonate Tab 325 MG TAB PO SCH ×3 (08:10→21:41)
[2020-11-25] MEDS: Amlodipine 5 MG TAB PO SCH (08:10)
[2020-11-25] MEDS: Docusate 100 MG CAP PO SCH ×2 (08:11→21:43)
[2020-11-25] MEDS: Ferrous Sulfate 325 MG TAB PO SCH ×2 (08:11→18:12)
[2020-11-25] MEDS: Gabapentin 100 MG CAP PO SCH (08:11)
[2020-11-25] MEDS: Alogliptin 6.25 MG TAB PO SCH (08:11)
[2020-11-25] MEDS: Calcitriol 0.25 MCG CAP PO SCH ×2 (08:11→21:42)
[2020-11-25] MEDS: Tamsulosin HCl 0.4 MG CAP PO SCH (08:12)
[2020-11-25] MEDS: Triamcinolone 0.1% Cream 15 GM TUBE TOP SCH (08:12)
[2020-11-25] MEDS: Aspirin 325 MG TAB PO SCH (08:12)
[2020-11-25] MEDS: Sevelamer Carbonate 800 MG TAB PO SCH ×3 (08:13→18:12)
[2020-11-25] MEDS: Acetaminophen/Codeine 30-300mg Tablet PO PRN (08:20)
[2020-11-25] MEDS: Fluticasone Propionate Nasal Spray 16 gm Bottle NASAL SCH (12:44)
[2020-11-25] MEDS: Meropenem 500 MG in Sodium Chloride 0.9% 100 ML IVPB SCH ×2 (17:19→18:16)
[2020-11-25] MEDS: Simvastatin 10 MG TAB PO SCH (21:41)
[2020-11-25] MEDS: Finasteride 5 MG TAB PO SCH (21:42)
[2020-11-25] MEDS: Gabapentin 300 MG CAP PO SCH (21:42)
[2020-11-25] MEDS: cefTRIAXone\\ROCEPHIN 2 GM, Admixture Fee 1 EACH in Sodium Chloride 0.9% 100 ML IVPB SCH (21:47)
[2020-11-26 06:05] LABS: #Eosinphils 0.3 thou/uL (0.0-0.7); #Monocytes 0.7 thou/uL (0.11-0.59); #Neutrophils 7.6 thou/uL (1.40-6.50); %Basophils 0.2 % (0.0-1.0); %Lymphocytes 10.4 % (21.0-51.0); %Monocytes 7.3 % (0.0-10.0); %Neutrophils 79.1 % (42.0-75.0); Mean Corpuscular HGB CONC 32.7 g/dL (32.0-36.0); Mean Corpuscular Volume 91.7 fL (78.0-98.0); Mean Platelet Volume 6.2 fL (7.4-10.4); Platelet Count 296 thou/uL (130-400); RBC Distribution Width 13.7 % (11.5-14.5); Red Blood Cell (RBC) Count 2.32 mill/uL (4.70-6.10); White Blood Cell (WBC) Count 9.7 thou/uL (4.8-10.8)
[2020-11-26 06:22] LABS: Anion Gap 15 mmol/L (10-20); BUN (Urea Nitrogen) 53 mg/dL (8.4-25.7); Calc. Creatinine Clearance 20 mL/min (70-130); Calcium 8.9 mg/dL (7.8-10.44); Carbon Dioxide 23 mmol/L (23-31); Chloride 102 mmol/L (98-107); Glucose 120 mg/dL (80-115); Potassium 3.5 mmol/L (3.5-5.1); Sodium 136 mmol/L (136-145)
[2020-11-26] MEDS: Aspirin 325 MG TAB PO SCH (08:54)
[2020-11-26] MEDS: Clopidogrel Bisulfate 75 MG TAB PO SCH (08:54)
[2020-11-26] MEDS: Alogliptin 6.25 MG TAB PO SCH (08:54)
[2020-11-26] MEDS: Docusate 100 MG CAP PO SCH (08:54)
[2020-11-26] MEDS: Ferrous Sulfate 325 MG TAB PO SCH (08:54)
[2020-11-26] MEDS: Sevelamer Carbonate 800 MG TAB PO SCH ×3 (08:54→17:56)
[2020-11-26] MEDS: Tamsulosin HCl 0.4 MG CAP PO SCH (08:54)
[2020-11-26] MEDS: Calcitriol 0.25 MCG CAP PO SCH ×2 (08:54→22:54)
[2020-11-26] MEDS: Sodium Bicarbonate Tab 325 MG TAB PO SCH (08:54)
[2020-11-26] MEDS: Gabapentin 100 MG CAP PO SCH (08:55)
[2020-11-26] MEDS: Amlodipine 5 MG TAB PO SCH (08:55)
[2020-11-26] MEDS: Fluticasone Propionate Nasal Spray 16 gm Bottle NASAL SCH (08:55)
[2020-11-26] MEDS: Triamcinolone 0.1% Cream 15 GM TUBE TOP SCH (09:11)
[2020-11-26] MEDS: HYDROcodone/Acetaminophen 10/325 mg Tablet PO PRN (22:53)
[2020-11-26] MEDS: Finasteride 5 MG TAB PO SCH (22:54)
[2020-11-26] MEDS: Gabapentin 300 MG CAP PO SCH (22:54)
[2020-11-26] MEDS: Meropenem 500 MG in Sodium Chloride 0.9% 100 ML IVPB SCH (22:55)
[2020-11-26] MEDS: Simvastatin 10 MG TAB PO SCH (22:55)
[2020-11-26] MEDS: cefTRIAXone\\ROCEPHIN 2 GM, Admixture Fee 1 EACH in Sodium Chloride 0.9% 100 ML IVPB SCH (22:55)
[2020-11-27 06:14] LABS: #Eosinphils 0.4 thou/uL (0.0-0.7); #Lymphocytes 1.1 thou/uL (1.20-3.40); #Monocytes 0.7 thou/uL (0.11-0.59); #Neutrophils 6.7 thou/uL (1.40-6.50); %Basophils 0.1 % (0.0-1.0); %Eosinophils 4.9 % (0.0-10.0); %Lymphocytes 12.6 % (21.0-51.0); %Monocytes 8.2 % (0.0-10.0); %Neutrophils 74.2 % (42.0-75.0); Hemoglobin 9.6 g/dL (14.0-18.0); Mean Corpuscular HGB CONC 34.3 g/dL (32.0-36.0); Mean Corpuscular Hemoglobin 31.7 pg (27.0-31.0); Mean Corpuscular Volume 92.3 fL (78.0-98.0); Platelet Count 297 thou/uL (130-400); RBC Distribution Width 13.3 % (11.5-14.5); Red Blood Cell (RBC) Count 3.03 mill/uL (4.70-6.10)
[2020-11-27 07:12] LABS: Anion Gap 16 mmol/L (10-20); BUN (Urea Nitrogen) 37 mg/dL (8.4-25.7); Calc. Creatinine Clearance 25 mL/min (70-130); Calcium 9.3 mg/dL (7.8-10.44); Carbon Dioxide 25 mmol/L (23-31); Chloride 101 mmol/L (98-107); Glucose 102 mg/dL (80-115); Potassium 3.4 mmol/L (3.5-5.1); Sodium 139 mmol/L (136-145)
[2020-11-27] MEDS: Aspirin 325 MG TAB PO SCH (07:54)
[2020-11-27] MEDS: Alogliptin 6.25 MG TAB PO SCH (07:54)
[2020-11-27] MEDS: Gabapentin 100 MG CAP PO SCH (07:54)
[2020-11-27] MEDS: Sevelamer Carbonate 800 MG TAB PO SCH ×3 (07:54→15:54)
[2020-11-27] MEDS: Docusate 100 MG CAP PO SCH (07:54)
[2020-11-27] MEDS: Fluticasone Propionate Nasal Spray 16 gm Bottle NASAL SCH (07:55)
[2020-11-27] MEDS: Amlodipine 5 MG TAB PO SCH (07:55)
[2020-11-27] MEDS: Tamsulosin HCl 0.4 MG CAP PO SCH (07:55)
[2020-11-27] MEDS: Clopidogrel Bisulfate 75 MG TAB PO SCH (07:55)
[2020-11-27] MEDS: Calcitriol 0.25 MCG CAP PO SCH ×2 (07:55→20:41)
[2020-11-27] MEDS: Triamcinolone 0.1% Cream 15 GM TUBE TOP SCH (07:55)
[2020-11-27] MEDS: EPOETIN ALFA-EPBX (ESRD) 4,000 UNIT/ML VIAL SC SCH (11:35)
[2020-11-27] MEDS: HYDROcodone/Acetaminophen 10/325 mg Tablet PO PRN ×2 (14:20→22:12)
[2020-11-27] MEDS: cefTRIAXone\\ROCEPHIN 2 GM, Admixture Fee 1 EACH in Sodium Chloride 0.9% 100 ML IVPB SCH (15:54)
[2020-11-27] MEDS: Meropenem 500 MG in Sodium Chloride 0.9% 100 ML IVPB SCH (17:36)
[2020-11-27] MEDS: Gabapentin 300 MG CAP PO SCH (20:41)
[2020-11-27] MEDS: Simvastatin 10 MG TAB PO SCH (20:42)
[2020-11-27] MEDS: Finasteride 5 MG TAB PO SCH (20:42)
[2020-11-28 06:51] LABS: #Eosinphils 0.5 thou/uL (0.0-0.7); #Lymphocytes 1.7 thou/uL (1.20-3.40); #Monocytes 0.8 thou/uL (0.11-0.59); #Neutrophils 7.8 thou/uL (1.40-6.50); %Basophils 0.2 % (0.0-1.0); %Eosinophils 4.3 % (0.0-10.0); %Lymphocytes 15.5 % (21.0-51.0); %Monocytes 7.1 % (0.0-10.0); %Neutrophils 72.9 % (42.0-75.0); Hemoglobin 10.1 g/dL (14.0-18.0); Mean Corpuscular HGB CONC 31.9 g/dL (32.0-36.0); Mean Corpuscular Hemoglobin 30.2 pg (27.0-31.0); Mean Corpuscular Volume 94.7 fL (78.0-98.0); Mean Platelet Volume 6.2 fL (7.4-10.4); Platelet Count 348 thou/uL (130-400); RBC Distribution Width 13.2 % (11.5-14.5); Red Blood Cell (RBC) Count 3.36 mill/uL (4.70-6.10); White Blood Cell (WBC) Count 10.6 thou/uL (4.8-10.8)
[2020-11-28 07:13] LABS: Anion Gap 18 mmol/L (10-20); BUN (Urea Nitrogen) 56 mg/dL (8.4-25.7); Calc. Creatinine Clearance 19 mL/min (70-130); Calcium 9.8 mg/dL (7.8-10.44); Carbon Dioxide 23 mmol/L (23-31); Chloride 103 mmol/L (98-107); Glucose 117 mg/dL (80-115); Potassium 3.7 mmol/L (3.5-5.1); Sodium 140 mmol/L (136-145)
[2020-11-28] MEDS: Alogliptin 6.25 MG TAB PO SCH (07:50)
[2020-11-28] MEDS: Sevelamer Carbonate 800 MG TAB PO SCH ×3 (07:50→17:41)
[2020-11-28] MEDS: Tamsulosin HCl 0.4 MG CAP PO SCH (07:51)
[2020-11-28] MEDS: Gabapentin 100 MG CAP PO SCH (07:51)
[2020-11-28] MEDS: Docusate 100 MG CAP PO SCH (07:51)
[2020-11-28] MEDS: Calcitriol 0.25 MCG CAP PO SCH ×2 (07:51→20:43)
[2020-11-28] MEDS: Aspirin 325 MG TAB PO SCH (07:51)
[2020-11-28] MEDS: Fluticasone Propionate Nasal Spray 16 gm Bottle NASAL SCH (07:52)
[2020-11-28] MEDS: Amlodipine 5 MG TAB PO SCH (07:52)
[2020-11-28] MEDS: Clopidogrel Bisulfate 75 MG TAB PO SCH (07:52)
[2020-11-28] MEDS: Triamcinolone 0.1% Cream 15 GM TUBE TOP SCH (07:53)
[2020-11-28] MEDS ORDERED: GoLYTELY 4,000 ml Bottle PO SCH (17:00)
[2020-11-28] MEDS: Meropenem 500 MG in Sodium Chloride 0.9% 100 ML IVPB SCH (17:41)
[2020-11-28] MEDS: Calcium Carbonate 500 MG ChewTAB PO PRN (17:48)
[2020-11-28] MEDS: HYDROcodone/Acetaminophen 10/325 mg Tablet PO PRN (18:19)
[2020-11-28] MEDS: cefTRIAXone\\ROCEPHIN 2 GM, Admixture Fee 1 EACH in Sodium Chloride 0.9% 100 ML IVPB SCH (19:09)
[2020-11-28] MEDS: Promethazine 25 MG TAB PO SCH (20:43)
[2020-11-28] MEDS: Finasteride 5 MG TAB PO SCH (20:44)
[2020-11-28] MEDS: Temazepam 15 MG CAP PO SCH (20:44)
[2020-11-28] MEDS: Gabapentin 300 MG CAP PO SCH (20:44)
[2020-11-28] MEDS: Simvastatin 10 MG TAB PO SCH (20:47)
[2020-11-29 06:38] LABS: #Eosinphils 0.5 thou/uL (0.0-0.7); #Lymphocytes 1.3 thou/uL (1.20-3.40); #Monocytes 0.6 thou/uL (0.11-0.59); #Neutrophils 6.9 thou/uL (1.40-6.50); %Basophils 0.2 % (0.0-1.0); %Eosinophils 5.1 % (0.0-10.0); %Monocytes 6.3 % (0.0-10.0); %Neutrophils 74.4 % (42.0-75.0); Hemoglobin 9.5 g/dL (14.0-18.0); Mean Corpuscular HGB CONC 32.4 g/dL (32.0-36.0); Mean Corpuscular Hemoglobin 30.3 pg (27.0-31.0); Mean Corpuscular Volume 93.6 fL (78.0-98.0); Platelet Count 347 thou/uL (130-400); RBC Distribution Width 12.9 % (11.5-14.5); Red Blood Cell (RBC) Count 3.12 mill/uL (4.70-6.10); White Blood Cell (WBC) Count 9.3 thou/uL (4.8-10.8)
[2020-11-29 07:00] LABS: Anion Gap 18 mmol/L (10-20); BUN (Urea Nitrogen) 54 mg/dL (8.4-25.7); Calc. Creatinine Clearance 18 mL/min (70-130); Calcium 9.3 mg/dL (7.8-10.44); Carbon Dioxide 22 mmol/L (23-31); Chloride 103 mmol/L (98-107); Glucose 96 mg/dL (80-115); Potassium 3.5 mmol/L (3.5-5.1); Sodium 139 mmol/L (136-145)
[2020-11-29] MEDS: Alogliptin 6.25 MG TAB PO SCH (10:52)
[2020-11-29] MEDS: Amlodipine 5 MG TAB PO SCH (10:52)
[2020-11-29] MEDS: Sevelamer Carbonate 800 MG TAB PO SCH ×3 (10:52→16:37)
[2020-11-29] MEDS: Fluticasone Propionate Nasal Spray 16 gm Bottle NASAL SCH (10:53)
[2020-11-29] MEDS: Gabapentin 100 MG CAP PO SCH (10:53)
[2020-11-29] MEDS: Docusate 100 MG CAP PO SCH (10:53)
[2020-11-29] MEDS: Calcitriol 0.25 MCG CAP PO SCH ×2 (10:53→20:42)
[2020-11-29] MEDS: Tamsulosin HCl 0.4 MG CAP PO SCH (10:54)
[2020-11-29] MEDS: Triamcinolone 0.1% Cream 15 GM TUBE TOP SCH (10:54)
[2020-11-29] MEDS ORDERED: Ketamine 50 MG/ML (10ML VIAL) ONE (13:19)
[2020-11-29] MEDS ORDERED: PROPOFOL 200 MG/20 ML VIAL ONE (13:29)
[2020-11-29] MEDS ORDERED: Furosemide 20 MG/2 ML VIAL ONE (14:02)
[2020-11-29] MEDS ORDERED: Methylene Blue 50 MG/10 ML AMPUL ONE (14:02)
[2020-11-29] MEDS ORDERED: Fentanyl 100 MCG/2 ML VIAL ONE (15:03)
[2020-11-29] MEDS: cefTRIAXone\\ROCEPHIN 2 GM, Admixture Fee 1 EACH in Sodium Chloride 0.9% 100 ML IVPB SCH (16:37)
[2020-11-29] MEDS: Meropenem 500 MG in Sodium Chloride 0.9% 100 ML IVPB SCH (17:46)
[2020-11-29] MEDS: Simvastatin 10 MG TAB PO SCH (20:41)
[2020-11-29] MEDS: Promethazine 25 MG TAB PO SCH (20:42)
[2020-11-29] MEDS: Finasteride 5 MG TAB PO SCH (20:42)
[2020-11-29] MEDS: Temazepam 15 MG CAP PO SCH (20:42)
[2020-11-29] MEDS: Gabapentin 300 MG CAP PO SCH (20:42)
[2020-11-30] MEDS: Calcium Carbonate 500 MG ChewTAB PO PRN (02:57)
[2020-11-30 06:19] LABS: #Basophils 0.1 thou/uL (0.0-0.2); #Eosinphils 0.4 thou/uL (0.0-0.7); #Lymphocytes 1.4 thou/uL (1.20-3.40); #Monocytes 0.7 thou/uL (0.11-0.59); #Neutrophils 6.6 thou/uL (1.40-6.50); %Basophils 0.5 % (0.0-1.0); %Eosinophils 4.7 % (0.0-10.0); %Lymphocytes 15.6 % (21.0-51.0); %Monocytes 7.6 % (0.0-10.0); %Neutrophils 71.6 % (42.0-75.0); Hemoglobin 9.2 g/dL (14.0-18.0); Mean Corpuscular HGB CONC 32.2 g/dL (32.0-36.0); Mean Corpuscular Hemoglobin 30.3 pg (27.0-31.0); Mean Platelet Volume 5.8 fL (7.4-10.4); Platelet Count 341 thou/uL (130-400); RBC Distribution Width 12.8 % (11.5-14.5); Red Blood Cell (RBC) Count 3.04 mill/uL (4.70-6.10); White Blood Cell (WBC) Count 9.2 thou/uL (4.8-10.8)
[2020-11-30 06:42] LABS: Anion Gap 16 mmol/L (10-20); BUN (Urea Nitrogen) 31 mg/dL (8.4-25.7); Calc. Creatinine Clearance 24 mL/min (70-130); Calcium 9.1 mg/dL (7.8-10.44); Carbon Dioxide 24 mmol/L (23-31); Chloride 103 mmol/L (98-107); Glucose 97 mg/dL (80-115); Potassium 3.4 mmol/L (3.5-5.1); Sodium 140 mmol/L (136-145)
[2020-11-30] MEDS: Alogliptin 6.25 MG TAB PO SCH (08:48)
[2020-11-30] MEDS: Sevelamer Carbonate 800 MG TAB PO SCH ×3 (08:48→16:57)
[2020-11-30] MEDS: Amlodipine 5 MG TAB PO SCH (08:49)
[2020-11-30] MEDS: Gabapentin 100 MG CAP PO SCH (08:49)
[2020-11-30] MEDS: Calcitriol 0.25 MCG CAP PO SCH ×2 (08:49→20:43)
[2020-11-30] MEDS: Tamsulosin HCl 0.4 MG CAP PO SCH (08:49)
[2020-11-30] MEDS: Docusate 100 MG CAP PO SCH (08:49)
[2020-11-30] MEDS ORDERED: cefTRIAXone\\ROCEPHIN 2 GM in Sodium Chloride 0.9% 100 ML IVPB SCH ×2 (09:45→17:00)
[2020-11-30] MEDS: Triamcinolone 0.1% Cream 15 GM TUBE TOP SCH (09:56)
[2020-11-30] MEDS: Fluticasone Propionate Nasal Spray 16 gm Bottle NASAL SCH (09:56)
[2020-11-30] MEDS: Meropenem 500 MG in Sodium Chloride 0.9% 100 ML IVPB SCH (19:43)
[2020-11-30] MEDS: Gabapentin 300 MG CAP PO SCH (20:03)
[2020-11-30] MEDS: Simvastatin 10 MG TAB PO SCH (20:03)
[2020-11-30] MEDS ORDERED: Dextrose 50% Abboject 50 ML SYRINGE SLOW IVP PRN (20:10)
[2020-11-30] MEDS ORDERED: Ondansetron PF 4 MG/2 ML Vial IVP PRN (20:10)
[2020-11-30] MEDS ORDERED: Acetaminophen 325 MG TAB PO PRN (20:10)
[2020-11-30] MEDS ORDERED: Insulin Regular 300 UNITS/3 ML VIAL SC PRN (20:11)
[2020-11-30] MEDS ORDERED: Calcium Carbonate 500 MG ChewTAB PO PRN (20:13)
[2020-11-30] MEDS ORDERED: hydrOXYzine 25 MG TAB PO PRN (20:14)
[2020-11-30] MEDS: HYDROcodone/Acetaminophen 10/325 mg Tablet PO PRN (20:43)
[2020-11-30] MEDS: Nitrofurantoin Monohyd/M-Cryst 100 MG CAP PO SCH (20:46)
[2020-11-30] MEDS: Promethazine 25 MG TAB PO SCH (20:48)
[2020-11-30] MEDS ORDERED: Gabapentin 300 MG CAP PO SCH (21:00)
[2020-11-30] MEDS ORDERED: Temazepam 15 MG CAP PO SCH (21:00)
[2020-11-30] MEDS ORDERED: Simvastatin 10 MG TAB PO SCH (21:00)
[2020-11-30] MEDS ORDERED: Finasteride 5 MG TAB PO SCH (21:00)
[2020-12-01] MEDS: Sevelamer Carbonate 800 MG TAB PO SCH ×3 (08:24→18:04)
[2020-12-01] MEDS: Nitrofurantoin Monohyd/M-Cryst 100 MG CAP PO SCH (08:25)
[2020-12-01] MEDS: Calcitriol 0.25 MCG CAP PO SCH (08:25)
[2020-12-01] MEDS ORDERED: Alogliptin 6.25 MG TAB PO SCH (09:00)
[2020-12-01] MEDS ORDERED: Triamcinolone 0.1% Cream 15 GM TUBE TOP SCH (09:00)
[2020-12-01] MEDS ORDERED: Gabapentin 100 MG CAP PO SCH (09:00)
[2020-12-01] MEDS ORDERED: Docusate 100 MG CAP PO SCH (09:00)
[2020-12-01] MEDS ORDERED: Amlodipine 5 MG TAB PO SCH (09:00)
[2020-12-01] MEDS ORDERED: Tamsulosin HCl 0.4 MG CAP PO SCH (09:00)
[2020-12-01] MEDS: HYDROcodone/Acetaminophen 10/325 mg Tablet PO PRN (11:44)
[2020-12-01] MEDS: Fluticasone Propionate Nasal Spray 16 gm Bottle NASAL SCH (14:41)
[2020-12-01] MEDS ORDERED: cefTRIAXone\\ROCEPHIN 2 GM in Sodium Chloride 0.9% 100 ML IVPB SCH (17:00)
[2020-12-01 18:46] VITALS: BP 126/63; TEMP 97.9
[2020-12-01] MEDS ORDERED: Promethazine 25 MG TAB PO SCH (20:00)
== END 2020-12-01 18:44 | disposition home or self-care (01) | DRG 698 ==
LOC: ERS 11:02 → ERHOLD 15:00 → T4-A 17:34 → OBSVTOIN 11-22 09:45 → UNDODISIN 11-30 18:04
PROVIDERS: ADMIT Specialist; ATTEND Specialist
PROC: 0T2BX0Z Change Drainage Device in Bladder, External Approach (ICD-10-PCS; 2020-11-22)
PROC: 02HV33Z Insertion of Infusion Device into Superior Vena Cava, Percutaneous Approach (ICD-10-PCS; principal; 2020-11-25)
PROC: B548ZZA Ultrasonography of Superior Vena Cava, Guidance (ICD-10-PCS; 2020-11-25)
PROC: 5A1D70Z Performance of Urinary Filtration, Intermittent, Less than 6 Hours Per Day (ICD-10-PCS; 2020-11-25)
PROC: B50W1ZZ Plain Radiography of Dialysis Shunt/Fistula using Low Osmolar Contrast (ICD-10-PCS; 2020-11-25)
PROC: 30233N1 Transfusion of Nonautologous Red Blood Cells into Peripheral Vein, Percutaneous Approach (ICD-10-PCS; 2020-11-26)
PROC: 0DB98ZX Excision of Duodenum, Via Natural or Artificial Opening Endoscopic, Diagnostic (ICD-10-PCS; 2020-11-29)
PROC: 0DJD8ZZ Inspection of Lower Intestinal Tract, Via Natural or Artificial Opening Endoscopic (ICD-10-PCS; 2020-11-29)
DX: T83.518A Infection and inflammatory reaction due to other urinary catheter, initial encounter (principal); J18.9 Pneumonia, unspecified organism; N18.6 End stage renal disease; N17.9 Acute kidney failure, unspecified; E87.2 Acidosis; I69.351 Hemiplegia and hemiparesis following cerebral infarction affecting right dominant side; N25.81 Secondary hyperparathyroidism of renal origin; Z20.822 Contact with and (suspected) exposure to COVID-19; I10 Essential (primary) hypertension; E78.5 Hyperlipidemia, unspecified; M54.9 Dorsalgia, unspecified; G89.29 Other chronic pain; F51.04 Psychophysiologic insomnia; N30.21 Other chronic cystitis with hematuria; F17.210 Nicotine dependence, cigarettes, uncomplicated; E66.9 Obesity, unspecified; N34.2 Other urethritis; E11.22 Type 2 diabetes mellitus with diabetic chronic kidney disease; D63.1 Anemia in chronic kidney disease; K44.9 Diaphragmatic hernia without obstruction or gangrene; K64.4 Residual hemorrhoidal skin tags; R33.9 Retention of urine, unspecified; K63.5 Polyp of colon; E83.39 Other disorders of phosphorus metabolism; Z91.14 Patient's other noncompliance with medication regimen; Z73.6 Limitation of activities due to disability; Z79.84 Long term (current) use of oral hypoglycemic drugs; Z79.01 Long term (current) use of anticoagulants; Z79.82 Long term (current) use of aspirin; Z79.899 Other long term (current) drug therapy; Z68.32 Body mass index [BMI] 32.0-32.9, adult; Z87.440 Personal history of urinary (tract) infections; E87.6 Hypokalemia; Y84.6 Urinary catheterization as the cause of abnormal reaction of the patient, or of later complication, without mention of misadventure at the time of the procedure
CPT/HCPCS: 36415; 36416; 36430; 36901; 71045; 71046; 74176; 76937; 80048; 80053; 80061; 81003; 81015; 82274; 83036; 83605; 83690; 83735; 83880; 83970; 84100; 84443; 85025; 85610; 86580; 86704; 86706; 86803; 86850; 86900; 86901; 87040; 87086; 87340; 88305; 90935; 94640; 96372; 96374; 96375; 96376; C9113; G0257; G0378; J0696; J1644; J1940; J2185; J2270; J2405; J2704; J3010; J3490; J7620; P9016; P9047; Q0169; Q5105; Q9968; U0003; U0005

== ENCOUNTER 2020-12-11 16:31 | Emergency (ER) | payer MEDICARE ==
[2020-12-11] MEDS ORDERED: Morphine 2 MG/ML VIAL ONE (17:23)
[2020-12-11 17:25] LABS: #Eosinphils 0.3 thou/uL (0.0-0.7); #Lymphocytes 2.3 thou/uL (1.20-3.40); #Neutrophils 6.4 thou/uL (1.40-6.50); %Basophils 0.3 % (0.0-1.0); %Lymphocytes 22.5 % (21.0-51.0); %Monocytes 10.3 % (0.0-10.0); %Neutrophils 63.9 % (42.0-75.0); Hemoglobin 9.7 g/dL (14.0-18.0); Mean Corpuscular HGB CONC 31.3 g/dL (32.0-36.0); Mean Corpuscular Hemoglobin 29.8 pg (27.0-31.0); Mean Corpuscular Volume 95.2 fL (78.0-98.0); Mean Platelet Volume 6.7 fL (7.4-10.4); Platelet Count 340 thou/uL (130-400); RBC Distribution Width 12.6 % (11.5-14.5); Red Blood Cell (RBC) Count 3.24 mill/uL (4.70-6.10)
[2020-12-11 17:49] LABS: ALT (SGPT) 7 U/L (8-55); AST (SGOT) 11 U/L (5-34); Albumin 3.7 g/dL (3.4-4.8); Alkaline Phosphatase 149 U/L (40-110); Anion Gap 14 mmol/L (10-20); BUN (Urea Nitrogen) 26 mg/dL (8.4-25.7); Bilirubin, Total 0.2 mg/dL (0.2-1.2); Calc. Creatinine Clearance 0 mL/min (70-130); Calcium 10.1 mg/dL (7.8-10.44); Carbon Dioxide 27 mmol/L (23-31); Chloride 99 mmol/L (98-107); Globulin 3.8 g/dL (2.4-3.5); Glucose 134 mg/dL (80-115); Potassium 3.3 mmol/L (3.5-5.1); Protein, Total 7.5 g/dL (5.8-8.1); Sodium 137 mmol/L (136-145)
[2020-12-11] MEDS ORDERED: Sucralfate 1 GM/10 ML UDCUP ONE (18:27)
[2020-12-11 19:11] LABS: Bilirubin Negative (Negative); Blood, Urine Small (Negative); Glucose, Urine (Dipstick) 100 mg/dL (Negative); Ketone, Urine Negative (Negative); Leukocyte Small (Negative); Nitrite Negative (Negative); Protein, Urine (Dipstick) 30 mg/dL (Neg-Trace); Urobilinogen 0.2 mg/dL (Less than 2); pH, Urine 8.5 (5.0-9.0)
[2020-12-11 19:14] LABS: Clarity Clear (Clear)
[2020-12-11 19:19] LABS: Bacteria/HPF Rare-Few HPF (None Seen); Other Microscopic Description Less than 2 mL rec'd; RBC/HPF 0-3 HPF (0-3); Squamous Epithelial 0-3 HPF (0-3); WBC/HPF 0-3 HPF (0-3)
== END 2020-12-11 21:10 | disposition home or self-care (01) ==
LOC: ERS 16:31
DX: I12.0 Hypertensive chronic kidney disease with stage 5 chronic kidney disease or end stage renal disease (principal); N18.6 End stage renal disease; M79.10 Myalgia, unspecified site; Z86.73 Personal history of transient ischemic attack (TIA), and cerebral infarction without residual deficits
CPT/HCPCS: 70450; 71045; 80053; 82553; 83605; 84484; 85025; 87077; 87086; 87186; J2270; 36415; 81003; 81015; 96374

== ENCOUNTER → 2021-01-07 | Day surgery (SDC) | payer MEDICARE | LOC: SPEC 12:53 | PROVIDERS: ATTEND Specialist | PROC: 02HV33Z Insertion of Infusion Device into Superior Vena Cava, Percutaneous Approach (ICD-10-PCS; principal; 2021-01-07) | DX: N39.0 Urinary tract infection, site not specified (principal) | CPT/HCPCS: 36569; 96365; C1751; J2185 ==

== ENCOUNTER 2021-02-03 10:58 | Inpatient (IN) | payer MEDICARE ==
[2021-02-03 12:01] LABS: #Eosinphils 0.3 thou/uL (0.0-0.7); #Lymphocytes 1.8 thou/uL (1.20-3.40); #Monocytes 0.4 thou/uL (0.11-0.59); #Neutrophils 6.9 thou/uL (1.40-6.50); %Basophils 0.3 % (0.0-1.0); %Eosinophils 3.1 % (0.0-10.0); %Monocytes 4.6 % (0.0-10.0); %Neutrophils 73.1 % (42.0-75.0); Mean Corpuscular HGB CONC 34.2 g/dL (32.0-36.0); Mean Corpuscular Hemoglobin 30.3 pg (27.0-31.0); Mean Corpuscular Volume 88.7 fL (78.0-98.0); Mean Platelet Volume 6.6 fL (7.4-10.4); Platelet Count 262 thou/uL (130-400); RBC Distribution Width 13.8 % (11.5-14.5); Red Blood Cell (RBC) Count 2.97 mill/uL (4.70-6.10); White Blood Cell (WBC) Count 9.5 thou/uL (4.8-10.8)
[2021-02-03 12:03] LABS: Bilirubin Negative (Negative); Blood, Urine Negative (Negative); Clarity Turbid (Clear); Glucose, Urine (Dipstick) Normal (Negative); Ketone, Urine Negative (Negative); Leukocyte 500 Leu/uL (Negative); Nitrite Negative (Negative); Protein, Urine (Dipstick) 100 mg/dL (Neg-Trace); RBC/HPF None Seen HPF (0-3); Squamous Epithelial None Seen HPF (0-3); Urobilinogen Normal mg/dL (Less than 2); WBC/HPF 0-3 HPF (0-3); pH, Urine 8.5 (5.0-9.0)
[2021-02-03 12:10] LABS: Bacteria/HPF 4+ HPF (None Seen)
[2021-02-03 12:11] LABS: Triple Phosphate Crystal 2+ HPF (None Seen)
[2021-02-03 12:17] LABS: ALT (SGPT) Less than 7 U/L (8-55); AST (SGOT) 10 U/L (5-34); Albumin 3.8 g/dL (3.4-4.8); Alkaline Phosphatase 93 U/L (40-110); Anion Gap 16 mmol/L (10-20); BUN (Urea Nitrogen) 60 mg/dL (8.4-25.7); Bilirubin, Total 0.3 mg/dL (0.2-1.2); Calc. Creatinine Clearance 0 mL/min (70-130); Calcium 8.9 mg/dL (7.8-10.44); Carbon Dioxide 19 mmol/L (23-31); Chloride 102 mmol/L (98-107); Glucose 146 mg/dL (80-115); Magnesium 4.3 mg/dL (1.6-2.6); Phosphorus 4.1 mg/dL (2.3-4.7); Potassium 4.8 mmol/L (3.5-5.1); Protein, Total 7.8 g/dL (5.8-8.1); Sodium 132 mmol/L (136-145)
[2021-02-03] MEDS ORDERED: Heparin 1,000 UNITS/ML VIAL ONE (12:43)
[2021-02-03 15:47] LABS: HBSAg Index 0.21 S/CO (0-0.99); Hep B Surf Ag Non-Reactive S/CO (NonReactive)
[2021-02-03] MEDS ORDERED: Epoetin (ESRD) 20,000 UNITS/ML SC SCH (17:15)
[2021-02-03 17:51] LABS: SARS-CoV-2 NAA Rapid Test Not Detected (NotDetected)
[2021-02-03] MEDS: HYDROcodone/Acetaminophen 5/325 mg Tablet PO PRN (23:43)
[2021-02-03] MEDS: EPOETIN ALFA-EPBX (ESRD) 4,000 UNIT/ML VIAL SC SCH (23:44)
[2021-02-04 00:20] VITALS: BMI 29.4
[2021-02-04] MEDS: Ondansetron PF 4 MG/2 ML Vial IVP PRN (00:59)
[2021-02-04 06:21] LABS: #Basophils 0.1 thou/uL (0.0-0.2); #Eosinphils 0.2 thou/uL (0.0-0.7); #Lymphocytes 1.6 thou/uL (1.20-3.40); #Monocytes 0.5 thou/uL (0.11-0.59); #Neutrophils 4.7 thou/uL (1.40-6.50); %Basophils 0.8 % (0.0-1.0); %Eosinophils 3.4 % (0.0-10.0); %Monocytes 6.7 % (0.0-10.0); Hemoglobin 8.2 g/dL (14.0-18.0); Mean Corpuscular HGB CONC 35.3 g/dL (32.0-36.0); Mean Corpuscular Hemoglobin 30.8 pg (27.0-31.0); Mean Corpuscular Volume 87.3 fL (78.0-98.0); Mean Platelet Volume 6.1 fL (7.4-10.4); Platelet Count 218 thou/uL (130-400); RBC Distribution Width 13.9 % (11.5-14.5); Red Blood Cell (RBC) Count 2.67 mill/uL (4.70-6.10); White Blood Cell (WBC) Count 7.1 thou/uL (4.8-10.8)
[2021-02-04 06:27] LABS: Hemoglobin A1c 5.2 % (4.0-6.0)
[2021-02-04 06:41] LABS: Anion Gap 14 mmol/L (10-20); BUN (Urea Nitrogen) 26 mg/dL (8.4-25.7); Calc. Creatinine Clearance 23 mL/min (70-130); Calcium 8.4 mg/dL (7.8-10.44); Carbon Dioxide 30 mmol/L (23-31); Cardiac Risk 3.4 (Less than 4.5); Chloride 95 mmol/L (98-107); Cholesterol 161 mg/dl (< 200 Desired); Glucose 85 mg/dL (80-115); HDL Cholesterol 47 mg/dL (>60 Neg Risk); LDL Cholesterol, Calculated 95 mg/dL; Potassium 3.6 mmol/L (3.5-5.1); Sodium 135 mmol/L (136-145); Triglycerides 93 mg/dL (Less than 150)
[2021-02-04] MEDS: HYDROcodone/Acetaminophen 5/325 mg Tablet PO PRN ×2 (08:12→14:45)
[2021-02-04] MEDS ORDERED: Alogliptin 25 MG TAB PO SCH (09:00)
[2021-02-04] MEDS: Aspirin Chewable 81 MG TAB PO SCH (09:16)
[2021-02-04] MEDS: Sevelamer Carbonate 800 MG TAB PO SCH ×3 (09:16→17:01)
[2021-02-04] MEDS: Amlodipine 10 MG TAB PO SCH (09:16)
[2021-02-04] MEDS: Cyclobenzaprine 10 MG TAB PO SCH ×3 (09:16→21:21)
[2021-02-04] MEDS: Docusate 100 MG CAP PO SCH ×2 (09:17→21:21)
[2021-02-04] MEDS: Ferrous Sulfate 325 MG TAB PO SCH (09:17)
[2021-02-04] MEDS: cefTRIAXone\\ROCEPHIN 1 GM in Sodium Chloride 0.9% 100 ML IVPB SCH (09:17)
[2021-02-04] MEDS: Gabapentin 100 MG CAP PO SCH (09:17)
[2021-02-04] MEDS: Folic Acid 1 MG TAB PO SCH (09:17)
[2021-02-04] MEDS: Calcitriol 0.25 MCG CAP PO SCH (09:17)
[2021-02-04] MEDS ORDERED: Alogliptin 6.25 MG TAB PO SCH (10:30)
[2021-02-04] MEDS: Simvastatin 10 MG TAB PO SCH (21:21)
[2021-02-04] MEDS: Gabapentin 300 MG CAP PO SCH (21:21)
[2021-02-05] MEDS: HYDROcodone/Acetaminophen 5/325 mg Tablet PO PRN ×4 (04:35→23:54)
[2021-02-05 06:34] LABS: #Eosinphils 0.3 thou/uL (0.0-0.7); #Lymphocytes 2.1 thou/uL (1.20-3.40); #Monocytes 0.6 thou/uL (0.11-0.59); #Neutrophils 3.5 thou/uL (1.40-6.50); %Basophils 0.7 % (0.0-1.0); %Eosinophils 4.7 % (0.0-10.0); %Lymphocytes 32.3 % (21.0-51.0); %Monocytes 8.7 % (0.0-10.0); %Neutrophils 53.7 % (42.0-75.0); Hemoglobin 8.5 g/dL (14.0-18.0); Mean Corpuscular HGB CONC 34.6 g/dL (32.0-36.0); Mean Corpuscular Hemoglobin 30.8 pg (27.0-31.0); Mean Platelet Volume 6.1 fL (7.4-10.4); Platelet Count 228 thou/uL (130-400); RBC Distribution Width 13.9 % (11.5-14.5); Red Blood Cell (RBC) Count 2.74 mill/uL (4.70-6.10); White Blood Cell (WBC) Count 6.5 thou/uL (4.8-10.8)
[2021-02-05 07:04] LABS: Anion Gap 13 mmol/L (10-20); BUN (Urea Nitrogen) 39 mg/dL (8.4-25.7); Calc. Creatinine Clearance 17 mL/min (70-130); Calcium 8.7 mg/dL (7.8-10.44); Carbon Dioxide 30 mmol/L (23-31); Chloride 96 mmol/L (98-107); Glucose 101 mg/dL (80-115); Sodium 135 mmol/L (136-145)
[2021-02-05] MEDS: Cyclobenzaprine 10 MG TAB PO SCH ×3 (12:18→21:10)
[2021-02-05] MEDS: Alogliptin 6.25 MG TAB PO SCH (12:18)
[2021-02-05] MEDS: Sevelamer Carbonate 800 MG TAB PO SCH ×3 (12:19→15:28)
[2021-02-05] MEDS: Folic Acid 1 MG TAB PO SCH (12:27)
[2021-02-05] MEDS: Calcitriol 0.25 MCG CAP PO SCH (12:27)
[2021-02-05] MEDS: Ferrous Sulfate 325 MG TAB PO SCH (12:27)
[2021-02-05] MEDS: Aspirin Chewable 81 MG TAB PO SCH (12:27)
[2021-02-05] MEDS: Gabapentin 100 MG CAP PO SCH (12:27)
[2021-02-05] MEDS: cefTRIAXone\\ROCEPHIN 1 GM in Sodium Chloride 0.9% 100 ML IVPB SCH (12:28)
[2021-02-05] MEDS: Docusate 100 MG CAP PO SCH ×2 (12:28→21:10)
[2021-02-05] MEDS: Amlodipine 10 MG TAB PO SCH (13:37)
[2021-02-05] MEDS: Simvastatin 10 MG TAB PO SCH (21:10)
[2021-02-05] MEDS: Gabapentin 300 MG CAP PO SCH (21:10)
[2021-02-06] MEDS: HYDROcodone/Acetaminophen 5/325 mg Tablet PO PRN ×3 (09:05→22:03)
[2021-02-06] MEDS: Alogliptin 6.25 MG TAB PO SCH (10:16)
[2021-02-06] MEDS: Cyclobenzaprine 10 MG TAB PO SCH (10:17)
[2021-02-06] MEDS: Aspirin Chewable 81 MG TAB PO SCH ×2 (11:26→11:27)
[2021-02-06] MEDS: Docusate 100 MG CAP PO SCH ×2 (11:26→22:01)
[2021-02-06] MEDS: Gabapentin 100 MG CAP PO SCH (11:26)
[2021-02-06] MEDS: Sevelamer Carbonate 800 MG TAB PO SCH ×3 (11:26→16:31)
[2021-02-06] MEDS: Calcitriol 0.25 MCG CAP PO SCH (11:26)
[2021-02-06] MEDS: Ferrous Sulfate 325 MG TAB PO SCH (11:27)
[2021-02-06] MEDS: Folic Acid 1 MG TAB PO SCH (11:27)
[2021-02-06] MEDS: cefTRIAXone\\ROCEPHIN 1 GM in Sodium Chloride 0.9% 100 ML IVPB SCH (11:30)
[2021-02-06] MEDS: Amlodipine 10 MG TAB PO SCH (11:30)
[2021-02-06] MEDS ORDERED: Lubiprostone 24 MCG CAP PO SCH (13:15)
[2021-02-06] MEDS: Gabapentin 300 MG CAP PO SCH (22:01)
[2021-02-06] MEDS: Heparin 5,000 UNITS/ML VIAL SC SCH (22:02)
[2021-02-06] MEDS: tiZANidine HCl 4 MG TAB PO SCH (22:02)
[2021-02-06] MEDS: Simvastatin 10 MG TAB PO SCH (22:02)
[2021-02-07] MEDS: HYDROcodone/Acetaminophen 5/325 mg Tablet PO PRN ×3 (04:36→17:00)
[2021-02-07 06:29] LABS: #Eosinphils 0.4 thou/uL (0.0-0.7); #Lymphocytes 2.3 thou/uL (1.20-3.40); #Monocytes 0.6 thou/uL (0.11-0.59); #Neutrophils 5.1 thou/uL (1.40-6.50); %Basophils 0.1 % (0.0-1.0); %Eosinophils 5.3 % (0.0-10.0); %Lymphocytes 27.2 % (21.0-51.0); %Monocytes 6.6 % (0.0-10.0); %Neutrophils 60.9 % (42.0-75.0); Hemoglobin 7.7 g/dL (14.0-18.0); Mean Corpuscular HGB CONC 34.5 g/dL (32.0-36.0); Mean Corpuscular Hemoglobin 30.5 pg (27.0-31.0); Mean Corpuscular Volume 88.5 fL (78.0-98.0); Platelet Count 236 thou/uL (130-400); RBC Distribution Width 13.6 % (11.5-14.5); Red Blood Cell (RBC) Count 2.53 mill/uL (4.70-6.10); White Blood Cell (WBC) Count 8.3 thou/uL (4.8-10.8)
[2021-02-07 06:54] LABS: ALT (SGPT) 7 U/L (8-55); AST (SGOT) 11 U/L (5-34); Albumin 3.2 g/dL (3.4-4.8); Alkaline Phosphatase 78 U/L (40-110); Anion Gap 12 mmol/L (10-20); BUN (Urea Nitrogen) 30 mg/dL (8.4-25.7); Bilirubin, Total 0.2 mg/dL (0.2-1.2); Calc. Creatinine Clearance 21 mL/min (70-130); Calcium 8.9 mg/dL (7.8-10.44); Carbon Dioxide 30 mmol/L (23-31); Chloride 90 mmol/L (98-107); Globulin 3.2 g/dL (2.4-3.5); Glucose 135 mg/dL (80-115); Potassium 3.7 mmol/L (3.5-5.1); Protein, Total 6.4 g/dL (5.8-8.1); Sodium 128 mmol/L (136-145)
[2021-02-07] MEDS ORDERED: Lubiprostone 24 MCG CAP PO SCH (08:00)
[2021-02-07] MEDS: Ferrous Sulfate 325 MG TAB PO SCH (08:45)
[2021-02-07] MEDS: Sevelamer Carbonate 800 MG TAB PO SCH ×3 (08:46→17:00)
[2021-02-07] MEDS: tiZANidine HCl 4 MG TAB PO SCH ×2 (08:46→20:13)
[2021-02-07] MEDS: Aspirin Chewable 81 MG TAB PO SCH (08:46)
[2021-02-07] MEDS: Gabapentin 100 MG CAP PO SCH (08:46)
[2021-02-07] MEDS: Heparin 5,000 UNITS/ML VIAL SC SCH ×2 (08:47→20:16)
[2021-02-07] MEDS: Lubiprostone 24 MCG CAP PO SCH (08:47)
[2021-02-07] MEDS: cefTRIAXone\\ROCEPHIN 1 GM in Sodium Chloride 0.9% 100 ML IVPB SCH (08:47)
[2021-02-07] MEDS: Docusate 100 MG CAP PO SCH ×2 (08:47→20:14)
[2021-02-07] MEDS: Folic Acid 1 MG TAB PO SCH (08:47)
[2021-02-07] MEDS: Calcitriol 0.25 MCG CAP PO SCH (08:47)
[2021-02-07] MEDS: Alogliptin 6.25 MG TAB PO SCH (08:49)
[2021-02-07] MEDS: Amlodipine 10 MG TAB PO SCH (12:39)
[2021-02-07] MEDS: Gabapentin 300 MG CAP PO SCH (20:13)
[2021-02-07] MEDS: Simvastatin 10 MG TAB PO SCH (20:20)
[2021-02-07] MEDS: hydrALAZINE 25 MG TAB PO SCH (21:37)
[2021-02-08] MEDS: HYDROcodone/Acetaminophen 5/325 mg Tablet PO PRN ×2 (04:31→21:20)
[2021-02-08 05:02] LABS: #Eosinphils 0.4 thou/uL (0.0-0.7); #Lymphocytes 2.1 thou/uL (1.20-3.40); #Monocytes 0.6 thou/uL (0.11-0.59); #Neutrophils 5.8 thou/uL (1.40-6.50); %Eosinophils 4.1 % (0.0-10.0); %Lymphocytes 23.4 % (21.0-51.0); %Monocytes 6.4 % (0.0-10.0); %Neutrophils 66.1 % (42.0-75.0); Hemoglobin 7.9 g/dL (14.0-18.0); Mean Corpuscular HGB CONC 34.6 g/dL (32.0-36.0); Mean Corpuscular Hemoglobin 30.4 pg (27.0-31.0); Mean Corpuscular Volume 87.9 fL (78.0-98.0); Platelet Count 245 thou/uL (130-400); RBC Distribution Width 14.1 % (11.5-14.5); Red Blood Cell (RBC) Count 2.61 mill/uL (4.70-6.10); White Blood Cell (WBC) Count 8.7 thou/uL (4.8-10.8)
[2021-02-08 05:25] LABS: Anion Gap 16 mmol/L (10-20); BUN (Urea Nitrogen) 37 mg/dL (8.4-25.7); Calc. Creatinine Clearance 17 mL/min (70-130); Calcium 8.7 mg/dL (7.8-10.44); Carbon Dioxide 24 mmol/L (23-31); Chloride 89 mmol/L (98-107); Glucose 117 mg/dL (80-115); Sodium 125 mmol/L (136-145)
[2021-02-08] MEDS: Aspirin Chewable 81 MG TAB PO SCH (08:37)
[2021-02-08] MEDS: tiZANidine HCl 4 MG TAB PO SCH ×2 (08:37→21:21)
[2021-02-08] MEDS: Ferrous Sulfate 325 MG TAB PO SCH (08:38)
[2021-02-08] MEDS: Gabapentin 100 MG CAP PO SCH (08:38)
[2021-02-08] MEDS: Calcitriol 0.25 MCG CAP PO SCH (08:39)
[2021-02-08] MEDS: Folic Acid 1 MG TAB PO SCH (08:39)
[2021-02-08] MEDS: Lubiprostone 24 MCG CAP PO SCH (08:40)
[2021-02-08] MEDS: Docusate 100 MG CAP PO SCH ×2 (08:41→21:21)
[2021-02-08] MEDS: Sevelamer Carbonate 800 MG TAB PO SCH ×3 (08:41→16:27)
[2021-02-08] MEDS: cefTRIAXone\\ROCEPHIN 1 GM in Sodium Chloride 0.9% 100 ML IVPB SCH (08:42)
[2021-02-08] MEDS: Heparin 5,000 UNITS/ML VIAL SC SCH ×2 (08:45→21:24)
[2021-02-08] MEDS: hydrALAZINE 25 MG TAB PO SCH ×2 (13:39→21:22)
[2021-02-08 14:59] LABS: HBCM Index 0.06 S/CO (0-0.79); HBSAg Index 0.44 S/CO (0-0.99); Hep A IgM AB Non-Reactive (NonReactive); Hep A IgM S/CO 0.12 S/CO (0-0.79); Hep B Surf Ag Non-Reactive S/CO (NonReactive); Hep C IgG Ab Non-Reactive (NonReactive); Hepatitis B Core IgM Abs Non-Reactive (NonReactive)
[2021-02-08] MEDS: Amlodipine 10 MG TAB PO SCH (16:48)
[2021-02-08] MEDS ORDERED: Tuberculin PPD 0.1 ML VIAL I-DERMAL SCH (20:00)
[2021-02-08] MEDS: Gabapentin 300 MG CAP PO SCH (21:21)
[2021-02-08] MEDS: Simvastatin 10 MG TAB PO SCH (21:22)
[2021-02-09] MEDS: HYDROcodone/Acetaminophen 5/325 mg Tablet PO PRN ×3 (03:20→20:24)
[2021-02-09 04:58] LABS: #Eosinphils 0.3 thou/uL (0.0-0.7); #Monocytes 0.6 thou/uL (0.11-0.59); #Neutrophils 4.3 thou/uL (1.40-6.50); %Basophils 0.3 % (0.0-1.0); %Eosinophils 3.6 % (0.0-10.0); %Lymphocytes 27.5 % (21.0-51.0); %Monocytes 8.7 % (0.0-10.0); %Neutrophils 59.9 % (42.0-75.0); Hemoglobin 7.6 g/dL (14.0-18.0); Mean Corpuscular HGB CONC 33.2 g/dL (32.0-36.0); Mean Corpuscular Hemoglobin 30.1 pg (27.0-31.0); Mean Corpuscular Volume 90.4 fL (78.0-98.0); Mean Platelet Volume 6.5 fL (7.4-10.4); Platelet Count 225 thou/uL (130-400); RBC Distribution Width 14.7 % (11.5-14.5); Red Blood Cell (RBC) Count 2.52 mill/uL (4.70-6.10); White Blood Cell (WBC) Count 7.2 thou/uL (4.8-10.8)
[2021-02-09 05:21] LABS: Anion Gap 13 mmol/L (10-20); BUN (Urea Nitrogen) 25 mg/dL (8.4-25.7); Calc. Creatinine Clearance 24 mL/min (70-130); Carbon Dioxide 27 mmol/L (23-31); Chloride 97 mmol/L (98-107); Glucose 110 mg/dL (80-115); Potassium 3.9 mmol/L (3.5-5.1); Sodium 133 mmol/L (136-145)
[2021-02-09] MEDS ORDERED: Fleet Enema 133 ML BOT PR SCH (08:30)
[2021-02-09] MEDS: tiZANidine HCl 4 MG TAB PO SCH ×2 (09:33→20:17)
[2021-02-09] MEDS: Lubiprostone 24 MCG CAP PO SCH (09:33)
[2021-02-09] MEDS: Aspirin Chewable 81 MG TAB PO SCH (09:33)
[2021-02-09] MEDS: Ferrous Sulfate 325 MG TAB PO SCH (09:33)
[2021-02-09] MEDS: Sevelamer Carbonate 800 MG TAB PO SCH ×3 (09:33→18:27)
[2021-02-09] MEDS: Amlodipine 5 MG TAB PO SCH (09:34)
[2021-02-09] MEDS: Docusate 100 MG CAP PO SCH ×2 (09:34→20:17)
[2021-02-09] MEDS: Folic Acid 1 MG TAB PO SCH (09:35)
[2021-02-09] MEDS: hydrALAZINE 25 MG TAB PO SCH ×2 (09:35→20:18)
[2021-02-09] MEDS: Calcitriol 0.25 MCG CAP PO SCH (09:35)
[2021-02-09] MEDS: Gabapentin 100 MG CAP PO SCH (09:36)
[2021-02-09] MEDS: cefTRIAXone\\ROCEPHIN 1 GM in Sodium Chloride 0.9% 100 ML IVPB SCH (09:37)
[2021-02-09] MEDS: Heparin 5,000 UNITS/ML VIAL SC SCH ×2 (09:38→20:19)
[2021-02-09] MEDS ORDERED: Milk Of Magnesia 30 ML UDCUP PO SCH (15:00)
[2021-02-09] MEDS: Simvastatin 10 MG TAB PO SCH (20:17)
[2021-02-09] MEDS: Gabapentin 300 MG CAP PO SCH (20:17)
[2021-02-10] MEDS: HYDROcodone/Acetaminophen 5/325 mg Tablet PO PRN ×3 (04:10→18:02)
[2021-02-10 07:35] LABS: #Eosinphils 0.3 thou/uL (0.0-0.7); #Lymphocytes 1.8 thou/uL (1.20-3.40); #Monocytes 0.6 thou/uL (0.11-0.59); #Neutrophils 4.5 thou/uL (1.40-6.50); %Basophils 0.4 % (0.0-1.0); %Eosinophils 3.9 % (0.0-10.0); %Monocytes 7.7 % (0.0-10.0); %Neutrophils 63.1 % (42.0-75.0); Hemoglobin 7.5 g/dL (14.0-18.0); Mean Corpuscular HGB CONC 33.3 g/dL (32.0-36.0); Mean Corpuscular Hemoglobin 30.5 pg (27.0-31.0); Mean Corpuscular Volume 91.7 fL (78.0-98.0); Mean Platelet Volume 6.4 fL (7.4-10.4); Platelet Count 258 thou/uL (130-400); RBC Distribution Width 14.8 % (11.5-14.5); Red Blood Cell (RBC) Count 2.44 mill/uL (4.70-6.10); White Blood Cell (WBC) Count 7.2 thou/uL (4.8-10.8)
[2021-02-10 07:51] LABS: Carbon Dioxide 29 mmol/L (23-31); Chloride 98 mmol/L (98-107); Potassium 3.4 mmol/L (3.5-5.1); Sodium 137 mmol/L (136-145)
[2021-02-10 07:52] LABS: Anion Gap 13 mmol/L (10-20); BUN (Urea Nitrogen) 33 mg/dL (8.4-25.7); Calc. Creatinine Clearance 18 mL/min (70-130); Calcium 9.1 mg/dL (7.8-10.44); Glucose 107 mg/dL (80-115)
[2021-02-10] MEDS: READ PPD TEST SITE PO SCH (09:00)
[2021-02-10] MEDS: Sevelamer Carbonate 800 MG TAB PO SCH ×3 (13:18→18:03)
[2021-02-10] MEDS: cefTRIAXone\\ROCEPHIN 1 GM in Sodium Chloride 0.9% 100 ML IVPB SCH (13:18)
[2021-02-10] MEDS: Heparin 5,000 UNITS/ML VIAL SC SCH ×2 (13:19→20:30)
[2021-02-10] MEDS: Lubiprostone 24 MCG CAP PO SCH (13:20)
[2021-02-10] MEDS: Aspirin Chewable 81 MG TAB PO SCH (13:21)
[2021-02-10] MEDS: tiZANidine HCl 4 MG TAB PO SCH ×2 (13:21→20:30)
[2021-02-10] MEDS: Amlodipine 5 MG TAB PO SCH (13:21)
[2021-02-10] MEDS: Gabapentin 100 MG CAP PO SCH (13:22)
[2021-02-10] MEDS: Folic Acid 1 MG TAB PO SCH (13:23)
[2021-02-10] MEDS: Ferrous Sulfate 325 MG TAB PO SCH (13:23)
[2021-02-10] MEDS: hydrALAZINE 25 MG TAB PO SCH ×2 (13:23→20:31)
[2021-02-10] MEDS: Calcitriol 0.25 MCG CAP PO SCH (13:24)
[2021-02-10] MEDS: Docusate 100 MG CAP PO SCH ×2 (13:24→20:31)
[2021-02-10] MEDS: Gabapentin 300 MG CAP PO SCH (20:30)
[2021-02-10] MEDS: Simvastatin 10 MG TAB PO SCH (20:31)
[2021-02-10] MEDS: Ondansetron PF 4 MG/2 ML Vial IVP PRN (20:33)
[2021-02-10] MEDS: EPOETIN ALFA-EPBX (ESRD) 4,000 UNIT/ML VIAL SC SCH (20:34)
[2021-02-11] MEDS: HYDROcodone/Acetaminophen 5/325 mg Tablet PO PRN ×3 (06:34→16:07)
[2021-02-11 06:36] LABS: #Eosinphils 0.4 thou/uL (0.0-0.7); #Lymphocytes 2.1 thou/uL (1.20-3.40); #Monocytes 0.5 thou/uL (0.11-0.59); #Neutrophils 4.7 thou/uL (1.40-6.50); %Basophils 0.4 % (0.0-1.0); %Eosinophils 5.5 % (0.0-10.0); %Lymphocytes 27.2 % (21.0-51.0); %Monocytes 6.6 % (0.0-10.0); %Neutrophils 60.2 % (42.0-75.0); Hemoglobin 7.8 g/dL (14.0-18.0); Mean Corpuscular HGB CONC 31.5 g/dL (32.0-36.0); Mean Platelet Volume 6.4 fL (7.4-10.4); Platelet Count 276 thou/uL (130-400); RBC Distribution Width 14.8 % (11.5-14.5); Red Blood Cell (RBC) Count 2.67 mill/uL (4.70-6.10); White Blood Cell (WBC) Count 7.8 thou/uL (4.8-10.8)
[2021-02-11 06:54] LABS: Anion Gap 13 mmol/L (10-20); BUN (Urea Nitrogen) 24 mg/dL (8.4-25.7); Calc. Creatinine Clearance 23 mL/min (70-130); Calcium 9.2 mg/dL (7.8-10.44); Carbon Dioxide 29 mmol/L (23-31); Chloride 100 mmol/L (98-107); Glucose 104 mg/dL (80-115); Sodium 138 mmol/L (136-145)
[2021-02-11] MEDS: Aspirin Chewable 81 MG TAB PO SCH (09:12)
[2021-02-11] MEDS: Gabapentin 100 MG CAP PO SCH (09:12)
[2021-02-11] MEDS: Calcitriol 0.25 MCG CAP PO SCH (09:13)
[2021-02-11] MEDS: Amlodipine 5 MG TAB PO SCH (09:13)
[2021-02-11] MEDS: Docusate 100 MG CAP PO SCH ×2 (09:13→20:07)
[2021-02-11] MEDS: Ferrous Sulfate 325 MG TAB PO SCH (09:13)
[2021-02-11] MEDS: Lubiprostone 24 MCG CAP PO SCH (09:13)
[2021-02-11] MEDS: Folic Acid 1 MG TAB PO SCH (09:14)
[2021-02-11] MEDS: cefTRIAXone\\ROCEPHIN 1 GM in Sodium Chloride 0.9% 100 ML IVPB SCH (09:14)
[2021-02-11] MEDS: hydrALAZINE 25 MG TAB PO SCH ×2 (09:14→20:08)
[2021-02-11] MEDS: Sevelamer Carbonate 800 MG TAB PO SCH ×3 (09:14→18:10)
[2021-02-11] MEDS: Heparin 5,000 UNITS/ML VIAL SC SCH ×2 (09:14→20:07)
[2021-02-11] MEDS: tiZANidine HCl 4 MG TAB PO SCH ×2 (10:43→20:07)
[2021-02-11] MEDS: READ PPD TEST SITE PO SCH (10:44)
[2021-02-11 17:01] LABS: SARS-CoV-2 PCR by NAA Not Detected (NotDetected)
[2021-02-11] MEDS: Simvastatin 10 MG TAB PO SCH (20:07)
[2021-02-11] MEDS: Gabapentin 300 MG CAP PO SCH (20:08)
[2021-02-12] MEDS: HYDROcodone/Acetaminophen 5/325 mg Tablet PO PRN ×3 (02:09→22:25)
[2021-02-12] MEDS: Gabapentin 100 MG CAP PO SCH (08:11)
[2021-02-12] MEDS: cefTRIAXone\\ROCEPHIN 1 GM in Sodium Chloride 0.9% 100 ML IVPB SCH (08:11)
[2021-02-12] MEDS: tiZANidine HCl 4 MG TAB PO SCH ×2 (08:11→21:39)
[2021-02-12] MEDS: Sevelamer Carbonate 800 MG TAB PO SCH ×3 (08:12→17:22)
[2021-02-12] MEDS: Amlodipine 5 MG TAB PO SCH (08:12)
[2021-02-12] MEDS: Calcitriol 0.25 MCG CAP PO SCH (08:12)
[2021-02-12] MEDS: Aspirin Chewable 81 MG TAB PO SCH (08:12)
[2021-02-12] MEDS: Docusate 100 MG CAP PO SCH ×2 (08:12→21:39)
[2021-02-12] MEDS: Lubiprostone 24 MCG CAP PO SCH (08:12)
[2021-02-12] MEDS: Ferrous Sulfate 325 MG TAB PO SCH (08:12)
[2021-02-12] MEDS: Folic Acid 1 MG TAB PO SCH (08:12)
[2021-02-12] MEDS: Heparin 5,000 UNITS/ML VIAL SC SCH ×2 (08:13→21:45)
[2021-02-12] MEDS: hydrALAZINE 25 MG TAB PO SCH ×2 (09:13→21:40)
[2021-02-12] MEDS: Gabapentin 300 MG CAP PO SCH (21:40)
[2021-02-12] MEDS: Simvastatin 10 MG TAB PO SCH (22:23)
[2021-02-12] MEDS: Ondansetron PF 4 MG/2 ML Vial IVP PRN (22:58)
[2021-02-12 23:09] LABS: QuantiFERON-TB Gold Plus Negative (Negative)
[2021-02-13] MEDS: Ondansetron PF 4 MG/2 ML Vial IVP PRN (05:47)
[2021-02-13] MEDS: HYDROcodone/Acetaminophen 5/325 mg Tablet PO PRN ×2 (05:48→17:01)
[2021-02-13] MEDS: cefTRIAXone\\ROCEPHIN 1 GM in Sodium Chloride 0.9% 100 ML IVPB SCH (08:21)
[2021-02-13] MEDS: Sevelamer Carbonate 800 MG TAB PO SCH ×3 (08:21→17:01)
[2021-02-13] MEDS: Lubiprostone 24 MCG CAP PO SCH (08:21)
[2021-02-13] MEDS: Folic Acid 1 MG TAB PO SCH (08:22)
[2021-02-13] MEDS: tiZANidine HCl 4 MG TAB PO SCH ×2 (08:22→20:38)
[2021-02-13] MEDS: Docusate 100 MG CAP PO SCH ×2 (08:22→20:38)
[2021-02-13] MEDS: Amlodipine 5 MG TAB PO SCH (08:22)
[2021-02-13] MEDS: Aspirin Chewable 81 MG TAB PO SCH (08:22)
[2021-02-13] MEDS: hydrALAZINE 25 MG TAB PO SCH ×2 (08:22→20:36)
[2021-02-13] MEDS: Ferrous Sulfate 325 MG TAB PO SCH (08:22)
[2021-02-13] MEDS: Gabapentin 100 MG CAP PO SCH (08:23)
[2021-02-13] MEDS: Heparin 5,000 UNITS/ML VIAL SC SCH ×2 (08:23→20:39)
[2021-02-13] MEDS: Calcitriol 0.25 MCG CAP PO SCH (08:24)
[2021-02-13] MEDS: Simvastatin 10 MG TAB PO SCH (20:38)
[2021-02-13] MEDS: Gabapentin 300 MG CAP PO SCH (20:38)
[2021-02-14] MEDS: HYDROcodone/Acetaminophen 5/325 mg Tablet PO PRN (00:41)
[2021-02-14] MEDS: tiZANidine HCl 4 MG TAB PO SCH ×2 (09:04→20:28)
[2021-02-14] MEDS: Lubiprostone 24 MCG CAP PO SCH (09:04)
[2021-02-14] MEDS: Aspirin Chewable 81 MG TAB PO SCH (09:05)
[2021-02-14] MEDS: Amlodipine 5 MG TAB PO SCH (09:05)
[2021-02-14] MEDS: Ferrous Sulfate 325 MG TAB PO SCH (09:05)
[2021-02-14] MEDS: Docusate 100 MG CAP PO SCH ×2 (09:05→20:28)
[2021-02-14] MEDS: hydrALAZINE 25 MG TAB PO SCH ×2 (09:05→20:28)
[2021-02-14] MEDS: Sevelamer Carbonate 800 MG TAB PO SCH ×3 (09:05→18:16)
[2021-02-14] MEDS: Folic Acid 1 MG TAB PO SCH (09:06)
[2021-02-14] MEDS: Heparin 5,000 UNITS/ML VIAL SC SCH ×2 (09:06→20:29)
[2021-02-14] MEDS: Gabapentin 100 MG CAP PO SCH (09:06)
[2021-02-14] MEDS: cefTRIAXone\\ROCEPHIN 1 GM in Sodium Chloride 0.9% 100 ML IVPB SCH (09:07)
[2021-02-14] MEDS: Calcitriol 0.25 MCG CAP PO SCH (09:07)
[2021-02-14] MEDS: Acetaminophen/Codeine 30-300mg Tablet PO PRN (18:34)
[2021-02-14] MEDS: Gabapentin 300 MG CAP PO SCH (20:28)
[2021-02-14] MEDS: Simvastatin 10 MG TAB PO SCH (20:28)
[2021-02-14] MEDS: Ondansetron PF 4 MG/2 ML Vial IVP PRN (22:19)
[2021-02-15] MEDS: Acetaminophen/Codeine 30-300mg Tablet PO PRN ×3 (02:10→20:39)
[2021-02-15] MEDS: Lubiprostone 24 MCG CAP PO SCH (08:56)
[2021-02-15] MEDS: Folic Acid 1 MG TAB PO SCH (08:59)
[2021-02-15] MEDS: Sevelamer Carbonate 800 MG TAB PO SCH ×3 (08:59→18:24)
[2021-02-15] MEDS: Calcitriol 0.25 MCG CAP PO SCH (08:59)
[2021-02-15] MEDS: Amlodipine 5 MG TAB PO SCH (08:59)
[2021-02-15] MEDS: tiZANidine HCl 4 MG TAB PO SCH ×2 (08:59→20:39)
[2021-02-15] MEDS: Gabapentin 100 MG CAP PO SCH (08:59)
[2021-02-15] MEDS: Aspirin Chewable 81 MG TAB PO SCH (08:59)
[2021-02-15] MEDS: Ferrous Sulfate 325 MG TAB PO SCH (08:59)
[2021-02-15] MEDS: hydrALAZINE 25 MG TAB PO SCH ×2 (08:59→23:26)
[2021-02-15] MEDS: Docusate 100 MG CAP PO SCH ×2 (08:59→20:39)
[2021-02-15] MEDS: Heparin 5,000 UNITS/ML VIAL SC SCH ×2 (09:00→20:40)
[2021-02-15] MEDS: Gabapentin 300 MG CAP PO SCH (20:39)
[2021-02-15] MEDS: rOPINIRole HCl 1 MG TAB PO SCH (20:40)
[2021-02-15] MEDS: Simvastatin 10 MG TAB PO SCH (20:41)
[2021-02-15] MEDS: Amlodipine 10 MG TAB PO SCH (20:42)
[2021-02-16] MEDS: Acetaminophen/Codeine 30-300mg Tablet PO PRN (05:09)
[2021-02-16 06:02] LABS: #Eosinphils 0.3 thou/uL (0.0-0.7); #Lymphocytes 2.1 thou/uL (1.20-3.40); #Monocytes 0.7 thou/uL (0.11-0.59); #Neutrophils 5.3 thou/uL (1.40-6.50); %Basophils 0.3 % (0.0-1.0); %Eosinophils 3.3 % (0.0-10.0); %Lymphocytes 24.8 % (21.0-51.0); %Monocytes 7.9 % (0.0-10.0); %Neutrophils 63.7 % (42.0-75.0); Hemoglobin 7.7 g/dL (14.0-18.0); Mean Corpuscular HGB CONC 32.9 g/dL (32.0-36.0); Mean Corpuscular Hemoglobin 30.4 pg (27.0-31.0); Mean Corpuscular Volume 92.6 fL (78.0-98.0); Mean Platelet Volume 6.4 fL (7.4-10.4); Platelet Count 285 thou/uL (130-400); RBC Distribution Width 15.2 % (11.5-14.5); Red Blood Cell (RBC) Count 2.54 mill/uL (4.70-6.10); White Blood Cell (WBC) Count 8.3 thou/uL (4.8-10.8)
[2021-02-16 06:16] LABS: Anion Gap 17 mmol/L (10-20); BUN (Urea Nitrogen) 25 mg/dL (8.4-25.7); Calc. Creatinine Clearance 24 mL/min (70-130); Carbon Dioxide 24 mmol/L (23-31); Chloride 103 mmol/L (98-107); Glucose 94 mg/dL (80-115); Potassium 4.4 mmol/L (3.5-5.1); Sodium 140 mmol/L (136-145)
[2021-02-16] MEDS: Ferrous Sulfate 325 MG TAB PO SCH (08:30)
[2021-02-16] MEDS: hydrALAZINE 25 MG TAB PO SCH ×2 (08:30→20:19)
[2021-02-16] MEDS: Finasteride 5 MG TAB PO SCH (08:30)
[2021-02-16] MEDS: Sevelamer Carbonate 800 MG TAB PO SCH ×3 (08:30→18:32)
[2021-02-16] MEDS: Calcitriol 0.25 MCG CAP PO SCH (08:31)
[2021-02-16] MEDS: Aspirin Chewable 81 MG TAB PO SCH (08:32)
[2021-02-16] MEDS: tiZANidine HCl 4 MG TAB PO SCH ×2 (08:32→20:14)
[2021-02-16] MEDS: rOPINIRole HCl 1 MG TAB PO SCH ×3 (08:32→20:13)
[2021-02-16] MEDS: Gabapentin 100 MG CAP PO SCH (08:32)
[2021-02-16] MEDS: Docusate 100 MG CAP PO SCH ×2 (08:33→20:15)
[2021-02-16] MEDS: Lubiprostone 24 MCG CAP PO SCH (08:34)
[2021-02-16] MEDS: Heparin 5,000 UNITS/ML VIAL SC SCH ×2 (08:34→20:15)
[2021-02-16] MEDS: Folic Acid 1 MG TAB PO SCH (08:34)
[2021-02-16] MEDS ORDERED: Aspirin 325 mg Enteric Coated Tablet PO SCH (09:00)
[2021-02-16] MEDS: Fluticasone Propionate Nasal Spray 16 gm Bottle NASAL SCH (11:08)
[2021-02-16] MEDS: Amlodipine 10 MG TAB PO SCH (11:12)
[2021-02-16] MEDS: Amlodipine 5 MG TAB PO SCH (11:12)
[2021-02-16] MEDS: Simvastatin 10 MG TAB PO SCH (20:14)
[2021-02-16] MEDS: Gabapentin 300 MG CAP PO SCH (20:15)
[2021-02-17] MEDS: Acetaminophen/Codeine 30-300mg Tablet PO PRN ×3 (00:59→21:03)
[2021-02-17] MEDS: Ondansetron PF 4 MG/2 ML Vial IVP PRN ×3 (00:59→15:18)
[2021-02-17] MEDS: Ferrous Sulfate 325 MG TAB PO SCH (08:27)
[2021-02-17] MEDS: Amlodipine 5 MG TAB PO SCH (08:27)
[2021-02-17] MEDS: Folic Acid 1 MG TAB PO SCH (08:28)
[2021-02-17] MEDS: Docusate 100 MG CAP PO SCH ×2 (08:28→20:59)
[2021-02-17] MEDS: Finasteride 5 MG TAB PO SCH (08:28)
[2021-02-17] MEDS: Sevelamer Carbonate 800 MG TAB PO SCH ×3 (08:28→17:19)
[2021-02-17] MEDS: Calcitriol 0.25 MCG CAP PO SCH (08:28)
[2021-02-17] MEDS: tiZANidine HCl 4 MG TAB PO SCH ×2 (08:29→21:01)
[2021-02-17] MEDS: Aspirin 81 mg Enteric Coated Tablet PO SCH (08:29)
[2021-02-17] MEDS: rOPINIRole HCl 1 MG TAB PO SCH ×3 (08:30→21:00)
[2021-02-17] MEDS: Lubiprostone 24 MCG CAP PO SCH (08:30)
[2021-02-17] MEDS: Gabapentin 100 MG CAP PO SCH (08:30)
[2021-02-17] MEDS: hydrALAZINE 25 MG TAB PO SCH ×2 (08:30→21:00)
[2021-02-17] MEDS: Heparin 5,000 UNITS/ML VIAL SC SCH ×2 (08:32→21:00)
[2021-02-17] MEDS: Fluticasone Propionate Nasal Spray 16 gm Bottle NASAL SCH (09:40)
[2021-02-17] MEDS ORDERED: Metoclopramide HCl 10 MG TAB PO PRN (17:36)
[2021-02-17] MEDS ORDERED: Milk Of Magnesia 30 ML UDCUP PO SCH (17:45)
[2021-02-17] MEDS: EPOETIN ALFA-EPBX (ESRD) 4,000 UNIT/ML VIAL SC SCH (17:52)
[2021-02-17] MEDS: Gabapentin 300 MG CAP PO SCH (20:59)
[2021-02-17] MEDS: Simvastatin 10 MG TAB PO SCH (21:01)
[2021-02-18] MEDS: Sevelamer Carbonate 800 MG TAB PO SCH ×3 (08:25→17:54)
[2021-02-18] MEDS: rOPINIRole HCl 1 MG TAB PO SCH ×3 (08:25→20:58)
[2021-02-18] MEDS: Lubiprostone 24 MCG CAP PO SCH (08:25)
[2021-02-18] MEDS: Aspirin 81 mg Enteric Coated Tablet PO SCH (08:25)
[2021-02-18] MEDS: tiZANidine HCl 4 MG TAB PO SCH ×2 (08:25→20:57)
[2021-02-18] MEDS: Docusate 100 MG CAP PO SCH ×2 (08:26→20:58)
[2021-02-18] MEDS: Folic Acid 1 MG TAB PO SCH (08:26)
[2021-02-18] MEDS: Amlodipine 5 MG TAB PO SCH (08:27)
[2021-02-18] MEDS: Calcitriol 0.25 MCG CAP PO SCH (08:27)
[2021-02-18] MEDS: Finasteride 5 MG TAB PO SCH (08:32)
[2021-02-18] MEDS: Ferrous Sulfate 325 MG TAB PO SCH (08:32)
[2021-02-18] MEDS: Gabapentin 100 MG CAP PO SCH (08:33)
[2021-02-18] MEDS: hydrALAZINE 25 MG TAB PO SCH ×2 (08:34→20:58)
[2021-02-18] MEDS: Heparin 5,000 UNITS/ML VIAL SC SCH ×2 (08:34→20:57)
[2021-02-18] MEDS: Fluticasone Propionate Nasal Spray 16 gm Bottle NASAL SCH (08:36)
[2021-02-18] MEDS: Bupropion 150 MG XL TAB PO SCH (09:21)
[2021-02-18] MEDS: Gabapentin 300 MG CAP PO SCH (20:57)
[2021-02-18] MEDS: Simvastatin 10 MG TAB PO SCH (20:59)
[2021-02-19] MEDS: Acetaminophen/Codeine 30-300mg Tablet PO PRN ×2 (02:41→21:00)
[2021-02-19] MEDS: Sevelamer Carbonate 800 MG TAB PO SCH ×3 (10:09→17:10)
[2021-02-19] MEDS: Amlodipine 5 MG TAB PO SCH (13:24)
[2021-02-19] MEDS: rOPINIRole HCl 1 MG TAB PO SCH ×3 (13:25→21:18)
[2021-02-19] MEDS: Bupropion 150 MG XL TAB PO SCH (13:25)
[2021-02-19] MEDS: hydrALAZINE 25 MG TAB PO SCH ×2 (13:25→21:02)
[2021-02-19] MEDS: Gabapentin 100 MG CAP PO SCH (13:26)
[2021-02-19] MEDS: Aspirin 81 mg Enteric Coated Tablet PO SCH (13:26)
[2021-02-19] MEDS: tiZANidine HCl 4 MG TAB PO SCH ×2 (13:26→21:01)
[2021-02-19] MEDS: Ferrous Sulfate 325 MG TAB PO SCH (13:27)
[2021-02-19] MEDS: Folic Acid 1 MG TAB PO SCH (13:27)
[2021-02-19] MEDS: Docusate 100 MG CAP PO SCH ×2 (13:27→21:03)
[2021-02-19] MEDS: Fluticasone Propionate Nasal Spray 16 gm Bottle NASAL SCH (13:27)
[2021-02-19] MEDS: Calcitriol 0.25 MCG CAP PO SCH (13:27)
[2021-02-19] MEDS: Finasteride 5 MG TAB PO SCH (13:27)
[2021-02-19] MEDS: Lubiprostone 24 MCG CAP PO SCH (13:27)
[2021-02-19] MEDS: Heparin 5,000 UNITS/ML VIAL SC SCH ×2 (13:28→21:03)
[2021-02-19 13:30] LABS: SARS-CoV-2 PCR by NAA Not Detected (NotDetected)
[2021-02-19 18:31] LABS: #Eosinphils 0.2 thou/uL (0.0-0.7); #Lymphocytes 1.7 thou/uL (1.20-3.40); #Monocytes 0.4 thou/uL (0.11-0.59); #Neutrophils 6.5 thou/uL (1.40-6.50); %Basophils 0.3 % (0.0-1.0); %Eosinophils 2.7 % (0.0-10.0); %Lymphocytes 19.4 % (21.0-51.0); %Monocytes 4.9 % (0.0-10.0); %Neutrophils 72.7 % (42.0-75.0); Hemoglobin 8.4 g/dL (14.0-18.0); Mean Corpuscular HGB CONC 33.3 g/dL (32.0-36.0); Mean Corpuscular Hemoglobin 30.8 pg (27.0-31.0); Mean Corpuscular Volume 92.7 fL (78.0-98.0); Mean Platelet Volume 6.6 fL (7.4-10.4); Platelet Count 284 thou/uL (130-400); Red Blood Cell (RBC) Count 2.72 mill/uL (4.70-6.10); White Blood Cell (WBC) Count 8.9 thou/uL (4.8-10.8)
[2021-02-19 18:51] LABS: Anion Gap 15 mmol/L (10-20); BUN (Urea Nitrogen) 19 mg/dL (8.4-25.7); Calc. Creatinine Clearance 30 mL/min (70-130); Carbon Dioxide 28 mmol/L (23-31); Chloride 100 mmol/L (98-107); Glucose 206 mg/dL (80-115); Potassium 3.9 mmol/L (3.5-5.1); Sodium 139 mmol/L (136-145)
[2021-02-19] MEDS: Simvastatin 10 MG TAB PO SCH (21:01)
[2021-02-19] MEDS: Gabapentin 300 MG CAP PO SCH (21:02)
[2021-02-20 07:44] LABS: #Eosinphils 0.2 thou/uL (0.0-0.7); #Lymphocytes 2.1 thou/uL (1.20-3.40); #Monocytes 0.6 thou/uL (0.11-0.59); #Neutrophils 4.1 thou/uL (1.40-6.50); %Basophils 0.4 % (0.0-1.0); %Eosinophils 3.3 % (0.0-10.0); %Lymphocytes 30.3 % (21.0-51.0); Hemoglobin 7.6 g/dL (14.0-18.0); Mean Corpuscular HGB CONC 32.6 g/dL (32.0-36.0); Mean Corpuscular Hemoglobin 30.3 pg (27.0-31.0); Mean Corpuscular Volume 93.2 fL (78.0-98.0); Mean Platelet Volume 6.8 fL (7.4-10.4); Platelet Count 283 thou/uL (130-400); RBC Distribution Width 14.9 % (11.5-14.5); Red Blood Cell (RBC) Count 2.49 mill/uL (4.70-6.10)
[2021-02-20 08:00] LABS: Anion Gap 11 mmol/L (10-20); BUN (Urea Nitrogen) 25 mg/dL (8.4-25.7); Calc. Creatinine Clearance 25 mL/min (70-130); Carbon Dioxide 31 mmol/L (23-31); Chloride 100 mmol/L (98-107); Glucose 94 mg/dL (80-115); Potassium 4.1 mmol/L (3.5-5.1); Sodium 138 mmol/L (136-145)
[2021-02-20] MEDS: Lubiprostone 24 MCG CAP PO SCH (09:26)
[2021-02-20] MEDS: Ferrous Sulfate 325 MG TAB PO SCH (09:27)
[2021-02-20] MEDS: Aspirin 81 mg Enteric Coated Tablet PO SCH (09:27)
[2021-02-20] MEDS: Sevelamer Carbonate 800 MG TAB PO SCH ×3 (09:27→18:24)
[2021-02-20] MEDS: Gabapentin 100 MG CAP PO SCH (09:28)
[2021-02-20] MEDS: hydrALAZINE 25 MG TAB PO SCH ×2 (09:29→20:37)
[2021-02-20] MEDS: tiZANidine HCl 4 MG TAB PO SCH ×2 (09:30→20:35)
[2021-02-20] MEDS: Calcitriol 0.25 MCG CAP PO SCH (09:30)
[2021-02-20] MEDS: Folic Acid 1 MG TAB PO SCH (09:30)
[2021-02-20] MEDS: Finasteride 5 MG TAB PO SCH (09:30)
[2021-02-20] MEDS: Docusate 100 MG CAP PO SCH ×2 (09:30→20:35)
[2021-02-20] MEDS: Heparin 5,000 UNITS/ML VIAL SC SCH ×2 (09:30→20:35)
[2021-02-20] MEDS: Fluticasone Propionate Nasal Spray 16 gm Bottle NASAL SCH (09:36)
[2021-02-20] MEDS: Bupropion 150 MG XL TAB PO SCH (09:43)
[2021-02-20] MEDS: rOPINIRole HCl 1 MG TAB PO SCH ×3 (12:07→20:35)
[2021-02-20] MEDS: Gabapentin 300 MG CAP PO SCH (20:34)
[2021-02-20] MEDS: Simvastatin 10 MG TAB PO SCH (20:35)
[2021-02-20] MEDS: Acetaminophen/Codeine 30-300mg Tablet PO PRN (20:35)
[2021-02-21] MEDS: Acetaminophen/Codeine 30-300mg Tablet PO PRN ×2 (07:06→20:57)
[2021-02-21] MEDS: tiZANidine HCl 4 MG TAB PO SCH ×2 (08:36→20:57)
[2021-02-21] MEDS: hydrALAZINE 25 MG TAB PO SCH ×2 (08:36→20:55)
[2021-02-21] MEDS: Folic Acid 1 MG TAB PO SCH (08:36)
[2021-02-21] MEDS: Lubiprostone 24 MCG CAP PO SCH (08:37)
[2021-02-21] MEDS: Finasteride 5 MG TAB PO SCH (08:37)
[2021-02-21] MEDS: Aspirin 81 mg Enteric Coated Tablet PO SCH (08:37)
[2021-02-21] MEDS: Docusate 100 MG CAP PO SCH ×2 (08:37→20:54)
[2021-02-21] MEDS: Calcitriol 0.25 MCG CAP PO SCH (08:37)
[2021-02-21] MEDS: Sevelamer Carbonate 800 MG TAB PO SCH ×3 (08:37→18:43)
[2021-02-21] MEDS: Ferrous Sulfate 325 MG TAB PO SCH (08:38)
[2021-02-21] MEDS: Gabapentin 100 MG CAP PO SCH (08:38)
[2021-02-21] MEDS: Heparin 5,000 UNITS/ML VIAL SC SCH ×2 (08:38→20:55)
[2021-02-21] MEDS: Fluticasone Propionate Nasal Spray 16 gm Bottle NASAL SCH (08:40)
[2021-02-21] MEDS: Bupropion 150 MG XL TAB PO SCH (08:51)
[2021-02-21] MEDS: rOPINIRole HCl 1 MG TAB PO SCH ×3 (09:53→20:55)
[2021-02-21] MEDS: Gabapentin 300 MG CAP PO SCH (20:54)
[2021-02-21] MEDS: Simvastatin 10 MG TAB PO SCH (20:56)
[2021-02-21] MEDS ORDERED: Amlodipine 5 MG TAB PO SCH (21:00)
[2021-02-22] MEDS: Acetaminophen/Codeine 30-300mg Tablet PO PRN (03:48)
[2021-02-22] MEDS: Ondansetron PF 4 MG/2 ML Vial IVP PRN (03:48)
[2021-02-22] MEDS: Ferrous Sulfate 325 MG TAB PO SCH (14:33)
[2021-02-22] MEDS: Calcitriol 0.25 MCG CAP PO SCH (14:34)
[2021-02-22] MEDS: Lubiprostone 24 MCG CAP PO SCH (14:34)
[2021-02-22] MEDS: Sevelamer Carbonate 800 MG TAB PO SCH ×3 (14:34→17:54)
[2021-02-22] MEDS: Finasteride 5 MG TAB PO SCH (14:35)
[2021-02-22] MEDS: Gabapentin 100 MG CAP PO SCH (14:35)
[2021-02-22] MEDS: Docusate 100 MG CAP PO SCH ×2 (14:36→20:23)
[2021-02-22] MEDS: tiZANidine HCl 4 MG TAB PO SCH ×2 (14:36→20:21)
[2021-02-22] MEDS: Folic Acid 1 MG TAB PO SCH (14:36)
[2021-02-22] MEDS: Aspirin 81 mg Enteric Coated Tablet PO SCH (14:36)
[2021-02-22] MEDS: Heparin 5,000 UNITS/ML VIAL SC SCH ×2 (14:37→20:23)
[2021-02-22] MEDS: Fluticasone Propionate Nasal Spray 16 gm Bottle NASAL SCH (14:37)
[2021-02-22] MEDS: hydrALAZINE 25 MG TAB PO SCH ×2 (14:42→20:16)
[2021-02-22] MEDS: rOPINIRole HCl 1 MG TAB PO SCH ×3 (14:51→20:21)
[2021-02-22] MEDS: Bupropion 150 MG XL TAB PO SCH (14:56)
[2021-02-22] MEDS: Amlodipine 5 MG TAB PO SCH (20:16)
[2021-02-22] MEDS: Gabapentin 300 MG CAP PO SCH (20:21)
[2021-02-22] MEDS: Simvastatin 10 MG TAB PO SCH (20:23)
[2021-02-23] MEDS: Acetaminophen/Codeine 30-300mg Tablet PO PRN ×2 (04:01→16:03)
[2021-02-23] MEDS: rOPINIRole HCl 1 MG TAB PO SCH ×3 (08:41→20:31)
[2021-02-23] MEDS: tiZANidine HCl 4 MG TAB PO SCH ×2 (08:42→20:29)
[2021-02-23] MEDS: Calcitriol 0.25 MCG CAP PO SCH (08:43)
[2021-02-23] MEDS: Bupropion 150 MG XL TAB PO SCH (08:43)
[2021-02-23] MEDS: Folic Acid 1 MG TAB PO SCH (08:44)
[2021-02-23] MEDS: Docusate 100 MG CAP PO SCH ×2 (08:44→20:29)
[2021-02-23] MEDS: Finasteride 5 MG TAB PO SCH (08:44)
[2021-02-23] MEDS: hydrALAZINE 25 MG TAB PO SCH ×2 (08:45→20:29)
[2021-02-23] MEDS: Aspirin 81 mg Enteric Coated Tablet PO SCH (08:46)
[2021-02-23] MEDS: Ferrous Sulfate 325 MG TAB PO SCH (08:47)
[2021-02-23] MEDS: Lubiprostone 24 MCG CAP PO SCH (08:47)
[2021-02-23] MEDS: Sevelamer Carbonate 800 MG TAB PO SCH ×3 (08:48→16:03)
[2021-02-23] MEDS: Gabapentin 100 MG CAP PO SCH (08:49)
[2021-02-23] MEDS: Heparin 5,000 UNITS/ML VIAL SC SCH ×2 (08:52→20:32)
[2021-02-23] MEDS: Fluticasone Propionate Nasal Spray 16 gm Bottle NASAL SCH (18:35)
[2021-02-23] MEDS: Ondansetron PF 4 MG/2 ML Vial IVP PRN (20:25)
[2021-02-23] MEDS: Gabapentin 300 MG CAP PO SCH (20:29)
[2021-02-23] MEDS: Amlodipine 5 MG TAB PO SCH (20:30)
[2021-02-23] MEDS: Simvastatin 10 MG TAB PO SCH (20:30)
[2021-02-24] MEDS: Acetaminophen/Codeine 30-300mg Tablet PO PRN ×2 (06:12→13:36)
[2021-02-24 08:01] VITALS: TEMP 98.7
[2021-02-24] MEDS: Sevelamer Carbonate 800 MG TAB PO SCH (13:29)
[2021-02-24] MEDS: Aspirin 81 mg Enteric Coated Tablet PO SCH (13:29)
[2021-02-24] MEDS: Finasteride 5 MG TAB PO SCH (13:30)
[2021-02-24] MEDS: Gabapentin 100 MG CAP PO SCH (13:30)
[2021-02-24] MEDS: hydrALAZINE 25 MG TAB PO SCH (13:31)
[2021-02-24] MEDS: rOPINIRole HCl 1 MG TAB PO SCH (13:32)
[2021-02-24 13:33] VITALS: BP 180/68
[2021-02-24] MEDS: Folic Acid 1 MG TAB PO SCH (13:37)
== END 2021-02-24 15:32 | disposition home health service (06) | DRG 682 ==
LOC: ERS 10:58 → ERHOLD 14:52 → T4-B 19:46 → 2NO 02-07 17:17 → SJJU 02-10 00:07
PROVIDERS: ADMIT Specialist; ATTEND Specialist
PROC: 5A1D70Z Performance of Urinary Filtration, Intermittent, Less than 6 Hours Per Day (ICD-10-PCS; principal; 2021-02-03)
PROC: B51WYZZ Fluoroscopy of Dialysis Shunt/Fistula using Other Contrast (ICD-10-PCS; 2021-02-04)
PROC: B51M1ZZ Fluoroscopy of Right Upper Extremity Veins using Low Osmolar Contrast (ICD-10-PCS; 2021-02-04)
DX: N17.9 Acute kidney failure, unspecified (principal); G93.41 Metabolic encephalopathy; N39.0 Urinary tract infection, site not specified; E87.1 Hypo-osmolality and hyponatremia; I69.951 Hemiplegia and hemiparesis following unspecified cerebrovascular disease affecting right dominant side; N18.6 End stage renal disease; Z20.822 Contact with and (suspected) exposure to COVID-19; F32.9 Major depressive disorder, single episode, unspecified; J43.9 Emphysema, unspecified; F51.04 Psychophysiologic insomnia; M54.5 Low back pain; G89.29 Other chronic pain; D63.1 Anemia in chronic kidney disease; E11.22 Type 2 diabetes mellitus with diabetic chronic kidney disease; E78.5 Hyperlipidemia, unspecified; I10 Essential (primary) hypertension; E78.00 Pure hypercholesterolemia, unspecified; Z79.82 Long term (current) use of aspirin; Z79.899 Other long term (current) drug therapy; Z91.19 Patient's noncompliance with other medical treatment and regimen; Z91.15 Patient's noncompliance with renal dialysis; Z79.84 Long term (current) use of oral hypoglycemic drugs; Z99.2 Dependence on renal dialysis; R00.1 Bradycardia, unspecified
CPT/HCPCS: 36415; 36416; 36901; 71045; 76937; 80048; 80053; 80061; 80074; 81003; 81015; 83036; 83605; 83735; 84100; 84443; 84484; 85025; 86140; 86480; 86580; 87040; 87077; 87086; 87340; 90935; 93005; 93010; 93306; G0257; J0696; J1644; J2405; J3490; Q5105; U0002; U0003; U0005

== ENCOUNTER 2021-02-26 07:31 | Emergency (ER) | payer MEDICARE ==
[2021-02-26 08:18] LABS: #Eosinphils 0.4 thou/uL (0.0-0.7); #Monocytes 0.9 thou/uL (0.11-0.59); #Neutrophils 8.8 thou/uL (1.40-6.50); %Basophils 0.4 % (0.0-1.0); %Eosinophils 3.2 % (0.0-10.0); %Lymphocytes 16.7 % (21.0-51.0); %Monocytes 7.3 % (0.0-10.0); %Neutrophils 72.5 % (42.0-75.0); Hemoglobin 9.2 g/dL (14.0-18.0); Mean Corpuscular HGB CONC 31.2 g/dL (32.0-36.0); Mean Platelet Volume 6.6 fL (7.4-10.4); Platelet Count 396 thou/uL (130-400); RBC Distribution Width 15.2 % (11.5-14.5); Red Blood Cell (RBC) Count 3.07 mill/uL (4.70-6.10); White Blood Cell (WBC) Count 12.1 thou/uL (4.8-10.8)
[2021-02-26 08:43] LABS: Albumin 4.1 g/dL (3.4-4.8)
[2021-02-26 08:45] LABS: Calcium 9.9 mg/dL (7.8-10.44); Chloride 102 mmol/L (98-107); Potassium 3.6 mmol/L (3.5-5.1); Sodium 141 mmol/L (136-145)
[2021-02-26 08:46] LABS: Globulin 3.5 g/dL (2.4-3.5); Glucose 148 mg/dL (80-115); Protein, Total 7.6 g/dL (5.8-8.1)
[2021-02-26 08:47] LABS: Carbon Dioxide 26 mmol/L (23-31)
[2021-02-26 08:48] LABS: Anion Gap 17 mmol/L (10-20); Bilirubin, Total 0.4 mg/dL (0.2-1.2)
[2021-02-26 08:49] LABS: Alkaline Phosphatase 91 U/L (40-110); Calc. Creatinine Clearance 0 mL/min (70-130)
[2021-02-26 08:50] LABS: BUN (Urea Nitrogen) 31 mg/dL (8.4-25.7)
[2021-02-26 08:51] LABS: AST (SGOT) 11 U/L (5-34)
[2021-02-26 08:52] LABS: ALT (SGPT) 8 U/L (8-55)
== END 2021-02-26 10:00 | disposition home or self-care (01) ==
LOC: ERS 07:31
DX: I12.0 Hypertensive chronic kidney disease with stage 5 chronic kidney disease or end stage renal disease (principal); E11.22 Type 2 diabetes mellitus with diabetic chronic kidney disease; N18.6 End stage renal disease; G89.29 Other chronic pain; M54.9 Dorsalgia, unspecified; Z86.73 Personal history of transient ischemic attack (TIA), and cerebral infarction without residual deficits; Z99.2 Dependence on renal dialysis
CPT/HCPCS: 36415; 80053; 85025; 93005

== ENCOUNTER 2021-03-01 07:41 | Emergency (ER) | payer MEDICARE ==
[2021-03-01 08:45] LABS: #Eosinphils 0.5 thou/uL (0.0-0.7); #Lymphocytes 2.4 thou/uL (1.20-3.40); #Monocytes 0.7 thou/uL (0.11-0.59); #Neutrophils 7.7 thou/uL (1.40-6.50); %Basophils 0.1 % (0.0-1.0); %Eosinophils 4.5 % (0.0-10.0); %Lymphocytes 21.4 % (21.0-51.0); %Monocytes 6.5 % (0.0-10.0); %Neutrophils 67.5 % (42.0-75.0); Mean Corpuscular HGB CONC 31.5 g/dL (32.0-36.0); Mean Corpuscular Hemoglobin 29.9 pg (27.0-31.0); Mean Corpuscular Volume 94.9 fL (78.0-98.0); Mean Platelet Volume 6.7 fL (7.4-10.4); Platelet Count 318 thou/uL (130-400); RBC Distribution Width 14.6 % (11.5-14.5); White Blood Cell (WBC) Count 11.4 thou/uL (4.8-10.8)
[2021-03-01 08:53] LABS: Phosphorus 3.9 mg/dL (2.3-4.7)
[2021-03-01 09:05] LABS: ALT (SGPT) Less than 7 U/L (8-55); AST (SGOT) 7 U/L (5-34); Albumin 3.7 g/dL (3.4-4.8); Alkaline Phosphatase 92 U/L (40-110); Anion Gap 17 mmol/L (10-20); BUN (Urea Nitrogen) 52 mg/dL (8.4-25.7); Bilirubin, Total 0.4 mg/dL (0.2-1.2); Calc. Creatinine Clearance 0 mL/min (70-130); Calcium 9.3 mg/dL (7.8-10.44); Carbon Dioxide 19 mmol/L (23-31); Chloride 107 mmol/L (98-107); Globulin 3.3 g/dL (2.4-3.5); Glucose 121 mg/dL (80-115); Magnesium 3.1 mg/dL (1.6-2.6); Sodium 139 mmol/L (136-145)
== END 2021-03-01 11:51 | disposition home or self-care (01) ==
LOC: ERS 07:41
DX: N19 Unspecified kidney failure (principal); E11.9 Type 2 diabetes mellitus without complications; I10 Essential (primary) hypertension; Z86.73 Personal history of transient ischemic attack (TIA), and cerebral infarction without residual deficits; Z99.2 Dependence on renal dialysis
CPT/HCPCS: 36415; 80053; 83735; 84100; 85025; 99283

== ENCOUNTER 2021-03-14 06:20 | Emergency (ER) | payer MEDICARE ==
[2021-03-14 07:44] LABS: #Eosinphils 0.5 thou/uL (0.0-0.7); #Lymphocytes 1.8 thou/uL (1.20-3.40); #Monocytes 0.7 thou/uL (0.11-0.59); #Neutrophils 8.1 thou/uL (1.40-6.50); %Basophils 0.1 % (0.0-1.0); %Eosinophils 4.7 % (0.0-10.0); %Lymphocytes 16.2 % (21.0-51.0); %Monocytes 6.2 % (0.0-10.0); %Neutrophils 72.8 % (42.0-75.0); Hemoglobin 7.8 g/dL (14.0-18.0); Mean Corpuscular HGB CONC 32.9 g/dL (32.0-36.0); Mean Corpuscular Hemoglobin 29.9 pg (27.0-31.0); Mean Corpuscular Volume 90.7 fL (78.0-98.0); Mean Platelet Volume 6.2 fL (7.4-10.4); Platelet Count 302 thou/uL (130-400); RBC Distribution Width 14.2 % (11.5-14.5); Red Blood Cell (RBC) Count 2.62 mill/uL (4.70-6.10); White Blood Cell (WBC) Count 11.1 thou/uL (4.8-10.8)
[2021-03-14 07:47] LABS: ALT (SGPT) Less than 7 U/L (8-55); AST (SGOT) 8 U/L (5-34); Albumin 4.1 g/dL (3.4-4.8); Alkaline Phosphatase 92 U/L (40-110); Anion Gap 17 mmol/L (10-20); BUN (Urea Nitrogen) 69 mg/dL (8.4-25.7); Bilirubin, Total 0.4 mg/dL (0.2-1.2); Calc. Creatinine Clearance 0 mL/min (70-130); Calcium 9.5 mg/dL (7.8-10.44); Carbon Dioxide 16 mmol/L (23-31); Chloride 111 mmol/L (98-107); Globulin 3.3 g/dL (2.4-3.5); Glucose 122 mg/dL (80-115); Potassium 3.9 mmol/L (3.5-5.1); Protein, Total 7.4 g/dL (5.8-8.1); Sodium 140 mmol/L (136-145)
== END 2021-03-14 08:24 | disposition home or self-care (01) ==
LOC: ERS 06:20
DX: I12.0 Hypertensive chronic kidney disease with stage 5 chronic kidney disease or end stage renal disease (principal); E11.22 Type 2 diabetes mellitus with diabetic chronic kidney disease; N18.6 End stage renal disease; Z99.2 Dependence on renal dialysis; Z86.73 Personal history of transient ischemic attack (TIA), and cerebral infarction without residual deficits
CPT/HCPCS: 36415; 80053; 85025; 93005

== ENCOUNTER 2021-03-23 06:08 | Emergency (ER) | payer MEDICARE ==
[2021-03-23 07:11] LABS: #Eosinphils 0.3 thou/uL (0.0-0.7); #Lymphocytes 1.5 thou/uL (1.20-3.40); #Monocytes 0.5 thou/uL (0.11-0.59); #Neutrophils 6.3 thou/uL (1.40-6.50); %Basophils 0.4 % (0.0-1.0); %Eosinophils 3.1 % (0.0-10.0); %Lymphocytes 17.3 % (21.0-51.0); %Monocytes 5.7 % (0.0-10.0); %Neutrophils 73.4 % (42.0-75.0); Hemoglobin 7.3 g/dL (14.0-18.0); Mean Corpuscular HGB CONC 33.4 g/dL (32.0-36.0); Mean Corpuscular Hemoglobin 30.2 pg (27.0-31.0); Mean Corpuscular Volume 90.4 fL (78.0-98.0); Mean Platelet Volume 6.3 fL (7.4-10.4); Platelet Count 238 thou/uL (130-400); RBC Distribution Width 13.8 % (11.5-14.5); Red Blood Cell (RBC) Count 2.42 mill/uL (4.70-6.10); White Blood Cell (WBC) Count 8.6 thou/uL (4.8-10.8)
[2021-03-23 07:33] LABS: ALT (SGPT) Less than 7 U/L (8-55); AST (SGOT) 8 U/L (5-34); Albumin 3.8 g/dL (3.4-4.8); Alkaline Phosphatase 78 U/L (40-110); Anion Gap 20 mmol/L (10-20); BUN (Urea Nitrogen) 63 mg/dL (8.4-25.7); Bilirubin, Total 0.4 mg/dL (0.2-1.2); Calc. Creatinine Clearance 0 mL/min (70-130); Calcium 9.5 mg/dL (7.8-10.44); Carbon Dioxide 13 mmol/L (23-31); Chloride 111 mmol/L (98-107); Globulin 3.3 g/dL (2.4-3.5); Glucose 179 mg/dL (80-115); Potassium 4.2 mmol/L (3.5-5.1); Protein, Total 7.1 g/dL (5.8-8.1); Sodium 140 mmol/L (136-145)
== END 2021-03-23 09:17 | disposition home or self-care (01) ==
LOC: ERS 06:08
DX: I12.0 Hypertensive chronic kidney disease with stage 5 chronic kidney disease or end stage renal disease (principal); E11.22 Type 2 diabetes mellitus with diabetic chronic kidney disease; N18.6 End stage renal disease; M25.522 Pain in left elbow; Z99.2 Dependence on renal dialysis; Z86.73 Personal history of transient ischemic attack (TIA), and cerebral infarction without residual deficits
CPT/HCPCS: 71045; 80053; 82553; 84484; 85025; 93005

== ENCOUNTER 2021-04-06 06:23 | Emergency (ER) | payer MEDICARE, OTHER | END 2021-04-06 06:47 | disposition left against medical advice (07) | LOC: ERS 06:23 | DX: Z53.21 Procedure and treatment not carried out due to patient leaving prior to being seen by health care provider (principal) ==

== ENCOUNTER 2021-04-06 07:44 | Emergency (ER) | payer MEDICARE, OTHER ==
[2021-04-06 08:38] LABS: Platelet Count 238 thou/uL (130-400)
[2021-04-06 08:39] LABS: #Eosinphils 0.4 thou/uL (0.0-0.7); #Lymphocytes 1.3 thou/uL (1.20-3.40); #Monocytes 0.6 thou/uL (0.11-0.59); #Neutrophils 6.9 thou/uL (1.40-6.50); %Basophils 0.2 % (0.0-1.0); %Eosinophils 4.3 % (0.0-10.0); %Lymphocytes 14.5 % (21.0-51.0); %Monocytes 6.1 % (0.0-10.0); %Neutrophils 74.9 % (42.0-75.0); Hemoglobin 7.3 g/dL (14.0-18.0); Mean Corpuscular HGB CONC 32.7 g/dL (32.0-36.0); Mean Corpuscular Hemoglobin 29.7 pg (27.0-31.0); Mean Corpuscular Volume 90.8 fL (78.0-98.0); Mean Platelet Volume 6.2 fL (7.4-10.4); RBC Distribution Width 14.4 % (11.5-14.5); Red Blood Cell (RBC) Count 2.46 mill/uL (4.70-6.10); White Blood Cell (WBC) Count 9.2 thou/uL (4.8-10.8)
[2021-04-06 09:06] LABS: ALT (SGPT) Less than 7 U/L (8-55); AST (SGOT) 5 U/L (5-34); Albumin 4.2 g/dL (3.4-4.8); Alkaline Phosphatase 71 U/L (40-110); Anion Gap 16 mmol/L (10-20); BUN (Urea Nitrogen) 66 mg/dL (8.4-25.7); Bilirubin, Total 0.4 mg/dL (0.2-1.2); Calc. Creatinine Clearance 0 mL/min (70-130); Calcium 9.8 mg/dL (7.8-10.44); Carbon Dioxide 17 mmol/L (23-31); Chloride 108 mmol/L (98-107); Globulin 3.3 g/dL (2.4-3.5); Glucose 147 mg/dL (80-115); Potassium 4.1 mmol/L (3.5-5.1); Protein, Total 7.5 g/dL (5.8-8.1); Sodium 137 mmol/L (136-145)
== END 2021-04-06 10:15 | disposition home or self-care (01) ==
LOC: ERS 07:44
DX: I12.0 Hypertensive chronic kidney disease with stage 5 chronic kidney disease or end stage renal disease (principal); N18.6 End stage renal disease; Z99.2 Dependence on renal dialysis
CPT/HCPCS: 36415; 80053; 85025; 99283

== ENCOUNTER 2021-04-13 11:34 | Emergency (ER) | payer MEDICARE, OTHER ==
[2021-04-13 13:50] LABS: #Eosinphils 0.8 thou/uL (0.0-0.7); #Lymphocytes 1.1 thou/uL (1.20-3.40); #Monocytes 0.5 thou/uL (0.11-0.59); #Neutrophils 5.6 thou/uL (1.40-6.50); %Basophils 0.3 % (0.0-1.0); %Eosinophils 9.3 % (0.0-10.0); %Lymphocytes 14.1 % (21.0-51.0); %Monocytes 6.5 % (0.0-10.0); %Neutrophils 69.8 % (42.0-75.0); Hemoglobin 7.4 g/dL (14.0-18.0); Mean Corpuscular HGB CONC 33.6 g/dL (32.0-36.0); Mean Corpuscular Hemoglobin 30.5 pg (27.0-31.0); Mean Corpuscular Volume 90.7 fL (78.0-98.0); Mean Platelet Volume 6.3 fL (7.4-10.4); Platelet Count 232 thou/uL (130-400); RBC Distribution Width 13.8 % (11.5-14.5); Red Blood Cell (RBC) Count 2.43 mill/uL (4.70-6.10); White Blood Cell (WBC) Count 8.1 thou/uL (4.8-10.8)
[2021-04-13 14:18] LABS: ALT (SGPT) Less than 7 U/L (8-55); AST (SGOT) 5 U/L (5-34); Albumin 4.2 g/dL (3.4-4.8); Alkaline Phosphatase 81 U/L (40-110); Anion Gap 17 mmol/L (10-20); BUN (Urea Nitrogen) 68 mg/dL (8.4-25.7); Bilirubin, Total 0.3 mg/dL (0.2-1.2); Calc. Creatinine Clearance 0 mL/min (70-130); Calcium 9.1 mg/dL (7.8-10.44); Carbon Dioxide 19 mmol/L (23-31); Chloride 106 mmol/L (98-107); Globulin 3.3 g/dL (2.4-3.5); Glucose 132 mg/dL (80-115); Lipase 7 U/L (8-78); Potassium 4.4 mmol/L (3.5-5.1); Protein, Total 7.5 g/dL (5.8-8.1); Sodium 138 mmol/L (136-145)
== END 2021-04-13 14:55 | disposition home or self-care (01) ==
LOC: ERS 11:34
DX: R53.1 Weakness (principal); F17.200 Nicotine dependence, unspecified, uncomplicated; E78.5 Hyperlipidemia, unspecified; I10 Essential (primary) hypertension; Z99.2 Dependence on renal dialysis; Z86.73 Personal history of transient ischemic attack (TIA), and cerebral infarction without residual deficits
CPT/HCPCS: 36415; 71045; 80053; 83690; 83880; 84484; 85025; 86140; 93005

== ENCOUNTER 2021-05-25 12:25 | Emergency (ER) | payer MEDICARE ==
[2021-05-25 13:07] LABS: #Eosinphils 0.4 thou/uL (0.0-0.7); #Monocytes 0.5 thou/uL (0.11-0.59); #Neutrophils 6.8 thou/uL (1.40-6.50); %Basophils 0.4 % (0.0-1.0); %Eosinophils 4.5 % (0.0-10.0); %Lymphocytes 11.5 % (21.0-51.0); %Monocytes 5.6 % (0.0-10.0); Hemoglobin 10.5 g/dL (14.0-18.0); Mean Corpuscular HGB CONC 33.7 g/dL (32.0-36.0); Mean Corpuscular Hemoglobin 29.6 pg (27.0-31.0); Mean Corpuscular Volume 87.9 fL (78.0-98.0); Mean Platelet Volume 6.2 fL (7.4-10.4); Platelet Count 274 thou/uL (130-400); RBC Distribution Width 13.1 % (11.5-14.5); Red Blood Cell (RBC) Count 3.56 mill/uL (4.70-6.10); White Blood Cell (WBC) Count 8.7 thou/uL (4.8-10.8)
[2021-05-25 13:19] LABS: Bacteria/HPF 4+ HPF (None Seen); Bilirubin Negative (Negative); Blood, Urine 1+ (Negative); Clarity Clear (Clear); Glucose, Urine (Dipstick) 100 mg/dL (Negative); Ketone, Urine Negative (Negative); Leukocyte 500 Leu/uL (Negative); Nitrite Negative (Negative); Protein, Urine (Dipstick) 70 mg/dL (Neg-Trace); RBC/HPF 0-3 HPF (0-3); Specific Gravity, Urine 1.012 (1.002-1.036); Squamous Epithelial 0-3 HPF (0-3); Urobilinogen Normal mg/dL (Less than 2); WBC/HPF 21-50 HPF (0-3); pH, Urine 7.5 (5.0-9.0)
[2021-05-25 13:25] LABS: ALT (SGPT) Less than 7 U/L (8-55); AST (SGOT) 9 U/L (5-34); Albumin 4.2 g/dL (3.4-4.8); Alkaline Phosphatase 100 U/L (40-110); Anion Gap 14 mmol/L (10-20); BUN (Urea Nitrogen) 69 mg/dL (8.4-25.7); Bilirubin, Total 0.4 mg/dL (0.2-1.2); Calc. Creatinine Clearance 0 mL/min (70-130); Calcium 9.9 mg/dL (7.8-10.44); Carbon Dioxide 26 mmol/L (23-31); Chloride 99 mmol/L (98-107); Globulin 4.1 g/dL (2.4-3.5); Glucose 165 mg/dL (80-115); Lipase 8 U/L (8-78); Potassium 4.1 mmol/L (3.5-5.1); Protein, Total 8.3 g/dL (5.8-8.1); Sodium 135 mmol/L (136-145)
[2021-05-25 16:48] LABS: SARS-CoV-2 NAA Rapid Test Not Detected (NotDetected)
== END 2021-05-25 21:04 ==
LOC: ERS 12:25
DX: N39.0 Urinary tract infection, site not specified (principal); E11.22 Type 2 diabetes mellitus with diabetic chronic kidney disease; I12.0 Hypertensive chronic kidney disease with stage 5 chronic kidney disease or end stage renal disease; N18.6 End stage renal disease; Z86.73 Personal history of transient ischemic attack (TIA), and cerebral infarction without residual deficits; Z87.891 Personal history of nicotine dependence; Z20.822 Contact with and (suspected) exposure to COVID-19
CPT/HCPCS: 80053; 81003; 83690; 85025; 93005; U0002; 99285

== ENCOUNTER 2021-07-19 11:41 | Inpatient (IN) | payer MEDICARE, OTHER ==
[~2021-07-19 11:41] MED LIST: Heparin 10,000 UNITS/ 10 ML VIAL ONE
[2021-07-19 12:57] LABS: #Eosinphils 0.1 thou/uL (0.0-0.7); #Lymphocytes 1.3 thou/uL (1.20-3.40); #Monocytes 0.4 thou/uL (0.11-0.59); #Neutrophils 8.7 thou/uL (1.40-6.50); %Basophils 0.1 % (0.0-1.0); %Eosinophils 1.2 % (0.0-10.0); %Lymphocytes 12.4 % (21.0-51.0); %Monocytes 3.7 % (0.0-10.0); %Neutrophils 82.6 % (42.0-75.0); Hemoglobin 11.3 g/dL (14.0-18.0); Mean Corpuscular HGB CONC 32.7 g/dL (32.0-36.0); Mean Corpuscular Hemoglobin 28.5 pg (27.0-31.0); Mean Corpuscular Volume 86.9 fL (78.0-98.0); Mean Platelet Volume 6.3 fL (7.4-10.4); Platelet Count 251 thou/uL (130-400); RBC Distribution Width 14.7 % (11.5-14.5); Red Blood Cell (RBC) Count 3.99 mill/uL (4.70-6.10); White Blood Cell (WBC) Count 10.5 thou/uL (4.8-10.8)
[2021-07-19 13:09] LABS: Bacteria/HPF 4+ HPF (None Seen); Bilirubin Negative (Negative); Blood, Urine 2+ (Negative); Clarity Turbid (Clear); Glucose, Urine (Dipstick) 100 mg/dL (Negative); Ketone, Urine Trace mg/dL (Negative); Leukocyte 500 Leu/uL (Negative); Nitrite Negative (Negative); Protein, Urine (Dipstick) 300 mg/dL (Neg-Trace); Specific Gravity, Urine 1.013 (1.002-1.036); Squamous Epithelial 0-3 HPF (0-3); Urobilinogen Normal mg/dL (Less than 2); WBC/HPF Greater than 50 HPF (0-3)
[2021-07-19 13:21] LABS: ALT (SGPT) 8 U/L (8-55); AST (SGOT) 10 U/L (5-34); Albumin 4.9 g/dL (3.4-4.8); Alkaline Phosphatase 65 U/L (40-110); Anion Gap 21 mmol/L (10-20); BUN (Urea Nitrogen) 93 mg/dL (8.4-25.7); Bilirubin, Total 0.4 mg/dL (0.2-1.2); Calc. Creatinine Clearance 0 mL/min (70-130); Carbon Dioxide 18 mmol/L (23-31); Chloride 103 mmol/L (98-107); Globulin 4.4 g/dL (2.4-3.5); Glucose 138 mg/dL (80-115); Lipase 8 U/L (8-78); Magnesium 2.2 mg/dL (1.6-2.6); Potassium 4.1 mmol/L (3.5-5.1); Protein, Total 9.3 g/dL (5.8-8.1); Sodium 138 mmol/L (136-145)
[2021-07-19 13:43] LABS: CKMB 2.7 ng/mL (0-6.6)
[2021-07-19 14:25] LABS: Actual Bicarbonate (HCO3v) 15 mEq/L (22-28); Analyzer IN Cardio ER; Base Excess -9.7 mEq/L (-2.0 to +3.0); Calcium, Ionized (venous) 1.24 mmol/L (1.16-1.32); Chloride (VBG) 102 mmol/L (98-106); Hemoglobin (Hb) 11.8 g/dL (12.6-17.4); Potassium (VBG) 4.32 mmol/L (3.70-5.30); Sodium 138.4 mmol/L (133-146); pH (venous) 7.32 (7.32-7.43)
[2021-07-19] MEDS ORDERED: cefTRIAXone\\ROCEPHIN 1 GM VIAL ONE (14:26)
[2021-07-19] MEDS ORDERED: Ondansetron PF 4 MG/2 ML Vial ONE (14:36)
[2021-07-19] MEDS ORDERED: Acetaminophen 325 MG TAB PO PRN (15:09)
[2021-07-19] MEDS ORDERED: Metoclopramide HCl 10 MG/2 ML VIAL IVP PRN (15:15)
[2021-07-19 16:10] LABS: Troponin I 0.047 ng/mL (< 0.028)
[2021-07-19] MEDS: HYDROcodone/Acetaminophen 5/325 mg Tablet PO PRN ×3 (16:11→21:50)
[2021-07-19] MEDS: Sevelamer Carbonate 800 MG TAB PO SCH (17:59)
[2021-07-19 19:07] LABS: Troponin I 0.042 ng/mL (< 0.028)
[2021-07-19] MEDS: Ondansetron PF 4 MG/2 ML Vial IVP PRN (20:47)
[2021-07-19] MEDS: Famotidine/PF 20 mg/2ml Vial SLOW IVP SCH (20:56)
[2021-07-20] MEDS ORDERED: Amlodipine 10 MG TAB PO SCH ×2 (01:30→09:00)
[2021-07-20] MEDS ORDERED: Aspirin 81 mg Enteric Coated Tablet PO SCH ×2 (01:30→09:00)
[2021-07-20 06:00] LABS: #Basophils 0.1 thou/uL (0.0-0.2); #Eosinphils 0.4 thou/uL (0.0-0.7); #Lymphocytes 2.1 thou/uL (1.20-3.40); #Monocytes 0.8 thou/uL (0.11-0.59); #Neutrophils 5.8 thou/uL (1.40-6.50); %Basophils 0.7 % (0.0-1.0); %Eosinophils 4.4 % (0.0-10.0); %Monocytes 8.6 % (0.0-10.0); %Neutrophils 63.4 % (42.0-75.0); Hemoglobin 9.7 g/dL (14.0-18.0); Mean Corpuscular HGB CONC 33.2 g/dL (32.0-36.0); Mean Corpuscular Hemoglobin 29.4 pg (27.0-31.0); Mean Corpuscular Volume 88.6 fL (78.0-98.0); Mean Platelet Volume 6.4 fL (7.4-10.4); Platelet Count 233 thou/uL (130-400); RBC Distribution Width 14.8 % (11.5-14.5); Red Blood Cell (RBC) Count 3.28 mill/uL (4.70-6.10); White Blood Cell (WBC) Count 9.1 thou/uL (4.8-10.8)
[2021-07-20 06:37] LABS: Anion Gap 16 mmol/L (10-20); BUN (Urea Nitrogen) 76 mg/dL (8.4-25.7); Calc. Creatinine Clearance 15 mL/min (70-130); Calcium 9.7 mg/dL (7.8-10.44); Carbon Dioxide 21 mmol/L (23-31); Chloride 104 mmol/L (98-107); Glucose 89 mg/dL (80-115); Sodium 137 mmol/L (136-145)
[2021-07-20 06:42] LABS: Phosphorus 5.7 mg/dL (2.3-4.7)
[2021-07-20] MEDS: Sevelamer Carbonate 800 MG TAB PO SCH ×3 (08:00→16:31)
[2021-07-20] MEDS: Ondansetron PF 4 MG/2 ML Vial IVP PRN (08:07)
[2021-07-20] MEDS: Famotidine/PF 20 mg/2ml Vial SLOW IVP SCH ×2 (08:11→20:29)
[2021-07-20] MEDS: cefTRIAXone\\ROCEPHIN 1 GM in Sodium Chloride 0.9% 100 ML IVPB SCH (08:14)
[2021-07-20] MEDS: Enoxaparin Sodium 30 MG/0.3 ML SYRINGE SC SCH (08:17)
[2021-07-20] MEDS: Calcitriol 0.25 MCG CAP PO SCH (09:00)
[2021-07-20] MEDS ORDERED: Heparin 10,000 UNITS/ 10 ML VIAL ONE (09:17)
[2021-07-20] MEDS: HYDROcodone/Acetaminophen 5/325 mg Tablet PO PRN ×3 (09:44→23:38)
[2021-07-20 10:47] VITALS: BMI 30.5
[2021-07-20] MEDS ORDERED: Promethazine HCl 25 MG in Sodium Chloride 0.9% 50 ML IVPB SCH (13:30)
[2021-07-20] MEDS ORDERED: Promethazine HCl 25 MG in Sodium Chloride 0.9% 50 ML IVPB PRN (16:08)
[2021-07-20] MEDS: Amlodipine 10 MG TAB PO SCH (20:29)
[2021-07-20] MEDS: Aspirin 81 mg Enteric Coated Tablet PO SCH (20:29)
[2021-07-21 06:27] LABS: #Basophils 0.1 thou/uL (0.0-0.2); #Eosinphils 0.5 thou/uL (0.0-0.7); #Lymphocytes 2.3 thou/uL (1.20-3.40); #Monocytes 0.8 thou/uL (0.11-0.59); #Neutrophils 5.4 thou/uL (1.40-6.50); %Basophils 0.7 % (0.0-1.0); %Eosinophils 5.5 % (0.0-10.0); %Lymphocytes 25.6 % (21.0-51.0); %Monocytes 9.2 % (0.0-10.0); Hemoglobin 9.9 g/dL (14.0-18.0); Mean Corpuscular HGB CONC 32.9 g/dL (32.0-36.0); Mean Corpuscular Volume 88.2 fL (78.0-98.0); Mean Platelet Volume 6.6 fL (7.4-10.4); Platelet Count 262 thou/uL (130-400); RBC Distribution Width 14.9 % (11.5-14.5); White Blood Cell (WBC) Count 9.1 thou/uL (4.8-10.8)
[2021-07-21 06:46] LABS: Anion Gap 18 mmol/L (10-20); BUN (Urea Nitrogen) 46 mg/dL (8.4-25.7); Calc. Creatinine Clearance 18 mL/min (70-130); Calcium 9.8 mg/dL (7.8-10.44); Carbon Dioxide 24 mmol/L (23-31); Chloride 101 mmol/L (98-107); Glucose 107 mg/dL (80-115); Potassium 3.5 mmol/L (3.5-5.1); Sodium 139 mmol/L (136-145)
[2021-07-21 06:53] LABS: INR-International Normal Ratio 0.9; PTT 31.9 sec (22.9-36.1); Prothrombin Time 12.6 sec (12.0-14.7)
[2021-07-21 06:54] LABS: D-Dimer Test 0.86 *mcg/mL (0.27-0.43)
[2021-07-21] MEDS ORDERED: Temazepam 15 MG CAP PO PRN (08:02)
[2021-07-21] MEDS: Sevelamer Carbonate 800 MG TAB PO SCH ×3 (08:25→16:58)
[2021-07-21] MEDS: HYDROcodone/Acetaminophen 5/325 mg Tablet PO PRN ×2 (08:25→21:19)
[2021-07-21] MEDS: Calcitriol 0.25 MCG CAP PO SCH (08:25)
[2021-07-21] MEDS: Enoxaparin Sodium 30 MG/0.3 ML SYRINGE SC SCH (08:26)
[2021-07-21] MEDS: cefTRIAXone\\ROCEPHIN 1 GM in Sodium Chloride 0.9% 100 ML IVPB SCH (08:26)
[2021-07-21] MEDS: Promethazine 25 MG TAB PO PRN (10:35)
[2021-07-21 11:57] LABS: Factor VIII Test 166.2 % ACTIVE (56-157)
[2021-07-21] MEDS: Aspirin 81 mg Enteric Coated Tablet PO SCH ×2 (21:20→21:23)
[2021-07-21] MEDS: Amlodipine 10 MG TAB PO SCH (21:22)
[2021-07-21] MEDS: Famotidine/PF 20 mg/2ml Vial SLOW IVP SCH (21:22)
[2021-07-22] MEDS: HYDROcodone/Acetaminophen 5/325 mg Tablet PO PRN ×2 (02:34→21:08)
[2021-07-22 06:24] LABS: #Basophils 0.1 thou/uL (0.0-0.2); #Eosinphils 0.6 thou/uL (0.0-0.7); #Monocytes 0.9 thou/uL (0.11-0.59); #Neutrophils 7.6 thou/uL (1.40-6.50); %Basophils 0.6 % (0.0-1.0); %Eosinophils 5.8 % (0.0-10.0); %Lymphocytes 17.6 % (21.0-51.0); %Monocytes 7.9 % (0.0-10.0); %Neutrophils 68.1 % (42.0-75.0); Hemoglobin 10.1 g/dL (14.0-18.0); Mean Corpuscular HGB CONC 32.7 g/dL (32.0-36.0); Mean Corpuscular Hemoglobin 29.5 pg (27.0-31.0); Mean Corpuscular Volume 90.2 fL (78.0-98.0); Mean Platelet Volume 6.8 fL (7.4-10.4); Platelet Count 250 thou/uL (130-400); Red Blood Cell (RBC) Count 3.43 mill/uL (4.70-6.10); White Blood Cell (WBC) Count 11.1 thou/uL (4.8-10.8)
[2021-07-22 06:48] LABS: Anion Gap 19 mmol/L (10-20); BUN (Urea Nitrogen) 57 mg/dL (8.4-25.7); Calc. Creatinine Clearance 14 mL/min (70-130); Calcium 9.8 mg/dL (7.8-10.44); Carbon Dioxide 22 mmol/L (23-31); Chloride 99 mmol/L (98-107); Glucose 113 mg/dL (80-115); Potassium 3.8 mmol/L (3.5-5.1); Sodium 136 mmol/L (136-145)
[2021-07-22] MEDS: Sevelamer Carbonate 800 MG TAB PO SCH ×3 (08:39→17:00)
[2021-07-22] MEDS ORDERED: Iopamidol 370 76% 100 ML VIAL ONE (09:16)
[2021-07-22] MEDS ORDERED: Lidocaine-Prilocaine 2.5% Cream 5 GM TUBE TOP PRN (11:15)
[2021-07-22] MEDS: Calcitriol 0.25 MCG CAP PO SCH (13:05)
[2021-07-22] MEDS: Enoxaparin Sodium 30 MG/0.3 ML SYRINGE SC SCH (13:05)
[2021-07-22] MEDS: cefTRIAXone\\ROCEPHIN 1 GM in Sodium Chloride 0.9% 100 ML IVPB SCH ×2 (13:10→16:16)
[2021-07-22] MEDS: EPOETIN ALFA-EPBX (ESRD) 4,000 UNIT/ML VIAL SC SCH (18:48)
[2021-07-22] MEDS: Aspirin 81 mg Enteric Coated Tablet PO SCH (21:08)
[2021-07-22] MEDS: Famotidine/PF 20 mg/2ml Vial SLOW IVP SCH (21:09)
[2021-07-22] MEDS: Amlodipine 10 MG TAB PO SCH (21:09)
[2021-07-23 05:27] LABS: #Basophils 0.1 thou/uL (0.0-0.2); #Eosinphils 0.6 thou/uL (0.0-0.7); #Lymphocytes 2.2 thou/uL (1.20-3.40); #Monocytes 0.8 thou/uL (0.11-0.59); #Neutrophils 5.6 thou/uL (1.40-6.50); %Basophils 0.7 % (0.0-1.0); %Eosinophils 6.9 % (0.0-10.0); %Lymphocytes 23.7 % (21.0-51.0); %Monocytes 8.5 % (0.0-10.0); %Neutrophils 60.2 % (42.0-75.0); Mean Corpuscular HGB CONC 32.4 g/dL (32.0-36.0); Mean Corpuscular Hemoglobin 28.7 pg (27.0-31.0); Mean Corpuscular Volume 88.6 fL (78.0-98.0); Platelet Count 232 thou/uL (130-400); RBC Distribution Width 14.9 % (11.5-14.5); Red Blood Cell (RBC) Count 3.48 mill/uL (4.70-6.10); White Blood Cell (WBC) Count 9.4 thou/uL (4.8-10.8)
[2021-07-23 05:49] LABS: Anion Gap 16 mmol/L (10-20); BUN (Urea Nitrogen) 40 mg/dL (8.4-25.7); Calc. Creatinine Clearance 18 mL/min (70-130); Calcium 9.9 mg/dL (7.8-10.44); Carbon Dioxide 27 mmol/L (23-31); Chloride 98 mmol/L (98-107); Glucose 109 mg/dL (80-115); Potassium 3.5 mmol/L (3.5-5.1); Sodium 137 mmol/L (136-145)
[2021-07-23] MEDS: Sevelamer Carbonate 800 MG TAB PO SCH ×3 (10:44→17:21)
[2021-07-23] MEDS: Calcitriol 0.25 MCG CAP PO SCH ×2 (10:45→13:21)
[2021-07-23] MEDS: cefTRIAXone\\ROCEPHIN 1 GM in Sodium Chloride 0.9% 100 ML IVPB SCH ×2 (10:45→13:19)
[2021-07-23] MEDS: Enoxaparin Sodium 30 MG/0.3 ML SYRINGE SC SCH ×2 (10:45→13:20)
[2021-07-23] MEDS: HYDROcodone/Acetaminophen 5/325 mg Tablet PO PRN (18:37)
[2021-07-23] MEDS: Aspirin 81 mg Enteric Coated Tablet PO SCH (21:44)
[2021-07-23] MEDS: Amlodipine 10 MG TAB PO SCH (21:44)
[2021-07-23] MEDS: Famotidine/PF 20 mg/2ml Vial SLOW IVP SCH (21:44)
[2021-07-24] MEDS: Sevelamer Carbonate 800 MG TAB PO SCH ×3 (08:38→17:22)
[2021-07-24] MEDS: Calcitriol 0.25 MCG CAP PO SCH (08:39)
[2021-07-24] MEDS: Enoxaparin Sodium 30 MG/0.3 ML SYRINGE SC SCH (08:41)
[2021-07-24] MEDS: cefTRIAXone\\ROCEPHIN 1 GM in Sodium Chloride 0.9% 100 ML IVPB SCH (08:48)
[2021-07-24] MEDS: HYDROcodone/Acetaminophen 5/325 mg Tablet PO PRN ×3 (10:45→21:56)
[2021-07-24] MEDS: cefTRIAXone\\ROCEPHIN 1 GM VIAL IM SCH (12:51)
[2021-07-24] MEDS: clonazePAM 1 MG TAB PO SCH (12:55)
[2021-07-24 17:04] LABS: Cardiolipin IgA Ab 2.7 APL-U/mL (<14 Negative); Cardiolipin IgG Ab 0.9 GPL-U/mL (<10 Negative); Cardiolipin IgM Ab 1.9 MPL-U/mL (<10 Negative); EliA APS New Method **** NEW METHOD ****
[2021-07-24] MEDS ORDERED: Promethazine 25 MG TAB PO SCH (20:00)
[2021-07-24] MEDS ORDERED: Famotidine 20 MG TAB PO SCH (21:00)
[2021-07-24] MEDS: Aspirin 81 mg Enteric Coated Tablet PO SCH (21:52)
[2021-07-24] MEDS: Amlodipine 10 MG TAB PO SCH (21:52)
[2021-07-25 07:48] LABS: #Basophils 0.1 thou/uL (0.0-0.2); #Eosinphils 0.7 thou/uL (0.0-0.7); #Lymphocytes 1.9 thou/uL (1.20-3.40); #Monocytes 0.8 thou/uL (0.11-0.59); #Neutrophils 6.5 thou/uL (1.40-6.50); %Basophils 0.6 % (0.0-1.0); %Eosinophils 7.4 % (0.0-10.0); %Lymphocytes 18.9 % (21.0-51.0); %Monocytes 8.1 % (0.0-10.0); Hemoglobin 9.4 g/dL (14.0-18.0); Mean Corpuscular HGB CONC 33.2 g/dL (32.0-36.0); Mean Corpuscular Hemoglobin 29.9 pg (27.0-31.0); Mean Corpuscular Volume 89.8 fL (78.0-98.0); Mean Platelet Volume 6.9 fL (7.4-10.4); Platelet Count 250 thou/uL (130-400); RBC Distribution Width 14.8 % (11.5-14.5); Red Blood Cell (RBC) Count 3.16 mill/uL (4.70-6.10)
[2021-07-25 08:12] LABS: Anion Gap 18 mmol/L (10-20); BUN (Urea Nitrogen) 64 mg/dL (8.4-25.7); Calc. Creatinine Clearance 13 mL/min (70-130); Calcium 9.7 mg/dL (7.8-10.44); Carbon Dioxide 23 mmol/L (23-31); Chloride 96 mmol/L (98-107); Glucose 106 mg/dL (80-115); Potassium 3.5 mmol/L (3.5-5.1); Sodium 133 mmol/L (136-145)
[2021-07-25] MEDS: Enoxaparin Sodium 30 MG/0.3 ML SYRINGE SC SCH (08:23)
[2021-07-25] MEDS: Calcitriol 0.25 MCG CAP PO SCH (08:23)
[2021-07-25] MEDS: Sevelamer Carbonate 800 MG TAB PO SCH ×3 (08:23→18:01)
[2021-07-25] MEDS: cefTRIAXone\\ROCEPHIN 1 GM VIAL IM SCH (12:44)
[2021-07-25] MEDS: clonazePAM 1 MG TAB PO SCH (13:49)
[2021-07-25] MEDS: HYDROcodone/Acetaminophen 5/325 mg Tablet PO PRN (21:01)
[2021-07-25] MEDS: Amlodipine 10 MG TAB PO SCH (21:02)
[2021-07-25] MEDS: Promethazine 25 MG TAB PO PRN (21:02)
[2021-07-25] MEDS: Aspirin 81 mg Enteric Coated Tablet PO SCH (21:02)
[2021-07-25] MEDS: Famotidine 20 MG TAB PO SCH (21:02)
[2021-07-26] MEDS: HYDROcodone/Acetaminophen 5/325 mg Tablet PO PRN (01:44)
[2021-07-26 07:57] LABS: #Basophils 0.1 thou/uL (0.0-0.2); #Eosinphils 0.7 thou/uL (0.0-0.7); #Lymphocytes 2.7 thou/uL (1.20-3.40); #Neutrophils 7.3 thou/uL (1.40-6.50); %Basophils 0.5 % (0.0-1.0); %Lymphocytes 23.1 % (21.0-51.0); %Monocytes 8.5 % (0.0-10.0); Hemoglobin 9.6 g/dL (14.0-18.0); Mean Corpuscular HGB CONC 32.4 g/dL (32.0-36.0); Mean Corpuscular Volume 89.4 fL (78.0-98.0); Mean Platelet Volume 7.1 fL (7.4-10.4); Platelet Count 274 thou/uL (130-400); RBC Distribution Width 14.8 % (11.5-14.5); Red Blood Cell (RBC) Count 3.32 mill/uL (4.70-6.10); White Blood Cell (WBC) Count 11.8 thou/uL (4.8-10.8)
[2021-07-26 08:24] LABS: Anion Gap 18 mmol/L (10-20); BUN (Urea Nitrogen) 47 mg/dL (8.4-25.7); Calc. Creatinine Clearance 17 mL/min (70-130); Carbon Dioxide 26 mmol/L (23-31); Chloride 97 mmol/L (98-107); Glucose 121 mg/dL (80-115); Potassium 3.7 mmol/L (3.5-5.1); Sodium 137 mmol/L (136-145)
[2021-07-26] MEDS: Sevelamer Carbonate 800 MG TAB PO SCH ×3 (09:23→18:32)
[2021-07-26] MEDS: Enoxaparin Sodium 30 MG/0.3 ML SYRINGE SC SCH (09:23)
[2021-07-26] MEDS: Calcitriol 0.25 MCG CAP PO SCH (09:24)
[2021-07-26] MEDS: cefTRIAXone\\ROCEPHIN 1 GM VIAL IM SCH (12:30)
[2021-07-26] MEDS: clonazePAM 1 MG TAB PO SCH (12:30)
[2021-07-26] MEDS ORDERED: Zolpidem Tartrate 5 MG TAB PO SCH (21:00)
[2021-07-26] MEDS: Famotidine 20 MG TAB PO SCH (22:21)
[2021-07-26] MEDS: Amlodipine 10 MG TAB PO SCH (22:21)
[2021-07-26] MEDS: Aspirin 81 mg Enteric Coated Tablet PO SCH (22:21)
[2021-07-26] MEDS: Fluticasone Propionate Nasal Spray 16 gm Bottle NASAL SCH (22:22)
[2021-07-27] MEDS: Sevelamer Carbonate 800 MG TAB PO SCH ×3 (08:28→17:54)
[2021-07-27] MEDS: Senokot S 8.6-50 MG TAB PO PRN (08:28)
[2021-07-27] MEDS: Fluticasone Propionate Nasal Spray 16 gm Bottle NASAL SCH ×2 (08:29→22:17)
[2021-07-27] MEDS: Enoxaparin Sodium 30 MG/0.3 ML SYRINGE SC SCH (08:29)
[2021-07-27] MEDS: Calcitriol 0.25 MCG CAP PO SCH (08:29)
[2021-07-27 10:28] LABS: Protein C Activity 121 % (78-152)
[2021-07-27 12:09] LABS: HEX PHOS LA Tube 1 36.5 SEC; Hexagonal Phospholipid Neut 1.5 SEC (0-8.0)
[2021-07-27] MEDS: cefTRIAXone\\ROCEPHIN 1 GM VIAL IM SCH (12:59)
[2021-07-27] MEDS: clonazePAM 1 MG TAB PO SCH (14:24)
[2021-07-27] MEDS: HYDROcodone/Acetaminophen 5/325 mg Tablet PO PRN (20:37)
[2021-07-27] MEDS: Famotidine 20 MG TAB PO SCH (21:31)
[2021-07-27] MEDS: Zolpidem Tartrate 5 MG TAB PO SCH (21:31)
[2021-07-27] MEDS: Aspirin 81 mg Enteric Coated Tablet PO SCH (21:32)
[2021-07-27] MEDS: Promethazine 25 MG TAB PO SCH (21:32)
[2021-07-27] MEDS: Amlodipine 10 MG TAB PO SCH (21:32)
[2021-07-27] MEDS: Artificial Tear Sol 15 ML BOT EA EYE PRN (22:17)
[2021-07-28] MEDS: HYDROcodone/Acetaminophen 5/325 mg Tablet PO PRN ×3 (00:19→15:51)
[2021-07-28] MEDS: Enoxaparin Sodium 30 MG/0.3 ML SYRINGE SC SCH (08:07)
[2021-07-28] MEDS: Calcitriol 0.25 MCG CAP PO SCH (08:07)
[2021-07-28] MEDS: Sevelamer Carbonate 800 MG TAB PO SCH ×3 (08:07→18:10)
[2021-07-28] MEDS: Artificial Tear Sol 15 ML BOT EA EYE PRN (08:08)
[2021-07-28] MEDS: Fluticasone Propionate Nasal Spray 16 gm Bottle NASAL SCH ×2 (08:08→20:30)
[2021-07-28] MEDS: clonazePAM 1 MG TAB PO SCH (11:44)
[2021-07-28] MEDS: cefTRIAXone\\ROCEPHIN 1 GM VIAL IM SCH (13:50)
[2021-07-28] MEDS: Aspirin 81 mg Enteric Coated Tablet PO SCH (20:32)
[2021-07-28] MEDS: Famotidine 20 MG TAB PO SCH (20:32)
[2021-07-28] MEDS: Promethazine 25 MG TAB PO SCH (20:32)
[2021-07-28] MEDS: Zolpidem Tartrate 5 MG TAB PO SCH (20:33)
[2021-07-28] MEDS: Amlodipine 10 MG TAB PO SCH (20:36)
[2021-07-29] MEDS: Sevelamer Carbonate 800 MG TAB PO SCH ×3 (07:57→16:47)
[2021-07-29] MEDS: Fluticasone Propionate Nasal Spray 16 gm Bottle NASAL SCH ×2 (07:57→20:54)
[2021-07-29] MEDS ORDERED: Heparin 10,000 UNITS/ 10 ML VIAL ONE (09:21)
[2021-07-29] MEDS: Enoxaparin Sodium 30 MG/0.3 ML SYRINGE SC SCH (09:50)
[2021-07-29] MEDS: HYDROcodone/Acetaminophen 5/325 mg Tablet PO PRN ×2 (11:24→20:55)
[2021-07-29] MEDS: cefTRIAXone\\ROCEPHIN 1 GM VIAL IM SCH (16:46)
[2021-07-29] MEDS: EPOETIN ALFA-EPBX (ESRD) 4,000 UNIT/ML VIAL SC SCH (16:46)
[2021-07-29] MEDS: clonazePAM 1 MG TAB PO SCH (16:47)
[2021-07-29] MEDS: Calcitriol 0.25 MCG CAP PO SCH (16:47)
[2021-07-29] MEDS: Aspirin 81 mg Enteric Coated Tablet PO SCH (20:55)
[2021-07-29] MEDS: Promethazine 25 MG TAB PO SCH (20:55)
[2021-07-29] MEDS: Famotidine 20 MG TAB PO SCH (20:56)
[2021-07-29] MEDS: Zolpidem Tartrate 5 MG TAB PO SCH (20:56)
[2021-07-29] MEDS: Amlodipine 10 MG TAB PO SCH (20:56)
[2021-07-30] MEDS: Enoxaparin Sodium 30 MG/0.3 ML SYRINGE SC SCH (08:26)
[2021-07-30] MEDS: Sevelamer Carbonate 800 MG TAB PO SCH ×3 (08:26→17:31)
[2021-07-30] MEDS: Calcitriol 0.25 MCG CAP PO SCH (08:27)
[2021-07-30] MEDS: Fluticasone Propionate Nasal Spray 16 gm Bottle NASAL SCH ×2 (08:27→20:22)
[2021-07-30] MEDS: HYDROcodone/Acetaminophen 5/325 mg Tablet PO PRN ×2 (10:49→18:19)
[2021-07-30] MEDS: Promethazine 25 MG TAB PO PRN (11:28)
[2021-07-30] MEDS: clonazePAM 1 MG TAB PO SCH (12:43)
[2021-07-30] MEDS: cefTRIAXone\\ROCEPHIN 1 GM VIAL IM SCH (12:43)
[2021-07-30 14:29] LABS: #Eosinphils 0.6 thou/uL (0.0-0.7); #Monocytes 1.1 thou/uL (0.11-0.59); #Neutrophils 5.8 thou/uL (1.40-6.50); %Basophils 0.5 % (0.0-1.0); %Eosinophils 6.3 % (0.0-10.0); %Lymphocytes 21.1 % (21.0-51.0); %Monocytes 11.7 % (0.0-10.0); %Neutrophils 60.4 % (42.0-75.0); Hemoglobin 8.4 g/dL (14.0-18.0); Mean Corpuscular HGB CONC 33.2 g/dL (32.0-36.0); Mean Corpuscular Hemoglobin 29.5 pg (27.0-31.0); Mean Corpuscular Volume 88.8 fL (78.0-98.0); Mean Platelet Volume 6.8 fL (7.4-10.4); Platelet Count 246 thou/uL (130-400); RBC Distribution Width 14.6 % (11.5-14.5); Red Blood Cell (RBC) Count 2.86 mill/uL (4.70-6.10); White Blood Cell (WBC) Count 9.5 thou/uL (4.8-10.8)
[2021-07-30 14:48] LABS: Anion Gap 15 mmol/L (10-20); BUN (Urea Nitrogen) 47 mg/dL (8.4-25.7); Calc. Creatinine Clearance 20 mL/min (70-130); Calcium 9.3 mg/dL (7.8-10.44); Carbon Dioxide 29 mmol/L (23-31); Chloride 93 mmol/L (98-107); Glucose 134 mg/dL (80-115); Potassium 3.5 mmol/L (3.5-5.1); Sodium 133 mmol/L (136-145)
[2021-07-30] MEDS: Famotidine 20 MG TAB PO SCH (20:22)
[2021-07-30] MEDS: Promethazine 25 MG TAB PO SCH (20:22)
[2021-07-30] MEDS: Aspirin 81 mg Enteric Coated Tablet PO SCH (20:22)
[2021-07-30] MEDS: Amlodipine 10 MG TAB PO SCH (20:23)
[2021-07-30] MEDS: Zolpidem Tartrate 5 MG TAB PO SCH (20:23)
[2021-07-31] MEDS: HYDROcodone/Acetaminophen 5/325 mg Tablet PO PRN ×2 (05:28→18:01)
[2021-07-31 09:26] LABS: #Basophils 0.1 thou/uL (0.0-0.2); #Eosinphils 0.8 thou/uL (0.0-0.7); #Lymphocytes 1.8 thou/uL (1.20-3.40); #Monocytes 1.1 thou/uL (0.11-0.59); #Neutrophils 7.4 thou/uL (1.40-6.50); %Basophils 0.6 % (0.0-1.0); %Eosinophils 7.2 % (0.0-10.0); %Lymphocytes 16.5 % (21.0-51.0); %Monocytes 9.4 % (0.0-10.0); %Neutrophils 66.3 % (42.0-75.0); Mean Corpuscular HGB CONC 33.6 g/dL (32.0-36.0); Mean Corpuscular Hemoglobin 29.7 pg (27.0-31.0); Mean Corpuscular Volume 88.5 fL (78.0-98.0); Mean Platelet Volume 6.8 fL (7.4-10.4); Platelet Count 230 thou/uL (130-400); RBC Distribution Width 14.8 % (11.5-14.5); Red Blood Cell (RBC) Count 2.68 mill/uL (4.70-6.10); White Blood Cell (WBC) Count 11.1 thou/uL (4.8-10.8)
[2021-07-31] MEDS: Enoxaparin Sodium 30 MG/0.3 ML SYRINGE SC SCH (09:42)
[2021-07-31] MEDS: Calcitriol 0.25 MCG CAP PO SCH (09:42)
[2021-07-31] MEDS: Sevelamer Carbonate 800 MG TAB PO SCH ×3 (09:42→18:01)
[2021-07-31 09:43] LABS: Anion Gap 18 mmol/L (10-20); BUN (Urea Nitrogen) 59 mg/dL (8.4-25.7); Calc. Creatinine Clearance 16 mL/min (70-130); Calcium 9.4 mg/dL (7.8-10.44); Carbon Dioxide 23 mmol/L (23-31); Chloride 98 mmol/L (98-107); Glucose 112 mg/dL (80-115); Potassium 3.4 mmol/L (3.5-5.1); Sodium 136 mmol/L (136-145)
[2021-07-31] MEDS: Fluticasone Propionate Nasal Spray 16 gm Bottle NASAL SCH ×2 (09:57→21:01)
[2021-07-31] MEDS: clonazePAM 1 MG TAB PO SCH (12:31)
[2021-07-31] MEDS: Carvedilol 3.125 MG TAB PO SCH (18:01)
[2021-07-31] MEDS: Promethazine 25 MG TAB PO SCH (21:00)
[2021-07-31] MEDS: Zolpidem Tartrate 5 MG TAB PO SCH (21:00)
[2021-07-31] MEDS: Aspirin 81 mg Enteric Coated Tablet PO SCH (21:00)
[2021-07-31] MEDS: Famotidine 20 MG TAB PO SCH (21:00)
[2021-07-31] MEDS: Amlodipine 10 MG TAB PO SCH (21:00)
[2021-08-01] MEDS: Carvedilol 3.125 MG TAB PO SCH ×2 (08:19→19:00)
[2021-08-01] MEDS: Fluticasone Propionate Nasal Spray 16 gm Bottle NASAL SCH ×2 (08:19→21:12)
[2021-08-01] MEDS: Artificial Tear Sol 15 ML BOT EA EYE PRN (08:19)
[2021-08-01] MEDS: Calcitriol 0.25 MCG CAP PO SCH (08:21)
[2021-08-01] MEDS: Promethazine 25 MG TAB PO PRN ×2 (08:23→19:00)
[2021-08-01] MEDS: Sevelamer Carbonate 800 MG TAB PO SCH ×3 (08:26→18:59)
[2021-08-01] MEDS: Enoxaparin Sodium 30 MG/0.3 ML SYRINGE SC SCH (08:28)
[2021-08-01] MEDS ORDERED: Heparin 10,000 UNITS/ 10 ML VIAL ONE (08:53)
[2021-08-01] MEDS: HYDROcodone/Acetaminophen 5/325 mg Tablet PO PRN ×2 (10:07→18:59)
[2021-08-01] MEDS: clonazePAM 1 MG TAB PO SCH (13:03)
[2021-08-01] MEDS: Aspirin 81 mg Enteric Coated Tablet PO SCH (21:11)
[2021-08-01] MEDS: Famotidine 20 MG TAB PO SCH (21:11)
[2021-08-01] MEDS: Amlodipine 10 MG TAB PO SCH (21:11)
[2021-08-01] MEDS: Zolpidem Tartrate 5 MG TAB PO SCH (21:11)
[2021-08-01] MEDS: Promethazine 25 MG TAB PO SCH (21:12)
[2021-08-02] MEDS: Fluticasone Propionate Nasal Spray 16 gm Bottle NASAL SCH ×2 (07:50→19:50)
[2021-08-02] MEDS: Carvedilol 3.125 MG TAB PO SCH ×2 (07:51→16:47)
[2021-08-02] MEDS: Sevelamer Carbonate 800 MG TAB PO SCH ×3 (07:51→16:47)
[2021-08-02] MEDS: Calcitriol 0.25 MCG CAP PO SCH (07:51)
[2021-08-02] MEDS: Enoxaparin Sodium 30 MG/0.3 ML SYRINGE SC SCH (07:51)
[2021-08-02 10:43] LABS: #Eosinphils 0.6 thou/uL (0.0-0.7); #Lymphocytes 1.8 thou/uL (1.20-3.40); #Monocytes 0.8 thou/uL (0.11-0.59); #Neutrophils 6.6 thou/uL (1.40-6.50); %Basophils 0.5 % (0.0-1.0); %Monocytes 8.1 % (0.0-10.0); %Neutrophils 67.5 % (42.0-75.0); Hemoglobin 7.8 g/dL (14.0-18.0); Mean Corpuscular HGB CONC 32.6 g/dL (32.0-36.0); Mean Corpuscular Hemoglobin 29.2 pg (27.0-31.0); Mean Corpuscular Volume 89.4 fL (78.0-98.0); Mean Platelet Volume 6.8 fL (7.4-10.4); Platelet Count 251 thou/uL (130-400); RBC Distribution Width 14.8 % (11.5-14.5); Red Blood Cell (RBC) Count 2.67 mill/uL (4.70-6.10); White Blood Cell (WBC) Count 9.8 thou/uL (4.8-10.8)
[2021-08-02 11:03] LABS: Anion Gap 13 mmol/L (10-20); BUN (Urea Nitrogen) 38 mg/dL (8.4-25.7); Calc. Creatinine Clearance 23 mL/min (70-130); Calcium 9.4 mg/dL (7.8-10.44); Carbon Dioxide 27 mmol/L (23-31); Chloride 100 mmol/L (98-107); Glucose 161 mg/dL (80-115); Potassium 3.6 mmol/L (3.5-5.1); Sodium 136 mmol/L (136-145)
[2021-08-02] MEDS: HYDROcodone/Acetaminophen 5/325 mg Tablet PO PRN ×2 (11:45→20:27)
[2021-08-02] MEDS: clonazePAM 1 MG TAB PO SCH (12:13)
[2021-08-02 17:52] LABS: HBSAg Index 0.22 S/CO (0-0.99); Hep B Core Total Ab Non-Reactive (NonReactive); Hep B Core Total Index 0.07 S/CO (0-0.79); Hep B Surf Ag Non-Reactive S/CO (NonReactive); Hep C IgG Ab Non-Reactive (NonReactive); Hep C Index 0.09 S/CO (0-0.79)
[2021-08-02 18:03] LABS: HBSAB Concentration 34.78 mIU/mL; Hep B Surf AB Reactive (NonReactive)
[2021-08-02] MEDS: Zolpidem Tartrate 5 MG TAB PO SCH (19:57)
[2021-08-02] MEDS: Amlodipine 10 MG TAB PO SCH (19:57)
[2021-08-02] MEDS: Aspirin 81 mg Enteric Coated Tablet PO SCH (19:57)
[2021-08-02] MEDS: Famotidine 20 MG TAB PO SCH (19:57)
[2021-08-02] MEDS: Promethazine 25 MG TAB PO SCH (19:57)
[2021-08-03 06:44] LABS: #Basophils 0.1 thou/uL (0.0-0.2); #Eosinphils 0.6 thou/uL (0.0-0.7); #Monocytes 0.9 thou/uL (0.11-0.59); #Neutrophils 5.6 thou/uL (1.40-6.50); %Basophils 0.8 % (0.0-1.0); %Eosinophils 6.8 % (0.0-10.0); %Monocytes 9.8 % (0.0-10.0); %Neutrophils 60.7 % (42.0-75.0); Hemoglobin 7.8 g/dL (14.0-18.0); Mean Corpuscular HGB CONC 33.8 g/dL (32.0-36.0); Mean Corpuscular Hemoglobin 30.2 pg (27.0-31.0); Mean Corpuscular Volume 89.2 fL (78.0-98.0); Mean Platelet Volume 6.4 fL (7.4-10.4); Platelet Count 262 thou/uL (130-400); RBC Distribution Width 14.9 % (11.5-14.5); White Blood Cell (WBC) Count 9.2 thou/uL (4.8-10.8)
[2021-08-03] MEDS: Enoxaparin Sodium 30 MG/0.3 ML SYRINGE SC SCH (07:50)
[2021-08-03] MEDS: Calcitriol 0.25 MCG CAP PO SCH (07:50)
[2021-08-03] MEDS: Carvedilol 3.125 MG TAB PO SCH ×2 (07:50→16:48)
[2021-08-03] MEDS: DULoxetine 30 MG CAP PO SCH (07:50)
[2021-08-03] MEDS: Sevelamer Carbonate 800 MG TAB PO SCH ×3 (07:50→16:46)
[2021-08-03] MEDS: Fluticasone Propionate Nasal Spray 16 gm Bottle NASAL SCH ×2 (07:51→20:06)
[2021-08-03] MEDS ORDERED: Heparin 10,000 UNITS/ 10 ML VIAL ONE (08:55)
[2021-08-03] MEDS ORDERED: EPOETIN ALFA-EPBX (ESRD) 4,000 UNIT/ML VIAL SC SCH (08:55)
[2021-08-03] MEDS: HYDROcodone/Acetaminophen 5/325 mg Tablet PO PRN ×2 (11:50→21:41)
[2021-08-03] MEDS: clonazePAM 1 MG TAB PO SCH (11:50)
[2021-08-03] MEDS ORDERED: EPOETIN ALFA-EPBX (ESRD) 10,000 UNIT/ML VIAL SC SCH (12:00)
[2021-08-03] MEDS: Famotidine 20 MG TAB PO SCH (20:02)
[2021-08-03] MEDS: Aspirin 81 mg Enteric Coated Tablet PO SCH (20:02)
[2021-08-03] MEDS: Amlodipine 10 MG TAB PO SCH (20:02)
[2021-08-03] MEDS: Promethazine 25 MG TAB PO SCH (20:02)
[2021-08-03] MEDS: Zolpidem Tartrate 5 MG TAB PO SCH (20:02)
[2021-08-04 06:36] LABS: #Eosinphils 0.6 thou/uL (0.0-0.7); #Monocytes 0.8 thou/uL (0.11-0.59); #Neutrophils 5.5 thou/uL (1.40-6.50); %Basophils 0.4 % (0.0-1.0); %Eosinophils 6.6 % (0.0-10.0); %Lymphocytes 22.9 % (21.0-51.0); %Monocytes 8.9 % (0.0-10.0); %Neutrophils 61.3 % (42.0-75.0); Hemoglobin 7.3 g/dL (14.0-18.0); Mean Corpuscular HGB CONC 33.3 g/dL (32.0-36.0); Mean Corpuscular Hemoglobin 29.5 pg (27.0-31.0); Mean Corpuscular Volume 88.6 fL (78.0-98.0); Mean Platelet Volume 6.2 fL (7.4-10.4); Platelet Count 264 thou/uL (130-400); RBC Distribution Width 14.8 % (11.5-14.5); Red Blood Cell (RBC) Count 2.48 mill/uL (4.70-6.10); White Blood Cell (WBC) Count 8.9 thou/uL (4.8-10.8)
[2021-08-04] MEDS: Calcitriol 0.25 MCG CAP PO SCH (08:19)
[2021-08-04] MEDS: Sevelamer Carbonate 800 MG TAB PO SCH ×3 (08:19→16:30)
[2021-08-04] MEDS: Carvedilol 3.125 MG TAB PO SCH ×2 (08:19→16:30)
[2021-08-04] MEDS: DULoxetine 30 MG CAP PO SCH (08:19)
[2021-08-04] MEDS: Enoxaparin Sodium 30 MG/0.3 ML SYRINGE SC SCH (08:20)
[2021-08-04] MEDS: Fluticasone Propionate Nasal Spray 16 gm Bottle NASAL SCH ×2 (08:33→20:23)
[2021-08-04] MEDS: HYDROcodone/Acetaminophen 5/325 mg Tablet PO PRN ×2 (10:34→20:21)
[2021-08-04] MEDS: Zolpidem Tartrate 5 MG TAB PO SCH (20:22)
[2021-08-04] MEDS: Aspirin 81 mg Enteric Coated Tablet PO SCH (20:22)
[2021-08-04] MEDS: Amlodipine 10 MG TAB PO SCH (20:22)
[2021-08-04] MEDS: Promethazine 25 MG TAB PO SCH (20:22)
[2021-08-04] MEDS: Famotidine 20 MG TAB PO SCH (20:22)
[2021-08-05 08:00] LABS: #Basophils 0.1 thou/uL (0.0-0.2); #Eosinphils 0.5 thou/uL (0.0-0.7); #Lymphocytes 1.9 thou/uL (1.20-3.40); #Monocytes 0.7 thou/uL (0.11-0.59); #Neutrophils 6.6 thou/uL (1.40-6.50); %Basophils 0.5 % (0.0-1.0); %Eosinophils 5.3 % (0.0-10.0); %Lymphocytes 19.4 % (21.0-51.0); %Monocytes 7.4 % (0.0-10.0); %Neutrophils 67.5 % (42.0-75.0); Hemoglobin 7.6 g/dL (14.0-18.0); Mean Corpuscular HGB CONC 33.3 g/dL (32.0-36.0); Mean Corpuscular Hemoglobin 29.8 pg (27.0-31.0); Mean Corpuscular Volume 89.7 fL (78.0-98.0); Mean Platelet Volume 5.9 fL (7.4-10.4); Platelet Count 263 thou/uL (130-400); RBC Distribution Width 14.9 % (11.5-14.5); Red Blood Cell (RBC) Count 2.54 mill/uL (4.70-6.10); White Blood Cell (WBC) Count 9.8 thou/uL (4.8-10.8)
[2021-08-05] MEDS: Sevelamer Carbonate 800 MG TAB PO SCH ×3 (08:30→16:55)
[2021-08-05] MEDS: Carvedilol 3.125 MG TAB PO SCH ×2 (08:31→16:55)
[2021-08-05] MEDS: Calcitriol 0.25 MCG CAP PO SCH (08:31)
[2021-08-05] MEDS: DULoxetine 30 MG CAP PO SCH (08:31)
[2021-08-05] MEDS: Fluticasone Propionate Nasal Spray 16 gm Bottle NASAL SCH ×2 (08:31→21:13)
[2021-08-05] MEDS: Enoxaparin Sodium 30 MG/0.3 ML SYRINGE SC SCH (08:31)
[2021-08-05] MEDS: HYDROcodone/Acetaminophen 5/325 mg Tablet PO PRN ×4 (09:25→21:12)
[2021-08-05] MEDS ORDERED: Heparin 10,000 UNITS/ 10 ML VIAL ONE (09:42)
[2021-08-05 18:09] LABS: Activated Protein C Resistance 2.6 ratio (.)
[2021-08-05] MEDS: Aspirin 81 mg Enteric Coated Tablet PO SCH (21:12)
[2021-08-05] MEDS: Zolpidem Tartrate 5 MG TAB PO SCH (21:12)
[2021-08-05] MEDS: Famotidine 20 MG TAB PO SCH (21:12)
[2021-08-05] MEDS: Promethazine 25 MG TAB PO SCH (21:12)
[2021-08-05] MEDS: Amlodipine 10 MG TAB PO SCH (21:13)
[2021-08-06] MEDS: Sevelamer Carbonate 800 MG TAB PO SCH ×3 (08:03→16:47)
[2021-08-06] MEDS: HYDROcodone/Acetaminophen 5/325 mg Tablet PO PRN ×4 (08:03→20:19)
[2021-08-06] MEDS: Enoxaparin Sodium 30 MG/0.3 ML SYRINGE SC SCH (08:03)
[2021-08-06] MEDS: DULoxetine 30 MG CAP PO SCH (08:03)
[2021-08-06] MEDS: Calcitriol 0.25 MCG CAP PO SCH (08:03)
[2021-08-06] MEDS: Fluticasone Propionate Nasal Spray 16 gm Bottle NASAL SCH ×2 (08:03→20:21)
[2021-08-06] MEDS: Carvedilol 3.125 MG TAB PO SCH ×2 (08:03→16:47)
[2021-08-06 08:40] LABS: ALT (SGPT) 7 U/L (8-55); AST (SGOT) 10 U/L (5-34); Albumin 3.7 g/dL (3.4-4.8); Alkaline Phosphatase 79 U/L (40-110); Anion Gap 16 mmol/L (10-20); BUN (Urea Nitrogen) 31 mg/dL (8.4-25.7); Bilirubin, Total 0.4 mg/dL (0.2-1.2); Calc. Creatinine Clearance 26 mL/min (70-130); Calcium 9.3 mg/dL (7.8-10.44); Carbon Dioxide 28 mmol/L (23-31); Chloride 96 mmol/L (98-107); Globulin 3.5 g/dL (2.4-3.5); Glucose 103 mg/dL (80-115); Potassium 3.6 mmol/L (3.5-5.1); Protein, Total 7.2 g/dL (5.8-8.1); Sodium 136 mmol/L (136-145)
[2021-08-06 08:44] LABS: #Eosinphils 0.4 thou/uL (0.0-0.7); #Lymphocytes 1.5 thou/uL (1.20-3.40); #Monocytes 0.5 thou/uL (0.11-0.59); #Neutrophils 5.1 thou/uL (1.40-6.50); %Basophils 0.5 % (0.0-1.0); %Eosinophils 5.3 % (0.0-10.0); %Lymphocytes 19.8 % (21.0-51.0); %Monocytes 7.1 % (0.0-10.0); %Neutrophils 67.3 % (42.0-75.0); Hemoglobin 10.3 g/dL (14.0-18.0); Mean Corpuscular HGB CONC 33.5 g/dL (32.0-36.0); Mean Corpuscular Hemoglobin 30.3 pg (27.0-31.0); Mean Corpuscular Volume 90.6 fL (78.0-98.0); Platelet Count 254 thou/uL (130-400); RBC Distribution Width 15.4 % (11.5-14.5); Red Blood Cell (RBC) Count 3.41 mill/uL (4.70-6.10); White Blood Cell (WBC) Count 7.6 thou/uL (4.8-10.8)
[2021-08-06] MEDS: Zolpidem Tartrate 5 MG TAB PO SCH (20:20)
[2021-08-06] MEDS: Promethazine 25 MG TAB PO SCH (20:20)
[2021-08-06] MEDS: Aspirin 81 mg Enteric Coated Tablet PO SCH (20:20)
[2021-08-06] MEDS: Famotidine 20 MG TAB PO SCH (20:21)
[2021-08-06] MEDS: Amlodipine 10 MG TAB PO SCH (20:21)
[2021-08-07] MEDS: Calcitriol 0.25 MCG CAP PO SCH (08:23)
[2021-08-07] MEDS: Artificial Tear Sol 15 ML BOT EA EYE PRN (08:23)
[2021-08-07] MEDS: Sevelamer Carbonate 800 MG TAB PO SCH ×3 (08:24→17:02)
[2021-08-07] MEDS: Carvedilol 3.125 MG TAB PO SCH ×2 (08:24→17:02)
[2021-08-07] MEDS: DULoxetine 30 MG CAP PO SCH (08:24)
[2021-08-07] MEDS: Enoxaparin Sodium 30 MG/0.3 ML SYRINGE SC SCH (08:25)
[2021-08-07] MEDS: Fluticasone Propionate Nasal Spray 16 gm Bottle NASAL SCH ×2 (08:26→21:00)
[2021-08-07] MEDS: Senokot S 8.6-50 MG TAB PO PRN (08:53)
[2021-08-07] MEDS: HYDROcodone/Acetaminophen 5/325 mg Tablet PO PRN ×3 (10:22→21:01)
[2021-08-07] MEDS: Promethazine 25 MG TAB PO SCH (21:00)
[2021-08-07] MEDS: Aspirin 81 mg Enteric Coated Tablet PO SCH (21:00)
[2021-08-07] MEDS: Zolpidem Tartrate 5 MG TAB PO SCH (21:01)
[2021-08-07] MEDS: Famotidine 20 MG TAB PO SCH (21:01)
[2021-08-07] MEDS: Amlodipine 10 MG TAB PO SCH (21:01)
[2021-08-07 22:05] VITALS: TEMP 97.9
[2021-08-08] MEDS: Calcitriol 0.25 MCG CAP PO SCH (08:16)
[2021-08-08] MEDS: DULoxetine 30 MG CAP PO SCH (08:16)
[2021-08-08] MEDS: Sevelamer Carbonate 800 MG TAB PO SCH ×2 (08:16→14:51)
[2021-08-08 08:55] VITALS: BP 124/60
[2021-08-08] MEDS: Fluticasone Propionate Nasal Spray 16 gm Bottle NASAL SCH (09:03)
[2021-08-08] MEDS: HYDROcodone/Acetaminophen 5/325 mg Tablet PO PRN ×2 (09:28→14:51)
[2021-08-08] MEDS ORDERED: Heparin 10,000 UNITS/ 10 ML VIAL ONE (10:09)
[2021-08-08] MEDS: Enoxaparin Sodium 30 MG/0.3 ML SYRINGE SC SCH (14:52)
[2021-08-08] MEDS: Carvedilol 3.125 MG TAB PO SCH (14:52)
[2021-08-09] MEDS ORDERED: Gabapentin 100 MG CAP PO SCH (09:00)
== END 2021-08-08 16:32 | DRG 698 ==
LOC: ERS 11:41 → ERHOLD 14:33 → T4-A 15:35
PROVIDERS: ADMIT Hospitalist; ATTEND Internal Medicine
PROC: 5A1D70Z Performance of Urinary Filtration, Intermittent, Less than 6 Hours Per Day (ICD-10-PCS; principal; 2021-07-20)
PROC: 5A1D70Z Performance of Urinary Filtration, Intermittent, Less than 6 Hours Per Day (ICD-10-PCS; 2021-07-22)
PROC: 5A1D70Z Performance of Urinary Filtration, Intermittent, Less than 6 Hours Per Day (ICD-10-PCS; 2021-07-25)
PROC: 5A1D70Z Performance of Urinary Filtration, Intermittent, Less than 6 Hours Per Day (ICD-10-PCS; 2021-07-27)
PROC: 5A1D70Z Performance of Urinary Filtration, Intermittent, Less than 6 Hours Per Day (ICD-10-PCS; 2021-07-29)
PROC: 5A1D70Z Performance of Urinary Filtration, Intermittent, Less than 6 Hours Per Day (ICD-10-PCS; 2021-08-01)
PROC: 5A1D70Z Performance of Urinary Filtration, Intermittent, Less than 6 Hours Per Day (ICD-10-PCS; 2021-08-03)
PROC: 5A1D70Z Performance of Urinary Filtration, Intermittent, Less than 6 Hours Per Day (ICD-10-PCS; 2021-08-05)
PROC: 5A1D70Z Performance of Urinary Filtration, Intermittent, Less than 6 Hours Per Day (ICD-10-PCS; 2021-08-08)
DX: T83.510A Infection and inflammatory reaction due to cystostomy catheter, initial encounter (principal); N18.6 End stage renal disease; N39.0 Urinary tract infection, site not specified; I69.351 Hemiplegia and hemiparesis following cerebral infarction affecting right dominant side; N25.81 Secondary hyperparathyroidism of renal origin; I12.0 Hypertensive chronic kidney disease with stage 5 chronic kidney disease or end stage renal disease; F31.9 Bipolar disorder, unspecified; F41.9 Anxiety disorder, unspecified; F20.9 Schizophrenia, unspecified; E11.22 Type 2 diabetes mellitus with diabetic chronic kidney disease; N31.9 Neuromuscular dysfunction of bladder, unspecified; Y83.8 Other surgical procedures as the cause of abnormal reaction of the patient, or of later complication, without mention of misadventure at the time of the procedure; E83.52 Hypercalcemia; G89.29 Other chronic pain; E83.39 Other disorders of phosphorus metabolism; D63.1 Anemia in chronic kidney disease; E87.6 Hypokalemia; D75.839 Thrombocytosis, unspecified; G47.00 Insomnia, unspecified; E11.21 Type 2 diabetes mellitus with diabetic nephropathy; E11.51 Type 2 diabetes mellitus with diabetic peripheral angiopathy without gangrene; Z87.891 Personal history of nicotine dependence; Z88.8 Allergy status to other drugs, medicaments and biological substances; Z91.19 Patient's noncompliance with other medical treatment and regimen; Z79.82 Long term (current) use of aspirin; Z79.899 Other long term (current) drug therapy; Z99.2 Dependence on renal dialysis; Z99.3 Dependence on wheelchair
CPT/HCPCS: 36415; 36416; 70450; 71045; 80048; 80053; 81003; 81015; 82553; 82805; 83090; 83605; 83690; 83735; 83880; 83970; 84100; 84484; 85025; 85240; 85300; 85303; 85305; 85307; 85379; 85598; 85610; 85730; 86147; 86704; 86706; 86803; 87040; 87086; 87340; 90935; 93005; 93010; 93306; 96365; 96375; G0257; J0696; J1644; J1650; J2405; J2550; J2765; J3490; Q0169; Q5105; Q9967; S0028

== ENCOUNTER 2021-09-15 20:20 | Inpatient (IN) | payer MEDICARE ==
[2021-09-15] MEDS ORDERED: Ondansetron ODT 4 MG TAB ONE (20:42)
[2021-09-15 21:04] LABS: #Eosinphils 0.2 thou/uL (0.0-0.7); #Lymphocytes 1.4 thou/uL (1.20-3.40); #Monocytes 0.4 thou/uL (0.11-0.59); #Neutrophils 8.6 thou/uL (1.40-6.50); %Basophils 0.1 % (0.0-1.0); %Eosinophils 2.1 % (0.0-10.0); %Lymphocytes 12.9 % (21.0-51.0); %Monocytes 3.7 % (0.0-10.0); %Neutrophils 81.2 % (42.0-75.0); Hemoglobin 10.3 g/dL (14.0-18.0); Mean Corpuscular HGB CONC 33.9 g/dL (32.0-36.0); Mean Corpuscular Hemoglobin 30.6 pg (27.0-31.0); Mean Corpuscular Volume 90.1 fL (78.0-98.0); Platelet Count 289 thou/uL (130-400); RBC Distribution Width 14.3 % (11.5-14.5); Red Blood Cell (RBC) Count 3.37 mill/uL (4.70-6.10); White Blood Cell (WBC) Count 10.6 thou/uL (4.8-10.8)
[2021-09-15 21:25] LABS: ALT (SGPT) Less than 7 U/L (8-55); AST (SGOT) 10 U/L (5-34); Albumin 4.6 g/dL (3.4-4.8); Alkaline Phosphatase 93 U/L (40-110); Anion Gap 27 mmol/L (10-20); Bilirubin, Total 0.4 mg/dL (0.2-1.2); Calc. Creatinine Clearance 0 mL/min (70-130); Calcium 9.9 mg/dL (7.8-10.44); Carbon Dioxide 17 mmol/L (23-31); Chloride 96 mmol/L (98-107); Globulin 4.2 g/dL (2.4-3.5); Glucose 154 mg/dL (80-115); Lipase 7 U/L (8-78); Potassium 4.5 mmol/L (3.5-5.1); Protein, Total 8.8 g/dL (5.8-8.1); Sodium 135 mmol/L (136-145)
[2021-09-15 21:36] LABS: BUN (Urea Nitrogen) 116 mg/dL (8.4-25.7)
[2021-09-15 21:50] LABS: Bilirubin Negative (Negative); Blood, Urine 1+ (Negative); Clarity Turbid (Clear); Glucose, Urine (Dipstick) 70 mg/dL (Negative); Ketone, Urine 20 mg/dL (Negative); Leukocyte 500 Leu/uL (Negative); Nitrite Negative (Negative); Protein, Urine (Dipstick) 200 mg/dL (Neg-Trace); Specific Gravity, Urine 1.013 (1.002-1.036); Squamous Epithelial 0-3 HPF (0-3); Urobilinogen Normal mg/dL (Less than 2); pH, Urine 6.5 (5.0-9.0)
[2021-09-15 22:00] LABS: Bacteria/HPF 4+ HPF (None Seen); RBC/HPF 0-3 HPF (0-3)
[2021-09-15] MEDS ORDERED: cefTRIAXone\\ROCEPHIN 2 GM VIAL ONE (22:49)
[2021-09-15] MEDS ORDERED: cloNIDine 0.1 MG TAB PO PRN (23:12)
[2021-09-15] MEDS ORDERED: Ondansetron ODT 4 MG TAB SL PRN (23:15)
[2021-09-15] MEDS ORDERED: Acetaminophen 325 MG TAB PO PRN (23:15)
[2021-09-15] MEDS ORDERED: Acetaminophen/Codeine 30-300mg Tablet ONE (23:27)
[2021-09-15] MEDS ORDERED: cloNIDine 0.1 MG TAB ONE (23:30)
[2021-09-16] MEDS: Ondansetron PF 4 MG/2 ML Vial IVP PRN ×2 (02:40→08:09)
[2021-09-16 03:13] LABS: SARS-CoV-2 NAA Rapid Test Not Detected (NotDetected)
[2021-09-16] MEDS ORDERED: Ondansetron PF 4 MG/2 ML Vial IVP SCH (07:00)
[2021-09-16] MEDS: Acetaminophen/Codeine 30-300mg Tablet PO PRN ×3 (07:06→18:59)
[2021-09-16 07:32] LABS: #Basophils 0.1 thou/uL (0.0-0.2); #Eosinphils 0.5 thou/uL (0.0-0.7); #Lymphocytes 1.9 thou/uL (1.20-3.40); #Monocytes 0.7 thou/uL (0.11-0.59); #Neutrophils 6.9 thou/uL (1.40-6.50); %Basophils 0.6 % (0.0-1.0); %Eosinophils 4.5 % (0.0-10.0); %Lymphocytes 19.2 % (21.0-51.0); %Monocytes 7.1 % (0.0-10.0); %Neutrophils 68.7 % (42.0-75.0); Hemoglobin 9.1 g/dL (14.0-18.0); Mean Corpuscular HGB CONC 34.8 g/dL (32.0-36.0); Mean Corpuscular Hemoglobin 30.5 pg (27.0-31.0); Mean Corpuscular Volume 87.7 fL (78.0-98.0); Platelet Count 251 thou/uL (130-400); RBC Distribution Width 14.4 % (11.5-14.5); Red Blood Cell (RBC) Count 2.97 mill/uL (4.70-6.10)
[2021-09-16 07:52] LABS: Anion Gap 21 mmol/L (10-20); Calc. Creatinine Clearance 11 mL/min (70-130); Carbon Dioxide 20 mmol/L (23-31); Chloride 95 mmol/L (98-107); Glucose 105 mg/dL (80-115); Potassium 3.8 mmol/L (3.5-5.1); Sodium 132 mmol/L (136-145)
[2021-09-16 08:03] LABS: BUN (Urea Nitrogen) 113 mg/dL (8.4-25.7)
[2021-09-16] MEDS ORDERED: Heparin 10,000 UNITS/ 10 ML VIAL ONE (09:30)
[2021-09-16] MEDS ORDERED: cloNIDine 0.2mg/24 Hour PATCH TD SCH (11:00)
[2021-09-16] MEDS ORDERED: Dextrose 50% Abboject 50 ML SYRINGE IVP PRN (11:30)
[2021-09-16] MEDS ORDERED: Dextrose 5% in Water 1,000 ML IV PRN (11:30)
[2021-09-16] MEDS ORDERED: Insulin Regular 300 UNITS/3 ML VIAL SC PRN (11:30)
[2021-09-16] MEDS: Sevelamer Carbonate 800 MG TAB PO SCH ×3 (11:49→18:58)
[2021-09-16] MEDS: methylPREDNISolone Sod Succ 40 MG VIAL IVP SCH ×4 (11:49→23:48)
[2021-09-16] MEDS: Promethazine HCl 25 MG/ML VIAL IM PRN ×3 (11:50→23:48)
[2021-09-16] MEDS: Cyclobenzaprine 10 MG TAB PO SCH (21:04)
[2021-09-16] MEDS: Amlodipine 5 MG TAB PO SCH (21:05)
[2021-09-16] MEDS: cefTRIAXone\\ROCEPHIN 2 GM in Sodium Chloride 0.9% 100 ML IVPB SCH (23:48)
[2021-09-16] MEDS: Epoetin (ESRD) 10,000 UNITS/ML VIAL SC SCH (23:49)
[2021-09-17] MEDS: methylPREDNISolone Sod Succ 40 MG VIAL IVP SCH (05:40)
[2021-09-17] MEDS: Fluticasone Propionate Nasal Spray 16 gm Bottle NASAL SCH (07:44)
[2021-09-17] MEDS: Sevelamer Carbonate 800 MG TAB PO SCH ×3 (07:46→19:59)
[2021-09-17] MEDS: Aspirin 81 mg Enteric Coated Tablet PO SCH (07:47)
[2021-09-17] MEDS: Cyclobenzaprine 10 MG TAB PO SCH ×2 (07:47→20:40)
[2021-09-17] MEDS: Calcitriol 0.25 MCG CAP PO SCH (07:47)
[2021-09-17] MEDS: DULoxetine 30 MG CAP PO SCH (07:48)
[2021-09-17] MEDS: Finasteride 5 MG TAB PO SCH (07:48)
[2021-09-17] MEDS: Tamsulosin HCl 0.4 MG CAP PO SCH (07:49)
[2021-09-17 08:54] LABS: #Lymphocytes 0.7 thou/uL (1.20-3.40); #Neutrophils 3.9 thou/uL (1.40-6.50); %Eosinophils 0.2 % (0.0-10.0); %Lymphocytes 15.8 % (21.0-51.0); %Monocytes 0.6 % (0.0-10.0); %Neutrophils 82.4 % (42.0-75.0); Hemoglobin 10.2 g/dL (14.0-18.0); Mean Corpuscular HGB CONC 33.7 g/dL (32.0-36.0); Mean Corpuscular Hemoglobin 30.1 pg (27.0-31.0); Mean Corpuscular Volume 89.3 fL (78.0-98.0); Mean Platelet Volume 6.5 fL (7.4-10.4); Platelet Count 262 thou/uL (130-400); RBC Distribution Width 14.6 % (11.5-14.5); White Blood Cell (WBC) Count 4.7 thou/uL (4.8-10.8)
[2021-09-17 09:18] LABS: Anion Gap 20 mmol/L (10-20); BUN (Urea Nitrogen) 57 mg/dL (8.4-25.7); Calc. Creatinine Clearance 17 mL/min (70-130); Calcium 9.5 mg/dL (7.8-10.44); Carbon Dioxide 24 mmol/L (23-31); Chloride 95 mmol/L (98-107); Glucose 277 mg/dL (80-115); Sodium 135 mmol/L (136-145)
[2021-09-17] MEDS ORDERED: Heparin 10,000 UNITS/ 10 ML VIAL ONE (09:32)
[2021-09-17] MEDS: Artificial Tear Sol 15 ML BOT EA EYE PRN (10:11)
[2021-09-17] MEDS: SUMAtriptan Succinate 50 MG TAB PO PRN (10:46)
[2021-09-17] MEDS: HYDROcodone/Acetaminophen 5/325 mg Tablet PO PRN ×2 (10:49→20:41)
[2021-09-17] MEDS: Promethazine HCl 25 MG/ML VIAL IM PRN (12:00)
[2021-09-17] MEDS ORDERED: hydrALAZINE 20 MG/ML VIAL SLOW IVP PRN (12:17)
[2021-09-17] MEDS ORDERED: Nitroglycerin 0.4 MG TAB (25 Tab Bottle) ONE (18:43)
[2021-09-17] MEDS ORDERED: Aspirin Chewable 81 MG TAB ONE (18:44)
[2021-09-17 18:55] LABS: #Monocytes 1.1 thou/uL (0.11-0.59); #Neutrophils 6.7 thou/uL (1.40-6.50); %Basophils 0.2 % (0.0-1.0); %Eosinophils 0.2 % (0.0-10.0); %Monocytes 11.1 % (0.0-10.0); %Neutrophils 68.5 % (42.0-75.0); Hemoglobin 10.2 g/dL (14.0-18.0); Mean Corpuscular HGB CONC 33.6 g/dL (32.0-36.0); Mean Corpuscular Hemoglobin 29.8 pg (27.0-31.0); Mean Corpuscular Volume 88.8 fL (78.0-98.0); Mean Platelet Volume 6.6 fL (7.4-10.4); Platelet Count 286 thou/uL (130-400); RBC Distribution Width 14.9 % (11.5-14.5); Red Blood Cell (RBC) Count 3.42 mill/uL (4.70-6.10); White Blood Cell (WBC) Count 9.8 thou/uL (4.8-10.8)
[2021-09-17 19:15] LABS: ALT (SGPT) 7 U/L (8-55); AST (SGOT) 16 U/L (5-34); Albumin 4.7 g/dL (3.4-4.8); Alkaline Phosphatase 89 U/L (40-110); Anion Gap 19 mmol/L (10-20); BUN (Urea Nitrogen) 27 mg/dL (8.4-25.7); Bilirubin, Total 0.4 mg/dL (0.2-1.2); Calc. Creatinine Clearance 34 mL/min (70-130); Calcium 10.1 mg/dL (7.8-10.44); Carbon Dioxide 26 mmol/L (23-31); Chloride 93 mmol/L (98-107); Globulin 4.2 g/dL (2.4-3.5); Glucose 126 mg/dL (80-115); Protein, Total 8.9 g/dL (5.8-8.1); Sodium 135 mmol/L (136-145)
[2021-09-17 19:19] LABS: Troponin I 0.045 ng/mL (< 0.028)
[2021-09-17 19:21] LABS: Potassium 2.9 mmol/L (3.5-5.1)
[2021-09-17] MEDS: Potassium Chloride 20 MEQ TAB PO SCH (20:40)
[2021-09-17] MEDS: Amlodipine 5 MG TAB PO SCH (20:40)
[2021-09-17 22:44] LABS: Troponin I 0.044 ng/mL (< 0.028)
[2021-09-17] MEDS: cefTRIAXone\\ROCEPHIN 2 GM in Sodium Chloride 0.9% 100 ML IVPB SCH (23:56)
[2021-09-18 01:26] LABS: Troponin I 0.049 ng/mL (< 0.028)
[2021-09-18 03:55] LABS: #Lymphocytes 1.9 thou/uL (1.20-3.40); #Monocytes 1.1 thou/uL (0.11-0.59); #Neutrophils 5.7 thou/uL (1.40-6.50); %Basophils 0.1 % (0.0-1.0); %Eosinophils 0.4 % (0.0-10.0); %Monocytes 12.8 % (0.0-10.0); %Neutrophils 64.6 % (42.0-75.0); Mean Corpuscular HGB CONC 33.1 g/dL (32.0-36.0); Mean Corpuscular Hemoglobin 29.7 pg (27.0-31.0); Mean Corpuscular Volume 89.7 fL (78.0-98.0); Mean Platelet Volume 6.5 fL (7.4-10.4); Platelet Count 243 thou/uL (130-400); RBC Distribution Width 14.9 % (11.5-14.5); Red Blood Cell (RBC) Count 3.38 mill/uL (4.70-6.10); White Blood Cell (WBC) Count 8.8 thou/uL (4.8-10.8)
[2021-09-18 04:16] LABS: Anion Gap 19 mmol/L (10-20); BUN (Urea Nitrogen) 40 mg/dL (8.4-25.7); Calc. Creatinine Clearance 23 mL/min (70-130); Calcium 9.9 mg/dL (7.8-10.44); Carbon Dioxide 27 mmol/L (23-31); Chloride 95 mmol/L (98-107); Glucose 124 mg/dL (80-115); Potassium 3.6 mmol/L (3.5-5.1); Sodium 137 mmol/L (136-145)
[2021-09-18 04:17] LABS: Phosphorus 4.5 mg/dL (2.3-4.7)
[2021-09-18] MEDS: DULoxetine 30 MG CAP PO SCH (07:40)
[2021-09-18] MEDS: Tamsulosin HCl 0.4 MG CAP PO SCH (07:40)
[2021-09-18] MEDS: Potassium Chloride 20 MEQ TAB PO SCH ×2 (07:40→20:57)
[2021-09-18] MEDS: Calcitriol 0.25 MCG CAP PO SCH (07:40)
[2021-09-18] MEDS: Aspirin 81 mg Enteric Coated Tablet PO SCH (07:40)
[2021-09-18] MEDS: Finasteride 5 MG TAB PO SCH (07:40)
[2021-09-18] MEDS: Sevelamer Carbonate 800 MG TAB PO SCH ×4 (07:41→16:30)
[2021-09-18] MEDS: Cyclobenzaprine 10 MG TAB PO SCH ×2 (07:41→20:57)
[2021-09-18] MEDS: Fluticasone Propionate Nasal Spray 16 gm Bottle NASAL SCH (07:41)
[2021-09-18] MEDS: HYDROcodone/Acetaminophen 5/325 mg Tablet PO PRN ×2 (16:30→21:17)
[2021-09-18] MEDS: Amlodipine 5 MG TAB PO SCH (20:57)
[2021-09-19] MEDS: cefTRIAXone\\ROCEPHIN 2 GM in Sodium Chloride 0.9% 100 ML IVPB SCH (00:04)
[2021-09-19 04:13] LABS: #Eosinphils 0.4 thou/uL (0.0-0.7); #Lymphocytes 2.3 thou/uL (1.20-3.40); #Monocytes 0.7 thou/uL (0.11-0.59); #Neutrophils 4.9 thou/uL (1.40-6.50); %Basophils 0.4 % (0.0-1.0); %Eosinophils 4.4 % (0.0-10.0); %Lymphocytes 28.1 % (21.0-51.0); %Monocytes 8.3 % (0.0-10.0); %Neutrophils 58.8 % (42.0-75.0); Hemoglobin 9.6 g/dL (14.0-18.0); Mean Corpuscular HGB CONC 34.7 g/dL (32.0-36.0); Mean Corpuscular Volume 92.3 fL (78.0-98.0); Mean Platelet Volume 6.7 fL (7.4-10.4); Platelet Count 221 thou/uL (130-400); RBC Distribution Width 14.6 % (11.5-14.5); Red Blood Cell (RBC) Count 2.99 mill/uL (4.70-6.10); White Blood Cell (WBC) Count 8.3 thou/uL (4.8-10.8)
[2021-09-19 04:37] LABS: Anion Gap 18 mmol/L (10-20); BUN (Urea Nitrogen) 58 mg/dL (8.4-25.7); Calc. Creatinine Clearance 17 mL/min (70-130); Calcium 9.3 mg/dL (7.8-10.44); Carbon Dioxide 24 mmol/L (23-31); Chloride 96 mmol/L (98-107); Glucose 119 mg/dL (80-115); Potassium 4.2 mmol/L (3.5-5.1); Sodium 134 mmol/L (136-145)
[2021-09-19] MEDS ORDERED: cefOXitin 2 GM in Sodium Chloride 0.9% 100 ML IVPB SCH ×2 (06:30→14:00)
[2021-09-19] MEDS ORDERED: Meropenem 1 GM in Sodium Chloride 0.9% 100 ML IVPB SCH (08:00)
[2021-09-19] MEDS: Potassium Chloride 20 MEQ TAB PO SCH ×2 (09:43→21:18)
[2021-09-19] MEDS: Tamsulosin HCl 0.4 MG CAP PO SCH (09:44)
[2021-09-19] MEDS: Cyclobenzaprine 10 MG TAB PO SCH ×2 (09:44→21:19)
[2021-09-19] MEDS: Aspirin 81 mg Enteric Coated Tablet PO SCH (09:44)
[2021-09-19] MEDS: Amlodipine 10 MG TAB PO SCH (09:44)
[2021-09-19] MEDS: Calcitriol 0.25 MCG CAP PO SCH (09:45)
[2021-09-19] MEDS: HYDROcodone/Acetaminophen 5/325 mg Tablet PO PRN ×2 (09:45→19:44)
[2021-09-19] MEDS: DULoxetine 60 MG CAP PO SCH ×2 (09:45→09:50)
[2021-09-19] MEDS: Finasteride 5 MG TAB PO SCH (09:45)
[2021-09-19] MEDS: Fluticasone Propionate Nasal Spray 16 gm Bottle NASAL SCH (11:45)
[2021-09-19] MEDS: Sevelamer Carbonate 800 MG TAB PO SCH ×2 (12:21→16:57)
[2021-09-19] MEDS: Artificial Tear Sol 15 ML BOT EA EYE PRN (16:11)
[2021-09-19] MEDS: Meropenem 500 MG in Sodium Chloride 0.9% 100 ML IVPB SCH (16:56)
[2021-09-19] MEDS: Amlodipine 5 MG TAB PO SCH (21:18)
[2021-09-20] MEDS: HYDROcodone/Acetaminophen 5/325 mg Tablet PO PRN ×4 (04:33→23:38)
[2021-09-20 04:36] LABS: #Basophils 0.1 thou/uL (0.0-0.2); #Eosinphils 0.5 thou/uL (0.0-0.7); #Lymphocytes 2.3 thou/uL (1.20-3.40); #Monocytes 0.7 thou/uL (0.11-0.59); #Neutrophils 6.7 thou/uL (1.40-6.50); %Basophils 0.5 % (0.0-1.0); %Eosinophils 4.5 % (0.0-10.0); %Lymphocytes 22.3 % (21.0-51.0); %Monocytes 6.6 % (0.0-10.0); %Neutrophils 66.1 % (42.0-75.0); Hemoglobin 9.2 g/dL (14.0-18.0); Mean Corpuscular HGB CONC 34.1 g/dL (32.0-36.0); Mean Corpuscular Hemoglobin 31.2 pg (27.0-31.0); Mean Corpuscular Volume 91.4 fL (78.0-98.0); Mean Platelet Volume 6.8 fL (7.4-10.4); Platelet Count 239 thou/uL (130-400); RBC Distribution Width 14.5 % (11.5-14.5); Red Blood Cell (RBC) Count 2.94 mill/uL (4.70-6.10); White Blood Cell (WBC) Count 10.1 thou/uL (4.8-10.8)
[2021-09-20 05:00] LABS: Anion Gap 16 mmol/L (10-20); BUN (Urea Nitrogen) 68 mg/dL (8.4-25.7); Calc. Creatinine Clearance 15 mL/min (70-130); Calcium 9.3 mg/dL (7.8-10.44); Carbon Dioxide 25 mmol/L (23-31); Chloride 94 mmol/L (98-107); Glucose 115 mg/dL (80-115); Potassium 4.3 mmol/L (3.5-5.1); Sodium 131 mmol/L (136-145)
[2021-09-20] MEDS ORDERED: Nitroglycerin 0.4 MG TAB (25 Tab Bottle) SL SCH (08:30)
[2021-09-20] MEDS ORDERED: Aspirin Chewable 81 MG TAB PO SCH (08:30)
[2021-09-20] MEDS: Artificial Tear Sol 15 ML BOT EA EYE PRN (11:24)
[2021-09-20] MEDS ORDERED: Heparin 10,000 UNITS/ 10 ML VIAL ONE (13:00)
[2021-09-20] MEDS: Sevelamer Carbonate 800 MG TAB PO SCH ×3 (13:47→16:54)
[2021-09-20] MEDS: Fluticasone Propionate Nasal Spray 16 gm Bottle NASAL SCH (13:50)
[2021-09-20] MEDS: Potassium Chloride 20 MEQ TAB PO SCH ×2 (13:51→20:12)
[2021-09-20] MEDS: DULoxetine 60 MG CAP PO SCH (13:51)
[2021-09-20] MEDS: Finasteride 5 MG TAB PO SCH (13:51)
[2021-09-20] MEDS: Tamsulosin HCl 0.4 MG CAP PO SCH (13:52)
[2021-09-20] MEDS: Amlodipine 10 MG TAB PO SCH (13:52)
[2021-09-20] MEDS: Aspirin 81 mg Enteric Coated Tablet PO SCH (13:52)
[2021-09-20] MEDS: Calcitriol 0.25 MCG CAP PO SCH (13:52)
[2021-09-20] MEDS: Cyclobenzaprine 10 MG TAB PO SCH ×2 (13:52→20:12)
[2021-09-20] MEDS: Meropenem 500 MG in Sodium Chloride 0.9% 100 ML IVPB SCH (16:54)
[2021-09-20] MEDS: Amlodipine 5 MG TAB PO SCH (20:12)
[2021-09-21 03:55] LABS: #Eosinphils 0.5 thou/uL (0.0-0.7); #Lymphocytes 1.5 thou/uL (1.20-3.40); #Monocytes 0.6 thou/uL (0.11-0.59); #Neutrophils 6.2 thou/uL (1.40-6.50); %Basophils 0.2 % (0.0-1.0); %Eosinophils 5.5 % (0.0-10.0); %Lymphocytes 17.2 % (21.0-51.0); %Monocytes 7.2 % (0.0-10.0); %Neutrophils 69.9 % (42.0-75.0); Hemoglobin 8.9 g/dL (14.0-18.0); Mean Corpuscular HGB CONC 33.1 g/dL (32.0-36.0); Mean Corpuscular Hemoglobin 30.3 pg (27.0-31.0); Mean Corpuscular Volume 91.5 fL (78.0-98.0); Mean Platelet Volume 6.6 fL (7.4-10.4); Platelet Count 216 thou/uL (130-400); RBC Distribution Width 14.7 % (11.5-14.5); Red Blood Cell (RBC) Count 2.95 mill/uL (4.70-6.10); White Blood Cell (WBC) Count 8.9 thou/uL (4.8-10.8)
[2021-09-21 04:17] LABS: Anion Gap 13 mmol/L (10-20); BUN (Urea Nitrogen) 38 mg/dL (8.4-25.7); Calc. Creatinine Clearance 22 mL/min (70-130); Calcium 9.2 mg/dL (7.8-10.44); Carbon Dioxide 27 mmol/L (23-31); Chloride 99 mmol/L (98-107); Glucose 113 mg/dL (80-115); Potassium 4.1 mmol/L (3.5-5.1); Sodium 135 mmol/L (136-145)
[2021-09-21] MEDS: Finasteride 5 MG TAB PO SCH (09:50)
[2021-09-21] MEDS: Sevelamer Carbonate 800 MG TAB PO SCH ×3 (09:50→17:57)
[2021-09-21] MEDS: Amlodipine 10 MG TAB PO SCH (09:50)
[2021-09-21] MEDS: Cyclobenzaprine 10 MG TAB PO SCH ×2 (09:50→19:35)
[2021-09-21] MEDS: DULoxetine 60 MG CAP PO SCH (09:50)
[2021-09-21] MEDS: Aspirin 81 mg Enteric Coated Tablet PO SCH (09:50)
[2021-09-21] MEDS: Calcitriol 0.25 MCG CAP PO SCH (09:50)
[2021-09-21] MEDS: Tamsulosin HCl 0.4 MG CAP PO SCH (09:51)
[2021-09-21] MEDS: Potassium Chloride 20 MEQ TAB PO SCH ×2 (09:51→19:35)
[2021-09-21] MEDS: Fluticasone Propionate Nasal Spray 16 gm Bottle NASAL SCH (09:51)
[2021-09-21] MEDS: HYDROcodone/Acetaminophen 5/325 mg Tablet PO PRN ×2 (15:34→22:16)
[2021-09-21] MEDS: Meropenem 500 MG in Sodium Chloride 0.9% 100 ML IVPB SCH (17:57)
[2021-09-21] MEDS: Amlodipine 5 MG TAB PO SCH (19:34)
[2021-09-21] MEDS: SUMAtriptan Succinate 50 MG TAB PO PRN (20:05)
[2021-09-22] MEDS ORDERED: Heparin 10,000 UNITS/ 10 ML VIAL ONE (09:07)
[2021-09-22 09:45] LABS: HBSAg Index 0.22 S/CO (0-0.99); Hep B Surf Ag Non-Reactive S/CO (NonReactive)
[2021-09-22] MEDS: HYDROcodone/Acetaminophen 5/325 mg Tablet PO PRN ×2 (09:58→18:48)
[2021-09-22] MEDS: Aspirin 81 mg Enteric Coated Tablet PO SCH (10:46)
[2021-09-22] MEDS: Cyclobenzaprine 10 MG TAB PO SCH ×2 (10:46→20:29)
[2021-09-22] MEDS: DULoxetine 60 MG CAP PO SCH (10:46)
[2021-09-22] MEDS: Potassium Chloride 20 MEQ TAB PO SCH ×2 (10:46→20:29)
[2021-09-22] MEDS: Tamsulosin HCl 0.4 MG CAP PO SCH (10:46)
[2021-09-22] MEDS: Sevelamer Carbonate 800 MG TAB PO SCH ×3 (10:47→18:49)
[2021-09-22] MEDS: Finasteride 5 MG TAB PO SCH (10:47)
[2021-09-22] MEDS: Artificial Tear Sol 15 ML BOT EA EYE PRN (10:52)
[2021-09-22] MEDS: Fluticasone Propionate Nasal Spray 16 gm Bottle NASAL SCH (10:52)
[2021-09-22 12:32] LABS: SARS-CoV-2 PCR by NAA Not Detected (NotDetected)
[2021-09-22] MEDS: Calcitriol 0.25 MCG CAP PO SCH (12:55)
[2021-09-22] MEDS: Amlodipine 10 MG TAB PO SCH (12:56)
[2021-09-22] MEDS: Meropenem 500 MG in Sodium Chloride 0.9% 100 ML IVPB SCH (18:50)
[2021-09-23 04:19] LABS: #Eosinphils 0.5 thou/uL (0.0-0.7); #Lymphocytes 1.7 thou/uL (1.20-3.40); #Monocytes 0.8 thou/uL (0.11-0.59); %Basophils 0.2 % (0.0-1.0); %Eosinophils 5.6 % (0.0-10.0); %Lymphocytes 18.7 % (21.0-51.0); %Monocytes 8.7 % (0.0-10.0); %Neutrophils 66.9 % (42.0-75.0); Hemoglobin 9.6 g/dL (14.0-18.0); Mean Corpuscular HGB CONC 32.9 g/dL (32.0-36.0); Mean Corpuscular Hemoglobin 30.2 pg (27.0-31.0); Mean Corpuscular Volume 91.8 fL (78.0-98.0); Mean Platelet Volume 6.4 fL (7.4-10.4); Platelet Count 283 thou/uL (130-400); RBC Distribution Width 14.7 % (11.5-14.5); Red Blood Cell (RBC) Count 3.19 mill/uL (4.70-6.10)
[2021-09-23 04:42] LABS: Anion Gap 14 mmol/L (10-20); BUN (Urea Nitrogen) 24 mg/dL (8.4-25.7); Calc. Creatinine Clearance 28 mL/min (70-130); Calcium 9.5 mg/dL (7.8-10.44); Carbon Dioxide 29 mmol/L (23-31); Chloride 98 mmol/L (98-107); Glucose 94 mg/dL (80-115); Potassium 3.7 mmol/L (3.5-5.1); Sodium 137 mmol/L (136-145)
[2021-09-23] MEDS ORDERED: cloNIDine 0.2mg/24 Hour PATCH TD SCH (09:00)
[2021-09-23] MEDS: Cyclobenzaprine 10 MG TAB PO SCH ×2 (09:50→20:39)
[2021-09-23] MEDS: Sevelamer Carbonate 800 MG TAB PO SCH ×3 (09:50→16:04)
[2021-09-23] MEDS: Aspirin 81 mg Enteric Coated Tablet PO SCH (09:50)
[2021-09-23] MEDS: Calcitriol 0.25 MCG CAP PO SCH (09:51)
[2021-09-23] MEDS: Amlodipine 10 MG TAB PO SCH (09:51)
[2021-09-23] MEDS: Finasteride 5 MG TAB PO SCH (09:52)
[2021-09-23] MEDS: DULoxetine 60 MG CAP PO SCH (09:52)
[2021-09-23] MEDS: Potassium Chloride 20 MEQ TAB PO SCH ×2 (09:52→20:39)
[2021-09-23] MEDS: Tamsulosin HCl 0.4 MG CAP PO SCH (09:52)
[2021-09-23] MEDS: Artificial Tear Sol 15 ML BOT EA EYE PRN (10:04)
[2021-09-23] MEDS: Fluticasone Propionate Nasal Spray 16 gm Bottle NASAL SCH (10:04)
[2021-09-23] MEDS: Carvedilol 3.125 MG TAB PO SCH (16:04)
[2021-09-23] MEDS: Meropenem 500 MG in Sodium Chloride 0.9% 100 ML IVPB SCH (16:04)
[2021-09-23] MEDS: Epoetin (ESRD) 10,000 UNITS/ML VIAL SC SCH (18:36)
[2021-09-23] MEDS: HYDROcodone/Acetaminophen 5/325 mg Tablet PO PRN (21:41)
[2021-09-24] MEDS: Tamsulosin HCl 0.4 MG CAP PO SCH (08:38)
[2021-09-24] MEDS: Cyclobenzaprine 10 MG TAB PO SCH ×2 (08:38→20:15)
[2021-09-24] MEDS: Calcitriol 0.25 MCG CAP PO SCH (08:38)
[2021-09-24] MEDS: DULoxetine 60 MG CAP PO SCH (08:38)
[2021-09-24] MEDS: Sevelamer Carbonate 800 MG TAB PO SCH ×3 (08:38→16:58)
[2021-09-24] MEDS: Finasteride 5 MG TAB PO SCH (08:38)
[2021-09-24] MEDS: Fluticasone Propionate Nasal Spray 16 gm Bottle NASAL SCH (08:38)
[2021-09-24] MEDS: Aspirin 81 mg Enteric Coated Tablet PO SCH (08:38)
[2021-09-24] MEDS: Carvedilol 3.125 MG TAB PO SCH ×2 (08:39→16:58)
[2021-09-24] MEDS: Artificial Tear Sol 15 ML BOT EA EYE PRN (08:40)
[2021-09-24] MEDS: Amlodipine 10 MG TAB PO SCH (08:40)
[2021-09-24] MEDS: Potassium Chloride 20 MEQ TAB PO SCH ×2 (08:40→20:15)
[2021-09-24] MEDS ORDERED: Heparin 10,000 UNITS/ 10 ML VIAL ONE (09:09)
[2021-09-24] MEDS: HYDROcodone/Acetaminophen 5/325 mg Tablet PO PRN ×2 (12:12→18:39)
[2021-09-24] MEDS: Meropenem 500 MG in Sodium Chloride 0.9% 100 ML IVPB SCH (16:58)
[2021-09-25] MEDS: HYDROcodone/Acetaminophen 5/325 mg Tablet PO PRN ×3 (00:16→22:07)
[2021-09-25 05:01] LABS: #Basophils 0.1 thou/uL (0.0-0.2); #Eosinphils 0.3 thou/uL (0.0-0.7); #Lymphocytes 2.1 thou/uL (1.20-3.40); #Monocytes 0.8 thou/uL (0.11-0.59); #Neutrophils 3.5 thou/uL (1.40-6.50); %Basophils 0.8 % (0.0-1.0); %Eosinophils 4.8 % (0.0-10.0); %Lymphocytes 30.8 % (21.0-51.0); %Monocytes 11.8 % (0.0-10.0); %Neutrophils 51.7 % (42.0-75.0); Hemoglobin 8.8 g/dL (14.0-18.0); Mean Corpuscular HGB CONC 32.8 g/dL (32.0-36.0); Mean Corpuscular Hemoglobin 30.2 pg (27.0-31.0); Mean Corpuscular Volume 92.3 fL (78.0-98.0); Mean Platelet Volume 6.6 fL (7.4-10.4); Platelet Count 281 thou/uL (130-400); RBC Distribution Width 14.6 % (11.5-14.5); White Blood Cell (WBC) Count 6.7 thou/uL (4.8-10.8)
[2021-09-25 05:22] LABS: Anion Gap 12 mmol/L (10-20); BUN (Urea Nitrogen) 25 mg/dL (8.4-25.7); Calc. Creatinine Clearance 26 mL/min (70-130); Calcium 9.5 mg/dL (7.8-10.44); Carbon Dioxide 29 mmol/L (23-31); Chloride 98 mmol/L (98-107); Glucose 121 mg/dL (80-115); Potassium 4.1 mmol/L (3.5-5.1); Sodium 135 mmol/L (136-145)
[2021-09-25] MEDS: DULoxetine 60 MG CAP PO SCH (08:42)
[2021-09-25] MEDS: Fluticasone Propionate Nasal Spray 16 gm Bottle NASAL SCH (08:42)
[2021-09-25] MEDS: Sevelamer Carbonate 800 MG TAB PO SCH ×3 (08:42→16:10)
[2021-09-25] MEDS: Cyclobenzaprine 10 MG TAB PO SCH (08:42)
[2021-09-25] MEDS: Aspirin 81 mg Enteric Coated Tablet PO SCH (08:42)
[2021-09-25] MEDS: Potassium Chloride 20 MEQ TAB PO SCH ×2 (08:43→20:49)
[2021-09-25] MEDS: Carvedilol 3.125 MG TAB PO SCH ×2 (08:43→16:11)
[2021-09-25] MEDS: Tamsulosin HCl 0.4 MG CAP PO SCH (08:43)
[2021-09-25] MEDS: Amlodipine 10 MG TAB PO SCH (08:43)
[2021-09-25] MEDS: Finasteride 5 MG TAB PO SCH (08:43)
[2021-09-25] MEDS: Calcitriol 0.25 MCG CAP PO SCH (08:43)
[2021-09-25] MEDS ORDERED: EPOETIN ALFA-EPBX (ESRD) 10,000 UNIT/ML VIAL SC SCH (09:00)
[2021-09-25] MEDS: Methocarbamol 500 MG TAB PO SCH ×2 (16:11→20:49)
[2021-09-25] MEDS: Meropenem 500 MG in Sodium Chloride 0.9% 100 ML IVPB SCH (16:15)
[2021-09-26 04:37] LABS: #Eosinphils 0.3 thou/uL (0.0-0.7); #Lymphocytes 2.1 thou/uL (1.20-3.40); #Monocytes 0.7 thou/uL (0.11-0.59); #Neutrophils 3.8 thou/uL (1.40-6.50); %Basophils 0.3 % (0.0-1.0); %Eosinophils 3.9 % (0.0-10.0); %Monocytes 10.5 % (0.0-10.0); %Neutrophils 55.4 % (42.0-75.0); Hemoglobin 8.2 g/dL (14.0-18.0); Mean Corpuscular HGB CONC 33.2 g/dL (32.0-36.0); Mean Corpuscular Hemoglobin 30.7 pg (27.0-31.0); Mean Corpuscular Volume 92.5 fL (78.0-98.0); Mean Platelet Volume 6.2 fL (7.4-10.4); Platelet Count 243 thou/uL (130-400); RBC Distribution Width 14.3 % (11.5-14.5); Red Blood Cell (RBC) Count 2.68 mill/uL (4.70-6.10); White Blood Cell (WBC) Count 6.9 thou/uL (4.8-10.8)
[2021-09-26 05:00] LABS: Anion Gap 15 mmol/L (10-20); BUN (Urea Nitrogen) 45 mg/dL (8.4-25.7); Calc. Creatinine Clearance 19 mL/min (70-130); Calcium 9.5 mg/dL (7.8-10.44); Carbon Dioxide 25 mmol/L (23-31); Chloride 99 mmol/L (98-107); Glucose 102 mg/dL (80-115); Potassium 4.5 mmol/L (3.5-5.1); Sodium 134 mmol/L (136-145)
[2021-09-26] MEDS ORDERED: Nitroglycerin 0.4 MG TAB (25 Tab Bottle) SL PRN (07:48)
[2021-09-26] MEDS: Sevelamer Carbonate 800 MG TAB PO SCH ×3 (08:50→16:55)
[2021-09-26] MEDS: Amlodipine 10 MG TAB PO SCH (08:51)
[2021-09-26] MEDS: HYDROcodone/Acetaminophen 5/325 mg Tablet PO PRN ×3 (08:51→19:51)
[2021-09-26] MEDS: Tamsulosin HCl 0.4 MG CAP PO SCH (08:52)
[2021-09-26] MEDS: Aspirin 81 mg Enteric Coated Tablet PO SCH (08:52)
[2021-09-26] MEDS: Potassium Chloride 20 MEQ TAB PO SCH ×2 (08:53→22:20)
[2021-09-26] MEDS: DULoxetine 60 MG CAP PO SCH (08:53)
[2021-09-26] MEDS: Finasteride 5 MG TAB PO SCH (08:53)
[2021-09-26] MEDS: Calcitriol 0.25 MCG CAP PO SCH (08:53)
[2021-09-26] MEDS: Methocarbamol 500 MG TAB PO SCH ×3 (08:53→22:20)
[2021-09-26] MEDS: Fluticasone Propionate Nasal Spray 16 gm Bottle NASAL SCH (08:54)
[2021-09-26 09:11] LABS: Troponin I 0.021 ng/mL (< 0.028)
[2021-09-26 12:02] LABS: Troponin I 0.022 ng/mL (< 0.028)
[2021-09-26] MEDS: Meropenem 500 MG in Sodium Chloride 0.9% 100 ML IVPB SCH (16:55)
[2021-09-26] MEDS ORDERED: Lidocaine Viscous Sol 2% 15 ml UD Cup SSW PRN (18:00)
[2021-09-27] MEDS: HYDROcodone/Acetaminophen 5/325 mg Tablet PO PRN ×3 (08:07→19:55)
[2021-09-27] MEDS ORDERED: Heparin 10,000 UNITS/ 10 ML VIAL ONE (13:50)
[2021-09-27] MEDS: Sevelamer Carbonate 800 MG TAB PO SCH ×3 (14:14→17:06)
[2021-09-27] MEDS: Calcitriol 0.25 MCG CAP PO SCH (14:14)
[2021-09-27] MEDS: DULoxetine 60 MG CAP PO SCH (14:14)
[2021-09-27] MEDS: Finasteride 5 MG TAB PO SCH (14:14)
[2021-09-27] MEDS: Tamsulosin HCl 0.4 MG CAP PO SCH (14:14)
[2021-09-27] MEDS: Potassium Chloride 20 MEQ TAB PO SCH ×2 (14:15→22:43)
[2021-09-27] MEDS: Aspirin 81 mg Enteric Coated Tablet PO SCH (14:15)
[2021-09-27] MEDS: Amlodipine 10 MG TAB PO SCH (14:15)
[2021-09-27] MEDS: Methocarbamol 500 MG TAB PO SCH ×3 (14:15→22:43)
[2021-09-27] MEDS: Fluticasone Propionate Nasal Spray 16 gm Bottle NASAL SCH (14:16)
[2021-09-27] MEDS: Meropenem 500 MG in Sodium Chloride 0.9% 100 ML IVPB SCH (17:06)
[2021-09-28 07:09] VITALS: BMI 29.5
[2021-09-28 07:24] LABS: #Eosinphils 0.2 thou/uL (0.0-0.7); #Lymphocytes 1.6 thou/uL (1.20-3.40); #Monocytes 0.8 thou/uL (0.11-0.59); #Neutrophils 4.5 thou/uL (1.40-6.50); %Basophils 0.5 % (0.0-1.0); %Eosinophils 3.1 % (0.0-10.0); %Lymphocytes 22.6 % (21.0-51.0); %Monocytes 11.5 % (0.0-10.0); %Neutrophils 62.2 % (42.0-75.0); Hemoglobin 8.7 g/dL (14.0-18.0); Mean Corpuscular HGB CONC 33.2 g/dL (32.0-36.0); Mean Corpuscular Hemoglobin 30.1 pg (27.0-31.0); Mean Corpuscular Volume 90.6 fL (78.0-98.0); Platelet Count 277 thou/uL (130-400); RBC Distribution Width 14.1 % (11.5-14.5); Red Blood Cell (RBC) Count 2.88 mill/uL (4.70-6.10); White Blood Cell (WBC) Count 7.2 thou/uL (4.8-10.8)
[2021-09-28 07:47] LABS: Anion Gap 14 mmol/L (10-20); BUN (Urea Nitrogen) 33 mg/dL (8.4-25.7); Calc. Creatinine Clearance 21 mL/min (70-130); Calcium 9.3 mg/dL (7.8-10.44); Carbon Dioxide 26 mmol/L (23-31); Chloride 97 mmol/L (98-107); Glucose 102 mg/dL (80-115); Potassium 4.3 mmol/L (3.5-5.1); Sodium 133 mmol/L (136-145)
[2021-09-28] MEDS ORDERED: Ondansetron HCl/PF 8 MG in Sodium Chloride 0.9% 50 ML IVPB SCH (08:30)
[2021-09-28] MEDS: Aspirin 81 mg Enteric Coated Tablet PO SCH (08:56)
[2021-09-28] MEDS: Tamsulosin HCl 0.4 MG CAP PO SCH (08:56)
[2021-09-28] MEDS: Finasteride 5 MG TAB PO SCH (08:57)
[2021-09-28] MEDS: DULoxetine 60 MG CAP PO SCH (08:57)
[2021-09-28] MEDS: Sevelamer Carbonate 800 MG TAB PO SCH ×3 (08:57→15:44)
[2021-09-28] MEDS: Amlodipine 10 MG TAB PO SCH (08:57)
[2021-09-28] MEDS: Calcitriol 0.25 MCG CAP PO SCH (08:57)
[2021-09-28] MEDS: Potassium Chloride 20 MEQ TAB PO SCH ×2 (08:57→20:21)
[2021-09-28] MEDS: Methocarbamol 500 MG TAB PO SCH ×3 (08:58→20:21)
[2021-09-28] MEDS: Fluticasone Propionate Nasal Spray 16 gm Bottle NASAL SCH (08:58)
[2021-09-28] MEDS ORDERED: Ondansetron PF 4 MG/2 ML Vial IVP SCH (09:00)
[2021-09-28 09:31] LABS: Bacteria/HPF 2+ HPF (None Seen); Bilirubin Negative (Negative); Blood, Urine Trace (Negative); Clarity Clear (Clear); Glucose, Urine (Dipstick) Normal (Negative); Ketone, Urine Negative (Negative); Leukocyte 250 Leu/uL (Negative); Nitrite Negative (Negative); Protein, Urine (Dipstick) 70 mg/dL (Neg-Trace); RBC/HPF 0-3 HPF (0-3); Specific Gravity, Urine 1.009 (1.002-1.036); Squamous Epithelial 0-3 HPF (0-3); Urobilinogen Normal mg/dL (Less than 2); pH, Urine 7.5 (5.0-9.0)
[2021-09-28 09:32] LABS: Transitional Epithelial 0-3 HPF (None Seen)
[2021-09-28] MEDS: HYDROcodone/Acetaminophen 5/325 mg Tablet PO PRN ×2 (11:13→17:17)
[2021-09-28] MEDS: Meropenem 500 MG in Sodium Chloride 0.9% 100 ML IVPB SCH (15:44)
[2021-09-28 21:50] LABS: SARS-CoV-2 PCR by NAA Not Detected (NotDetected)
[2021-09-29] MEDS: HYDROcodone/Acetaminophen 5/325 mg Tablet PO PRN ×2 (00:36→08:50)
[2021-09-29 07:51] VITALS: BP 167/76; TEMP 97.6
[2021-09-29] MEDS: Finasteride 5 MG TAB PO SCH (08:50)
[2021-09-29] MEDS: DULoxetine 60 MG CAP PO SCH (08:50)
[2021-09-29] MEDS: Potassium Chloride 20 MEQ TAB PO SCH (08:50)
[2021-09-29] MEDS: Tamsulosin HCl 0.4 MG CAP PO SCH (08:50)
[2021-09-29] MEDS: Calcitriol 0.25 MCG CAP PO SCH (08:50)
[2021-09-29] MEDS: Fluticasone Propionate Nasal Spray 16 gm Bottle NASAL SCH (08:51)
[2021-09-29] MEDS ORDERED: Heparin 10,000 UNITS/ 10 ML VIAL ONE (08:51)
[2021-09-29] MEDS: Sevelamer Carbonate 800 MG TAB PO SCH ×3 (08:51→17:48)
[2021-09-29] MEDS: Methocarbamol 500 MG TAB PO SCH ×2 (08:51→14:04)
[2021-09-29] MEDS: Amlodipine 10 MG TAB PO SCH (08:51)
[2021-09-29] MEDS: Aspirin 81 mg Enteric Coated Tablet PO SCH (08:51)
[2021-09-29] MEDS ORDERED: Meropenem 500 MG in Sodium Chloride 0.9% 100 ML IVPB SCH (12:00)
== END 2021-09-29 19:20 | disposition home or self-care (01) | DRG 698 ==
LOC: ERS 20:20 → SURG B 23:00 → 2NO 09-17 18:45 → T4-A 09-27 20:31
PROVIDERS: ADMIT Specialist; ATTEND Specialist
PROC: 5A1D70Z Performance of Urinary Filtration, Intermittent, Less than 6 Hours Per Day (ICD-10-PCS; principal; 2021-09-16)
DX: T83.518A Infection and inflammatory reaction due to other urinary catheter, initial encounter (principal); N18.6 End stage renal disease; I50.23 Acute on chronic systolic (congestive) heart failure; N39.0 Urinary tract infection, site not specified; I69.351 Hemiplegia and hemiparesis following cerebral infarction affecting right dominant side; N25.81 Secondary hyperparathyroidism of renal origin; Z16.24 Resistance to multiple antibiotics; I13.2 Hypertensive heart and chronic kidney disease with heart failure and with stage 5 chronic kidney disease, or end stage renal disease; Z20.822 Contact with and (suspected) exposure to COVID-19; F41.9 Anxiety disorder, unspecified; F31.9 Bipolar disorder, unspecified; F20.9 Schizophrenia, unspecified; F12.10 Cannabis abuse, uncomplicated; J44.9 Chronic obstructive pulmonary disease, unspecified; G89.29 Other chronic pain; F51.04 Psychophysiologic insomnia; E86.0 Dehydration; E11.22 Type 2 diabetes mellitus with diabetic chronic kidney disease; M54.50 Low back pain, unspecified; B96.1 Klebsiella pneumoniae [K. pneumoniae] as the cause of diseases classified elsewhere; B95.7 Other staphylococcus as the cause of diseases classified elsewhere; B95.2 Enterococcus as the cause of diseases classified elsewhere; B96.5 Pseudomonas (aeruginosa) (mallei) (pseudomallei) as the cause of diseases classified elsewhere; E78.5 Hyperlipidemia, unspecified; D63.1 Anemia in chronic kidney disease; Y84.6 Urinary catheterization as the cause of abnormal reaction of the patient, or of later complication, without mention of misadventure at the time of the procedure; R07.81 Pleurodynia; E83.39 Other disorders of phosphorus metabolism; Z28.21 Immunization not carried out because of patient refusal; Z99.2 Dependence on renal dialysis; Z98.890 Other specified postprocedural states; Z87.891 Personal history of nicotine dependence; Z99.3 Dependence on wheelchair; Z79.899 Other long term (current) drug therapy; Z79.82 Long term (current) use of aspirin; Z87.440 Personal history of urinary (tract) infections; Z91.15 Patient's noncompliance with renal dialysis
CPT/HCPCS: 36415; 36416; 71045; 78451; 80048; 80053; 81001; 81003; 81015; 83690; 83970; 84100; 84484; 85025; 87040; 87077; 87086; 87149; 87186; 87340; 90935; 93005; 93010; 93306; 96374; A9500; G0257; J0696; J1644; J2185; J2405; J2550; J2920; J3490; Q0162; Q4081; Q5105; U0002; U0003; U0005

== ENCOUNTER 2021-10-28 21:14 | Inpatient (IN) | payer MEDICARE ==
[2021-10-28] MEDS ORDERED: Ondansetron PF 4 MG/2 ML Vial ONE (21:49)
[2021-10-28 21:50] LABS: #Eosinphils 0.5 thou/uL (0.0-0.7); #Lymphocytes 1.3 thou/uL (1.20-3.40); #Monocytes 0.7 thou/uL (0.11-0.59); #Neutrophils 7.9 thou/uL (1.40-6.50); %Basophils 0.3 % (0.0-1.0); %Eosinophils 4.7 % (0.0-10.0); %Lymphocytes 12.5 % (21.0-51.0); %Neutrophils 75.5 % (42.0-75.0); Hemoglobin 6.6 g/dL (14.0-18.0); Mean Corpuscular HGB CONC 33.4 g/dL (32.0-36.0); Mean Corpuscular Hemoglobin 29.5 pg (27.0-31.0); Mean Corpuscular Volume 88.3 fL (78.0-98.0); Platelet Count 308 thou/uL (130-400); Red Blood Cell (RBC) Count 2.23 mill/uL (4.70-6.10); White Blood Cell (WBC) Count 10.5 thou/uL (4.8-10.8)
[2021-10-28 22:10] LABS: ALT (SGPT) Less than 7 U/L (8-55); AST (SGOT) 8 U/L (5-34); Albumin 3.6 g/dL (3.4-4.8); Alkaline Phosphatase 97 U/L (40-110); Anion Gap 14 mmol/L (10-20); BUN (Urea Nitrogen) 88 mg/dL (8.4-25.7); Bilirubin, Total 0.3 mg/dL (0.2-1.2); Calc. Creatinine Clearance 0 mL/min (70-130); Calcium 8.5 mg/dL (7.8-10.44); Carbon Dioxide 22 mmol/L (23-31); Chloride 98 mmol/L (98-107); Globulin 3.8 g/dL (2.4-3.5); Glucose 185 mg/dL (80-115); Potassium 4.8 mmol/L (3.5-5.1); Protein, Total 7.4 g/dL (5.8-8.1); Sodium 129 mmol/L (136-145)
[2021-10-28 22:11] LABS: Bacteria/HPF 4+ HPF (None Seen); Bilirubin Negative (Negative); Blood, Urine Trace (Negative); Clarity Clear (Clear); Glucose, Urine (Dipstick) 150 mg/dL (Negative); Ketone, Urine Negative (Negative); Leukocyte 500 Leu/uL (Negative); Nitrite Negative (Negative); Protein, Urine (Dipstick) 50 mg/dL (Neg-Trace); RBC/HPF 0-3 HPF (0-3); Specific Gravity, Urine 1.007 (1.002-1.036); Squamous Epithelial None Seen HPF (0-3); Urobilinogen Normal mg/dL (Less than 2); pH, Urine 6.5 (5.0-9.0)
[2021-10-28] MEDS ORDERED: HYDROcodone/Acetaminophen 10/325 mg Tablet ONE (23:33)
[2021-10-29] MEDS ORDERED: cefOXitin Sodium 1 GM in Sodium Chloride 0.9% 100 ML IVPB SCH (00:30)
[2021-10-29] MEDS ORDERED: Ondansetron PF 4 MG/2 ML Vial IVP PRN (02:15)
[2021-10-29] MEDS ORDERED: Ondansetron ODT 4 MG TAB SL PRN (02:15)
[2021-10-29 02:39] VITALS: BMI 30.7
[2021-10-29] MEDS ORDERED: Artificial Tear Sol 15 ML BOT EA EYE PRN (16:46)
[2021-10-29] MEDS: Carvedilol 3.125 MG TAB PO SCH (17:33)
[2021-10-29] MEDS: Sevelamer Carbonate 800 MG TAB PO SCH (17:33)
[2021-10-29] MEDS: Ferrous Sulfate 325 MG TAB PO SCH (17:33)
[2021-10-29] MEDS: Acetaminophen 325 MG TAB PO PRN (22:02)
[2021-10-29] MEDS: Meclizine HCl 25 MG TAB PO SCH (22:02)
[2021-10-29] MEDS: Finasteride 5 MG TAB PO SCH (22:03)
[2021-10-29] MEDS: Cyclobenzaprine 10 MG TAB PO SCH (22:03)
[2021-10-29] MEDS: cefOXitin Sodium 1 GM in Sodium Chloride 0.9% 100 ML IVPB SCH (22:58)
[2021-10-30 06:59] LABS: #Eosinphils 0.5 thou/uL (0.0-0.7); #Lymphocytes 1.7 thou/uL (1.20-3.40); #Monocytes 1.4 thou/uL (0.11-0.59); #Neutrophils 13.1 thou/uL (1.40-6.50); %Basophils 0.3 % (0.0-1.0); %Eosinophils 2.9 % (0.0-10.0); %Lymphocytes 10.2 % (21.0-51.0); %Monocytes 8.4 % (0.0-10.0); %Neutrophils 78.2 % (42.0-75.0); Hemoglobin 8.8 g/dL (14.0-18.0); Mean Corpuscular HGB CONC 32.9 g/dL (32.0-36.0); Mean Corpuscular Hemoglobin 28.9 pg (27.0-31.0); Mean Corpuscular Volume 87.8 fL (78.0-98.0); Mean Platelet Volume 6.1 fL (7.4-10.4); Platelet Count 337 thou/uL (130-400); RBC Distribution Width 15.1 % (11.5-14.5); Red Blood Cell (RBC) Count 3.03 mill/uL (4.70-6.10); White Blood Cell (WBC) Count 16.7 thou/uL (4.8-10.8)
[2021-10-30 07:21] LABS: Anion Gap 16 mmol/L (10-20); BUN (Urea Nitrogen) 104 mg/dL (8.4-25.7); Calc. Creatinine Clearance 12 mL/min (70-130); Calcium 9.1 mg/dL (7.8-10.44); Carbon Dioxide 20 mmol/L (23-31); Chloride 102 mmol/L (98-107); Glucose 119 mg/dL (80-115); Potassium 5.6 mmol/L (3.5-5.1); Sodium 132 mmol/L (136-145)
[2021-10-30] MEDS: Folic Acid 1 MG TAB PO SCH (09:11)
[2021-10-30] MEDS: Calcitriol 0.25 MCG CAP PO SCH (09:11)
[2021-10-30] MEDS: Tamsulosin HCl 0.4 MG CAP PO SCH (09:11)
[2021-10-30] MEDS: Amlodipine 10 MG TAB PO SCH (09:11)
[2021-10-30] MEDS: Cyclobenzaprine 10 MG TAB PO SCH ×2 (09:11→20:36)
[2021-10-30] MEDS: Ferrous Sulfate 325 MG TAB PO SCH ×2 (09:11→18:12)
[2021-10-30] MEDS: Aspirin 81 mg Enteric Coated Tablet PO SCH (09:11)
[2021-10-30] MEDS: Carvedilol 3.125 MG TAB PO SCH ×2 (09:11→18:11)
[2021-10-30] MEDS: Bupropion 150 MG XL TAB PO SCH (09:11)
[2021-10-30] MEDS: Sevelamer Carbonate 800 MG TAB PO SCH ×3 (09:11→18:11)
[2021-10-30] MEDS: DULoxetine 60 MG CAP PO SCH (09:11)
[2021-10-30] MEDS: Meclizine HCl 25 MG TAB PO SCH ×3 (09:11→20:36)
[2021-10-30] MEDS: Gabapentin 300 MG CAP PO SCH (09:12)
[2021-10-30] MEDS: Multivitamin W/ Minerals 1 TAB PO SCH (09:12)
[2021-10-30] MEDS: Fluticasone Propionate Nasal Spray 16 gm Bottle NASAL SCH (09:12)
[2021-10-30] MEDS: cefOXitin Sodium 1 GM in Sodium Chloride 0.9% 100 ML IVPB SCH (09:13)
[2021-10-30] MEDS ORDERED: Heparin 10,000 UNITS/ 10 ML VIAL ONE (14:08)
[2021-10-30] MEDS ORDERED: Meropenem 1 GM in Sodium Chloride 0.9% 100 ML IVPB SCH ×2 (16:15→16:30)
[2021-10-30] MEDS: Finasteride 5 MG TAB PO SCH (20:36)
[2021-10-30] MEDS: Acetaminophen/Codeine 30-300mg Tablet PO PRN (20:38)
[2021-10-30] MEDS ORDERED: Promethazine 25 MG TAB PO SCH (22:15)
[2021-10-31] MEDS: Meropenem 500 MG in Sodium Chloride 0.9% 100 ML IVPB SCH (00:03)
[2021-10-31] MEDS: Promethazine 25 MG TAB PO PRN ×2 (04:45→13:06)
[2021-10-31 06:09] LABS: Hemoglobin 7.9 g/dL (14.0-18.0); Mean Corpuscular HGB CONC 32.8 g/dL (32.0-36.0); Mean Corpuscular Hemoglobin 29.2 pg (27.0-31.0); Mean Corpuscular Volume 88.8 fL (78.0-98.0); Mean Platelet Volume 6.1 fL (7.4-10.4); Platelet Count 307 thou/uL (130-400); RBC Distribution Width 14.8 % (11.5-14.5); Red Blood Cell (RBC) Count 2.72 mill/uL (4.70-6.10); White Blood Cell (WBC) Count 10.2 thou/uL (4.8-10.8)
[2021-10-31 06:33] LABS: Albumin 3.2 g/dL (3.4-4.8); Anion Gap 13 mmol/L (10-20); BUN (Urea Nitrogen) 47 mg/dL (8.4-25.7); BUN/Creatinine Ratio 10.44; Calc. Creatinine Clearance 20 mL/min (70-130); Calcium 9.2 mg/dL (7.8-10.44); Carbon Dioxide 28 mmol/L (23-31); Chloride 100 mmol/L (98-107); Glucose 116 mg/dL (80-115); Iron 15 ug/dL (65-175); Iron Binding Capacity, Total 195 mcg/dL (261-462); Phosphorus 3.7 mg/dL (2.3-4.7); Potassium 4.1 mmol/L (3.5-5.1); Sodium 137 mmol/L (136-145)
[2021-10-31] MEDS ORDERED: Iron Sucrose Complex 500 MG in Sodium Chloride 0.9% 250 ML IVPB SCH (07:15)
[2021-10-31] MEDS: Gabapentin 300 MG CAP PO SCH (08:00)
[2021-10-31] MEDS: Meclizine HCl 25 MG TAB PO SCH ×3 (08:00→20:34)
[2021-10-31] MEDS: DULoxetine 60 MG CAP PO SCH (08:00)
[2021-10-31] MEDS: Fluticasone Propionate Nasal Spray 16 gm Bottle NASAL SCH (08:00)
[2021-10-31] MEDS: Cyclobenzaprine 10 MG TAB PO SCH ×2 (08:00→20:34)
[2021-10-31] MEDS: Carvedilol 3.125 MG TAB PO SCH ×2 (08:01→16:48)
[2021-10-31] MEDS: Sevelamer Carbonate 800 MG TAB PO SCH ×3 (08:01→16:48)
[2021-10-31] MEDS: Tamsulosin HCl 0.4 MG CAP PO SCH (08:01)
[2021-10-31] MEDS: Aspirin 81 mg Enteric Coated Tablet PO SCH (08:01)
[2021-10-31] MEDS: Calcitriol 0.25 MCG CAP PO SCH (08:01)
[2021-10-31] MEDS: Ferrous Sulfate 325 MG TAB PO SCH ×2 (08:01→16:48)
[2021-10-31] MEDS: Folic Acid 1 MG TAB PO SCH (08:01)
[2021-10-31] MEDS: Multivitamin W/ Minerals 1 TAB PO SCH (08:01)
[2021-10-31] MEDS: Amlodipine 10 MG TAB PO SCH (08:01)
[2021-10-31] MEDS: Bupropion 150 MG XL TAB PO SCH (08:01)
[2021-10-31] MEDS ORDERED: Heparin 10,000 UNITS/ 10 ML VIAL ONE (14:09)
[2021-10-31] MEDS: IRON IVPB SCH ×2 (14:43→16:32)
[2021-10-31] MEDS: SODIUM CHLORIDE 0.9% IVPB SCH ×2 (14:43→16:32)
[2021-10-31] MEDS: SODIUM FERRIC GLUCONATE IVPB SCH ×2 (14:43→16:32)
[2021-10-31] MEDS: Ondansetron PF 4 MG/2 ML Vial IVP PRN (20:33)
[2021-10-31] MEDS: Finasteride 5 MG TAB PO SCH (20:34)
[2021-10-31] MEDS: Acetaminophen/Codeine 30-300mg Tablet PO PRN (20:34)
[2021-11-01] MEDS: Meropenem 500 MG in Sodium Chloride 0.9% 100 ML IVPB SCH (00:01)
[2021-11-01] MEDS: hydrOXYzine 25 MG TAB PO PRN (00:06)
[2021-11-01] MEDS ORDERED: IRON IVPB SCH (04:00)
[2021-11-01] MEDS ORDERED: SODIUM FERRIC GLUCONATE IVPB SCH (04:00)
[2021-11-01] MEDS ORDERED: SODIUM CHLORIDE 0.9% IVPB SCH (04:00)
[2021-11-01 05:51] LABS: #Eosinphils 0.5 thou/uL (0.0-0.7); #Lymphocytes 1.3 thou/uL (1.20-3.40); #Neutrophils 4.7 thou/uL (1.40-6.50); %Basophils 0.3 % (0.0-1.0); %Eosinophils 6.4 % (0.0-10.0); %Lymphocytes 17.5 % (21.0-51.0); %Monocytes 13.4 % (0.0-10.0); %Neutrophils 62.4 % (42.0-75.0); Mean Corpuscular HGB CONC 32.4 g/dL (32.0-36.0); Mean Corpuscular Volume 89.7 fL (78.0-98.0); Platelet Count 290 thou/uL (130-400); RBC Distribution Width 14.5 % (11.5-14.5); Red Blood Cell (RBC) Count 2.75 mill/uL (4.70-6.10); White Blood Cell (WBC) Count 7.6 thou/uL (4.8-10.8)
[2021-11-01 06:19] LABS: Anion Gap 13 mmol/L (10-20); BUN (Urea Nitrogen) 31 mg/dL (8.4-25.7); Calc. Creatinine Clearance 27 mL/min (70-130); Calcium 9.2 mg/dL (7.8-10.44); Carbon Dioxide 27 mmol/L (23-31); Chloride 101 mmol/L (98-107); Glucose 107 mg/dL (80-115); Potassium 3.8 mmol/L (3.5-5.1); Sodium 137 mmol/L (136-145)
[2021-11-01] MEDS: CRANBERRY FRUIT EXTRACT PO SCH ×2 (07:50→07:51)
[2021-11-01] MEDS: Acetaminophen/Codeine 30-300mg Tablet PO PRN (08:39)
[2021-11-01] MEDS: Cyclobenzaprine 10 MG TAB PO SCH ×2 (08:39→19:59)
[2021-11-01] MEDS: Calcitriol 0.25 MCG CAP PO SCH (08:39)
[2021-11-01] MEDS: Multivitamin W/ Minerals 1 TAB PO SCH (08:40)
[2021-11-01] MEDS: Gabapentin 300 MG CAP PO SCH (08:40)
[2021-11-01] MEDS: Aspirin 81 mg Enteric Coated Tablet PO SCH (08:40)
[2021-11-01] MEDS: Sevelamer Carbonate 800 MG TAB PO SCH ×3 (08:40→17:30)
[2021-11-01] MEDS: Tamsulosin HCl 0.4 MG CAP PO SCH (08:40)
[2021-11-01] MEDS: Bupropion 150 MG XL TAB PO SCH (08:40)
[2021-11-01] MEDS: Folic Acid 1 MG TAB PO SCH (08:40)
[2021-11-01] MEDS: Ferrous Sulfate 325 MG TAB PO SCH ×2 (08:40→17:30)
[2021-11-01] MEDS: Meclizine HCl 25 MG TAB PO SCH ×3 (08:40→19:59)
[2021-11-01] MEDS: Amlodipine 10 MG TAB PO SCH (08:40)
[2021-11-01] MEDS: Fluticasone Propionate Nasal Spray 16 gm Bottle NASAL SCH (08:41)
[2021-11-01] MEDS: DULoxetine 60 MG CAP PO SCH (08:41)
[2021-11-01] MEDS: Carvedilol 3.125 MG TAB PO SCH ×2 (08:41→17:30)
[2021-11-01] MEDS: Finasteride 5 MG TAB PO SCH (19:59)
[2021-11-02] MEDS: Acetaminophen/Codeine 30-300mg Tablet PO PRN ×3 (00:31→16:06)
[2021-11-02 06:16] LABS: #Basophils 0.1 thou/uL (0.0-0.2); #Eosinphils 0.8 thou/uL (0.0-0.7); #Lymphocytes 1.6 thou/uL (1.20-3.40); #Monocytes 0.8 thou/uL (0.11-0.59); #Neutrophils 4.9 thou/uL (1.40-6.50); %Basophils 0.8 % (0.0-1.0); %Eosinophils 9.4 % (0.0-10.0); %Lymphocytes 19.4 % (21.0-51.0); %Monocytes 10.1 % (0.0-10.0); %Neutrophils 60.4 % (42.0-75.0); Hemoglobin 7.5 g/dL (14.0-18.0); Mean Corpuscular HGB CONC 33.9 g/dL (32.0-36.0); Mean Corpuscular Hemoglobin 29.4 pg (27.0-31.0); Mean Corpuscular Volume 86.8 fL (78.0-98.0); Mean Platelet Volume 6.6 fL (7.4-10.4); Platelet Count 357 thou/uL (130-400); RBC Distribution Width 15.2 % (11.5-14.5); Red Blood Cell (RBC) Count 2.56 mill/uL (4.70-6.10); White Blood Cell (WBC) Count 8.1 thou/uL (4.8-10.8)
[2021-11-02 06:35] LABS: Anion Gap 14 mmol/L (10-20); BUN (Urea Nitrogen) 48 mg/dL (8.4-25.7); Calc. Creatinine Clearance 19 mL/min (70-130); Calcium 9.3 mg/dL (7.8-10.44); Carbon Dioxide 25 mmol/L (23-31); Chloride 99 mmol/L (98-107); Glucose 81 mg/dL (80-115); Potassium 3.9 mmol/L (3.5-5.1); Sodium 134 mmol/L (136-145)
[2021-11-02] MEDS: Fluticasone Propionate Nasal Spray 16 gm Bottle NASAL SCH (08:58)
[2021-11-02] MEDS: Aspirin 81 mg Enteric Coated Tablet PO SCH (08:59)
[2021-11-02] MEDS: Meclizine HCl 25 MG TAB PO SCH ×3 (08:59→21:00)
[2021-11-02] MEDS: Tamsulosin HCl 0.4 MG CAP PO SCH (08:59)
[2021-11-02] MEDS: Calcitriol 0.25 MCG CAP PO SCH (08:59)
[2021-11-02] MEDS: Bupropion 150 MG XL TAB PO SCH (09:00)
[2021-11-02] MEDS: Sevelamer Carbonate 800 MG TAB PO SCH ×3 (09:00→16:06)
[2021-11-02] MEDS: DULoxetine 60 MG CAP PO SCH (09:00)
[2021-11-02] MEDS: Gabapentin 300 MG CAP PO SCH (09:00)
[2021-11-02] MEDS: Multivitamin W/ Minerals 1 TAB PO SCH (09:00)
[2021-11-02] MEDS: Folic Acid 1 MG TAB PO SCH (09:01)
[2021-11-02] MEDS: Ferrous Sulfate 325 MG TAB PO SCH ×2 (09:01→16:06)
[2021-11-02] MEDS: Cyclobenzaprine 10 MG TAB PO SCH ×2 (09:01→21:00)
[2021-11-02] MEDS: Carvedilol 3.125 MG TAB PO SCH ×2 (09:02→16:06)
[2021-11-02] MEDS: Amlodipine 10 MG TAB PO SCH (09:02)
[2021-11-02] MEDS ORDERED: Iron, Sodium Ferric Gluconate 250 MG in Sodium Chloride 0.9% 250 ML 250 ML IVPB SCH (12:00)
[2021-11-02] MEDS ORDERED: Epoetin (ESRD) 10,000 UNITS/ML VIAL SC SCH (12:00)
[2021-11-02] MEDS ORDERED: Heparin 10,000 UNITS/ 10 ML VIAL ONE (14:05)
[2021-11-02] MEDS: Finasteride 5 MG TAB PO SCH (21:00)
[2021-11-02] MEDS: HYDROcodone/Acetaminophen 7.5/325 mg Tablet PO PRN (23:33)
[2021-11-02] MEDS: Meropenem 500 MG in Sodium Chloride 0.9% 100 ML IVPB SCH ×2 (23:34)
[2021-11-03] MEDS: hydrOXYzine 25 MG TAB PO PRN (01:23)
[2021-11-03] MEDS: HYDROcodone/Acetaminophen 7.5/325 mg Tablet PO PRN (06:17)
[2021-11-03 06:31] LABS: #Eosinphils 0.8 thou/uL (0.0-0.7); #Lymphocytes 1.2 thou/uL (1.20-3.40); #Monocytes 0.9 thou/uL (0.11-0.59); #Neutrophils 3.9 thou/uL (1.40-6.50); %Basophils 0.7 % (0.0-1.0); %Eosinophils 10.9 % (0.0-10.0); %Monocytes 13.1 % (0.0-10.0); %Neutrophils 57.3 % (42.0-75.0); Hemoglobin 7.6 g/dL (14.0-18.0); Mean Corpuscular HGB CONC 32.9 g/dL (32.0-36.0); Mean Corpuscular Hemoglobin 29.2 pg (27.0-31.0); Mean Corpuscular Volume 88.9 fL (78.0-98.0); Mean Platelet Volume 5.7 fL (7.4-10.4); Platelet Count 315 thou/uL (130-400); RBC Distribution Width 14.4 % (11.5-14.5); Red Blood Cell (RBC) Count 2.61 mill/uL (4.70-6.10); White Blood Cell (WBC) Count 6.9 thou/uL (4.8-10.8)
[2021-11-03 06:55] LABS: Anion Gap 13 mmol/L (10-20); BUN (Urea Nitrogen) 30 mg/dL (8.4-25.7); Calc. Creatinine Clearance 26 mL/min (70-130); Carbon Dioxide 28 mmol/L (23-31); Chloride 100 mmol/L (98-107); Glucose 74 mg/dL (80-115); Potassium 3.9 mmol/L (3.5-5.1); Sodium 137 mmol/L (136-145)
[2021-11-03] MEDS: Meclizine HCl 25 MG TAB PO SCH ×3 (08:51→20:18)
[2021-11-03] MEDS: DULoxetine 60 MG CAP PO SCH (08:51)
[2021-11-03] MEDS: Multivitamin W/ Minerals 1 TAB PO SCH (08:51)
[2021-11-03] MEDS: Tamsulosin HCl 0.4 MG CAP PO SCH (08:51)
[2021-11-03] MEDS: Gabapentin 300 MG CAP PO SCH (08:51)
[2021-11-03] MEDS: Bupropion 150 MG XL TAB PO SCH (08:51)
[2021-11-03] MEDS: Sevelamer Carbonate 800 MG TAB PO SCH ×3 (08:51→17:06)
[2021-11-03] MEDS: Cyclobenzaprine 10 MG TAB PO SCH ×2 (08:51→20:18)
[2021-11-03] MEDS: Amlodipine 10 MG TAB PO SCH (08:51)
[2021-11-03] MEDS: Aspirin 81 mg Enteric Coated Tablet PO SCH (08:52)
[2021-11-03] MEDS: Fluticasone Propionate Nasal Spray 16 gm Bottle NASAL SCH (08:52)
[2021-11-03] MEDS: Calcitriol 0.25 MCG CAP PO SCH (08:52)
[2021-11-03] MEDS: Ferrous Sulfate 325 MG TAB PO SCH ×2 (08:52→17:06)
[2021-11-03] MEDS: Carvedilol 3.125 MG TAB PO SCH ×2 (08:52→17:06)
[2021-11-03] MEDS: Folic Acid 1 MG TAB PO SCH (08:52)
[2021-11-03] MEDS: Finasteride 5 MG TAB PO SCH (20:18)
[2021-11-03] MEDS ORDERED: Milk Of Magnesia 30 ML UDCUP PO SCH (22:45)
[2021-11-03] MEDS: Meropenem 500 MG in Sodium Chloride 0.9% 100 ML IVPB SCH (23:25)
[2021-11-04] MEDS: hydrOXYzine 25 MG TAB PO PRN (00:40)
[2021-11-04] MEDS: HYDROcodone/Acetaminophen 7.5/325 mg Tablet PO PRN (00:40)
[2021-11-04 05:45] LABS: #Eosinphils 0.8 thou/uL (0.0-0.7); #Lymphocytes 1.2 thou/uL (1.20-3.40); #Monocytes 0.8 thou/uL (0.11-0.59); #Neutrophils 3.6 thou/uL (1.40-6.50); %Basophils 0.2 % (0.0-1.0); %Eosinophils 12.7 % (0.0-10.0); %Monocytes 12.5 % (0.0-10.0); %Neutrophils 56.6 % (42.0-75.0); Hemoglobin 7.1 g/dL (14.0-18.0); Mean Corpuscular HGB CONC 31.9 g/dL (32.0-36.0); Mean Corpuscular Hemoglobin 28.6 pg (27.0-31.0); Mean Corpuscular Volume 89.8 fL (78.0-98.0); Mean Platelet Volume 5.8 fL (7.4-10.4); Platelet Count 328 thou/uL (130-400); RBC Distribution Width 14.2 % (11.5-14.5); Red Blood Cell (RBC) Count 2.48 mill/uL (4.70-6.10); White Blood Cell (WBC) Count 6.4 thou/uL (4.8-10.8)
[2021-11-04 05:47] LABS: Anion Gap 14 mmol/L (10-20); BUN (Urea Nitrogen) 43 mg/dL (8.4-25.7); Calc. Creatinine Clearance 19 mL/min (70-130); Calcium 8.7 mg/dL (7.8-10.44); Carbon Dioxide 28 mmol/L (23-31); Chloride 99 mmol/L (98-107); Glucose 92 mg/dL (80-115); Potassium 4.4 mmol/L (3.5-5.1); Sodium 137 mmol/L (136-145)
[2021-11-04] MEDS: Carvedilol 3.125 MG TAB PO SCH ×2 (06:04→18:35)
[2021-11-04] MEDS: Sevelamer Carbonate 800 MG TAB PO SCH ×3 (07:17→18:36)
[2021-11-04] MEDS: Ferrous Sulfate 325 MG TAB PO SCH ×2 (07:37→18:36)
[2021-11-04] MEDS: Cyclobenzaprine 10 MG TAB PO SCH ×2 (07:38→21:39)
[2021-11-04] MEDS: Aspirin 81 mg Enteric Coated Tablet PO SCH (07:38)
[2021-11-04] MEDS: Docusate Calcium (SURFAK) 240 MG CAP PO SCH ×2 (10:02→21:39)
[2021-11-04] MEDS: Meclizine HCl 25 MG TAB PO SCH ×3 (10:03→21:40)
[2021-11-04] MEDS: Multivitamin W/ Minerals 1 TAB PO SCH (10:06)
[2021-11-04] MEDS: EPOETIN ALFA-EPBX (ESRD) 10,000 UNIT/ML VIAL IVP SCH (10:49)
[2021-11-04] MEDS: Fluticasone Propionate Nasal Spray 16 gm Bottle NASAL SCH (13:21)
[2021-11-04] MEDS ORDERED: Heparin 10,000 UNITS/ 10 ML VIAL ONE ×2 (14:08→15:45)
[2021-11-04] MEDS: Amlodipine 10 MG TAB PO SCH (14:16)
[2021-11-04] MEDS: Gabapentin 300 MG CAP PO SCH (14:17)
[2021-11-04] MEDS: Calcitriol 0.25 MCG CAP PO SCH (15:14)
[2021-11-04] MEDS: DULoxetine 60 MG CAP PO SCH (15:14)
[2021-11-04] MEDS: Folic Acid 1 MG TAB PO SCH (15:14)
[2021-11-04] MEDS: Bupropion 150 MG XL TAB PO SCH (15:14)
[2021-11-04] MEDS ORDERED: Propofol 500 MG/50 ML VIAL ONE (15:43)
[2021-11-04] MEDS ORDERED: fentaNYL Citrate/PF 100 MCG/2 ML SYRINGE ONE (15:43)
[2021-11-04] MEDS ORDERED: Dexmedetomidine 200 MCG/2 ML VIAL ONE (15:43)
[2021-11-04] MEDS ORDERED: Protamine Sulfate 50 MG/5 ML VIAL ONE (15:45)
[2021-11-04] MEDS ORDERED: Bupivacaine 0.25% HCL 30 ML VIAL ONE (15:45)
[2021-11-04] MEDS ORDERED: Heparin 5,000 UNITS/ML VIAL ONE (15:45)
[2021-11-04] MEDS ORDERED: Famotidine/PF 20 mg/2ml Vial ONE (15:56)
[2021-11-04] MEDS ORDERED: Lidocaine 2% w/ Epi 1:200K 10 ML VIAL ONE (16:06)
[2021-11-04] MEDS ORDERED: ePHEDrine 50 MG/ML VIAL ONE (16:08)
[2021-11-04] MEDS ORDERED: Lidocaine 1% PF 5 ML VIAL ONE (16:08)
[2021-11-04] MEDS ORDERED: Ondansetron PF 4 MG/2 ML Vial ONE (16:08)
[2021-11-04] MEDS ORDERED: PROPOFOL 200 MG/20 ML VIAL ONE (16:08)
[2021-11-04] MEDS ORDERED: Lidocaine 1% w/Epinephrine 1:100K 20 ML VIAL ONE (16:14)
[2021-11-04] MEDS: Tamsulosin HCl 0.4 MG CAP PO SCH (16:16)
[2021-11-04] MEDS ORDERED: Promethazine HCl 25 MG/ML VIAL IVPB PRN (17:25)
[2021-11-04] MEDS ORDERED: Promethazine HCl 25 MG/ML VIAL IM PRN (17:25)
[2021-11-04] MEDS ORDERED: Ondansetron HCl/PF 4 MG/2 ML Vial IVP PRN (17:25)
[2021-11-04] MEDS ORDERED: Morphine Sulfate 2 MG/ML SYRINGE SLOW IVP PRN (17:25)
[2021-11-04] MEDS ORDERED: Fentanyl 100 MCG/2 ML VIAL ONE (17:34)
[2021-11-04] MEDS: Finasteride 5 MG TAB PO SCH (21:39)
[2021-11-05] MEDS: Meropenem 500 MG in Sodium Chloride 0.9% 100 ML IVPB SCH (00:41)
[2021-11-05] MEDS: HYDROcodone/Acetaminophen 7.5/325 mg Tablet PO PRN ×2 (02:53→06:27)
[2021-11-05 06:27] LABS: #Basophils 0.1 thou/uL (0.0-0.2); #Eosinphils 0.7 thou/uL (0.0-0.7); #Lymphocytes 1.5 thou/uL (1.20-3.40); #Monocytes 0.9 thou/uL (0.11-0.59); #Neutrophils 3.9 thou/uL (1.40-6.50); %Basophils 0.8 % (0.0-1.0); %Eosinophils 10.5 % (0.0-10.0); %Lymphocytes 21.4 % (21.0-51.0); %Monocytes 12.3 % (0.0-10.0); Hemoglobin 9.6 g/dL (14.0-18.0); Mean Corpuscular HGB CONC 32.6 g/dL (32.0-36.0); Mean Corpuscular Hemoglobin 29.1 pg (27.0-31.0); Mean Corpuscular Volume 89.3 fL (78.0-98.0); Mean Platelet Volume 5.8 fL (7.4-10.4); Platelet Count 312 thou/uL (130-400); RBC Distribution Width 14.6 % (11.5-14.5); White Blood Cell (WBC) Count 7.1 thou/uL (4.8-10.8)
[2021-11-05 06:46] LABS: Anion Gap 14 mmol/L (10-20); BUN (Urea Nitrogen) 24 mg/dL (8.4-25.7); Calc. Creatinine Clearance 25 mL/min (70-130); Calcium 8.9 mg/dL (7.8-10.44); Carbon Dioxide 28 mmol/L (23-31); Chloride 100 mmol/L (98-107); Glucose 119 mg/dL (80-115); Potassium 3.9 mmol/L (3.5-5.1); Sodium 138 mmol/L (136-145)
[2021-11-05] MEDS: Calcitriol 0.25 MCG CAP PO SCH (07:52)
[2021-11-05] MEDS: Ferrous Sulfate 325 MG TAB PO SCH ×2 (07:52→15:46)
[2021-11-05] MEDS: Bupropion 150 MG XL TAB PO SCH (07:52)
[2021-11-05] MEDS: Aspirin 81 mg Enteric Coated Tablet PO SCH (07:52)
[2021-11-05] MEDS: Tamsulosin HCl 0.4 MG CAP PO SCH (07:52)
[2021-11-05] MEDS: Gabapentin 300 MG CAP PO SCH (07:52)
[2021-11-05] MEDS: DULoxetine 60 MG CAP PO SCH (07:52)
[2021-11-05] MEDS: Cyclobenzaprine 10 MG TAB PO SCH ×2 (07:53→20:33)
[2021-11-05] MEDS: Multivitamin W/ Minerals 1 TAB PO SCH (07:53)
[2021-11-05] MEDS: Docusate Calcium (SURFAK) 240 MG CAP PO SCH ×2 (07:53→20:26)
[2021-11-05] MEDS: Fluticasone Propionate Nasal Spray 16 gm Bottle NASAL SCH (07:53)
[2021-11-05] MEDS: Folic Acid 1 MG TAB PO SCH (07:53)
[2021-11-05] MEDS: Amlodipine 10 MG TAB PO SCH (07:53)
[2021-11-05] MEDS: Meclizine HCl 25 MG TAB PO SCH ×3 (07:53→20:27)
[2021-11-05] MEDS: Carvedilol 3.125 MG TAB PO SCH ×2 (07:53→15:46)
[2021-11-05] MEDS: Sevelamer Carbonate 800 MG TAB PO SCH ×3 (07:53→15:46)
[2021-11-05] MEDS: Finasteride 5 MG TAB PO SCH (20:26)
[2021-11-06] MEDS: Meropenem 500 MG in Sodium Chloride 0.9% 100 ML IVPB SCH (00:03)
[2021-11-06] MEDS: HYDROcodone/Acetaminophen 7.5/325 mg Tablet PO PRN (06:05)
[2021-11-06 06:30] LABS: Anion Gap 15 mmol/L (10-20); BUN (Urea Nitrogen) 41 mg/dL (8.4-25.7); Calc. Creatinine Clearance 20 mL/min (70-130); Calcium 9.1 mg/dL (7.8-10.44); Carbon Dioxide 25 mmol/L (23-31); Chloride 104 mmol/L (98-107); Glucose 83 mg/dL (80-115); Phosphorus 4.5 mg/dL (2.3-4.7); Potassium 3.9 mmol/L (3.5-5.1); Sodium 140 mmol/L (136-145)
[2021-11-06 06:37] LABS: #Basophils 0.1 thou/uL (0.0-0.2); #Eosinphils 0.8 thou/uL (0.0-0.7); #Lymphocytes 1.6 thou/uL (1.20-3.40); #Monocytes 0.9 thou/uL (0.11-0.59); #Neutrophils 5.2 thou/uL (1.40-6.50); %Basophils 0.9 % (0.0-1.0); %Eosinophils 8.9 % (0.0-10.0); %Lymphocytes 18.6 % (21.0-51.0); %Monocytes 10.7 % (0.0-10.0); Hemoglobin 9.1 g/dL (14.0-18.0); Mean Corpuscular HGB CONC 32.8 g/dL (32.0-36.0); Mean Corpuscular Hemoglobin 29.4 pg (27.0-31.0); Mean Corpuscular Volume 89.8 fL (78.0-98.0); Mean Platelet Volume 5.9 fL (7.4-10.4); Platelet Count 328 thou/uL (130-400); RBC Distribution Width 14.5 % (11.5-14.5); Red Blood Cell (RBC) Count 3.08 mill/uL (4.70-6.10); White Blood Cell (WBC) Count 8.5 thou/uL (4.8-10.8)
[2021-11-06] MEDS: Docusate Calcium (SURFAK) 240 MG CAP PO SCH ×2 (07:50→20:39)
[2021-11-06] MEDS: Bupropion 150 MG XL TAB PO SCH (07:51)
[2021-11-06] MEDS: Folic Acid 1 MG TAB PO SCH (07:51)
[2021-11-06] MEDS: Amlodipine 10 MG TAB PO SCH (07:51)
[2021-11-06] MEDS: DULoxetine 60 MG CAP PO SCH (07:51)
[2021-11-06] MEDS: Multivitamin W/ Minerals 1 TAB PO SCH (07:51)
[2021-11-06] MEDS: Aspirin 81 mg Enteric Coated Tablet PO SCH (07:51)
[2021-11-06] MEDS: Calcitriol 0.25 MCG CAP PO SCH (07:51)
[2021-11-06] MEDS: Tamsulosin HCl 0.4 MG CAP PO SCH (07:51)
[2021-11-06] MEDS: Gabapentin 300 MG CAP PO SCH (07:51)
[2021-11-06] MEDS: Sevelamer Carbonate 800 MG TAB PO SCH ×3 (07:52→15:32)
[2021-11-06] MEDS: Carvedilol 3.125 MG TAB PO SCH ×2 (07:52→15:32)
[2021-11-06] MEDS: Ferrous Sulfate 325 MG TAB PO SCH ×2 (07:52→15:32)
[2021-11-06] MEDS: Fluticasone Propionate Nasal Spray 16 gm Bottle NASAL SCH (07:53)
[2021-11-06] MEDS: Cyclobenzaprine 10 MG TAB PO SCH ×2 (07:53→20:39)
[2021-11-06] MEDS: Meclizine HCl 25 MG TAB PO SCH ×3 (07:53→20:39)
[2021-11-06] MEDS: Finasteride 5 MG TAB PO SCH (20:39)
[2021-11-07] MEDS: HYDROcodone/Acetaminophen 7.5/325 mg Tablet PO PRN ×3 (01:13→19:25)
[2021-11-07] MEDS: Meropenem 500 MG in Sodium Chloride 0.9% 100 ML IVPB SCH ×2 (01:14→17:32)
[2021-11-07] MEDS: hydrOXYzine 25 MG TAB PO PRN (02:42)
[2021-11-07 07:48] LABS: #Eosinphils 0.6 thou/uL (0.0-0.7); #Lymphocytes 1.6 thou/uL (1.20-3.40); #Monocytes 0.9 thou/uL (0.11-0.59); #Neutrophils 5.3 thou/uL (1.40-6.50); %Basophils 0.3 % (0.0-1.0); %Eosinophils 7.5 % (0.0-10.0); %Lymphocytes 19.1 % (21.0-51.0); %Neutrophils 62.1 % (42.0-75.0); Hemoglobin 9.2 g/dL (14.0-18.0); Mean Corpuscular HGB CONC 33.3 g/dL (32.0-36.0); Mean Corpuscular Hemoglobin 29.7 pg (27.0-31.0); Mean Platelet Volume 5.7 fL (7.4-10.4); Platelet Count 335 thou/uL (130-400); RBC Distribution Width 14.8 % (11.5-14.5); Red Blood Cell (RBC) Count 3.09 mill/uL (4.70-6.10); White Blood Cell (WBC) Count 8.5 thou/uL (4.8-10.8)
[2021-11-07 08:09] LABS: Anion Gap 15 mmol/L (10-20); BUN (Urea Nitrogen) 50 mg/dL (8.4-25.7); Calc. Creatinine Clearance 17 mL/min (70-130); Calcium 9.3 mg/dL (7.8-10.44); Carbon Dioxide 23 mmol/L (23-31); Chloride 103 mmol/L (98-107); Glucose 81 mg/dL (80-115); Potassium 4.2 mmol/L (3.5-5.1); Sodium 137 mmol/L (136-145)
[2021-11-07] MEDS: DULoxetine 60 MG CAP PO SCH (08:44)
[2021-11-07] MEDS: Docusate Calcium (SURFAK) 240 MG CAP PO SCH ×2 (08:44→22:02)
[2021-11-07] MEDS: Calcitriol 0.25 MCG CAP PO SCH (08:44)
[2021-11-07] MEDS: Bupropion 150 MG XL TAB PO SCH (08:44)
[2021-11-07] MEDS: Sevelamer Carbonate 800 MG TAB PO SCH ×3 (08:44→17:32)
[2021-11-07] MEDS: Multivitamin W/ Minerals 1 TAB PO SCH (08:44)
[2021-11-07] MEDS: Fluticasone Propionate Nasal Spray 16 gm Bottle NASAL SCH (08:44)
[2021-11-07] MEDS: Folic Acid 1 MG TAB PO SCH (08:44)
[2021-11-07] MEDS: Tamsulosin HCl 0.4 MG CAP PO SCH (08:44)
[2021-11-07] MEDS: Cyclobenzaprine 10 MG TAB PO SCH ×2 (08:44→22:02)
[2021-11-07] MEDS: Aspirin 81 mg Enteric Coated Tablet PO SCH (08:44)
[2021-11-07] MEDS: Gabapentin 300 MG CAP PO SCH (08:44)
[2021-11-07] MEDS: Ferrous Sulfate 325 MG TAB PO SCH ×2 (08:45→17:33)
[2021-11-07] MEDS: Meclizine HCl 25 MG TAB PO SCH ×3 (08:45→22:02)
[2021-11-07 10:57] LABS: HBSAg Index 0.29 S/CO (0-0.99); Hep B Core Total Ab Non-Reactive (NonReactive); Hep B Core Total Index 0.09 S/CO (0-0.79); Hep B Surf Ag Non-Reactive S/CO (NonReactive); Hep C IgG Ab Non-Reactive (NonReactive)
[2021-11-07 11:08] LABS: HBSAB Concentration 38.19 mIU/mL; Hep B Surf AB Reactive (NonReactive)
[2021-11-07] MEDS: Epoetin (ESRD) 10,000 UNITS/ML VIAL IVP SCH (12:59)
[2021-11-07] MEDS: Carvedilol 3.125 MG TAB PO SCH ×2 (12:59→17:33)
[2021-11-07] MEDS: Amlodipine 10 MG TAB PO SCH (12:59)
[2021-11-07] MEDS: Finasteride 5 MG TAB PO SCH (22:02)
[2021-11-08] MEDS: HYDROcodone/Acetaminophen 7.5/325 mg Tablet PO PRN ×2 (03:34→21:15)
[2021-11-08 08:17] LABS: #Eosinphils 0.7 thou/uL (0.0-0.7); #Lymphocytes 1.7 thou/uL (1.20-3.40); #Monocytes 0.9 thou/uL (0.11-0.59); #Neutrophils 3.8 thou/uL (1.40-6.50); %Basophils 0.7 % (0.0-1.0); %Eosinophils 9.7 % (0.0-10.0); %Lymphocytes 23.7 % (21.0-51.0); %Monocytes 13.1 % (0.0-10.0); %Neutrophils 52.8 % (42.0-75.0); Hemoglobin 9.8 g/dL (14.0-18.0); Mean Corpuscular HGB CONC 31.7 g/dL (32.0-36.0); Mean Corpuscular Hemoglobin 29.3 pg (27.0-31.0); Mean Corpuscular Volume 92.2 fL (78.0-98.0); Mean Platelet Volume 6.4 fL (7.4-10.4); Platelet Count 287 thou/uL (130-400); RBC Distribution Width 15.1 % (11.5-14.5); Red Blood Cell (RBC) Count 3.33 mill/uL (4.70-6.10); White Blood Cell (WBC) Count 7.2 thou/uL (4.8-10.8)
[2021-11-08] MEDS ORDERED: Lidocaine 1% w/Epinephrine 1:100K 20 ML VIAL ONE (08:24)
[2021-11-08] MEDS: Cyclobenzaprine 10 MG TAB PO SCH ×2 (08:44→21:16)
[2021-11-08] MEDS: Sevelamer Carbonate 800 MG TAB PO SCH ×3 (08:44→17:53)
[2021-11-08] MEDS: Bupropion 150 MG XL TAB PO SCH (08:44)
[2021-11-08] MEDS: Gabapentin 300 MG CAP PO SCH (08:44)
[2021-11-08] MEDS: Amlodipine 10 MG TAB PO SCH (08:44)
[2021-11-08] MEDS: DULoxetine 60 MG CAP PO SCH (08:44)
[2021-11-08] MEDS: Tamsulosin HCl 0.4 MG CAP PO SCH (08:44)
[2021-11-08] MEDS: Carvedilol 3.125 MG TAB PO SCH ×2 (08:44→17:53)
[2021-11-08] MEDS: Docusate Calcium (SURFAK) 240 MG CAP PO SCH ×2 (08:44→21:16)
[2021-11-08] MEDS: Aspirin 81 mg Enteric Coated Tablet PO SCH (08:44)
[2021-11-08] MEDS: Calcitriol 0.25 MCG CAP PO SCH (08:44)
[2021-11-08] MEDS: Folic Acid 1 MG TAB PO SCH (08:45)
[2021-11-08] MEDS: Meclizine HCl 25 MG TAB PO SCH ×3 (08:45→21:16)
[2021-11-08] MEDS: Fluticasone Propionate Nasal Spray 16 gm Bottle NASAL SCH (08:45)
[2021-11-08] MEDS: Multivitamin W/ Minerals 1 TAB PO SCH (08:45)
[2021-11-08] MEDS: Ferrous Sulfate 325 MG TAB PO SCH ×2 (08:45→17:53)
[2021-11-08 11:29] LABS: Carbon Dioxide 19 mmol/L (23-31); Chloride 103 mmol/L (98-107); Sodium 135 mmol/L (136-145)
[2021-11-08 11:30] LABS: Anion Gap 18 mmol/L (10-20); BUN (Urea Nitrogen) 36 mg/dL (8.4-25.7); Calc. Creatinine Clearance 20 mL/min (70-130); Calcium 9.2 mg/dL (7.8-10.44); Glucose 108 mg/dL (80-115)
[2021-11-08] MEDS: Meropenem 500 MG in Sodium Chloride 0.9% 100 ML IVPB SCH (17:53)
[2021-11-08] MEDS: Finasteride 5 MG TAB PO SCH (21:16)
[2021-11-09] MEDS: hydrOXYzine 25 MG TAB PO PRN (00:25)
[2021-11-09] MEDS: Acetaminophen 325 MG TAB PO PRN (00:25)
[2021-11-09] MEDS: Ondansetron PF 4 MG/2 ML Vial IVP PRN ×2 (01:08→20:23)
[2021-11-09] MEDS: HYDROcodone/Acetaminophen 7.5/325 mg Tablet PO PRN ×2 (02:34→19:42)
[2021-11-09 06:51] LABS: Band 1 % (5-11); Eosinophils 7 % (0-10); Hemoglobin 9.4 g/dL (14.0-18.0); Lymphocytes 28 % (21-51); MDiff Complete? YES; Mean Corpuscular HGB CONC 31.6 g/dL (32.0-36.0); Mean Corpuscular Hemoglobin 28.7 pg (27.0-31.0); Mean Corpuscular Volume 90.7 fL (78.0-98.0); Monocytes 4 % (0-10); Myelocyte 1 % (0-0); Neutrophil 58 % (42-75); Platelet Count 293 thou/uL (130-400); RBC Distribution Width 15.1 % (11.5-14.5); Red Blood Cell (RBC) Count 3.26 mill/uL (4.70-6.10); White Blood Cell (WBC) Count 6.9 thou/uL (4.8-10.8)
[2021-11-09 06:57] LABS: Anion Gap 18 mmol/L (10-20); BUN (Urea Nitrogen) 52 mg/dL (8.4-25.7); Calc. Creatinine Clearance 18 mL/min (70-130); Calcium 9.1 mg/dL (7.8-10.44); Carbon Dioxide 20 mmol/L (23-31); Chloride 103 mmol/L (98-107); Glucose 75 mg/dL (80-115); Potassium 4.6 mmol/L (3.5-5.1); Sodium 136 mmol/L (136-145)
[2021-11-09] MEDS: Epoetin (ESRD) 10,000 UNITS/ML VIAL IVP SCH (08:15)
[2021-11-09] MEDS: Folic Acid 1 MG TAB PO SCH (08:16)
[2021-11-09] MEDS: Bupropion 150 MG XL TAB PO SCH (08:16)
[2021-11-09] MEDS: Multivitamin W/ Minerals 1 TAB PO SCH (08:16)
[2021-11-09] MEDS: Gabapentin 300 MG CAP PO SCH (08:16)
[2021-11-09] MEDS: Docusate Calcium (SURFAK) 240 MG CAP PO SCH ×2 (08:16→20:31)
[2021-11-09] MEDS: Calcitriol 0.25 MCG CAP PO SCH (08:16)
[2021-11-09] MEDS: Tamsulosin HCl 0.4 MG CAP PO SCH (08:16)
[2021-11-09] MEDS: Cyclobenzaprine 10 MG TAB PO SCH ×2 (08:16→20:30)
[2021-11-09] MEDS: Ferrous Sulfate 325 MG TAB PO SCH ×2 (08:16→15:59)
[2021-11-09] MEDS: Meclizine HCl 25 MG TAB PO SCH ×3 (08:16→20:30)
[2021-11-09] MEDS: Aspirin 81 mg Enteric Coated Tablet PO SCH (08:16)
[2021-11-09] MEDS: DULoxetine 60 MG CAP PO SCH (08:16)
[2021-11-09] MEDS: Sevelamer Carbonate 800 MG TAB PO SCH ×3 (08:17→16:00)
[2021-11-09] MEDS: Carvedilol 3.125 MG TAB PO SCH ×2 (08:18→15:59)
[2021-11-09] MEDS: Fluticasone Propionate Nasal Spray 16 gm Bottle NASAL SCH (08:18)
[2021-11-09] MEDS: Gabapentin 100 MG CAP PO SCH ×2 (13:15→20:30)
[2021-11-09] MEDS: Amlodipine 10 MG TAB PO SCH (13:16)
[2021-11-09] MEDS: Meropenem 500 MG in Sodium Chloride 0.9% 100 ML IVPB SCH (15:59)
[2021-11-09] MEDS: Finasteride 5 MG TAB PO SCH (20:30)
[2021-11-10] MEDS: hydrOXYzine 25 MG TAB PO PRN (00:05)
[2021-11-10] MEDS: Acetaminophen 325 MG TAB PO PRN (00:05)
[2021-11-10] MEDS: HYDROcodone/Acetaminophen 7.5/325 mg Tablet PO PRN (05:05)
[2021-11-10 07:12] LABS: Anion Gap 17 mmol/L (10-20); BUN (Urea Nitrogen) 40 mg/dL (8.4-25.7); Calc. Creatinine Clearance 22 mL/min (70-130); Calcium 9.4 mg/dL (7.8-10.44); Carbon Dioxide 21 mmol/L (23-31); Chloride 102 mmol/L (98-107); Glucose 85 mg/dL (80-115); Potassium 4.1 mmol/L (3.5-5.1); Sodium 136 mmol/L (136-145)
[2021-11-10 08:07] VITALS: TEMP 97.6
[2021-11-10 08:09] VITALS: BP 123/62
[2021-11-10 08:18] LABS: Band 7 % (5-11); Eosinophils 8 % (0-10); Hemoglobin 9.6 g/dL (14.0-18.0); Lymphocytes 33 % (21-51); MDiff Complete? YES; Mean Corpuscular HGB CONC 32.6 g/dL (32.0-36.0); Mean Corpuscular Hemoglobin 28.6 pg (27.0-31.0); Mean Corpuscular Volume 87.5 fL (78.0-98.0); Mean Platelet Volume 6.2 fL (7.4-10.4); Monocytes 7 % (0-10); Neutrophil 45 % (42-75); Platelet Count 309 thou/uL (130-400); Platelet Morphology Comment Appears Adequate; RBC Distribution Width 15.3 % (11.5-14.5); RBC Morphology Normal; Red Blood Cell (RBC) Count 3.38 mill/uL (4.70-6.10)
[2021-11-10] MEDS: Carvedilol 3.125 MG TAB PO SCH (08:37)
[2021-11-10] MEDS: Sevelamer Carbonate 800 MG TAB PO SCH (08:38)
[2021-11-10] MEDS: Aspirin 81 mg Enteric Coated Tablet PO SCH (08:38)
[2021-11-10] MEDS: Gabapentin 100 MG CAP PO SCH (08:38)
[2021-11-10] MEDS: DULoxetine 60 MG CAP PO SCH (08:38)
[2021-11-10] MEDS: Amlodipine 10 MG TAB PO SCH (08:38)
[2021-11-10] MEDS: Ferrous Sulfate 325 MG TAB PO SCH (08:38)
[2021-11-10] MEDS: Multivitamin W/ Minerals 1 TAB PO SCH (08:39)
[2021-11-10] MEDS: Calcitriol 0.25 MCG CAP PO SCH (08:39)
[2021-11-10] MEDS: Meclizine HCl 25 MG TAB PO SCH (08:39)
[2021-11-10] MEDS: Bupropion 150 MG XL TAB PO SCH (08:39)
[2021-11-10] MEDS: Tamsulosin HCl 0.4 MG CAP PO SCH (08:39)
[2021-11-10] MEDS: Fluticasone Propionate Nasal Spray 16 gm Bottle NASAL SCH (08:39)
[2021-11-10] MEDS: Docusate Calcium (SURFAK) 240 MG CAP PO SCH (08:39)
[2021-11-10] MEDS: Cyclobenzaprine 10 MG TAB PO SCH (08:39)
[2021-11-10] MEDS: Folic Acid 1 MG TAB PO SCH (08:39)
[2021-11-10] MEDS: EPOETIN ALFA-EPBX (ESRD) 10,000 UNIT/ML VIAL IVP SCH (08:47)
== END 2021-11-10 12:00 | disposition home or self-care (01) | DRG 252 ==
LOC: ERS 21:14 → T4-B 10-29 00:03 → OBSVTOIN 10-31 16:44
PROVIDERS: ADMIT Specialist; ATTEND Specialist
PROC: 30233N1 Transfusion of Nonautologous Red Blood Cells into Peripheral Vein, Percutaneous Approach (ICD-10-PCS; 2021-10-31)
PROC: 02HV33Z Insertion of Infusion Device into Superior Vena Cava, Percutaneous Approach (ICD-10-PCS; 2021-11-03)
PROC: B548ZZA Ultrasonography of Superior Vena Cava, Guidance (ICD-10-PCS; 2021-11-03)
PROC: 5A1D70Z Performance of Urinary Filtration, Intermittent, Less than 6 Hours Per Day (ICD-10-PCS; 2021-11-03)
PROC: 05L80ZZ Occlusion of Left Axillary Vein, Open Approach (ICD-10-PCS; principal; 2021-11-04)
PROC: 05LF0ZZ Occlusion of Left Cephalic Vein, Open Approach (ICD-10-PCS; 2021-11-04)
PROC: 02HV33Z Insertion of Infusion Device into Superior Vena Cava, Percutaneous Approach (ICD-10-PCS; 2021-11-04)
PROC: B548ZZA Ultrasonography of Superior Vena Cava, Guidance (ICD-10-PCS; 2021-11-04)
PROC: 0JPT3XZ Removal of Tunneled Vascular Access Device from Trunk Subcutaneous Tissue and Fascia, Percutaneous Approach (ICD-10-PCS; 2021-11-09)
DX: T82.858A Stenosis of other vascular prosthetic devices, implants and grafts, initial encounter (principal); N18.6 End stage renal disease; I12.0 Hypertensive chronic kidney disease with stage 5 chronic kidney disease or end stage renal disease; I69.951 Hemiplegia and hemiparesis following unspecified cerebrovascular disease affecting right dominant side; E87.1 Hypo-osmolality and hyponatremia; E87.2 Acidosis; N39.0 Urinary tract infection, site not specified; N25.81 Secondary hyperparathyroidism of renal origin; Z20.822 Contact with and (suspected) exposure to COVID-19; J43.9 Emphysema, unspecified; F51.04 Psychophysiologic insomnia; N40.0 Benign prostatic hyperplasia without lower urinary tract symptoms; E87.5 Hyperkalemia; G25.81 Restless legs syndrome; D63.1 Anemia in chronic kidney disease; E78.5 Hyperlipidemia, unspecified; D50.0 Iron deficiency anemia secondary to blood loss (chronic); F20.9 Schizophrenia, unspecified; F31.9 Bipolar disorder, unspecified; F41.9 Anxiety disorder, unspecified; S43.012A Anterior subluxation of left humerus, initial encounter; Y83.8 Other surgical procedures as the cause of abnormal reaction of the patient, or of later complication, without mention of misadventure at the time of the procedure; F12.10 Cannabis abuse, uncomplicated; Z99.3 Dependence on wheelchair; Z87.440 Personal history of urinary (tract) infections; Z79.82 Long term (current) use of aspirin; Z79.899 Other long term (current) drug therapy; Z28.311 Partially vaccinated for COVID-19; Z88.1 Allergy status to other antibiotic agents; Z87.891 Personal history of nicotine dependence; Z99.2 Dependence on renal dialysis
CPT/HCPCS: 36415; 36430; 71045; 80048; 80053; 80069; 81003; 81015; 82728; 83540; 83550; 83970; 84100; 85025; 85027; 86704; 86706; 86803; 86850; 86900; 86901; 87086; 87340; 90935; 93005; 96365; 96374; 96375; C1751; C1776; G0257; G0378; J0694; J1642; J1644; J2185; J2405; J2704; J2720; J2916; J3010; J3490; J7050; P9016; Q0162; Q0169; Q4081; Q5105; S0020; S0028; U0003; U0005

== ENCOUNTER 2021-12-19 15:29 | Emergency (ER) | payer OTHER, MEDICARE ==
[2021-12-19 16:16] LABS: #Eosinphils 0.5 thou/uL (0.0-0.7); #Lymphocytes 1.5 thou/uL (1.20-3.40); #Monocytes 0.9 thou/uL (0.11-0.59); #Neutrophils 9.1 thou/uL (1.40-6.50); %Basophils 0.3 % (0.0-1.0); %Eosinophils 4.1 % (0.0-10.0); %Lymphocytes 12.3 % (21.0-51.0); %Monocytes 7.2 % (0.0-10.0); %Neutrophils 76.1 % (42.0-75.0); Hemoglobin 7.6 g/dL (14.0-18.0); Mean Corpuscular HGB CONC 32.1 g/dL (32.0-36.0); Mean Corpuscular Hemoglobin 29.2 pg (27.0-31.0); Mean Corpuscular Volume 90.9 fL (78.0-98.0); Mean Platelet Volume 6.1 fL (7.4-10.4); Platelet Count 295 thou/uL (130-400); Red Blood Cell (RBC) Count 2.59 mill/uL (4.70-6.10)
[2021-12-19 16:41] LABS: Bacteria/HPF 2+ HPF (None Seen); Bilirubin Negative (Negative); Blood, Urine 1+ (Negative); Clarity Turbid (Clear); Glucose, Urine (Dipstick) 50 mg/dL (Negative); Ketone, Urine Negative (Negative); Leukocyte 500 Leu/uL (Negative); Nitrite 1+ (Negative); Protein, Urine (Dipstick) 100 mg/dL (Neg-Trace); Specific Gravity, Urine 1.011 (1.002-1.036); Squamous Epithelial 0-3 HPF (0-3); Urobilinogen Normal mg/dL (Less than 2); WBC/HPF Greater than 50 HPF (0-3)
[2021-12-19 16:42] LABS: ALT (SGPT) 10 U/L (8-55); AST (SGOT) 9 U/L (5-34); Albumin 3.5 g/dL (3.4-4.8); Alkaline Phosphatase 62 U/L (40-110); Anion Gap 25 mmol/L (10-20); BUN (Urea Nitrogen) 120 mg/dL (8.4-25.7); Bilirubin, Total 0.4 mg/dL (0.2-1.2); Calc. Creatinine Clearance 0 mL/min (70-130); Calcium 9.4 mg/dL (7.8-10.44); Carbon Dioxide 13 mmol/L (23-31); Chloride 105 mmol/L (98-107); Estimated GFR 8; Globulin 3.6 g/dL (2.4-3.5); Glucose 112 mg/dL (80-115); Magnesium 2.1 mg/dL (1.6-2.6); Potassium 5.5 mmol/L (3.5-5.1); Protein, Total 7.1 g/dL (5.8-8.1); Sodium 137 mmol/L (136-145)
[2021-12-19] MEDS ORDERED: Epoetin (ESRD) 20,000 UNITS/ML IVP SCH (16:45)
[2021-12-19] MEDS ORDERED: Calcium Chloride 1 GM/10 ML Abboject SYRINGE ONE (17:21)
[2021-12-19] MEDS ORDERED: Sodium Bicarb 50 MEQ/50 ML Abboject 8.4% SYRINGE ONE (17:21)
[2021-12-19] MEDS ORDERED: Acetaminophen 325 MG TAB ONE (23:21)
== END 2021-12-20 00:50 | disposition home or self-care (01) ==
LOC: ERS 15:29
DX: J18.9 Pneumonia, unspecified organism (principal); I12.0 Hypertensive chronic kidney disease with stage 5 chronic kidney disease or end stage renal disease; N18.6 End stage renal disease; E87.70 Fluid overload, unspecified; E87.5 Hyperkalemia; Z99.2 Dependence on renal dialysis; Z86.73 Personal history of transient ischemic attack (TIA), and cerebral infarction without residual deficits; Z87.891 Personal history of nicotine dependence; Z79.899 Other long term (current) drug therapy; Z79.82 Long term (current) use of aspirin; Z91.15 Patient's noncompliance with renal dialysis
CPT/HCPCS: 36415; 71045; 80053; 81003; 81015; 83735; 83880; 85025; 86850; 86900; 86901; 87040; 90935; 93005; 96374; 96375; G0257; J1956; Q4081

== ENCOUNTER 2021-12-22 11:37 | Inpatient (IN) | payer MEDICARE ==
[~2021-12-22 11:37] MED LIST changes: -Heparin 10,000 UNITS/ 10 ML VIAL ONE; +ISOVUE-370 76%-LOCM 1 ML ONE
[2021-12-22 12:27] LABS: #Eosinphils 0.6 thou/uL (0.0-0.7); #Lymphocytes 1.6 thou/uL (1.20-3.40); #Monocytes 0.6 thou/uL (0.11-0.59); #Neutrophils 9.1 thou/uL (1.40-6.50); %Basophils 0.1 % (0.0-1.0); %Eosinophils 4.9 % (0.0-10.0); %Lymphocytes 13.8 % (21.0-51.0); %Monocytes 4.8 % (0.0-10.0); %Neutrophils 76.4 % (42.0-75.0); Hemoglobin 7.7 g/dL (14.0-18.0); Mean Corpuscular HGB CONC 32.3 g/dL (32.0-36.0); Mean Corpuscular Hemoglobin 29.5 pg (27.0-31.0); Mean Corpuscular Volume 91.2 fL (78.0-98.0); Mean Platelet Volume 6.2 fL (7.4-10.4); Platelet Count 334 thou/uL (130-400); RBC Distribution Width 16.9 % (11.5-14.5); White Blood Cell (WBC) Count 11.9 thou/uL (4.8-10.8)
[2021-12-22] MEDS ORDERED: Ondansetron PF 4 MG/2 ML Vial ONE (12:34)
[2021-12-22 12:45] LABS: ALT (SGPT) 9 U/L (8-55); AST (SGOT) 9 U/L (5-34); Albumin 3.7 g/dL (3.4-4.8); Alkaline Phosphatase 66 U/L (40-110); Anion Gap 21 mmol/L (10-20); BUN (Urea Nitrogen) 64 mg/dL (8.4-25.7); Bilirubin, Total 0.3 mg/dL (0.2-1.2); Calc. Creatinine Clearance 0 mL/min (70-130); Calcium 9.4 mg/dL (7.8-10.44); Carbon Dioxide 22 mmol/L (23-31); Chloride 97 mmol/L (98-107); Estimated GFR 13; Glucose 163 mg/dL (80-115); Protein, Total 6.7 g/dL (5.8-8.1); Sodium 133 mmol/L (136-145)
[2021-12-22 13:05] LABS: Potassium 7.2 mmol/L (3.5-5.1)
[2021-12-22 13:23] LABS: CKMB 2.9 ng/mL (0-6.6)
[2021-12-22] MEDS ORDERED: Calcium Gluc 4.6 MEQ/10 ML (100 MG/ML) ONE (13:28)
[2021-12-22] MEDS ORDERED: Fentanyl 100 MCG/2 ML VIAL ONE (13:31)
[2021-12-22] MEDS ORDERED: Dextrose 50% Abboject 50 ML SYRINGE ONE (13:32)
[2021-12-22] MEDS ORDERED: Nitroglycerin 2% Ointment 1 INCH/1 GM Packet ONE (13:32)
[2021-12-22] MEDS ORDERED: Sodium Bicarb 50 MEQ/50 ML Abboject 8.4% SYRINGE ONE (13:32)
[2021-12-22] MEDS ORDERED: Insulin Regular 300 UNITS/3 ML VIAL ONE (13:32)
[2021-12-22] MEDS ORDERED: Furosemide 40 MG/4 ML VIAL ONE (13:32)
[2021-12-22] MEDS ORDERED: Enoxaparin Sodium 100 MG/ML SYRINGE ONE (13:32)
[2021-12-22] MEDS ORDERED: Aspirin Chewable 81 MG TAB ONE (13:32)
[2021-12-22] MEDS ORDERED: Albuterol Sulfate 2.5 mg/3 ml Neb ONE (13:34)
[2021-12-22] MEDS ORDERED: Acetaminophen 325 MG TAB PO PRN (13:55)
[2021-12-22] MEDS ORDERED: Ondansetron PF 4 MG/2 ML Vial IVP PRN (13:55)
[2021-12-22] MEDS ORDERED: Morphine 2 MG/ML VIAL ONE ×3 (15:16→22:07)
[2021-12-22] MEDS: Morphine 2 MG/ML VIAL SLOW IVP PRN ×2 (15:21→18:10)
[2021-12-22 15:50] LABS: Critical Call Chem Troponin I RESULT DECREASING
[2021-12-22 15:51] LABS: SARS-CoV-2 NAA Rapid Test Not Detected (NotDetected)
[2021-12-22] MEDS ORDERED: Epoetin (ESRD) 10,000 UNITS/ML VIAL SC SCH (17:00)
[2021-12-22] MEDS ORDERED: Morphine 2 MG/ML VIAL SLOW IVP SCH (18:00)
[2021-12-22 19:10] LABS: Troponin I 0.286 ng/mL (< 0.028)
[2021-12-22] MEDS ORDERED: Apixaban 5 MG TAB PO SCH (21:00)
[2021-12-22 21:55] LABS: Anion Gap 13 mmol/L (10-20); BUN (Urea Nitrogen) 22 mg/dL (8.4-25.7); Calc. Creatinine Clearance 0 mL/min (70-130); Calcium 9.1 mg/dL (7.8-10.44); Carbon Dioxide 32 mmol/L (23-31); Chloride 95 mmol/L (98-107); Estimated GFR 34; Glucose 104 mg/dL (80-115); Potassium 3.9 mmol/L (3.5-5.1); Sodium 136 mmol/L (136-145)
[2021-12-22] MEDS ORDERED: Levofloxacin 500 mg/D5W 100 ml Premix Bag ONE (22:03)
[2021-12-22] MEDS: Carvedilol 3.125 MG TAB PO SCH (22:20)
[2021-12-22] MEDS: Sevelamer Carbonate 800 MG TAB PO SCH (22:21)
[2021-12-22] MEDS: Finasteride 5 MG TAB PO SCH (23:41)
[2021-12-23] MEDS: Morphine 2 MG/ML VIAL SLOW IVP PRN ×4 (02:35→19:25)
[2021-12-23 02:43] VITALS: BMI 27.1
[2021-12-23 04:11] LABS: #Eosinphils 0.5 thou/uL (0.0-0.7); #Lymphocytes 1.2 thou/uL (1.20-3.40); #Monocytes 0.6 thou/uL (0.11-0.59); #Neutrophils 6.7 thou/uL (1.40-6.50); %Basophils 0.1 % (0.0-1.0); %Eosinophils 5.3 % (0.0-10.0); %Lymphocytes 13.1 % (21.0-51.0); %Neutrophils 74.5 % (42.0-75.0); Hemoglobin 6.7 g/dL (14.0-18.0); Mean Corpuscular HGB CONC 32.3 g/dL (32.0-36.0); Mean Corpuscular Hemoglobin 29.7 pg (27.0-31.0); Mean Corpuscular Volume 92.2 fL (78.0-98.0); Mean Platelet Volume 6.2 fL (7.4-10.4); Platelet Count 281 thou/uL (130-400); RBC Distribution Width 17.8 % (11.5-14.5); Red Blood Cell (RBC) Count 2.24 mill/uL (4.70-6.10)
[2021-12-23 04:37] LABS: Anion Gap 15 mmol/L (10-20); BUN (Urea Nitrogen) 28 mg/dL (8.4-25.7); Calc. Creatinine Clearance 36 mL/min (70-130); Calcium 8.9 mg/dL (7.8-10.44); Carbon Dioxide 30 mmol/L (23-31); Chloride 97 mmol/L (98-107); Estimated GFR 26; Glucose 133 mg/dL (80-115); Potassium 4.6 mmol/L (3.5-5.1); Sodium 137 mmol/L (136-145)
[2021-12-23 08:54] LABS: Troponin I 3.975 ng/mL (< 0.028)
[2021-12-23] MEDS: Carvedilol 3.125 MG TAB PO SCH ×2 (09:03→17:38)
[2021-12-23] MEDS: Sevelamer Carbonate 800 MG TAB PO SCH ×3 (09:03→17:38)
[2021-12-23] MEDS: Calcitriol 0.25 MCG CAP PO SCH (09:04)
[2021-12-23] MEDS: Bupropion 150 MG XL TAB PO SCH (09:04)
[2021-12-23] MEDS: Amlodipine 10 MG TAB PO SCH (09:04)
[2021-12-23] MEDS: Aspirin 81 mg Enteric Coated Tablet PO SCH (09:04)
[2021-12-23] MEDS: Tamsulosin HCl 0.4 MG CAP PO SCH (09:05)
[2021-12-23] MEDS: DULoxetine 60 MG CAP PO SCH (09:05)
[2021-12-23 14:26] LABS: Troponin I 6.173 ng/mL (< 0.028)
[2021-12-23 17:44] LABS: Troponin I 6.413 ng/mL (< 0.028)
[2021-12-23] MEDS ORDERED: diphenhydrAMINE 50 MG/ML VIAL IVP SCH (19:29)
[2021-12-23] MEDS ORDERED: diphenhydrAMINE 25 MG CAP PO PRN (19:30)
[2021-12-23] MEDS ORDERED: Loratadine 10 MG TAB PO SCH (19:45)
[2021-12-23] MEDS ORDERED: Famotidine/PF 20 mg/2ml Vial SLOW IVP SCH (19:48)
[2021-12-23] MEDS: Finasteride 5 MG TAB PO SCH (19:55)
[2021-12-24 07:54] LABS: Hemoglobin 6.9 g/dL (14.0-18.0); Mean Corpuscular Hemoglobin 30.7 pg (27.0-31.0); Mean Platelet Volume 6.8 fL (7.4-10.4); Platelet Count 298 thou/uL (130-400); RBC Distribution Width 17.9 % (11.5-14.5); Red Blood Cell (RBC) Count 2.25 mill/uL (4.70-6.10); White Blood Cell (WBC) Count 7.8 thou/uL (4.8-10.8)
[2021-12-24 08:20] LABS: Calc. Creatinine Clearance 23 mL/min (70-130); Estimated GFR 15
[2021-12-24 08:21] LABS: Anion Gap 18 mmol/L (10-20); BUN (Urea Nitrogen) 38 mg/dL (8.4-25.7); Calcium 9.3 mg/dL (7.8-10.44); Carbon Dioxide 24 mmol/L (23-31); Chloride 98 mmol/L (98-107); Glucose 76 mg/dL (80-115); Sodium 135 mmol/L (136-145)
[2021-12-24 09:02] LABS: #Eosinphils 0.6 thou/uL (0.0-0.7); #Lymphocytes 1.6 thou/uL (1.20-3.40); #Monocytes 0.7 thou/uL (0.11-0.59); #Neutrophils 4.9 thou/uL (1.40-6.50); %Basophils 0.1 % (0.0-1.0); %Eosinophils 7.3 % (0.0-10.0); %Monocytes 9.2 % (0.0-10.0); %Neutrophils 63.4 % (42.0-75.0)
[2021-12-24] MEDS: Calcitriol 0.25 MCG CAP PO SCH (09:39)
[2021-12-24] MEDS: DULoxetine 60 MG CAP PO SCH (09:40)
[2021-12-24] MEDS: Bupropion 150 MG XL TAB PO SCH (09:40)
[2021-12-24] MEDS: Amlodipine 10 MG TAB PO SCH (09:40)
[2021-12-24] MEDS: Carvedilol 3.125 MG TAB PO SCH ×2 (09:40→15:05)
[2021-12-24] MEDS: Tamsulosin HCl 0.4 MG CAP PO SCH (09:40)
[2021-12-24] MEDS: Sevelamer Carbonate 800 MG TAB PO SCH ×3 (09:40→18:37)
[2021-12-24] MEDS: Aspirin 81 mg Enteric Coated Tablet PO SCH (09:40)
[2021-12-24 10:09] LABS: Platelet Morphology Comment Appears Adequate
[2021-12-24] MEDS: Morphine 2 MG/ML VIAL SLOW IVP PRN ×2 (11:09→20:41)
[2021-12-24] MEDS: Finasteride 5 MG TAB PO SCH (20:41)
[2021-12-25] MEDS: Morphine 2 MG/ML VIAL SLOW IVP PRN ×3 (05:18→20:49)
[2021-12-25] MEDS: Carvedilol 3.125 MG TAB PO SCH ×2 (09:07→16:53)
[2021-12-25] MEDS: DULoxetine 60 MG CAP PO SCH (09:07)
[2021-12-25] MEDS: Aspirin 81 mg Enteric Coated Tablet PO SCH (09:07)
[2021-12-25] MEDS: Amlodipine 10 MG TAB PO SCH (09:07)
[2021-12-25] MEDS: Sevelamer Carbonate 800 MG TAB PO SCH ×3 (09:07→16:52)
[2021-12-25] MEDS: Calcitriol 0.25 MCG CAP PO SCH (09:08)
[2021-12-25] MEDS: Bupropion 150 MG XL TAB PO SCH (09:08)
[2021-12-25] MEDS: Tamsulosin HCl 0.4 MG CAP PO SCH (09:08)
[2021-12-25] MEDS ORDERED: Epoetin (ESRD) 10,000 UNITS/ML VIAL SC SCH (12:00)
[2021-12-25 13:27] LABS: #Eosinphils 0.4 thou/uL (0.0-0.7); #Lymphocytes 1.1 thou/uL (1.20-3.40); #Monocytes 0.6 thou/uL (0.11-0.59); #Neutrophils 5.7 thou/uL (1.40-6.50); %Basophils 0.3 % (0.0-1.0); %Eosinophils 5.2 % (0.0-10.0); %Lymphocytes 13.6 % (21.0-51.0); %Monocytes 7.8 % (0.0-10.0); %Neutrophils 73.1 % (42.0-75.0); Hemoglobin 9.4 g/dL (14.0-18.0); Mean Corpuscular HGB CONC 31.8 g/dL (32.0-36.0); Mean Corpuscular Volume 94.3 fL (78.0-98.0); Mean Platelet Volume 6.1 fL (7.4-10.4); Platelet Count 338 thou/uL (130-400); RBC Distribution Width 17.3 % (11.5-14.5); Red Blood Cell (RBC) Count 3.14 mill/uL (4.70-6.10); White Blood Cell (WBC) Count 7.8 thou/uL (4.8-10.8)
[2021-12-25] MEDS ORDERED: Acetaminophen/Codeine 30-300mg Tablet PO PRN (15:48)
[2021-12-25] MEDS: Acetaminophen/Codeine 30-300mg Tablet PO PRN (16:52)
[2021-12-25] MEDS: Polyethylene Glycol 3350 17 GM Packet PO SCH (16:52)
[2021-12-25] MEDS: Senokot S 8.6-50 MG TAB PO SCH (20:49)
[2021-12-25] MEDS: Finasteride 5 MG TAB PO SCH (20:49)
[2021-12-25] MEDS: Artificial Tear Sol 15 ML BOT EA EYE PRN (20:50)
[2021-12-26 04:42] LABS: #Eosinphils 0.4 thou/uL (0.0-0.7); #Lymphocytes 1.5 thou/uL (1.20-3.40); #Monocytes 0.7 thou/uL (0.11-0.59); #Neutrophils 5.5 thou/uL (1.40-6.50); %Basophils 0.1 % (0.0-1.0); %Eosinophils 5.1 % (0.0-10.0); %Lymphocytes 18.1 % (21.0-51.0); %Monocytes 8.3 % (0.0-10.0); %Neutrophils 68.4 % (42.0-75.0); Hemoglobin 8.5 g/dL (14.0-18.0); Mean Corpuscular HGB CONC 33.1 g/dL (32.0-36.0); Mean Corpuscular Hemoglobin 31.2 pg (27.0-31.0); Mean Corpuscular Volume 94.3 fL (78.0-98.0); Platelet Count 305 thou/uL (130-400); RBC Distribution Width 17.1 % (11.5-14.5); Red Blood Cell (RBC) Count 2.72 mill/uL (4.70-6.10); White Blood Cell (WBC) Count 8.1 thou/uL (4.8-10.8)
[2021-12-26 05:08] LABS: Anion Gap 16 mmol/L (10-20); BUN (Urea Nitrogen) 29 mg/dL (8.4-25.7); Calc. Creatinine Clearance 25 mL/min (70-130); Calcium 9.4 mg/dL (7.8-10.44); Carbon Dioxide 26 mmol/L (23-31); Chloride 98 mmol/L (98-107); Estimated GFR 17; Glucose 77 mg/dL (80-115); Potassium 3.9 mmol/L (3.5-5.1); Sodium 136 mmol/L (136-145)
[2021-12-26] MEDS: Carvedilol 3.125 MG TAB PO SCH ×2 (08:54→17:17)
[2021-12-26] MEDS: Sevelamer Carbonate 800 MG TAB PO SCH ×3 (08:54→17:17)
[2021-12-26] MEDS: Bupropion 150 MG XL TAB PO SCH (08:55)
[2021-12-26] MEDS: Amlodipine 10 MG TAB PO SCH (08:55)
[2021-12-26] MEDS: Aspirin 81 mg Enteric Coated Tablet PO SCH (08:55)
[2021-12-26] MEDS: Calcitriol 0.25 MCG CAP PO SCH (08:55)
[2021-12-26] MEDS: DULoxetine 60 MG CAP PO SCH (08:55)
[2021-12-26] MEDS: Senokot S 8.6-50 MG TAB PO SCH ×2 (08:56→20:30)
[2021-12-26] MEDS: Tamsulosin HCl 0.4 MG CAP PO SCH (08:56)
[2021-12-26] MEDS: Morphine 2 MG/ML VIAL SLOW IVP PRN ×2 (09:15→20:30)
[2021-12-26] MEDS: Artificial Tear Sol 15 ML BOT EA EYE PRN (12:50)
[2021-12-26] MEDS: Iron Polysaccharides Complex 150 MG CAP PO SCH (12:50)
[2021-12-26] MEDS: Polyethylene Glycol 3350 17 GM Packet PO SCH (17:17)
[2021-12-26] MEDS: Acetaminophen/Codeine 30-300mg Tablet PO PRN (17:55)
[2021-12-26] MEDS: Finasteride 5 MG TAB PO SCH (20:30)
[2021-12-27] MEDS: Acetaminophen/Codeine 30-300mg Tablet PO PRN (03:59)
[2021-12-27 04:35] LABS: #Eosinphils 0.4 thou/uL (0.0-0.7); #Lymphocytes 1.2 thou/uL (1.20-3.40); #Monocytes 0.6 thou/uL (0.11-0.59); #Neutrophils 4.9 thou/uL (1.40-6.50); %Basophils 0.4 % (0.0-1.0); %Eosinophils 5.6 % (0.0-10.0); %Lymphocytes 17.4 % (21.0-51.0); %Monocytes 8.2 % (0.0-10.0); %Neutrophils 68.4 % (42.0-75.0); Hemoglobin 8.6 g/dL (14.0-18.0); Mean Corpuscular HGB CONC 32.9 g/dL (32.0-36.0); Mean Corpuscular Hemoglobin 30.8 pg (27.0-31.0); Mean Corpuscular Volume 93.5 fL (78.0-98.0); Mean Platelet Volume 5.9 fL (7.4-10.4); Platelet Count 301 thou/uL (130-400); RBC Distribution Width 16.8 % (11.5-14.5); Red Blood Cell (RBC) Count 2.79 mill/uL (4.70-6.10); White Blood Cell (WBC) Count 7.1 thou/uL (4.8-10.8)
[2021-12-27 04:55] LABS: Anion Gap 14 mmol/L (10-20); BUN (Urea Nitrogen) 37 mg/dL (8.4-25.7); Calc. Creatinine Clearance 17 mL/min (70-130); Calcium 9.5 mg/dL (7.8-10.44); Carbon Dioxide 28 mmol/L (23-31); Chloride 99 mmol/L (98-107); Estimated GFR 11; Glucose 77 mg/dL (80-115); Potassium 4.4 mmol/L (3.5-5.1); Sodium 137 mmol/L (136-145)
[2021-12-27] MEDS: Carvedilol 3.125 MG TAB PO SCH ×2 (12:08→18:37)
[2021-12-27] MEDS: Sevelamer Carbonate 800 MG TAB PO SCH ×3 (12:08→18:36)
[2021-12-27] MEDS: Morphine 2 MG/ML VIAL SLOW IVP PRN ×2 (12:31→21:17)
[2021-12-27] MEDS: Iron Polysaccharides Complex 150 MG CAP PO SCH (12:36)
[2021-12-27] MEDS: DULoxetine 60 MG CAP PO SCH (12:36)
[2021-12-27] MEDS: Bupropion 150 MG XL TAB PO SCH (12:36)
[2021-12-27] MEDS: Aspirin 81 mg Enteric Coated Tablet PO SCH (12:37)
[2021-12-27] MEDS: Calcitriol 0.25 MCG CAP PO SCH (12:37)
[2021-12-27] MEDS: Tamsulosin HCl 0.4 MG CAP PO SCH (12:37)
[2021-12-27] MEDS: Senokot S 8.6-50 MG TAB PO SCH ×2 (12:37→21:17)
[2021-12-27] MEDS: Amlodipine 10 MG TAB PO SCH (12:37)
[2021-12-27] MEDS: HYDROcodone/Acetaminophen 5/325 mg Tablet PO PRN ×2 (15:32→23:11)
[2021-12-27] MEDS: Polyethylene Glycol 3350 17 GM Packet PO SCH (18:37)
[2021-12-27] MEDS: Finasteride 5 MG TAB PO SCH (21:17)
[2021-12-28 04:46] LABS: #Eosinphils 0.5 thou/uL (0.0-0.7); #Lymphocytes 1.4 thou/uL (1.20-3.40); #Monocytes 0.7 thou/uL (0.11-0.59); %Basophils 0.1 % (0.0-1.0); %Eosinophils 7.7 % (0.0-10.0); %Lymphocytes 20.7 % (21.0-51.0); %Neutrophils 60.6 % (42.0-75.0); Hemoglobin 9.1 g/dL (14.0-18.0); Mean Corpuscular Hemoglobin 30.4 pg (27.0-31.0); Mean Corpuscular Volume 92.3 fL (78.0-98.0); Mean Platelet Volume 6.1 fL (7.4-10.4); Platelet Count 303 thou/uL (130-400); RBC Distribution Width 16.1 % (11.5-14.5); White Blood Cell (WBC) Count 6.6 thou/uL (4.8-10.8)
[2021-12-28 05:09] LABS: BUN (Urea Nitrogen) 22 mg/dL (8.4-25.7); Calc. Creatinine Clearance 27 mL/min (70-130); Calcium 9.4 mg/dL (7.8-10.44); Carbon Dioxide 22 mmol/L (23-31); Chloride 99 mmol/L (98-107); Estimated GFR 19; Glucose 75 mg/dL (80-115); Sodium 136 mmol/L (136-145)
[2021-12-28 05:14] LABS: Anion Gap 19 mmol/L (10-20)
[2021-12-28] MEDS: Senokot S 8.6-50 MG TAB PO SCH ×2 (08:44→21:43)
[2021-12-28] MEDS: Aspirin 81 mg Enteric Coated Tablet PO SCH (08:44)
[2021-12-28] MEDS: Calcitriol 0.25 MCG CAP PO SCH (08:44)
[2021-12-28] MEDS: Sevelamer Carbonate 800 MG TAB PO SCH ×3 (08:44→16:56)
[2021-12-28] MEDS: Tamsulosin HCl 0.4 MG CAP PO SCH (08:44)
[2021-12-28] MEDS: Carvedilol 3.125 MG TAB PO SCH ×2 (08:44→16:56)
[2021-12-28] MEDS: Bupropion 150 MG XL TAB PO SCH (08:45)
[2021-12-28] MEDS: DULoxetine 60 MG CAP PO SCH (08:45)
[2021-12-28] MEDS: Amlodipine 10 MG TAB PO SCH (08:45)
[2021-12-28] MEDS: HYDROcodone/Acetaminophen 5/325 mg Tablet PO PRN (08:47)
[2021-12-28] MEDS: Iron Polysaccharides Complex 150 MG CAP PO SCH (11:44)
[2021-12-28] MEDS: Polyethylene Glycol 3350 17 GM Packet PO SCH (16:56)
[2021-12-28] MEDS ORDERED: Apixaban 5 MG TAB PO SCH ×2 (21:00)
[2021-12-28] MEDS: Apixaban 2.5 MG TAB PO SCH (21:43)
[2021-12-28] MEDS: Atorvastatin Calcium 20 MG TAB PO SCH (21:43)
[2021-12-28] MEDS: Finasteride 5 MG TAB PO SCH (21:43)
[2021-12-29] MEDS: HYDROcodone/Acetaminophen 5/325 mg Tablet PO PRN ×4 (02:55→20:30)
[2021-12-29 04:25] LABS: #Eosinphils 0.4 thou/uL (0.0-0.7); #Lymphocytes 1.2 thou/uL (1.20-3.40); #Monocytes 0.7 thou/uL (0.11-0.59); #Neutrophils 3.8 thou/uL (1.40-6.50); %Basophils 0.2 % (0.0-1.0); %Eosinophils 6.1 % (0.0-10.0); %Monocytes 10.8 % (0.0-10.0); %Neutrophils 62.9 % (42.0-75.0); Hemoglobin 8.9 g/dL (14.0-18.0); Mean Corpuscular HGB CONC 33.2 g/dL (32.0-36.0); Mean Corpuscular Hemoglobin 30.4 pg (27.0-31.0); Mean Corpuscular Volume 91.5 fL (78.0-98.0); Mean Platelet Volume 5.9 fL (7.4-10.4); Platelet Count 292 thou/uL (130-400); Red Blood Cell (RBC) Count 2.93 mill/uL (4.70-6.10); White Blood Cell (WBC) Count 6.1 thou/uL (4.8-10.8)
[2021-12-29 04:45] LABS: Anion Gap 13 mmol/L (10-20); BUN (Urea Nitrogen) 32 mg/dL (8.4-25.7); Calc. Creatinine Clearance 20 mL/min (70-130); Calcium 9.6 mg/dL (7.8-10.44); Carbon Dioxide 30 mmol/L (23-31); Chloride 95 mmol/L (98-107); Estimated GFR 13; Glucose 92 mg/dL (80-115); Potassium 3.8 mmol/L (3.5-5.1); Sodium 134 mmol/L (136-145)
[2021-12-29] MEDS ORDERED: Fleet Enema 133 ML BOT PR SCH (08:15)
[2021-12-29] MEDS: Aspirin 81 mg Enteric Coated Tablet PO SCH (12:23)
[2021-12-29] MEDS: Iron Polysaccharides Complex 150 MG CAP PO SCH (12:23)
[2021-12-29] MEDS: Bupropion 150 MG XL TAB PO SCH (12:23)
[2021-12-29] MEDS: Calcitriol 0.25 MCG CAP PO SCH (12:23)
[2021-12-29] MEDS: Tamsulosin HCl 0.4 MG CAP PO SCH (12:23)
[2021-12-29] MEDS: Sevelamer Carbonate 800 MG TAB PO SCH ×3 (12:23→17:31)
[2021-12-29] MEDS: DULoxetine 60 MG CAP PO SCH (12:23)
[2021-12-29] MEDS: Apixaban 2.5 MG TAB PO SCH ×2 (12:23→20:29)
[2021-12-29] MEDS: Amlodipine 10 MG TAB PO SCH (12:23)
[2021-12-29] MEDS: Carvedilol 3.125 MG TAB PO SCH ×2 (12:25→17:31)
[2021-12-29] MEDS: Senokot S 8.6-50 MG TAB PO SCH ×2 (12:26→20:29)
[2021-12-29] MEDS: Polyethylene Glycol 3350 17 GM Packet PO SCH (17:31)
[2021-12-29] MEDS: Atorvastatin Calcium 20 MG TAB PO SCH (20:29)
[2021-12-29] MEDS: Finasteride 5 MG TAB PO SCH (20:29)
[2021-12-30] MEDS: HYDROcodone/Acetaminophen 5/325 mg Tablet PO PRN ×2 (03:49→12:31)
[2021-12-30] MEDS: Apixaban 2.5 MG TAB PO SCH (09:06)
[2021-12-30] MEDS: Sevelamer Carbonate 800 MG TAB PO SCH ×2 (09:06→11:35)
[2021-12-30] MEDS: Carvedilol 3.125 MG TAB PO SCH (09:06)
[2021-12-30] MEDS: Amlodipine 10 MG TAB PO SCH (09:06)
[2021-12-30] MEDS: Aspirin 81 mg Enteric Coated Tablet PO SCH (09:07)
[2021-12-30] MEDS: Bupropion 150 MG XL TAB PO SCH (09:07)
[2021-12-30] MEDS: DULoxetine 60 MG CAP PO SCH (09:07)
[2021-12-30] MEDS: Calcitriol 0.25 MCG CAP PO SCH (09:07)
[2021-12-30] MEDS: Tamsulosin HCl 0.4 MG CAP PO SCH (09:07)
[2021-12-30] MEDS: Senokot S 8.6-50 MG TAB PO SCH (09:07)
[2021-12-30] MEDS: Iron Polysaccharides Complex 150 MG CAP PO SCH (11:35)
[2021-12-30 11:51] VITALS: BP 131/55; TEMP 98.4
== END 2021-12-30 14:00 | disposition home health service (06) | DRG 280 ==
LOC: ERS 11:37 → ERHOLD 13:51 → 2NO 12-23 02:05
PROVIDERS: ADMIT Specialist; ATTEND Family Medicine
PROC: 30233N1 Transfusion of Nonautologous Red Blood Cells into Peripheral Vein, Percutaneous Approach (ICD-10-PCS; 2021-12-23)
PROC: 5A1D70Z Performance of Urinary Filtration, Intermittent, Less than 6 Hours Per Day (ICD-10-PCS; principal; 2021-12-24)
DX: I21.4 Non-ST elevation (NSTEMI) myocardial infarction (principal); Z20.822 Contact with and (suspected) exposure to COVID-19; J18.9 Pneumonia, unspecified organism; N18.6 End stage renal disease; J96.01 Acute respiratory failure with hypoxia; I82.411 Acute embolism and thrombosis of right femoral vein; I12.0 Hypertensive chronic kidney disease with stage 5 chronic kidney disease or end stage renal disease; I69.351 Hemiplegia and hemiparesis following cerebral infarction affecting right dominant side; I82.441 Acute embolism and thrombosis of right tibial vein; I82.431 Acute embolism and thrombosis of right popliteal vein; E87.70 Fluid overload, unspecified; E87.5 Hyperkalemia; F41.9 Anxiety disorder, unspecified; F31.9 Bipolar disorder, unspecified; F20.9 Schizophrenia, unspecified; F12.10 Cannabis abuse, uncomplicated; D63.1 Anemia in chronic kidney disease; E78.5 Hyperlipidemia, unspecified; E11.22 Type 2 diabetes mellitus with diabetic chronic kidney disease; G89.29 Other chronic pain; N40.0 Benign prostatic hyperplasia without lower urinary tract symptoms; M54.50 Low back pain, unspecified; Z53.29 Procedure and treatment not carried out because of patient's decision for other reasons; K59.00 Constipation, unspecified; Z28.21 Immunization not carried out because of patient refusal; Z28.311 Partially vaccinated for COVID-19; Z99.2 Dependence on renal dialysis; Z87.891 Personal history of nicotine dependence; Z98.890 Other specified postprocedural states; Z88.8 Allergy status to other drugs, medicaments and biological substances; Z79.899 Other long term (current) drug therapy; Z79.82 Long term (current) use of aspirin; Z79.51 Long term (current) use of inhaled steroids; Z79.01 Long term (current) use of anticoagulants; Z87.440 Personal history of urinary (tract) infections; Z91.11 Patient's noncompliance with dietary regimen
CPT/HCPCS: 36415; 36416; 36430; 71045; 71275; 80048; 80053; 82553; 83880; 84484; 85025; 86850; 86900; 86901; 90935; 93005; 93010; 93306; 94644; 96372; 96374; 96375; G0257; J0610; J1200; J1650; J1815; J1940; J1956; J2270; J2405; J3010; J7611; J7999; P9016; Q4081; Q9966; S0028; U0002; U0003; U0005

== ENCOUNTER 2022-02-07 08:15 | Emergency (ER) | payer MEDICARE ==
[2022-02-07] MEDS ORDERED: Ondansetron PF 4 MG/2 ML Vial ONE (08:25)
[2022-02-07 09:42] LABS: #Eosinphils 0.1 thou/uL (0.0-0.7); #Lymphocytes 0.8 thou/uL (1.20-3.40); #Monocytes 0.4 thou/uL (0.11-0.59); #Neutrophils 7.8 thou/uL (1.40-6.50); %Basophils 0.1 % (0.0-1.0); %Eosinophils 1.4 % (0.0-10.0); %Monocytes 3.9 % (0.0-10.0); %Neutrophils 85.7 % (42.0-75.0); Hemoglobin 8.5 g/dL (14.0-18.0); Mean Corpuscular HGB CONC 33.8 g/dL (32.0-36.0); Mean Corpuscular Hemoglobin 30.1 pg (27.0-31.0); Mean Corpuscular Volume 89.2 fL (78.0-98.0); Platelet Count 333 thou/uL (130-400); RBC Distribution Width 15.5 % (11.5-14.5); Red Blood Cell (RBC) Count 2.82 mill/uL (4.70-6.10); White Blood Cell (WBC) Count 9.2 thou/uL (4.8-10.8)
[2022-02-07 10:05] LABS: ALT (SGPT) 7 U/L (8-55); AST (SGOT) 9 U/L (5-34); Albumin 3.8 g/dL (3.4-4.8); Alkaline Phosphatase 85 U/L (40-110); BUN (Urea Nitrogen) 103 mg/dL (8.4-25.7); Bilirubin, Total 0.5 mg/dL (0.2-1.2); Calc. Creatinine Clearance 0 mL/min (70-130); Calcium 10.3 mg/dL (7.8-10.44); Carbon Dioxide 19 mmol/L (23-31); Chloride 101 mmol/L (98-107); Estimated GFR 7; Globulin 3.3 g/dL (2.4-3.5); Glucose 157 mg/dL (80-115); Lipase 6 U/L (8-78); Magnesium 2.8 mg/dL (1.6-2.6); Potassium 4.1 mmol/L (3.5-5.1); Protein, Total 7.1 g/dL (5.8-8.1); Sodium 139 mmol/L (136-145)
[2022-02-07 10:08] LABS: Anion Gap 23 mmol/L (10-20)
[2022-02-07 10:25] LABS: CKMB 2.7 ng/mL (0-6.6)
[2022-02-07 10:47] LABS: Bacteria/HPF 2+ HPF (None Seen); Bilirubin Negative (Negative); Blood, Urine 1+ (Negative); Clarity Turbid (Clear); Glucose, Urine (Dipstick) 200 mg/dL (Negative); Ketone, Urine Trace mg/dL (Negative); Leukocyte 500 Leu/uL (Negative); Nitrite Negative (Negative); Protein, Urine (Dipstick) 70 mg/dL (Neg-Trace); RBC/HPF 0-3 HPF (0-3); Squamous Epithelial 0-3 HPF (0-3); Urobilinogen Normal mg/dL (Less than 2); WBC/HPF Greater than 50 HPF (0-3); pH, Urine 7.5 (5.0-9.0)
[2022-02-07 10:50] LABS: Actual Bicarbonate (HCO3v) 21 mEq/L (22-28); Analyzer IN Cardio ER; Base Excess -4.1 mEq/L (-2.0 to +3.0); Calcium, Ionized (venous) 1.25 mmol/L (1.16-1.32); Chloride (VBG) 101 mmol/L (98-106); Hemoglobin (Hb) 9.1 g/dL (12.6-17.4); Potassium (VBG) 4.08 mmol/L (3.70-5.30); Sodium 135.9 mmol/L (133-146); pH (venous) 7.37 (7.32-7.43)
== END 2022-02-07 12:28 | disposition home or self-care (01) ==
LOC: ERS 08:15
DX: R11.2 Nausea with vomiting, unspecified (principal); I12.0 Hypertensive chronic kidney disease with stage 5 chronic kidney disease or end stage renal disease; N18.6 End stage renal disease; Z86.73 Personal history of transient ischemic attack (TIA), and cerebral infarction without residual deficits; Z87.891 Personal history of nicotine dependence; Z79.82 Long term (current) use of aspirin; Z79.899 Other long term (current) drug therapy
CPT/HCPCS: 36415; 80053; 81003; 81015; 82553; 82805; 83605; 83690; 83735; 84484; 85025; 93005; J2405